=== PATIENT | female | born 1955 | race African-American/Black ===

== ENCOUNTER 2025-06-06 12:21 | Emergency (ER) | payer MEDICARE, MEDICAID, SELFPAY ==
--- OUTSIDE RECORDS SUMMARY | 2010-05-09 08:00 | XMS_ITS | Continuity of Care Document ---
Author Organization [facility] Address [address] [place] [address] [address] [place] [address] Phone Care Team Providers Care Nurse Midwife Name Role Phone Sayra Ramirez Unavailable Unavailable Procedures Procedure Date Visual Field Examination(s) Office/outpatient Visit, Est Visual Field Examination(s) Eye Exam, New Patient Advance Directives Directive Yes / No Effective Date File Name No Information Encounters Encounter Description Practice Location Reason(s) For Visit Diagnoses Date Provider Providers Copied on Encounter [facility], [address] [place] [address] [address], [place], [place], [address], [place] tel:[phone] SEC [facility] No Information 2-201 0 Ashley Colbert. [address] [facility] [place] , [address], [place], [place], [facility], [place]. tel:[phone] Referring Provider: Alex Nichols OD D, [address] [facility], [place], [address]. tel:[phone] Office/outpat ient Visit, Est [facility], [address] [place] [address] [address], [place], [place], [address], [place] tel:[phone] SEC [facility] [place] No Information 5-200 7 Ashley Juan [address] [facility] [place] , [address], [place], [address], [place]. tel:[phone] [facility], [address] [place] [address] [address], [place], [place], [address], [place] tel:[phone] SEC [facility] No Information 200 7 Ashley Colbert. [address] [facility] , [address], [place], [address], . tel:[phone] Referring Provider: Sukumar Harman [facility] [address], [place], [facility]. tel:[phone] [facility], [address] [place] [address], [place], [place], [address], tel:[phone] SEC [facility] [place] No Information 7 Ashley Colbert. [address] [facility] , [address], [place], [address], . tel:[phone] Family History Family Member Type Diagnosis Age At Onset No Information Payers Payer name Insurance type Covered republican ID Authoriza tion(s) Medicaid [facility] [id number] Social History Type Description Quantity Date Captured Comments Sex Female Smoking Status No Information Chief Complaint And Reason For Visit No Information Reason For Referral Reason For Referral No Information History Of Present Illness Encounter Date Complaint History Of Prese nt Illness No Information Functional Status Date Functional Assessmen t No Information Instructions Date Instruction Additional Infor mation No Information Assessments Type Assessment Date No Information Patient Care Teams Name Effective Dates (start - stop) Status Members No Information
--- OUTSIDE RECORDS SUMMARY | 2010-05-09 08:00 | XMS_ITS | Continuity of Care Document ---
Author Organization [facility] Address [address] [place] [address] [address] [place] [address] Phone Care Team Providers Care Irrigationist Name Role Phone Sayra Ramirez Unavailable Unavailable Procedures Procedure Date Visual Field Examination(s) Office/outpatient Visit, Est Visual Field Examination(s) Eye Exam, New Patient Advance Directives Directive Yes / No Effective Date File Name No Information Encounters Encounter Description Practice Location Reason(s) For Visit Diagnoses Date Provider Providers Copied on Encounter [facility], [address] [place] [address] [address], [place], [place], [address], [place] tel:[phone] SEC [facility] No Information 2-201 0 Ashley Colbert. [address] [facility] [place] , [address], [place], [place], [facility], [place]. tel:[phone] Referring Provider: Alex Nichols OD D, [address] [facility], [place], [address]. tel:[phone] Office/outpat ient Visit, Est [facility], [address] [place] [address] [address], [place], [place], [address], [place] tel:[phone] SEC [facility] [place] No Information 5-200 7 Ashley Juan [address] [facility] [place] , [address], [place], [address], [place]. tel:[phone] [facility], [address] [place] [address] [address], [place], [place], [address], [place] tel:[phone] SEC [facility] No Information 200 7 Ashley Colbert. [address] [facility] , [address], [place], [address], . tel:[phone] Referring Provider: Sukumar Harman [facility] [address], [place], [facility]. tel:[phone] [facility], [address] [place], [place], [place], [address], tel:[phone] SEC [facility] [place] No Information 7 Ashley Colbert. [address] [facility] , [address], [place], [address], . tel:[phone] Family History Family Member Type Diagnosis Age At Onset No Information Payers Payer name Insurance type Covered republican ID Authoriza tion(s) Medicaid [facility] [id number] Social History Type Description Quantity Date Captured [...]
--- OUTSIDE RECORDS SUMMARY | 2010-05-09 08:00 | XMS_ITS | Continuity of Care Document ---
Author Organization [facility] Address [address] [place] [address] [address] [place] [address] Phone Care Team Providers Care Galvanometer Assembler Name Role Phone Sayra Ramirez Unavailable Unavailable Procedures Procedure Date Visual Field Examination(s) Office/outpatient Visit, Est Visual Field Examination(s) Eye Exam, New Patient Advance Directives Directive Yes / No Effective Date File Name No Information Encounters Encounter Description Practice Location Reason(s) For Visit Diagnoses Date Provider Providers Copied on Encounter [facility], [address] [place] [address] [address], [place], [place], [address], [place] tel:[phone] SEC [facility] No Information 2-201 0 Ashley Colbert. [address] [facility] [place] , [address], [place], [place], [facility], [place]. tel:[phone] Referring Provider: Alex Nichols OD D, [address] [place] [facility] C, [place], [address]. tel:[phone] Office/outpat ient Visit, Est [facility], [address] [place] [address] [address], [place], [place], [address], [place] tel:[phone] SEC [facility] [place] No Information 5-200 7 Ashley Juan [address] [facility] [place] , [address], [place], [address], [place]. tel:[phone] [facility], [address] [place] [address] [address], [place], [place], [address], [place] tel:[phone] SEC [facility] No Information 200 7 Ashley Colbert. [address] [facility] , [address], [place], [address], . tel:[phone] Referring Provider: Sukumar Harman [facility] [address], [place], [facility]. tel:[phone] [facility], [address], [place], [place], [address], tel:[phone] SEC [facility] [place] No Information 7 Ashley Colbert. [address] [facility] , [address], [place], [address], . tel:[phone] Family History Family Member Type Diagnosis Age At Onset No Information Payers Payer name Insurance type Covered libertarian ID Authoriza tion(s) Medicaid [facility] [id number] Social History Type Description Quantity Date Captured [...]
--- OUTSIDE RECORDS SUMMARY | 2010-05-09 08:00 | XMS_ITS | Continuity of Care Document ---
Author Organization [facility] Address [address] [place] [address] [address] [place] [address] Phone Care Team Providers Care Manager Housekeeping Name Role Phone Sayra Ramirez Unavailable Unavailable Procedures Procedure Date Visual Field Examination(s) Office/outpatient Visit, Est Visual Field Examination(s) Eye Exam, New Patient Advance Directives Directive Yes / No Effective Date File Name No Information Encounters Encounter Description Practice Location Reason(s) For Visit Diagnoses Date Provider Providers Copied on Encounter [facility], [address] [place] [address] [address], [place], [place], [address], [place] tel:[phone] SEC [facility] No Information 2-201 0 Ashley Colbert. [address] [facility] [place] , [address], [place], [place], [facility], [place]. tel:[phone] Referring Provider: Alex Nichols OD D, [address] [facility] C, [place], [address]. tel:[phone] Office/outpat ient Visit, Est [facility], [address] [place] [address] [address], [place], [place], [address], [place] tel:[phone] SEC [facility] [place] No Information 5-200 7 Ashley Juan [address] [facility] [place] , [address], [place], [address], [place]. tel:[phone] [facility], [address] [place] [address] [address], [place], [place], [address], [place] tel:[phone] SEC [facility] No Information 200 7 Ashley Colbert. [address] [facility] , [address], [place], [address], . tel:[phone] Referring Provider: Sukumar Harman [facility] [address], [place], [place], [facility]. tel:[phone] [facility], [address], [place], [place], [address], tel:[phone] SEC [facility] [place] No Information 7 Ashley Colbert. [address] [facility] , [address], [place], [address], . tel:[phone] Family History Family Member Type Diagnosis Age At Onset No Information Payers Payer name Insurance type Covered republican ID Authoriza tion(s) Medicaid [facility] [id number] Social History Type Description Quantity Date Captured [...]
--- OUTSIDE RECORDS SUMMARY | 2010-05-09 08:00 | XMS_ITS | Continuity of Care Document ---
Author Organization [facility] Address [address] [place] [address] [address] [place] [address] Phone Care Team Providers Care Community Health Nurse Supervisor Name Role Phone Sayra Ramirez Unavailable Unavailable Procedures Procedure Date Visual Field Examination(s) Office/outpatient Visit, Est Visual Field Examination(s) Eye Exam, New Patient Advance Directives Directive Yes / No Effective Date File Name No Information Encounters Encounter Description Practice Location Reason(s) For Visit Diagnoses Date Provider Providers Copied on Encounter [facility], [address] [place] [address] [address], [place], [place], [address], [place] tel:[phone] SEC [facility] No Information 2-201 0 Ashley Colbert. [address] [facility] [place] , [address], [place], [place], [facility], [place]. tel:[phone] Referring Provider: Alex Nichols OD D, [address] [facility] C, [place], [address]. tel:[phone] Office/outpat ient Visit, Est [facility], [address] [place] [address] [address], [place], [place], [address], [place] tel:[phone] SEC [facility] [place] No Information 5-200 7 Ashley Juan [address] [facility] [place] , [address], [place], [address], [place]. tel:[phone] [facility], [address] [place] [address] [address], [place], [place], [address], [place] tel:[phone] SEC [facility] No Information 200 7 Ashley Colbert. [address] [facility] , [address], [place], [address], . tel:[phone] Referring Provider: Sukumar Harman [facility] [address], [place], [place], [facility] [place] [facility]. tel:[phone] [facility], [address], [place], [place], [address], tel:[phone] SEC [facility] [place] No Information 7 Ashley Colbert. [address] [facility] , [address], [place], [address], . tel:[phone] Family History Family Member Type Diagnosis Age At Onset No Information Payers Payer name Insurance type Covered libertarian ID Authoriza tion(s) Medicaid [facility] [id number] Social History Type Description Quantity Date Captured [...]
--- OUTSIDE RECORDS SUMMARY | 2010-05-09 08:00 | XMS_ITS | Continuity of Care Document ---
Author Organization [facility] Address [address] [place] [address] [address] [place] [address] Phone Care Team Providers Care Dye Tub Tender Name Role Phone Sayra Ramirez Unavailable Unavailable Procedures Procedure Date Visual Field Examination(s) Office/outpatient Visit, Est Visual Field Examination(s) Eye Exam, New Patient Advance Directives Directive Yes / No Effective Date File Name No Information Encounters Encounter Description Practice Location Reason(s) For Visit Diagnoses Date Provider Providers Copied on Encounter [facility], [address] [place] [address] [address], [place], [place], [address], [place] tel:[phone] SEC [facility] No Information 2-201 0 Ashley Colbert. [address] [facility] [place] , [address], [place], [place], [facility], [place]. tel:[phone] Referring Provider: Alex Nichols OD D, [address] [facility] C, [place], [address]. tel:[phone] Office/outpat ient Visit, Est [facility], [address] [place] [address] [address], [place], [place], [address], [place] tel:[phone] SEC [facility] [place] No Information 5-200 7 Ashley Juan [address] [facility] [place] , [address], [place], [address], [place]. tel:[phone] [facility], [address] [place] [address] [address], [place], [place], [address], [place] tel:[phone] SEC [facility] No Information 200 7 Ashley Colbert. [address] [facility] , [address], [place], [address], . tel:[phone] Referring Provider: Sukumar Harman [facility] [address], [place], [facility]. tel:[phone] [facility], [address] [place] [address], [place], [place], [address], tel:[phone] [facility] [place] No Information 7 Ashley Colbert. [address] [facility] , [address], [place], [address], . tel:[phone] Family History Family Member Type Diagnosis Age At Onset No Information Payers Payer name Insurance type Covered democrat ID Authoriza tion(s) Medicaid [facility] [id number] Social History Type Description Quantity Date Captured [...]
--- OUTSIDE RECORDS SUMMARY | 2010-05-09 08:00 | XMS_ITS | Continuity of Care Document ---
Author Organization [facility] Address [address] [place] [address] [address] [place] [address] Phone Care Team Providers Care Bonding Machine Tender Name Role Phone Sayra Ramirez Unavailable Unavailable Procedures Procedure Date Visual Field Examination(s) Office/outpatient Visit, Est Visual Field Examination(s) Eye Exam, New Patient Advance Directives Directive Yes / No Effective Date File Name No Information Encounters Encounter Description Practice Location Reason(s) For Visit Diagnoses Date Provider Providers Copied on Encounter [facility], [address] [place] [address] [address], [place], [place], [address], [place] tel:[phone] SEC [facility] No Information 2-201 0 Ashley Colbert. [address] [facility] [place] , [address], [place], [place], [facility], [place]. tel:[phone] Referring Provider: Alex Nichols OD D, [address] [facility], [place], [address]. tel:[phone] Office/outpat ient Visit, Est [facility], [address] [place] [address] [address], [place], [place], [address], [place] tel:[phone] SEC [facility] [place] No Information 5-200 7 Ashley Juan [address] [facility] [place] , [address], [place], [address], [place]. tel:[phone] [facility], [address] [place] [address] [address], [place], [place], [address], [place] tel:[phone] SEC [facility] No Information 200 7 Ashley Colbert. [address] [facility] , [address], [place], [address], . tel:[phone] Referring Provider: Sukumar Harman [facility] [address], [place], [facility]. tel:[phone] [facility], [address] [place] [address], [place], [place], [address], tel:[phone] SEC [facility] [place] No Information 7 Ashley Colbert. [address] [facility] , [address], [place], [address], . tel:[phone] Family History Family Member Type Diagnosis Age At Onset No Information Payers Payer name Insurance type Covered democrat ID Authoriza tion(s) Medicaid [facility] [id number] Social History Type Description Quantity Date Captured [...]
--- OUTSIDE RECORDS SUMMARY | 2010-05-09 08:00 | XMS_ITS | Continuity of Care Document ---
Author Organization [facility] Address [address] [place] [address] [address] [place] [address] Phone Care Team Providers Care Waste Hand Name Role Phone Sayra Ramirez Unavailable Unavailable Procedures Procedure Date Visual Field Examination(s) Office/outpatient Visit, Est Visual Field Examination(s) Eye Exam, New Patient Advance Directives Directive Yes / No Effective Date File Name No Information Encounters Encounter Description Practice Location Reason(s) For Visit Diagnoses Date Provider Providers Copied on Encounter [facility], [address] [place] [address] [address], [place], [place], [address], [place] tel:[phone] SEC [facility] No Information 2-201 0 Ashley Colbert. [address] [facility] [place] , [address], [place], [place], [facility], [place]. tel:[phone] Referring Provider: Alex Nichols OD D, [address] [facility], [place], [address]. tel:[phone] Office/outpat ient Visit, Est [facility], [address] [place] [address] [address], [place], [place], [address], [place] tel:[phone] SEC [facility] [place] No Information 5-200 7 Ashley Juan [address] [facility] [place] , [address], [place], [address], [place]. tel:[phone] [facility], [address] [place] [address] [address], [place], [place], [address], [place] tel:[phone] SEC [facility] No Information 200 7 Ashley Colbert. [address] [facility] , [address], [place], [address], . tel:[phone] Referring Provider: Sukumar Harman [facility] [address], [place], [facility]. tel:[phone] [facility], [address] [place] [address], [place], [place], [address], tel:[phone] SEC [facility] [place] No Information 7 Ashley Colbert. [address] [facility] , [address], [place], [address], . tel:[phone] Family History Family Member Type Diagnosis Age At Onset No Information Payers Payer name Insurance type Covered alliance party ID Authoriza tion(s) Medicaid [facility] [id number] Social History Type Description Quantity Date Captured [...]
--- OUTSIDE RECORDS SUMMARY | 2010-05-09 08:00 | XMS_ITS | Continuity of Care Document ---
Author Organization [facility] Address [address] [place] [address] [address] [place] [address] Phone Care Team Providers Care C Consultant Name Role Phone Sayra Ramirez Unavailable Unavailable Procedures Procedure Date Visual Field Examination(s) Office/outpatient Visit, Est Visual Field Examination(s) Eye Exam, New Patient Advance Directives Directive Yes / No Effective Date File Name No Information Encounters Encounter Description Practice Location Reason(s) For Visit Diagnoses Date Provider Providers Copied on Encounter [facility], [address] [place] [address] [address], [place], [place], [address], [place] tel:[phone] SEC [facility] No Information 2-201 0 Ashley Colbert. [address] [facility] [place] , [address], [place], [place], [facility], [place]. tel:[phone] Referring Provider: Alex Nichols OD D, 35[address] [facility] C, [place], [address]. tel:[phone] Office/outpat ient Visit, Est [facility], [address] [place] [address] [address], [place], [place], [address], [place] tel:[phone] SEC [facility] [place] No Information 5-200 7 Ashley Juan [address] [facility] [place] , [address], [place], [address], [place]. tel:[phone] [facility], [address] [place] [address] [address], [place], [place], [address], [place] tel:[phone] SEC [facility] No Information 200 7 Ashley Colbert. [address] [facility] , [address], [place], [address], . tel:[phone] Referring Provider: Sukumar Harman [facility] [address], [place], [place], [facility]. tel:[phone] [facility], [address] [place] [address], [place], [place], [address], tel:[phone] SEC [facility] [place] No Information 7 Ashley Colbert. [address] [facility] , [address], [place], [address], . tel:[phone] Family History Family Member Type Diagnosis Age At Onset No Information Payers Payer name Insurance type Covered green party ID Authoriza tion(s) Medicaid [facility] [id number] Social History Type Description Quantity Date Captured [...]
--- OUTSIDE RECORDS SUMMARY | 2010-05-09 08:00 | XMS_ITS | Continuity of Care Document ---
Author Organization [facility] Address [address] [place] [address] [address] [place] [address] Phone Care Team Providers Care Perfume Maker Name Role Phone Sayra Ramirez Unavailable Unavailable Procedures Procedure Date Visual Field Examination(s) Office/outpatient Visit, Est Visual Field Examination(s) Eye Exam, New Patient Advance Directives Directive Yes / No Effective Date File Name No Information Encounters Encounter Description Practice Location Reason(s) For Visit Diagnoses Date Provider Providers Copied on Encounter [facility], [address] [place] [address] [address], [place], [place], [address], [place] tel:[phone] SEC [facility] No Information 2-201 0 Ashley Colbert. [address] , [address], [place], [place], [facility], [place]. tel:[phone] Referring Provider: Alex Nichols OD D, [address] [facility] [address], [place], [address]. tel:[phone] Office/outpat ient Visit, Est [facility], [address] [place] [address] [address], [place], [place], [address], [place] tel:[phone] [facility] [place] No Information 5-200 7 Ashley Juan [address] , [address], [place], [address], [place]. tel:[phone] [facility], [address] [place] [address] [address], [place], [place], [address], [place] tel:[phone] SEC [facility] No Information 200 7 Ashley Colbert. [address] [facility] , [address], [place], [address], . tel:[phone] Referring Provider: Sukumar Harman [facility] [address], [place], [place], [facility]. tel:[phone] [facility], [address], [place], [place], [address], tel:[phone] [facility] [place] No Information 7 Ashley Colbert. [address] [facility] , [address], [place], [address], . tel:[phone] Family History Family Member Type Diagnosis Age At Onset No Information Payers Payer name Insurance type Covered libertarian ID Authoriza tion(s) Medicaid [facility] [id number] Social History Type Description Quantity Date Captured [...]
--- OUTSIDE RECORDS SUMMARY | 2010-05-09 08:00 | XMS_ITS | Continuity of Care Document ---
Author Organization [facility] Address [address] [place] [address] [address] [place] [address] Phone Care Team Providers Care Form Tamper Name Role Phone Sayra Ramirez Unavailable Unavailable Procedures Procedure Date Visual Field Examination(s) Office/outpatient Visit, Est Visual Field Examination(s) Eye Exam, New Patient Advance Directives Directive Yes / No Effective Date File Name No Information Encounters Encounter Description Practice Location Reason(s) For Visit Diagnoses Date Provider Providers Copied on Encounter [facility], [address] [place] [address] [address], [place], [place], [address], [place] tel:[phone] SEC [facility] No Information 2-201 0 Ashley Colbert. [address] , [address], [place], [place], [facility], [place]. tel:[phone] Referring Provider: Alex Nichols OD D, [address] [facility], [place], [address]. tel:[phone] Office/outpat ient Visit, Est [facility], [address] [place] [address] [address], [place], [place], [address], [place] tel:[phone] [facility] [place] No Information 5-200 7 Ashley Juan [address] , [address], [place], [address], [place]. tel:[phone] [facility], [address] [place] [address] [address], [place], [place], [address], [place] tel:[phone] SEC [facility] No Information 200 7 Ashley Colbert. [address] [facility] , [address], [place], [address], . tel:[phone] Referring Provider: Sukumar Harman [facility] [address], [place], [facility]. tel:[phone] [facility], [address], [place], [place], [address], tel:[phone] [facility] [place] No Information 7 Ashley Colbert. [address] [facility] , [address], [place], [address], . tel:[phone] Family History Family Member Type Diagnosis Age At Onset No Information Payers Payer name Insurance type Covered alliance party ID Authoriza tion(s) Medicaid [facility] [id number] Social History Type Description Quantity Date Captured [...]
--- OUTSIDE RECORDS SUMMARY | 2010-05-09 08:00 | XMS_ITS | Continuity of Care Document ---
Author Organization [facility] Address [address] [place] [address] [address] [place] [address] Phone Care Team Providers Care Customer Service Cashier Name Role Phone Sayra Ramirez Unavailable Unavailable Procedures Procedure Date Visual Field Examination(s) Office/outpatient Visit, Est Visual Field Examination(s) Eye Exam, New Patient Advance Directives Directive Yes / No Effective Date File Name No Information Encounters Encounter Description Practice Location Reason(s) For Visit Diagnoses Date Provider Providers Copied on Encounter [facility], [address] [place] [address] [address], [place], [place], [address], [place] tel:[phone] SEC [facility] No Information 2-201 0 Ashley Colbert. [address] [facility] [place] , [address], [place], [place], [facility], [place]. tel:[phone] Referring Provider: Alex Nichols OD D, [address] [facility] [address], [place], [address]. tel:[phone] Office/outpat ient Visit, Est [facility], [address] [place] [address] [address], [place], [place], [address], [place] tel:[phone] SEC [facility] [place] No Information 5-200 7 Ashley Juan [address] [facility] [place] , [address], [place], [address], [place]. tel:[phone] [facility], [address] [place] [address] [address], [place], [place], [address], [place] tel:[phone] SEC [facility] No Information 200 7 Ashley Colbert. [address] [facility] , [address], [place], [address], . tel:[phone] Referring Provider: Sukumar Harman [facility] [address], [place], [facility]. tel:[phone] [facility], [address], [place], [place], [address], tel:[phone] [facility] [place] No Information 7 Ashley Colbert. [address] [facility] , [address], [place], [address], . tel:[phone] Family History Family Member Type Diagnosis Age At Onset No Information Payers Payer name Insurance type Covered libertarian ID Authoriza tion(s) Medicaid [facility] [id number] Social History Type Description Quantity Date Captured [...]
--- OUTSIDE RECORDS SUMMARY | 2010-05-09 08:00 | XMS_ITS | Continuity of Care Document ---
Author Organization [facility] Address [address] [place] [address] [address] [place] [address] Phone Care Team Providers Care Engineer Second Assistant Name Role Phone Sayra Ramirez Unavailable Unavailable Procedures Procedure Date Visual Field Examination(s) Office/outpatient Visit, Est Visual Field Examination(s) Eye Exam, New Patient Advance Directives Directive Yes / No Effective Date File Name No Information Encounters Encounter Description Practice Location Reason(s) For Visit Diagnoses Date Provider Providers Copied on Encounter [facility], [address] [place] [address] [address], [place], [place], [address], [place] tel:[phone] SEC [facility] No Information 2-201 0 Ashley Colbert. [address] [facility] [place] , [address], [place], [place], [facility], [place]. tel:[phone] Referring Provider: Alex Nichols OD D, [address] [facility] [address], [place], [address]. tel:[phone] Office/outpat ient Visit, Est [facility], [address] [place] [address] [address], [place], [place], [address], [place] tel:[phone] [facility] [place] No Information 5-200 7 Ashley Juan [address] [facility] [place] , [address], [place], [address], [place]. tel:[phone] [facility], [address] [place] [address] [address], [place], [place], [address], [place] tel:[phone] SEC [facility] No Information 200 7 Ashley Colbert. [address] [facility] , [address], [place], [address], . tel:[phone] Referring Provider: Sukumar Harman [facility] [address], [place], [place], [facility]. tel:[phone] [facility], [address] [place] [address], [place], [place], [address], tel:[phone] [facility] [place] No Information 7 Ashley Colbert. [address] [facility] , [address], [place], [address], . tel:[phone] Family History Family Member Type Diagnosis Age At Onset No Information Payers Payer name Insurance type Covered constitution party ID Authoriza tion(s) Medicaid [facility] [id number] Social History Type Description Quantity Date Captured [...]
--- OUTSIDE RECORDS SUMMARY | 2024-10-13 08:00 | XMS_ITS ---
Author Organization [facility] Address [address] [place] [address] Care Team Providers Care Electrician Shop Name Role Phone Henri Neno Unavailable [phone] Problems Problem Type SNOMED Code ICD Code Onset Dates Problem Status W/U Status Risk Notes Problem Diabetic renal disease (846464699) Type 2 diabetes mellitus with diabetic chronic kidney disease (E11.22) Active confirmed Problem Essential hypertension (08632797) Essential hypertension (I10) Active confirmed Problem Tobacco use (659982123) Tobacco use (Z72.0) Active confirmed Problem Coronary artery disease (45065878) CAD (coronary artery disease) (I25.10) Active confirmed Problem Blindness, one eye, unspecified eye (H54.40) Active confirmed Problem Acute bronchitis (76248590) Acute bronchitis, unspecified (J20.9) Active confirmed Problem Heart failure (36008969) Heart failure, unspecified (I50.9) Active confirmed Problem Proteinuria (24623559) Proteinuria, unspecified (R80.9) Active confirmed Encounters Encounter Location Date Provider Diagnosis [place] [facility] [address] [facility] [address] [place] [address] 10/13/2024 Neno Álvarez Chronic kidney disease, stage [...] Notes * TYLER ECKERTB:1955 (69 yo F)Acc No.[id number]:10/13/2024 Progress Notes Patient: SALAS CH Provider: Ebony PULIDO MD, F.A.C.P, F.A.S.N. :1955 A ge:69 Y S ex:Female Date:10/13/2024 Address:[address] [place] [address] Subjective: * Chief Complaints: * * Medical [...] Treatment: * Billing Information: * Visit Code: 94002 Office Visit, New Pt., Level 5. * Procedure Codes: * Electronic signature of Kate Álvarez MD on 06/07/2025 at 12:36 AM INVENTORY CONTROL PLANNER Sign off status: Pending * Provider: Ebony PULIDO MD, F.A.C.P, F.A.S.N. Date: 0 10/13/2024 Generated for Printing/Faxing/eTransmitting on: 1 08/07/2024 12:36 AM INVENTORY CONTROL PLANNER
--- OUTSIDE RECORDS SUMMARY | 2024-11-03 07:30 | XMS_ITS ---
Author Organization [facility] Address [address] [place] [address] Care Team Providers Care End Lathe Operator Name Role Phone Henri Neno Unavailable [phone] Encounters Encounter Location Date Provider Diagnosis [place] [facility] [address] [facility] [address] [place] [address] 11/03/2024 Neno Álvarez Plan Of Treatment No Information Progress Notes * HANS ECKERTADOB:1955 (69 yo F)Acc No.[id number]:11/03/2024 Progress Notes Patient: SALAS CH Provider: Ebony PULIDO MD, Stephanie.Jhonatan.C.P, F.A.S.N. :1955 A ge:69 Y S ex:Female Date:11/03/2024 Address:[address] [place], [place] [phone] Subjective: * Chief Complaints: * * Medical History: Objective: * Vitals: Assessment: Plan: * Treatment: * Billing Information: * Visit Code: * Procedure Codes: * Electronic signature of Kate Álvarez MD on 06/07/2025 at 12:36 AM CABLE TECHNICIAN Sign off status: Pending * Provider: Ebony PULIDO MD, F.Jhonatan.C.P, F.A.S.N. Date: 0 11/03/2024 Generated for Printing/Faxing/eTransmitting on: 08/07/2024 12:36 AM CABLE TECHNICIAN
--- OUTSIDE RECORDS SUMMARY | 2024-11-24 07:00 | XMS_ITS ---
Author Organization [facility] Address [address] [address] Care Team Providers Care Blacktop Paver Operator Name Role Phone Felix Álvarezjit Unavailable [phone] Problems Problem Type SNOMED Code ICD Code Onset Dates Problem Status W/U Status Risk Notes Problem Chronic kidney disease stage 2 (013417953) Chronic kidney disease, stage 2 (mild) (N18.2) Active confirmed Encounters Encounter Location Date Provider Diagnosis [place] [facility] 2043 [facility] 15 [place] [address] 11/24/2024 Neno Álvarez Chronic kidney disease, stage [...] Notes * HANS ECKERTADOB:1955 (69 yo F)Acc No.[id number]:11/24/2024 Progress Notes Patient: SALAS CH Provider: Ebony PULIDO MD, Stephanie.Jhonatan.Madelin.P, F.A.S.N. :1955 A ge:69 Y S ex:Female Date:11/24/2024 Address:[address] [place], [place] [phone] Subjective: * Chief Complaints: * * Medical [...] Treatment: * Billing Information: * Visit Code: 59451 Office Visit, Est Pt., Level 4. * Procedure Codes: * Electronic signature of Kate Álvarez MD on 06/07/2025 at 12:34 AM LITHOGRAPHIC STRIPPER Sign off status: Pending * Provider: Ebony PULIDO MD, F.Jhonatan.C.P, F.A.S.N. Date: 0 11/24/2024 Generated for Printing/Faxing/eTransmitting on: 08/07/2024 12:34 AM LITHOGRAPHIC STRIPPER
--- OUTSIDE RECORDS SUMMARY | 2025-04-28 04:51 | XMS_ITS | Continuity of Care Document ---
Author Organization [facility] Address [address] [place] [phone] Phone Care Team Providers Care Stave Machine Tender Name Role Phone Donny AGUILAR, FACC, Gomez Unavailable Unavail able Allergies, Adverse Reactions, Alerts Substance Reaction Status Criticality PENICILLIN Active No Information Medications Medication Instructions Dosage Effective Dates (start - stop) Status Comments metoprolol succinate ER 200 mg tablet,extended release 24 hr Take 1 pill once daily - Active Entresto 97 mg-103 mg tablet take 1 tablet by mouth twice daily - Active atorvastatin 80 mg tablet Take one tablet once daily at night - Active ezetimibe 10 mg tablet TAKE 1 TABLET BY MOUTH EVERY DAY - Active isosorbide mononitrate ER 30 mg tablet,extended release 24 hr TAKE 1 TABLET BY MOUTH DAILY - Active amitriptyline 75 mg tablet TAKE 1 TABLET BY MOUTH EVERY DAY AT BEDTIME - Active amoxicillin 500 mg capsule TAKE 1 CAPSULE BY MOUTH FOUR TIMES DAILY UNTIL ALL TAKEN - Active clindamycin HCl 300 mg capsule - Active ciprofloxacin 500 mg tablet TAKE 1 TABLET BY MOUTH TWICE DAILY FOR 7 DAYS - Active methylprednisolone 4 mg tablets in a dose pack - Active zolpidem 5 mg tablet - Activ e duloxetine 30 mg capsule,delayed release - Active diclofenac 1 % topical gel - Active rizatriptan 10 mg disintegrating tablet DISSOLVE 1 TABLET ON THE TONGUE 1 TIME NEEDED FOR MIGRAINE HEADACHE - Active pregabalin 100 mg capsule - Active calcitriol 0.25 mcg capsule TAKE 1 CAPSULE BY MOUTH DAILY - Active amlodipine 10 mg tablet - Ac tive insulin glargine-yfgn (U-100) 100 unit/mL (3 mL) subcutaneous pen INJECT 40 UNITS UNDER THE SKIN AT BEDTIME - Active metoclopramide 10 mg tablet - Active furosemide 40 mg tablet - Ac tive Farxiga 10 mg tablet TAKE 1 TABLET BY MOUTH DAILY - Active benzonatate 100 mg capsule TAKE 1 CAPSULE BY MOUTH THREE TIMES DAILY NEEDED FOR COUGH - Active levofloxacin 750 mg tablet - Active furosemide 20 mg tablet TAKE 1 TABLET BY MOUTH EVERY DAY - Active spironolactone 25 mg tablet TAKE 1 TABLET BY MOUTH EVERY DAY - Active tramadol 50 mg tablet TAKE 1 TABLET BY MOUTH EVERY 6 HOURS NEEDED FOR PAIN - Active metoprolol succinate ER 200 mg tablet,extended release 24 hr Take 1 pill once daily - No Longer Active Procedures Procedure Date Complex e/m visit add on OFFICE/OUTPATIENT VISIT, NEW ELECTROCARDIOGRAM, COMPLETE CARDIOVASCULAR STRESS TEST CARDIOVASCULAR STRESS TEST [facility]SEQU[facility]PITAL CARE IN[facility]IAL HOSPITAL CARE Advance Directives Directive Yes / No Effective Date File Name No Information Encounters Encounter Description Practice Location Reason(s) For Visit Diagnoses Date Provider Providers Copied on Encounter [facility], [address] [place] [address], [id number] , tel: [phone] [facility] Yasmine No Information Donny Dyer. [address] [place] [address], [place], [place], [id number] , . tel: [phone] [facility], [address] [place] [address], [id number] , tel: [phone] [facility] No Information 5 Donny Dyer. [address] [place] [address], [id number] , . tel: [phone] OFFICE/OUTPA TIENT VISIT, [facility], [address] [place] [address], [id number] , tel: [phone] [facility] Follow Up of hospital visit (chief complaint) chest pain (pressure) (chief complaint) CAD of [place] coronary artery w/o angina pectorisType 2 diabetes mellitus without complicationsHyperlip idemiaHTNCHFSinusal tachycardiaCardiomyop athyTobacco use 5 Donny Dyer. [address] [place] [address], [id number] , . tel: [phone] Referring Provider: Gomez Hines, [address] [place] [address], [place], [address] . tel:[phone] [facility], [address] [place] [address], [id number] , tel: [phone] [facility] No Information 5 Maria T Patiño. [address] [place] [address], [id number] , . tel: [phone] Referring Provider: Haroon Live, [address] [place] [address], [id number] . tel:[phone] [facility], [address] [place] [address], [id number] , tel: [phone] [facility] Inpt Chest pain, unspecifiedAthscl heart disease of [place] cor art w oth ang pctrsEssential (primary) hypertension 5 Maria T Patiño. [address] [place] [address], [id number] , . tel: [phone] Referring Provider: Jerry Crespo, [address] [place], [address] . tel:[phone] [facility], [address] [facility], [place], [place], [id number] , tel: [phone] [facility] Inpt Chest pain, unspecifiedAthscl heart disease of [place] cor art w oth ang pctrsEssential (primary) hypertension Ramadan Jose Angel. [address] [place] [address], [place], [place], [id number] , [place]. tel: [phone] Family History Family Member Type Diagnosis Age At Onset Mother Problem (finding) Heart disease Payers Payer name Insurance type Covered constitution party ID Authoralyxa miguel ángel(s) [facility] COMPLETE CARE 001A O C [id number] Social History Type Description Quantity Date Captured Comments Sex Female Smoking Status No Information Chief Complaint And Reason For Visit No Information Reason For Referral Reason For Referral No Information Plan Of Treatment Date Type Action Status Appointment Mirela Leon BOOKED History Of Present Illness Encounter Date Complaint History Of Prese nt Illness Follow Up of hospital visit chest pain (pressure) Functional Status Date Functional Assessmen t No Information Instructions Date Instruction Additional Infor mation No Information Assessments Type Assessment Date No Information Patient Care Teams Name Effective Dates (start - stop) Status Members No Information
--- OUTSIDE RECORDS SUMMARY | 2025-04-28 04:51 | XMS_ITS | Continuity of Care Document ---
Author Organization [facility] Address [address] [place] [phone] Phone Care Team Providers Care Skip Hoist Operator Name Role Phone Donny AGUILAR, FACC, Gomez [...] Diagnoses Date Provider Providers Copied on Encounter [facility], [address] [place] [address], [id number] , tel: [phone] [facility] Yasmine No Information Donny Dyer. [address] [place] [address], [place], [place], [id number] , . tel: [phone] [facility], [address] [place] [address], [id number] , tel: [phone] [facility] No Information 5 Donny Dyer. [address] [place] [address], [id number] , . tel: [phone] OFFICE/OUTPA TIENT VISIT, [facility], [address] [place] [address], [id number] , tel: [phone] [facility] Follow Up of hospital visit (chief complaint) chest pain (pressure) (chief complaint) CAD of [place] coronary artery w/o angina pectorisType 2 diabetes mellitus without complicationsHyperlip idemiaHTNCHFSinusal tachycardiaCardiomyop athyTobacco use 5 Donny Dyer. [address] [place] [address], [id number] , . tel: [phone] Referring Provider: Gomez Hines, [address] [place] [address], [place], [address] . tel:[phone] [facility], [address] [place] [address], [id number] , tel: [phone] [facility] No Information 5 Maria T Patiño. [address] [place] [address], [id number] , . tel: [phone] Referring Provider: Haroon Live, [address] [place] [address], [address] . tel:[phone] [facility], [address] [place] [address], [id number] , tel: [phone] [facility] Inpt Chest pain, unspecifiedAthscl heart disease of [place] cor art w oth ang pctrsEssential (primary) hypertension 5 Maria T Patiño. [address] [place] [address], [id number] , . tel: [phone] Referring Provider: Jerry Crespo, [address] [place], [address] . tel:[phone] [facility], [address] [facility], [place], [place], [id number] , tel: [phone] [facility] Inpt Chest pain, unspecifiedAthscl heart disease of [place] cor art w oth ang pctrsEssential (primary) hypertension Ramadan Jose Angel. [address] [place] [address], [place], [place], [id number] , [place]. tel: [phone] Family History Family Member Type Diagnosis Age At Onset Mother Problem (finding) Heart disease Payers Payer name Insurance type Covered constitution party ID Authoralyxa miguel ángel(s) [facility] COMPLETE CARE 001A O C [id number] Social History Type Description Quantity Date Captured [...]
--- OUTSIDE RECORDS SUMMARY | 2025-04-28 04:51 | XMS_ITS | Continuity of Care Document ---
Author Organization [facility] Address [address] [place] [phone] Phone Care Team Providers Care Senior Abap Developer Name Role Phone Donny AGUILAR, FACC, Gomez [...] Diagnoses Date Provider Providers Copied on Encounter [facility], [address] [place] [address], [id number] , tel: [phone] [facility] Yasmine No Information Donny Dyer. [address] [place] [address], [place], [place], [id number] , . tel: [phone] [facility], [address] [place] [address], [id number] , tel: [phone] [facility] No Information 5 Donny Dyer. [address] [place] [address], [id number] , . tel: [phone] OFFICE/OUTPA TIENT VISIT, [facility], [address] [place] [address], [id number] , tel: [phone] [facility] Follow Up of hospital visit (chief complaint) chest pain (pressure) (chief complaint) CAD of [place] coronary artery w/o angina pectorisType 2 diabetes mellitus without complicationsHyperlip idemiaHTNCHFSinusal tachycardiaCardiomyop athyTobacco use 5 Donny Dyer. [address] [place] [address], [id number] , . tel: [phone] Referring Provider: Gomez Hines, [address] [place] [address], [place], [address] . tel:[phone] [facility], [address] [place] [address], [id number] , tel: [phone] [facility] No Information 5 Maria T Patiño. [address] [place] [address], [id number] , . tel: [phone] Referring Provider: Haroon Live, [address] [place] [address], [address] . tel:[phone] [facility], [address] [place] [address], [id number] , tel: [phone] [facility] Inpt Chest pain, unspecifiedAthscl heart disease of [place] cor art w oth ang pctrsEssential (primary) hypertension 5 Maria T Patiño. [address] [place] [address], [id number] , . tel: [phone] Referring Provider: Jerry Crespo, [address] [place], [address] . tel:[phone] [facility], [address] [facility], [place], [place], [id number] , tel: [phone] [facility] Inpt Chest pain, unspecifiedAthscl heart disease of [place] cor art w oth ang pctrsEssential (primary) hypertension Ramadan Jose Angel. [address] [place] [address], [place], [place], [id number] , [place]. tel: [phone] Family History Family Member Type Diagnosis Age At Onset Mother Problem (finding) Heart disease Payers Payer name Insurance type Covered alliance party ID Authoralyxa miguel ángel(s) [facility] COMPLETE CARE 001A O C [id number] Social History Type Description Quantity Date Captured [...]
--- OUTSIDE RECORDS SUMMARY | 2025-04-28 04:51 | XMS_ITS | Continuity of Care Document ---
Author Organization [facility] Address [address] [place] [phone] Phone Care Team Providers Care Gunite Mixer Name Role Phone Donny AGUILAR, FACC, Gomez [...] Diagnoses Date Provider Providers Copied on Encounter [facility], [address] [place] [address], [id number] , tel: [phone] [facility] Yasmine No Information Donny Dyer. [address] [place] [address], [place], [place], [id number] , . tel: [phone] [facility], [address] [place] [address], [id number] , tel: [phone] [facility] No Information 5 Donny Dyer. [address] [place] [address], [id number] , . tel: [phone] OFFICE/OUTPA TIENT VISIT, [facility], [address] [place] [address], [id number] , tel: [phone] [facility] Follow Up of hospital visit (chief complaint) chest pain (pressure) (chief complaint) CAD of [place] coronary artery w/o angina pectorisType 2 diabetes mellitus without complicationsHyperlip idemiaHTNCHFSinusal tachycardiaCardiomyop athyTobacco use 5 Donny Dyer. [address] [place] [address], [id number] , . tel: [phone] Referring Provider: Gomez Hines, [address] [place] [address], [place], [address] . tel:[phone] [facility], [address] [place] [address], [id number] , tel: [phone] [facility] No Information 5 Maria T Patiño. [address] [place] [address], [id number] , . tel: [phone] Referring Provider: Haroon Live, [address] [place] [address], [address] . tel:[phone] [facility], [address] [place] [address], [id number] , tel: [phone] [facility] Inpt Chest pain, unspecifiedAthscl heart disease of [place] cor art w oth ang pctrsEssential (primary) hypertension 5 Maria T Patiño. [address] [place] [address], [id number] , . tel: [phone] Referring Provider: Jerry Crespo, [address] [place], [address] . tel:[phone] [facility], [address] [facility], [place], [place], [id number] , tel: [phone] [facility] Inpt Chest pain, unspecifiedAthscl heart disease of [place] cor art w oth ang pctrsEssential (primary) hypertension Ramadan Jose Angel. [address] [place] [address], [place], [place], [id number] , [place]. tel: [phone] Family History Family Member Type Diagnosis Age At Onset Mother Problem (finding) Heart disease Payers Payer name Insurance type Covered democrat ID Authoralyxa miguel ángel(s) [facility] COMPLETE CARE 001A O C [id number] Social History Type Description Quantity Date Captured [...]
--- OUTSIDE RECORDS SUMMARY | 2025-04-28 04:51 | XMS_ITS | Continuity of Care Document ---
Author Organization [facility] Address [address] [place] [phone] Phone Care Team Providers Care Padding Machine Operator Name Role Phone Donny AGUILAR, FACC, [...] Diagnoses Date Provider Providers Copied on Encounter [facility], [address] [place] [address], [id number] , tel: [phone] [facility] Yasmine No Information Donny Dyer. [address] [place] [address], [place], [place], [id number] , . tel: [phone] [facility], [address] [place] [address], [id number] , tel: [phone] [facility] No Information 5 Donny Dyer. [address] [place] [address], [id number] , . tel: [phone] OFFICE/OUTPA TIENT VISIT, [facility], [address] [place] [address], [id number] , tel: [phone] [facility] Follow Up of hospital visit (chief complaint) chest pain (pressure) (chief complaint) CAD of [place] coronary artery w/o angina pectorisType 2 diabetes mellitus without complicationsHyperlip idemiaHTNCHFSinusal tachycardiaCardiomyop athyTobacco use 5 Donny Dyer. [address] [place] [address], [id number] , . tel: [phone] Referring Provider: Gomez Hines, [address] [place] [address], [place], [address] . tel:[phone] [facility], [address] [place] [address], [id number] , tel: [phone] [facility] No Information 5 Maria T Patiño. [address] [place] [address], [id number] , . tel: [phone] Referring Provider: Haroon Live, [address] [place] [address], [address] . tel:[phone] [facility], [address] [place] [address], [id number] , tel: [phone] [facility] Inpt Chest pain, unspecifiedAthscl heart disease of [place] cor art w oth ang pctrsEssential (primary) hypertension 5 Maria T Patiño. [address] [place] [address], [id number] , . tel: [phone] Referring Provider: Jerry Crespo, [address] [place], [address] . tel:[phone] [facility], [address] [facility], [place], [place], [id number] , tel: [phone] [facility] Inpt Chest pain, unspecifiedAthscl heart disease of [place] cor art w oth ang pctrsEssential (primary) hypertension Ramadan Jose Angel. [address] [place] [address], [place], [place], [id number] , [place]. tel: [phone] Family History Family Member Type Diagnosis Age At Onset Mother Problem (finding) Heart disease Payers Payer name Insurance type Covered democrat ID Authoralyxa miguel ángel(s) [facility] COMPLETE CARE 001A O C [id number] Social History Type Description Quantity Date Captured [...]
--- OUTSIDE RECORDS SUMMARY | 2025-04-28 04:51 | XMS_ITS | Continuity of Care Document ---
Author Organization [facility] Address [address] [place] [phone] Phone Care Team Providers Care Occupational Health Physiotherapist Name Role Phone Donny AGUILAR, FACC, Gomez [...] Diagnoses Date Provider Providers Copied on Encounter [facility], [address] [place] [address], [id number] , tel: [phone] [facility] Yasmine No Information Donny Dyer. [address] [place] [address], [place], [place], [id number] , . tel: [phone] [facility], [address] [place] [address], [id number] , tel: [phone] [facility] No Information 5 Donny Dyer. [address] [place] [address], [id number] , . tel: [phone] OFFICE/OUTPA TIENT VISIT, [facility], [address] [place] [address], [id number] , tel: [phone] [facility] Follow Up of hospital visit (chief complaint) chest pain (pressure) (chief complaint) CAD of [place] coronary artery w/o angina pectorisType 2 diabetes mellitus without complicationsHyperlip idemiaHTNCHFSinusal tachycardiaCardiomyop athyTobacco use 5 Donny Dyer. [address] [place] [address], [id number] , . tel: [phone] Referring Provider: Gomez Hines, [address] [place] [address], [place], [address] . tel:[phone] [facility], [address] [place] [address], [id number] , tel: [phone] [facility] No Information 5 Maria T Patiño. [address] [place] [address], [id number] , . tel: [phone] Referring Provider: Haroon Live, [address] [place] [address], [address] . tel:[phone] [facility], [address] [place] [address], [id number] , tel: [phone] [facility] Inpt Chest pain, unspecifiedAthscl heart disease of [place] cor art w oth ang pctrsEssential (primary) hypertension 5 Maria T Patiño. [address] [place] [address], [id number] , . tel: [phone] Referring Provider: Jerry Crespo, [address] [place], [address] . tel:[phone] [facility], [address] [facility], [place], [place], [id number] , tel: [phone] [facility] Inpt Chest pain, unspecifiedAthscl heart disease of [place] cor art w oth ang pctrsEssential (primary) hypertension Ramadan Jose Angel. [address] [place] [address], [place], [place], [id number] , [place]. tel: [phone] Family History Family Member Type Diagnosis Age At Onset Mother Problem (finding) Heart disease Payers Payer name Insurance type Covered republican ID Authoralyxa miguel ángel(s) [facility] COMPLETE CARE 001A O C [id number] Social History Type Description Quantity Date Captured [...]
--- OUTSIDE RECORDS SUMMARY | 2025-04-28 04:51 | XMS_ITS | Continuity of Care Document ---
Author Organization [facility] Address [address] [place] [phone] Phone Care Team Providers Care Field Staff Manager Name Role Phone Donny AGUILAR, FACC, Gomez [...] Diagnoses Date Provider Providers Copied on Encounter [facility], [address] [place] [address], [id number] , tel: [phone] [facility] Yasmine No Information Donny Dyer. [address] [place] [address], [place], [place], [id number] , . tel: [phone] [facility], [address] [place] [address], [id number] , tel: [phone] [facility] No Information 5 Donny Dyer. [address] [place] [address], [id number] , . tel: [phone] OFFICE/OUTPA TIENT VISIT, [facility], [address] [place] [address], [id number] , tel: [phone] [facility] Follow Up of hospital visit (chief complaint) chest pain (pressure) (chief complaint) CAD of [place] coronary artery w/o angina pectorisType 2 diabetes mellitus without complicationsHyperlip idemiaHTNCHFSinusal tachycardiaCardiomyop athyTobacco use 5 Donny Dyer. [address] [place] [address], [id number] , . tel: [phone] Referring Provider: Gomez Hines, [address] [place] [address], [place], [address] . tel:[phone] [facility], [address] [place] [address], [id number] , tel: [phone] [facility] No Information 5 Maria T Patiño. [address] [place] [address], [id number] , . tel: [phone] Referring Provider: Haroon Live, [address] [place] [address], [address] . tel:[phone] [facility], [address] [place] [address], [id number] , tel: [phone] [facility] Inpt Chest pain, unspecifiedAthscl heart disease of [place] cor art w oth ang pctrsEssential (primary) hypertension 5 Maria T Patiño. [address] [place] [address], [id number] , . tel: [phone] Referring Provider: Jerry Crespo, [address] [place], [address] . tel:[phone] [facility], [address] [facility], [place], [place], [id number] , tel: [phone] [facility] Inpt Chest pain, unspecifiedAthscl heart disease of [place] cor art w oth ang pctrsEssential (primary) hypertension Ramadan Jose Angel. [address] [place] [address], [place], [place], [id number] , [place]. tel: [phone] Family History Family Member Type Diagnosis Age At Onset Mother Problem (finding) Heart disease Payers Payer name Insurance type Covered constitution party ID Authoralyxa miguel ángel(s) [facility] COMPLETE CARE 001A O C [id number] Social History Type Description Quantity Date Captured [...]
--- OUTSIDE RECORDS SUMMARY | 2025-04-28 04:51 | XMS_ITS | Continuity of Care Document ---
Author Organization [facility] Address [address] [place] [address] Phone Care Team Providers Care Tower Cleaner Name Role Phone Donny AGUILAR, FACC, Gomez [...] Diagnoses Date Provider Providers Copied on Encounter [facility], [address] [place] [address], [id number] , tel: [phone] [facility] Yasmine No Information Donny Dyer. [address] [place] [address], [place], [place], [id number] , . tel: [phone] [facility], [address] [place] [address], [id number] , tel: [phone] [facility] No Information 5 Donny Dyer. [address] [place] [address], [id number] , . tel: [phone] OFFICE/OUTPA TIENT VISIT, [facility], [address] [place] [address], [id number] , tel: [phone] [facility] Follow Up of hospital visit (chief complaint) chest pain (pressure) (chief complaint) CAD of [place] coronary artery w/o angina pectorisType 2 diabetes mellitus without complicationsHyperlip idemiaHTNCHFSinusal tachycardiaCardiomyop athyTobacco use 5 Donny Dyer. [address] [place] [address], [id number] , . tel: [phone] Referring Provider: Gomez Hines, [address] [place] [address], [place], [address] . tel:[phone] [facility], [address] [place] [address], [id number] , tel: [phone] [facility] No Information 5 Maria T Patiño. [address] [place] [address], [id number] , . tel: [phone] Referring Provider: Haroon Live, [address] [place] [address], [id number] . tel:[phone] [facility], [address] [place] [address], [id number] , tel: [phone] [facility] Inpt Chest pain, unspecifiedAthscl heart disease of [place] cor art w oth ang pctrsEssential (primary) hypertension 5 Maria T Patiño. [address] [place] [address], [id number] , . tel: [phone] Referring Provider: Jerry Crespo, [address] [place], [address] . tel:[phone] [facility], [address] [facility], [place], [place], [id number] , tel: [phone] [facility] Inpt Chest pain, unspecifiedAthscl heart disease of [place] cor art w oth ang pctrsEssential (primary) hypertension Ramadan Jose Angel. [address] [place] [address], [place], [place], [id number] , [place]. tel: [phone] Family History Family Member Type Diagnosis Age At Onset Mother Problem (finding) Heart disease Payers Payer name Insurance type Covered republican ID Authoralyxa miguel ángel(s) [facility] COMPLETE CARE 001A O C [id number] Social History Type Description Quantity Date Captured [...]
--- OUTSIDE RECORDS SUMMARY | 2025-04-28 04:51 | XMS_ITS | Continuity of Care Document ---
Author Organization [facility] Address [address] [place] [address] Phone Care Team Providers Care Stuffed Casing Tier Name Role Phone Donny AGUILAR, FACC, Gomez [...] Diagnoses Date Provider Providers Copied on Encounter [facility], [address] [place] [address], [id number] , tel: [phone] [facility] Yasmine No Information Donny Dyer. [address] [place] [address], [place], [place], [id number] , . tel: [phone] [facility], [address] [place] [address], [id number] , tel: [phone] [facility] No Information 5 Donny Dyer. [address] [place] [address], [id number] , . tel: [phone] OFFICE/OUTPA TIENT VISIT, [facility], [address] [place] [address], [id number] , tel: [phone] [facility] Follow Up of hospital visit (chief complaint) chest pain (pressure) (chief complaint) CAD of [place] coronary artery w/o angina pectorisType 2 diabetes mellitus without complicationsHyperlip idemiaHTNCHFSinusal tachycardiaCardiomyop athyTobacco use 5 Donny Dyer. [address] [place] [address], [id number] , . tel: [phone] Referring Provider: Gomez Hines, [address] [place] [address], [place], [address] . tel:[phone] [facility], [address] [place] [address], [id number] , tel: [phone] [facility] No Information 5 Maria T Patiño. [address] [place] [address], [id number] , . tel: [phone] Referring Provider: Haroon Live, [address] [place] [address], [address] . tel:[phone] [facility], [address] [place] [address], [id number] , tel: [phone] [facility] Inpt Chest pain, unspecifiedAthscl heart disease of [place] cor art w oth ang pctrsEssential (primary) hypertension 5 Maria T Patiño. [address] [place] [address], [id number] , . tel: [phone] Referring Provider: Jerry Crespo, [address] [place], [address] . tel:[phone] [facility], [address] [facility], [place], [place], [id number] , tel: [phone] [facility] Inpt Chest pain, unspecifiedAthscl heart disease of [place] cor art w oth ang pctrsEssential (primary) hypertension Ramadan Jose Angel. [address] [place] [address], [place], [place], [id number] , [place]. tel: [phone] Family History Family Member Type Diagnosis Age At Onset Mother Problem (finding) Heart disease Payers Payer name Insurance type Covered libertarian ID Authoralyxa miguel ángel(s) [facility] COMPLETE CARE 001A O C [id number] Social History Type Description Quantity Date Captured [...]
--- OUTSIDE RECORDS SUMMARY | 2025-04-28 04:51 | XMS_ITS | Continuity of Care Document ---
Author Organization [facility] Address [address] [place] [phone] Phone Care Team Providers Care Quality Nurse Name Role Phone Donny AGUILAR, FACC, Gomez [...] Diagnoses Date Provider Providers Copied on Encounter [facility], [address] [place] [address], [id number] , tel: [phone] [facility] Yasmine No Information Donny Dyer. [address] [place] [address], [place], [place], [id number] , . tel: [phone] [facility], [address] [place] [address], [id number] , tel: [phone] [facility] No Information 5 Donny Dyer. [address] [place] [address], [id number] , . tel: [phone] OFFICE/OUTPA TIENT VISIT, [facility], [address] [place] [address], [id number] , tel: [phone] [facility] Follow Up of hospital visit (chief complaint) chest pain (pressure) (chief complaint) CAD of [place] coronary artery w/o angina pectorisType 2 diabetes mellitus without complicationsHyperlip idemiaHTNCHFSinusal tachycardiaCardiomyop athyTobacco use 5 Donny Dyer. [address] [place] [address], [id number] , . tel: [phone] Referring Provider: Gomez Hines, [address] [place] [address], [place], [address] . tel:[phone] [facility], [address] [place] [address], [id number] , tel: [phone] [facility] No Information 5 Maria T Patiño. [address] [place] [address], [id number] , . tel: [phone] Referring Provider: Haroon Live, [address] [place] [address], [address] . tel:[phone] [facility], [address] [place] [address], [id number] , tel: [phone] [facility] Inpt Chest pain, unspecifiedAthscl heart disease of [place] cor art w oth ang pctrsEssential (primary) hypertension 5 Maria T Patiño. [address] [place] [address], [id number] , . tel: [phone] Referring Provider: Jerry Crespo, [address] [place], [address] . tel:[phone] [facility], [address] [facility], [place], [place], [id number] , tel: [phone] [facility] Inpt Chest pain, unspecifiedAthscl heart disease of [place] cor art w oth ang pctrsEssential (primary) hypertension Ramadan Jose Angel. [address] [place] [address], [place], [place], [id number] , [place]. tel: [phone] Family History Family Member Type Diagnosis Age At Onset Mother Problem (finding) Heart disease Payers Payer name Insurance type Covered libertarian ID Authoralyxa miguel ángel(s) [facility] COMPLETE CARE 001A O C [id number] Social History Type Description Quantity Date Captured [...]
--- OUTSIDE RECORDS SUMMARY | 2025-04-28 04:51 | XMS_ITS | Continuity of Care Document ---
Author Organization [facility] Address [address] [place] [phone] Phone Care Team Providers Care Pond Tender Name Role Phone Donny AGUILAR, FACC, [...] Date Provider Providers Copied on Encounter [facility], [address] [place] [address], [id number] , tel: [phone] [facility] Yasmine No Information Donny Dyer. [address] [place] [address], [place], [place], [id number] , . tel: [phone] [facility], [address] [place] [address], [id number] , tel: [phone] [facility] No Information 5 Donny Dyer. [address] [place] [address], [id number] , . tel: [phone] OFFICE/OUTPA TIENT VISIT, [facility], [address] [place] [address], [id number] , tel: [phone] [facility] Follow Up of hospital visit (chief complaint) chest pain (pressure) (chief complaint) CAD of [place] coronary artery w/o angina pectorisType 2 diabetes mellitus without complicationsHyperlip idemiaHTNCHFSinusal tachycardiaCardiomyop athyTobacco use 5 Donny Dyer. [address] [place] [address], [id number] , . tel: [phone] Referring Provider: Gomez Hines, [address] [place] [address], [place], [address] . tel:[phone] [facility], [address] [place] [address], [id number] , tel: [phone] [facility] No Information 5 Maria T Patiño. [address] [place] [address], [id number] , . tel: [phone] Referring Provider: Haroon Live, [address] [place] [address], [id number] . tel:[phone] [facility], [address] [place] [address], [id number] , tel: [phone] [facility] Inpt Chest pain, unspecifiedAthscl heart disease of [place] cor art w oth ang pctrsEssential (primary) hypertension 5 Maria T Patiño. [address] [place] [address], [id number] , . tel: [phone] Referring Provider: Jerry Crespo, [address] [place], [address] . tel:[phone] [facility], [address] [facility], [place], [place], [id number] , tel: [phone] [facility] Inpt Chest pain, unspecifiedAthscl heart disease of [place] cor art w oth ang pctrsEssential (primary) hypertension Ramadan Jose Angel. [address] [place] [address], [place], [place], [id number] , [place]. tel: [phone] Family History Family Member Type Diagnosis Age At Onset Mother Problem (finding) Heart disease Payers Payer name Insurance type Covered constitution party ID Authoralyxa miguel ángel(s) [facility] COMPLETE CARE 001A O C [id number] Social History Type Description Quantity Date Captured [...]
--- OUTSIDE RECORDS SUMMARY | 2025-04-28 04:51 | XMS_ITS | Continuity of Care Document ---
Author Organization [facility] Address [address] [place] [phone] Phone Care Team Providers Care Trial Justice Name Role Phone Donny AGUILAR, FACC, Gomez [...] Diagnoses Date Provider Providers Copied on Encounter [facility], [address] [place] [address], [id number] , tel: [phone] [facility] Yasmine No Information Donny Dyer. [address] [place] [address], [place], [place], [id number] , . tel: [phone] [facility], [address] [place] [address], [id number] , tel: [phone] [facility] No Information 5 Donny Dyer. [address] [place] [address], [id number] , . tel: [phone] OFFICE/OUTPA TIENT VISIT, [facility], [address] [place] [address], [id number] , tel: [phone] [facility] Follow Up of hospital visit (chief complaint) chest pain (pressure) (chief complaint) CAD of [place] coronary artery w/o angina pectorisType 2 diabetes mellitus without complicationsHyperlip idemiaHTNCHFSinusal tachycardiaCardiomyop athyTobacco use 5 Donny Dyer. [address] [place] [address], [id number] , . tel: [phone] Referring Provider: Gomez Hines, [address] [place] [address], [place], [address] . tel:[phone] [facility], [address] [place] [address], [id number] , tel: [phone] [facility] No Information 5 Maria T Patiño. [address] [place] [address], [id number] , . tel: [phone] Referring Provider: Haroon Live, [address] [place] [address], [address] . tel:[phone] [facility], [address] [place] [address], [id number] , tel: [phone] [facility] Inpt Chest pain, unspecifiedAthscl heart disease of [place] cor art w oth ang pctrsEssential (primary) hypertension 5 Maria T Patiño. [address] [place] [address], [id number] , . tel: [phone] Referring Provider: Jerry Crespo, [address] [place], [address] . tel:[phone] [facility], [address] [facility], [place], [place], [id number] , tel: [phone] [facility] Inpt Chest pain, unspecifiedAthscl heart disease of [place] cor art w oth ang pctrsEssential (primary) hypertension Ramadan Jose Angel. [address] [place] [address], [place], [place], [id number] , [place]. tel: [phone] Family History Family Member Type Diagnosis Age At Onset Mother Problem (finding) Heart disease Payers Payer name Insurance type Covered constitution party ID Authoralyxa miguel ángel(s) [facility] COMPLETE [facility]ARE 001A O C [id number] Social History Type Description Quantity Date Captured [...]
--- OUTSIDE RECORDS SUMMARY | 2025-04-28 04:51 | XMS_ITS | Continuity of Care Document ---
Author Organization [facility] Address [address] [place] [address] Phone Care Team Providers Care Body Wirer Name Role Phone Donny AGUILAR, FACC, Gomez [...] Diagnoses Date Provider Providers Copied on Encounter [facility], [address] [place] [address], [id number] , tel: [phone] [facility] Yasmine No Information Donny Dyer. [address] [place] [address], [place], [place], [id number] , . tel: [phone] [facility], [address] [place] [address], [id number] , tel: [phone] [facility] No Information 5 Donny Dyer. [address] [place] [address], [id number] , . tel: [phone] OFFICE/OUTPA TIENT VISIT, [facility], [address] [place] [address], [id number] , tel: [phone] [facility] Follow Up of hospital visit (chief complaint) chest pain (pressure) (chief complaint) CAD of [place] coronary artery w/o angina pectorisType 2 diabetes mellitus without complicationsHyperlip idemiaHTNCHFSinusal tachycardiaCardiomyop athyTobacco use 5 Donny Dyer. [address] [place] [address], [id number] , . tel: [phone] Referring Provider: Gomez Hines, [address] [place] [address], [place], [address] . tel:[phone] [facility], [address] [place] [address], [id number] , tel: [phone] [facility] No Information 5 Maria T Patiño. [address] [place] [address], [id number] , . tel: [phone] Referring Provider: Haroon Live, [address] [place] [address], [address] . tel:[phone] [facility], [address] [place] [address], [id number] , tel: [phone] [facility] Inpt Chest pain, unspecifiedAthscl heart disease of [place] cor art w oth ang pctrsEssential (primary) hypertension 5 Maria T Patiño. [address] [place] [address], [id number] , . tel: [phone] Referring Provider: Jerry Crespo, [address] [place], [address] . tel:[phone] [facility], [address] [facility], [place], [place], [id number] , tel: [phone] [facility] Inpt Chest pain, unspecifiedAthscl heart disease of [place] cor art w oth ang pctrsEssential (primary) hypertension Ramadan Jose Angel. [address] [place] [address], [place], [place], [id number] , [place]. tel: [phone] Family History Family Member Type Diagnosis Age At Onset Mother Problem (finding) Heart disease Payers Payer name Insurance type Covered green party ID Authoralyxa miguel ángel(s) [facility] COMPLETE CARE 001A O C [id number] Social History Type Description Quantity Date Captured [...]
--- NOTE | ~2025-06-06 | CT_ITS ---
EXAMINATION: CT angiogram chest, abdomen and pelvis. DATE: 06/06/2025. INDICATION: Chest pain. TECHNIQUE: CT angiogram was performed with 100 cc of IV contrast. Multiplanar and 3-D reconstruction images obtained. Radiation dose 517 and MGy C.M. COMPARISON: Chest x-ray dated 06/06/2025. FINDINGS: 1.2 cm size nodule in the left thyroid noted. No focal pulmonary lesions are acute nature. No evidence of pulmonary emboli are noted. Thoracic aorta shows significant atherosclerotic changes. Atherosclerotic changes of coronary arteries are noted with stents in place in the left main, anterior descending and diagonal coronary arteries. There is no evidence of thoracic aortic dissection. Below the diaphragm, no focal lesions of the liver and spleen. Gallbladder and pancreas do not show acute findings. No evidence of abdominal aortic dissection. Moderate calcific changes of proximal celiac axis, superior mesenteric artery and right renal artery. Moderate calcific changes of iliac arteries. No evidence of small bowel obstruction. No inflammatory changes in the pelvis. IMPRESSION: 1. 1. No CT angiographic evidence of pulmonary embolus. 2. Multivessel coronary artery calcifications as described above with coronary artery stents in place. 3. No evidence acute findings thoracic aorta and abdominal aorta. Atherosclerotic changes at multiple levels as described above in detail. Reviewed, dictated and finalized at location T. AL ASSOCIATE IMPRESSION: 1. 1. No CT angiographic evidence of pulmonary embolus. 2. Multivessel coronary artery calcifications as described above with coronary artery stents in place. 3. No evidence acute findings thoracic aorta and abdominal aorta. Atherosclerot ic changes at multiple levels as described above in detail.
--- NOTE | ~2025-06-06 | XR_ITS ---
Examination: XR chest 2V Clinical History: cp Comparison: None Technique: PA and Lateral Findings: Cardiomediastinal silhouette normal size and configuration. Lungs clear. No acute bony abnormality. IMPRESSION: 1. No acute cardiopulmonary findings. Reviewed, dictated and finalized at location R. TRICAL MANUFACTURING ENGINEER
--- NOTE | 2025-06-06 12:30 | ECG_ITS ---
Test Date: 2025-06-06 12:32:44 Measurements Intervals Buckley Rate: 63 P: 60 CO: 148 QRS: -25 QRSD: 94 T: 0 QT: 419 QTc: 431 Interpretive Statements SINUS RHYTHM BORDERLINE LEFT AXIS DEVIATION [QRS AXIS < -20] MODERATE VOLTAGE CRITERIA FOR LVH, CONSIDER NORMAL VARIANT [MEETS CRITERIA IN ONE OF: R(aVL), S(V1), R(V5), R(V5/V6)+S(V1)] ABNORMAL ECG No previous ECG available for comparison Electronically Signed On 06-06-2025 17:16:01 HANDLE FINISHER by Jc Carroll M.D.
[2025-06-06 12:36] VITALS: BP 120/82; PULSE 60; RESP 17; TEMP 36.8; O2SAT 99
[2025-06-06 12:53] LABS: Hematocrit 40.7 % (37.0-47.0); Hemoglobin 13.4 g/dL (12.0-15.0); Immature Granulocyte Percent A 0.2 % (0-0.5); Lymphocytes Absolute Auto 2.82 K/mm3 (0.9-3.2); Mean Corpuscular HGB Conc 32.9 g/dl (32-36); Mean Corpuscular Hemoglobin 32.4 pg (26-34); Mean Corpuscular Volume 98.5 fl (80-100); Nucleated Red Blood Cells Absolute Auto 0.000 K/mm3 (0.0-0.012); Nucleated Red Blood Cells Perc 0.0 % (0.0-0.2); Platelet Count Result 259 k/mm3 (150-375); Red Blood Count 4.13 M/mm3 (4.2-5.4); White Blood Count 4.8 K/mm3 (4.5-10.0)
[2025-06-06 13:11] LABS: INR 1.0; Prothrombin Time 12.9 Seconds (11.1-14.7)
[2025-06-06 13:12] LABS: Partial Thromboplastin Time 24.5 Seconds (22.3-36.8)
[2025-06-06 13:21] LABS: Alanine Aminotransferase 26 U/L (6-35); Albumin Level 4.1 g/dL (3.5-5.1); Alkaline Phosphatase 106 U/L (38-126); Anion Gap 7 mmol/L (4-12); Aspartate Amino Transferase 28 U/L (14-36); Bilirubin,Total 0.6 mg/dL (0.2-1.3); Blood Urea Nitrogen 10 mg/dL (7-17); Calcium 9.1 mg/dL (8.4-10.2); Carbon Dioxide 24 mmol/L (22-30); Chloride 105 mmol/L (98-107); Estimated Glomerular Filt Rate > 60; Glucose 274 mg/dL (65-110); Lipase 32 U/L (23-300); Potassium 4.3 mmol/L (3.4-5.0); Sodium 136 mmol/L (137-145); Total Protein 7.2 g/dL (6.3-8.2)
[2025-06-06 13:33] LABS: Troponin I < 0.012 ng/mL (0.000-0.034)
--- NOTE | 2025-06-06 14:28 | ED.GENADULT ---
HPI - General Adult General Chief complaint: Chest Pain <DANNY Lewis - Last Filed: 06/06/25 14:41> Stated complaint: CP <DANNY Lewis - Last Filed: 06/06/25 14:41> Time Seen by Provider: 06/06/25 16:30 <DANNY Lewis - Last Filed: 06/06/25 14:41> Focused HPI: 69 year old female presenting with left sided chest pain that radiates to her back and down the left arm beginning early this morning. Reports numbness and tingling to left hand as well. Denies nausea/vomiting, shortness of breath, abdominal pain, dizziness. Hx [place] with 5 stents in 2022 and uncontrolled type 2 diabetes with last A1c around 12. No relief with prescription Nitroglycerin and aspirin. GENERAL: No acute distress. HEAD: Normocephalic, atraumatic. CHEST: Clear to auscultation. ?No respiratory distress. HEART: Regular rate and rhythm.? NEURO: ?Alert and oriented x3. Patient screened in triage and initial orders placed.? ?Additional care and disposition to be based upon?diagnostic testing and treatment. <DANNY Lewis - Last Filed: 06/06/25 14:41> Related Data Home medications: Home Medications ?Medication ?Instructions ?Recorded ?Confirmed ?Last Taken ?Type calcitriol 0.25 mcg capsule 0.25 mcg PO DAILY 12/06/24 05/31/25 Unknown History divalproex 125 mg tablet,delayed 125 mg PO Q8H 12/06/24 05/31/25 Unknown History release furosemide 40 mg tablet 40 mg PO DAILY 12/06/24 05/31/25 Unknown History insulin glargine-yfgn 100 unit/mL 1 unit subcut QPM 12/06/24 05/31/25 Unknown History (3 mL) subcutaneous pen insulin lispro 100 unit/mL 1 sliding scale dose subcut DAILY 12/06/24 05/31/25 Unknown History subcutaneous solution (Humalog U-100 Insulin) spironolactone 25 mg tablet 25 mg PO DAILY 12/06/24 05/31/25 Unknown History ezetimibe 10 mg tablet 10 mg PO DAILY 01/23/25 05/31/25 Unknown History isosorbide mononitrate 30 mg 30 mg PO DAILY 01/30/25 05/31/25 Unknown History tablet,extended release 24 hr lidocaine 5 % topical patch 1 patch topical DAILY 01/30/25 05/31/25 Unknown History <DANNY Lewis - Last Filed: 06/06/25 14:41> Allergies/adverse reactions: Allergies Allergy/AdvReac Type Severity Reaction Status Date / Time Penicillins Allergy Intermediate unknown Verified 06/06/25 12:52 naproxen AdvReac Mild GI upset Verified 06/06/25 12:52 <DANNY Lewis - Last Filed: 06/06/25 14:41> Review of Systems Review of Systems: All systems reviewed & are unremarkable except as noted in HPI and below <Jerome Nazario MD - Last Filed: 06/06/25 21:42> PMFSH Past Medical History Medical History: Medical History Hypertension Heart disease Heart attack Headache GERD (gastroesophageal reflux disease) Diabetes Coronary artery disease CHF (congestive heart failure) Cancer of internal nose Arthritis <DANNY Lewis - Last Filed: 06/06/25 14:41> Surgical History Surgical History: Surgical History H/O knee surgery H/O: hysterectomy History of delivery Stented coronary artery History of eye surgery <DANNY Lewis - Last Filed: 06/06/25 14:41> Family History Family History: Family History Mother Heart disease Cerebrovascular accident Grandparent Diabetes mellitus <DANNY Lewis - Last Filed: 06/06/25 14:41> Social History Social History: Social History Smoking packs per day: 0.2 Smoking cigarettes per day: 4.0 Years smoked: 50 Smoking pack-years: 10.00 Smoking status: Current every day smoker Tobacco type: cigarettes Second hand tobacco smoke exposure: Yes Alcohol intake: never Substance use: never Substance use type: does not use Do You Feel Safe in your Home?: Yes Lack of Transportation: YES Lack of Food: Never True Current Housing: I Have Housing Concerned About Future Housing: No Difficulty Paying Gas/Electric Bills: No Difficulty Paying for Meds: No Currently Unemployed: No Education: High School Diploma/GED Difficulty w/ Childcare or Family Care: No Living arrangements: with family Occupation/Education: unemployed Gender identity (if verbalized by the patient): Female Sexual Orientation (if Verbalized by the Patient): Straight or Heterosexual Spiritual care concerns: No Agree to blood products: Yes <DANNY Lewis - Last Filed: 06/06/25 14:41> Exam Narrative: APPEARANCE: Well appearing, no pain, no distress, well-nourished. HEAD: normocephalic, atraumatic. EYES: Patient is blind NOSE: Normal no drainage EARS:TMS clear with good light reflex. THROAT: Pharynx clear, no exudate. NECK: Supple. No adenopathy, no masses. RESPIRATORY: Airway patent, respirations nonlabored. Clear to auscultation bilaterally, no rales, rhonchi, wheezing. CARDIOVASCULAR: Regular rate and rhythm without murmurs rubs or gallops. ABDOMINAL: Soft, nontender, nondistended, normal bowel sounds MUSCULOSKELETAL: Moves all extremities. Strength/ROM intact, No edema, No calf tenderness. NEURO: Alert. Cranial nerves II through XII intact. Good gait. Good coordination SKIN: Warm, dry. Normal Color <Jerome Nazario MD - Last Filed: 06/06/25 21:42> Course Vital Signs Vital signs: Vital Signs Temperature 98.2 F 06/06/25 12:36 Pulse Rate 60 06/06/25 12:36 Respiratory Rate 17 06/06/25 12:36 Blood Pressure 120/82 06/06/25 12:36 Pulse Oximetry 99 06/06/25 12:36 Temperature 98.2 F 06/06/25 12:36 Pulse Rate 61 06/06/25 18:31 Respiratory Rate 20 06/06/25 18:31 Blood Pressure 123/66 06/06/25 18:31 Pulse Oximetry 99 06/06/25 18:31 Oxygen Delivery Room Air 06/06/25 15:59 <DANNY Lewis - Last Filed: 06/06/25 14:41> Vital Signs Temperature 98.2 F 06/06/25 12:36 Pulse Rate 60 06/06/25 12:36 Respiratory Rate 17 06/06/25 12:36 Blood Pressure 120/82 06/06/25 12:36 Pulse Oximetry 99 06/06/25 12:36 Temperature 98.2 F 06/06/25 12:36 Pulse Rate 61 06/06/25 18:31 Respiratory Rate 20 06/06/25 18:31 Blood Pressure 123/66 06/06/25 18:31 Pulse Oximetry 99 06/06/25 18:31 Oxygen Delivery Room Air 06/06/25 15:59 <Jerome Nazario MD - Last Filed: 06/06/25 21:42> Medical Decision Making MDM Narrative Medical decision making narrative: 69-year-old female present to the emergency department for evaluation for epigastric pain that radiated to her back and into her left arm. Patient is currently afebrile with no leukocytosis hemoglobin 13.4. Patient has INR 1.0. Lipase is not elevated patient had negative serial troponins. On re-evaluation patient states that she feels her symptoms are resolved. Patient states symptoms were similar to previous episodes of heartburn/gastritis. Patient does continue have close follow-up with Cardiology. Chest x-ray showed no acute cardiopulmonary abnormality and CTA was negative for pulmonary embolism. Patient was updated the results of her workup. Low concern for ACS or PE. Patient does describe symptoms of gastritis. All questions concerns were addressed patient was comfortable the plan for discharge and close follow-up. Patient was also educated on reasons to return to the emergency department. <Jerome Nazario MD - Last Filed: 06/06/25 21:42> Differential Diagnosis Differential Diagnosis: ACS, gastritis, esophagitis, pulmonary embolism, pneumonia <Jerome Nazario MD - Last Filed: 06/06/25 21:42> Vital Signs Vital Signs: Vital Signs Temperature 98.2 F 06/06/25 12:36 Pulse Rate 60 06/06/25 12:36 Respiratory Rate 17 06/06/25 12:36 Blood Pressure 120/82 06/06/25 12:36 Pulse Oximetry 99 06/06/25 12:36 Temperature 98.2 F 06/06/25 12:36 Pulse Rate 61 06/06/25 18:31 Respiratory Rate 20 06/06/25 18:31 Blood Pressure 123/66 06/06/25 18:31 Pulse Oximetry 99 06/06/25 18:31 Oxygen Delivery Room Air 06/06/25 15:59 <DANNY Lewis - Last Filed: 06/06/25 14:41> Vital Signs Temperature 98.2 F 06/06/25 12:36 Pulse Rate 60 06/06/25 12:36 Respiratory Rate 17 06/06/25 12:36 Blood Pressure 120/82 06/06/25 12:36 Pulse Oximetry 99 06/06/25 12:36 Temperature 98.2 F 06/06/25 12:36 Pulse Rate 61 06/06/25 18:31 Respiratory Rate 20 06/06/25 18:31 Blood Pressure 123/66 06/06/25 18:31 Pulse Oximetry 99 06/06/25 18:31 Oxygen Delivery Room Air 06/06/25 15:59 <Jerome Nazario MD - Last Filed: 06/06/25 21:42> Lab Data Lab results reviewed: Yes I reviewed the patient's lab results. <Jerome Nazario MD - Last Filed: 06/06/25 21:42> Result diagrams: 06/06/25 12:45 06/06/25 12:45 <DANNY Lewis - Last Filed: 06/06/25 14:41> Labs: Lab Results 06/06/25 06/06/25 06/06/25 Range/Units 12:28 12:45 12:46 WBC 4.8 (4.5-10.0) K/mm3 RBC 4.13 L (4.2-5.4) M/mm3 Hgb 13.4 (12.0-15.0) g/dL Hct 40.7 (37.0-47.0) % MCV 98.5 (80-100) fl MCH 32.4 (26-34) pg MCHC 32.9 (32-36) g/dl RDW 12.0 (11.5-14.5) % Plt Count 259 (150-375) k/mm3 MPV 10.9 H (7.4-10.4) fl Immature Gran % (Auto) 0.2 (0-0.5) % Neut % (Auto) 32.1 L (45.5-73.1) % Lymph % (Auto) 59.1 H (18.3-44.2) % [place] % (Auto) 6.7 (2.6-8.5) % Eos % (Auto) 1.5 (0-4.4) % Baso % (Auto) 0.4 (0.2-1.2) % Lymph # (Auto) 2.82 (0.9-3.2) K/mm3 [place] # (Auto) 0.3 (0.1-0.6) K/mm3 Eos # (Auto) 0.1 (0-0.3) K/mm3 Baso # (Auto) 0.0 (0.0-0.1) K/mm3 Abs Immat Gran (auto) 0.01 (0.00-0.031) K/mm3 Absolute Neuts (auto) 1.5 (1.3-6.7) K/mm3 Absolute Nucleated RBC 0.000 (0.0-0.012) K/mm3 Nucleated RBC % 0.0 (0.0-0.2) % PT 12.9 (11.1-14.7) Seconds INR 1.0 APTT 24.5 (22.3-36.8) Seconds Sodium 136 L (137-145) mmol/L Potassium 4.3 (3.4-5.0) mmol/L Chloride 105 (98-107) mmol/L Carbon Dioxide 24 (22-30) mmol/L Anion Gap 7 (4-12) mmol/L BUN 10 (7-17) mg/dL Creatinine 0.80 (0.7-1.0) mg/dL Estim Creat Clear Calc Not Reportable Estimated GFR > 60 (59 - ) Glucose 274 H (65-110) mg/dL POC Capillary Glucose 266 H (65-105) mg/dl Calcium 9.1 (8.4-10.2) mg/dL Total Bilirubin 0.6 (0.2-1.3) mg/dL AST 28 (14-36) U/L ALT 26 (6-35) U/L Alkaline Phosphatase 106 (38-126) U/L Troponin I < 0.012 (0.000-0.034) ng/mL Total Protein 7.2 (6.3-8.2) g/dL Albumin 4.1 (3.5-5.1) g/dL Lipase 32 (23-300) U/L 06/06/25 Range/Units 15:56 WBC (4.5-10.0) K/mm3 RBC (4.2-5.4) M/mm3 Hgb (12.0-15.0) g/dL Hct (37.0-47.0) % MCV (80-100) fl MCH (26-34) pg MCHC (32-36) g/dl RDW (11.5-14.5) % Plt Count (150-375) k/mm3 MPV (7.4-10.4) fl Immature Gran % (Auto) (0-0.5) % Neut % (Auto) (45.5-73.1) % Lymph % (Auto) (18.3-44.2) % [place] % (Auto) (2.6-8.5) % Eos % (Auto) (0-4.4) % Baso % (Auto) (0.2-1.2) % Lymph # (Auto) (0.9-3.2) K/mm3 [place] # (Auto) (0.1-0.6) K/mm3 Eos # (Auto) (0-0.3) K/mm3 Baso # (Auto) (0.0-0.1) K/mm3 Abs Immat Gran (auto) (0.00-0.031) K/mm3 Absolute Neuts (auto) (1.3-6.7) K/mm3 Absolute Nucleated RBC (0.0-0.012) K/mm3 Nucleated RBC % (0.0-0.2) % PT (11.1-14.7) Seconds INR APTT (22.3-36.8) Seconds Sodium (137-145) mmol/L Potassium (3.4-5.0) mmol/L Chloride (98-107) mmol/L Carbon Dioxide (22-30) mmol/L Anion Gap (4-12) mmol/L BUN (7-17) mg/dL Creatinine (0.7-1.0) mg/dL Estim Creat Clear Calc Estimated GFR (59 - ) Glucose (65-110) mg/dL POC Capillary Glucose (65-105) mg/dl Calcium (8.4-10.2) mg/dL Total Bilirubin (0.2-1.3) mg/dL AST (14-36) U/L ALT (6-35) U/L Alkaline Phosphatase (38-126) U/L Troponin I < 0.012 (0.000-0.034) ng/mL Total Protein (6.3-8.2) g/dL Albumin (3.5-5.1) g/dL Lipase (23-300) U/L <DANNY Lewis - Last Filed: 06/06/25 14:41> Lab Results 06/06/25 06/06/25 06/06/25 Range/Units 12:28 12:45 12:46 WBC 4.8 (4.5-10.0) K/mm3 RBC 4.13 L (4.2-5.4) M/mm3 Hgb 13.4 (12.0-15.0) g/dL Hct 40.7 (37.0-47.0) % MCV 98.5 (80-100) fl MCH 32.4 (26-34) pg MCHC 32.9 (32-36) g/dl RDW 12.0 (11.5-14.5) % Plt Count 259 (150-375) k/mm3 MPV 10.9 H (7.4-10.4) fl Immature Gran % (Auto) 0.2 (0-0.5) % Neut % (Auto) 32.1 L (45.5-73.1) % Lymph % (Auto) 59.1 H (18.3-44.2) % [place] % (Auto) 6.7 (2.6-8.5) % Eos % (Auto) 1.5 (0-4.4) % Baso % (Auto) 0.4 (0.2-1.2) % Lymph # (Auto) 2.82 (0.9-3.2) K/mm3 [place] # (Auto) 0.3 (0.1-0.6) K/mm3 Eos # (Auto) 0.1 (0-0.3) K/mm3 Baso # (Auto) 0.0 (0.0-0.1) K/mm3 Abs Immat Gran (auto) 0.01 (0.00-0.031) K/mm3 Absolute Neuts (auto) 1.5 (1.3-6.7) K/mm3 Absolute Nucleated RBC 0.000 (0.0-0.012) K/mm3 Nucleated RBC % 0.0 (0.0-0.2) % PT 12.9 (11.1-14.7) Seconds INR 1.0 APTT 24.5 (22.3-36.8) Seconds Sodium 136 L (137-145) mmol/L Potassium 4.3 (3.4-5.0) mmol/L Chloride 105 (98-107) mmol/L Carbon Dioxide 24 (22-30) mmol/L Anion Gap 7 (4-12) mmol/L BUN 10 (7-17) mg/dL Creatinine 0.80 (0.7-1.0) mg/dL Estim Creat Clear Calc Not Reportable Estimated GFR > 60 (59 - ) Glucose 274 H (65-110) mg/dL POC Capillary Glucose 266 H (65-105) mg/dl Calcium 9.1 (8.4-10.2) mg/dL Total Bilirubin 0.6 (0.2-1.3) mg/dL AST 28 (14-36) U/L ALT 26 (6-35) U/L Alkaline Phosphatase 106 (38-126) U/L Troponin I < 0.012 (0.000-0.034) ng/mL Total Protein 7.2 (6.3-8.2) g/dL Albumin 4.1 (3.5-5.1) g/dL Lipase 32 (23-300) U/L //25 Range/Units 15:56 WBC (4.5-10.0) K/mm3 RBC (4.2-5.4) M/mm3 Hgb (12.0-15.0) g/dL Hct (37.0-47.0) % MCV (80-100) fl MCH (26-34) pg MCHC (32-36) g/dl RDW (11.5-14.5) % Plt Count (150-375) k/mm3 MPV (7.4-10.4) fl Immature Gran % (Auto) (0-0.5) % Neut % (Auto) (45.5-73.1) % Lymph % (Auto) (18.3-44.2) % [place] % (Auto) (2.6-8.5) % Eos % (Auto) (0-4.4) % Baso % (Auto) (0.2-1.2) % Lymph # (Auto) (0.9-3.2) K/mm3 [place] # (Auto) (0.1-0.6) K/mm3 Eos # (Auto) (0-0.3) K/mm3 Baso # (Auto) (0.0-0.1) K/mm3 Abs Immat Gran (auto) (0.00-0.031) K/mm3 Absolute Neuts (auto) (1.3-6.7) K/mm3 Absolute Nucleated RBC (0.0-0.012) K/mm3 Nucleated RBC % (0.0-0.2) % PT (11.1-14.7) Seconds INR APTT (22.3-36.8) Seconds Sodium (137-145) mmol/L Potassium (3.4-5.0) mmol/L Chloride (98-107) mmol/L Carbon Dioxide (22-30) mmol/L Anion Gap (4-12) mmol/L BUN (7-17) mg/dL Creatinine (0.7-1.0) mg/dL Estim Creat Clear Calc Estimated GFR (59 - ) Glucose (65-110) mg/dL POC Capillary Glucose (65-105) mg/dl Calcium (8.4-10.2) mg/dL Total Bilirubin (0.2-1.3) mg/dL AST (14-36) U/L ALT (6-35) U/L Alkaline Phosphatase (38-126) U/L Troponin I < 0.012 (0.000-0.034) ng/mL Total Protein (6.3-8.2) g/dL Albumin (3.5-5.1) g/dL Lipase (23-300) U/L <Jerome Nazario MD - Last Filed: 06/06/25 21:42> Imaging Data Attestation: I personally reviewed and interpreted this imaging study as follows: <Jerome Nazario MD - Last Filed: 06/06/25 21:42> My impression: Chest x-ray: No acute cardiopulmonary abnormality <Jerome Nazario MD - Last Filed: 06/06/25 21:42> Radiologist's impression: Impressions Chest X-Ray 06/06/25 13:27 IMPRESSION: 1. No acute cardiopulmonary findings. Chest/Abdomen/Pelvis CTA 06/06/25 16:25 IMPRESSION: 1. 1. No CT angiographic evidence of pulmonary embolus. 2. Multivessel coronary artery calcifications as described above with coronary artery stents in place. 3. No evidence acute findings thoracic aorta and abdominal aorta. Atherosclerotic changes at multiple levels as described above in detail. <Jerome Nazario MD - Last Filed: 06/06/25 21:42> Discharge Plan Discharge Clinical Impression: Abdominal pain, epigastric <DANNY Lewis - Last Filed: 06/06/25 14:41> Patient Disposition: Home <DANNY Lewis - Last Filed: 06/06/25 14:41> Condition: Stable <DANNY Lewis - Last Filed: 06/06/25 14:41> Instructions: Antibiotic Form, Chest Pain (ED), Diet for Stomach Ulcers and Gastritis (ED) <DANNY Lewis - Last Filed: 06/06/25 14:41> Additional Instructions: Daily omeprazole for the next 14 days. Maalox as needed for intermittent epigastric pain. Continue to have close follow-up with Cardiology. I do recommend close follow-up with GI. If you have any worsening symptoms then please call or return to emergency department. <DANNY Lewis - Last Filed: 06/06/25 14:41> Patient Language: Tajik <DANNY Lewis - Last Filed: 06/06/25 14:41> Prescriptions: No Action ezetimibe 10 mg tablet 10 mg PO DAILY lidocaine 5 % adhesive patch,medicated 1 patch topical DAILY isosorbide mononitrate 30 mg tablet extended release 24 hr 30 mg PO DAILY mupirocin [Centany] 2 % ointment 1 applic topical BID Qty: 15 0RF cyclobenzaprine 10 mg tablet 10 mg PO TID PRN (Reason: muscle spasm) Qty: 30 0RF hydrocodone-acetaminophen 5-325 mg tablet 1 tablet PO Q8H PRN (Reason: pain) Qty: 30 0RF calcitriol 0.25 mcg capsule 0.25 mcg PO DAILY divalproex 125 mg tablet,delayed release (DR/EC) 125 mg PO Q8H insulin glargine-yfgn 100 unit/mL (3 mL) insulin pen 1 unit subcut QPM insulin lispro [Humalog U-100 Insulin] 100 unit/mL solution 1 sliding scale dose subcut DAILY atorvastatin 80 mg tablet 80 mg PO DAILY Qty: 90 0RF amitriptyline 75 mg tablet See Rx Instructions .ROUTE .COMPLEX Qty: 90 3RF Dose Instruction: TAKE 1 TABLET BY MOUTH EVERY DAY AT BEDTIME Rx Instructions: TAKE 1 TABLET BY MOUTH EVERY DAY AT BEDTIME duloxetine 30 mg capsule,delayed release(DR/EC) 30 mg PO ONCE Qty: 90 0RF metoprolol succinate 200 mg tablet extended release 24 hr 200 mg PO ONCE Qty: 90 0RF rizatriptan 10 mg tablet,disintegrating 10 mg PO ONCE PRN (Reason: migraine headache) Qty: 10 2RF diclofenac sodium 1 % gel 2 g topical QID Qty: 100 0RF Rx Instructions: apply to single elbow, wrist or hand; for hand includes palm/fingers/back of hand furosemide 40 mg tablet 40 mg PO DAILY spironolactone 25 mg tablet 25 mg PO DAILY pregabalin 100 mg capsule 100 mg PO TID Qty: 270 0RF Entresto 97-103 mg tablet 1 tablet PO ONCE Qty: 90 0RF zolpidem 5 mg tablet 5 mg PO ONCE PRN (Reason: insomnia) Qty: 30 0RF <DANNY Lewis - Last Filed: 06/06/25 14:41> Follow-up/Referrals: Vinnie Miner MD [Primary Care Provider, Family Practice] Adriano Calix MD [Physician, Gastroenterology] <DANNY Lewis - Last Filed: 06/06/25 14:41> Quality HEART score for chest pain patients History: slightly suspicious <Jerome Nazario MD - Last Filed: 06/06/25 21:42> ECG: normal <Jerome Nazario MD - Last Filed: 06/06/25 21:42> Age: > or = to 65 years <Jerome Nazario MD - Last Filed: 06/06/25 21:42> Risk factors: 1 or 2 risk factors <Jerome Nazario MD - Last Filed: 06/06/25 21:42> Troponin: < or = to 1x normal limit <Jerome Nazario MD - Last Filed: 06/06/25 21:42> Heart score: 3 <Jerome Nazario MD - Last Filed: 06/06/25 21:42>
--- NOTE | 2025-06-06 15:24 | ECG_ITS ---
Test Date: 2025-06-06 15:43:15 Measurements Intervals [place] Rate: 67 P: 56 NC: 167 QRS: -19 QRSD: 98 T: 10 QT: 415 QTc: 441 Interpretive Statements SINUS RHYTHM MODERATE VOLTAGE CRITERIA FOR LVH, CONSIDER NORMAL VARIANT [MEETS CRITERIA IN ONE OF: R(aVL), S(V1), R(V5), R(V5/V6)+S(V1)] ABNORMAL ECG Compared to ECG 06/06/2025 12:32:44 No significant changes Electronically Signed On 06-06-2025 17:20:41 [employer] by Jc Carroll M.D.
[2025-06-06 15:58] VITALS: PULSE 71
[2025-06-06 15:59] VITALS: O2SAT 98
[2025-06-06 16:00] VITALS: BP 121/73; PULSE 72; RESP 14; O2SAT 96; O2SAT 98
[2025-06-06 16:24] LABS: Troponin I < 0.012 ng/mL (0.000-0.034)
[2025-06-06 16:40] VITALS: BP 124/68; PULSE 72; RESP 14; O2SAT 97
--- OUTSIDE RECORDS SUMMARY | 2025-06-06 17:46 | XMS_ITS | Clinical Summary ---
Author Organization [facility] Address [address] [place] [id number] Care Team Providers Care Optical Glass Sawyer Name Role Phone Unavailable Primary Care Provider Unavailabl e Social History Tobacco Use Types Packs/Day Years Used Date Smoking Tobacco: Never Assessed Comments Unknown Sex and Gender Information Value Date Recorded Sex Assigned at Not on file Legal Sex Female 6:48 PM CDT Gender Identity Not on file Sexual Orientation Not on file Plan of Treatment Health Maintenance Due Date Last Done Comments Colorectal Cancer Screening Colonoscopy (10 Years) 1955 Hepatitis C 10/11/1973 DTaP, Tdap and Td Vaccines ( 1 - Tdap) 10/11/1974 Mammogram Screening 1995 Pneumococcal Vaccine: 50+ Ye ars (1 of 1 - PCV) 10/11/2005 Zoster Vaccines (1 of 2) 10/11/2005 Dexa Scan (General) 10/11/2020 COVID-19 Vaccine ( - 2024-2 6 season) 2025 Influenza Adult (#1) 2025 RSV Immunization or 60+ Years (1 - 1-dose 75+ series) 10/11/2030 Hepatitis A Vaccines Aged Out No long er eligible based on patient's age to complete this topic Meningococcal B Vaccine Aged Out No l onger eligible based on patient's age to complete this topic Meningococcal Vaccine Aged Out No olvin katelyn eligible based on patient's age to complete this topic RSV Immunizations Under 20 Months Aged Out No longer eligible based on patient's age to complete this topic
[2025-06-06 18:31] VITALS: BP 123/66; PULSE 61; RESP 20; O2SAT 99
--- OUTSIDE RECORDS SUMMARY | 2025-06-07 00:34 | XMS_ITS | Encounter Summary ---
Author Organization [facility] Address [address] [place] [address] Care Team Providers Care Herb Digger Name Role Phone Arelis Garcia DO Primary Care Provider [phone] Arelis Garcia DO Unavailable [phone] Reason for Visit * Reason Onset Date Comments MEDICATION REFILL 11/23/2022 Encounter Details Date Type Department Care Team (Late st Contact Info) Description 11/23/2022 Refill [facility] [place] [address] Arelis Garcia DO [address] [place] [address] OF [facility] [place] [address] MEDICATION REFILL Social History Tobacco Use Types Packs/Day Years Used Date Smoking Tobacco: Every Day Cigarettes 0.3 50.1 Started: 1970; Last attempted to quit: 08/19/2020 Smokeless Tobacco: Never Quit: 08/19/2020 Alcohol Use Standard Drinks/Week Comments No 0 (1 standard drink = 0.6 oz pur e alcohol) AUDIT-C Answer Date Recorded Q1: How often do you have a drink containing alcohol? Never 11/04/2022 Q2: How many drinks containi ng alcohol do you have on a typical day when you are drinking? Patient does not drink Q3: How often do you have si x or more drinks on one occasion? Never 11/04/2022 PHQ-2 Answer Date Recorded PHQ2 TOTAL SCORE 0 08/27/2021 Hunger Vital Sign Answer Date Recorded Within the past 12 months, y ou worried that your food would run out before you got the money to buy more. Never true 12/30/19 22 Within the past 12 months, t he food you bought just didn't last and you didn't have money to get more. Never true 12/29/2021 Education Answer Date Recorded What is the highest level of school you have completed or the highest degree you have received? 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 Answer Date of Assessment Author No 11/16/2021 10:08 AM Isabela Gutierrez RN * Is person blind or have serious difficulty seeing? Answer Date of Assessment Author Yes 11/16/2021 10:08 AM Isabela Gutierrez RN * Does person have serious difficulty walking/climbing stairs? Answer Date of Assessment Author No 11/16/2021 10:08 AM Isabela Gutierrez RN * Does person have difficulty dressing/bathing? Answer Date of Assessment Author No 11/16/2021 10:08 AM Isabela Gutierrez RN * Does person have difficulty doing errands alone? Answer Date of Assessment Author No 11/16/2021 10:08 AM Isabela Gutierrez RN documented as of this encounter Mental Status * Does person have difficulty concentrating/remembering/making decisions? Answer Entry Date Author No 11/16/2021 10:08 AM Isabela Gutierrez RN documented in this encounter Miscellaneous Notes * Telephone Encounter - Sri Alfaro RN - 11/23/2022 1:40 PM CDT Patient comment: Dr [place] can you send a prescription for ??60 r 90 day supply so I don't have to go to the pharmacy as much transportation is hard for me ? Mirela Edward Refill Request Mirela Leon ABBY: 07/16/22 NOV scheduled: 12/02/2022 LRF: 10/12/22 Qty Disp: 30 # of refills: 0 Allergies: Allergies Allergen Reactions ??? Penicillins Other Swelling Pended Medication Order: Requested Prescriptions Pending Prescriptions Disp Refills ??? zolpidem (Ambien) 5 MG tablet 30 tablet 0 Sig: Take 1 (one) tablet by mouth nightly as needed FOR INSOMNIA documented in this encounter Plan of Treatment Upcoming Encounters Date Type Department Care Team (Late st Contact Info) Description 08/15/2025 10:30 AM LEARNING AND DEVELOPMENT ADMINISTRATOR Office Visit [facility] - ENT [address] [place] [address] Taco Mayer MD [address] [place] [address] DO[address] [place] [address] documented as of this encounter Goals Goal Patient Goal Type Associated Problems Recent Progress Patient-Stated? Author Safety General On track( 11:49 AM CDT) No Marsha Franklin RN Note: Expected end date: Ongoing Interventions: Your nurse will assess your risk for falls/injury each visit Use appropriate and safe transfer methods Medication Management General On track( 11:49 AM CDT) No Marsha Franklin RN Note: Expected end date: Ongoing Interventions: Take all medications as prescribed Let your doctor know right away about any changes in your medications documented as of this encounter Visit Diagnoses Diagnosis Insomnia, unspecified type documented in this encounter Care Teams Herb Digger Relationship Specialty Start Date End Date Arelis Garcia DO [address] [place] [address] PCP - General 8/23/16 Arelis Garcia DO [address] [place] [phone] PCP - Attributed-[facility] ISRAEL CHANDRA P4P 12/18/23 documented as of this encounter
--- OUTSIDE RECORDS SUMMARY | 2025-06-07 00:34 | XMS_ITS | Encounter Summary ---
Author Organization [facility] Address [address] [facility] [place] [address] Care Team Providers Care Mushroom Cutter Name Role Phone Arelis Garcia DO Primary Care Provider [phone] Arelis Garcia DO Unavailable [phone] Reason for Visit * Reason Comments Refill Request Encounter Details Date Type Department Care Team (Late st Contact Info) Description 09/19/2022 Refill [facility] Cardiology [address] [place] [address] Canelo Snow MD [address] [facility] [address] [place] [address] Refill Request Social History Tobacco Use Types Packs/Day Years Used Date Smoking Tobacco: Former Cigarettes 0.5 50.1 1 971 - 08/19/2020 Smokeless Tobacco: Never Quit: 08/19/2020 Alcohol Use Standard Drinks/Week Comments No 0 (1 standard drink = 0.6 oz pur e alcohol) AUDIT-C Answer Date Recorded Q1: How often do you have a drink containing alcohol? Never 04/12/2022 Q2: How many drinks containi ng alcohol do you have on a typical day when you are drinking? Patient does not drink Q3: How often do you have si x or more drinks on one occasion? 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 Author Safety General On track( 11:49 AM CDT) Marsha Peterson, RN Note: Expected end date: Ongoing Interventions: Your nurse will assess your risk for falls/injury each visit Use appropriate and safe transfer methods Medication Management General On track( 11:49 AM CDT) No Marsha Franklin, RN Note: Expected end date: Ongoing Interventions: Take all medications as prescribed Let your doctor know right away about any changes in your medications documented as of this encounter Visit Diagnoses Not on filedocumented in this encounter Care Teams Mushroom Cutter Relationship Specialty Start Date End Date Arelis Garcia DO [address] [place] [address] PCP - General 03/10/16 Arelis Garcia DO [address] DIV OF [facility] [place] [phone] PCP - Attributed-[facility] [place]EL CHANDRA P4Hilda 12/18/23 documented as of this encounter
--- OUTSIDE RECORDS SUMMARY | 2025-06-07 00:34 | XMS_ITS | Encounter Summary ---
Author Organization [facility] Address [address] [facility] [place] [address] Care Team Providers Care Clinical Laboratory Medical Director Name Role Phone Arelis Garcia DO Primary Care Provider [phone] Arelis Garcia DO Unavailable [phone] Reason for Visit * Reason Onset Date Comments MEDICATION REFILL 04/10/2024 Encounter Details Date Type Department Care Team (Late st Contact Info) Description 04/10/2024 Refill [facility] Med [facility]5 [facility], [place] [address] Arelis Garcia DO [address] [place] [address] OF [facility] INTER[place] [address] MEDICATION REFILL Social History Tobacco [...] occasion? 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 Answer Date of Assessment Author No 08/06/2023 9:12 AM Idalia Marino RN * Is person blind or have serious difficulty seeing? Answer Date of Assessment Author Yes 08/06/2023 9:12 AM Idalia Marino RN * Does person have serious difficulty walking/climbing stairs? Answer Date of Assessment Author No 08/06/2023 9:12 AM Idalia Marino RN * Does person have difficulty dressing/bathing? Answer Date of Assessment Author No 08/06/2023 9:12 AM Idalia Marino RN * Does person have difficulty doing errands alone? Answer Date of Assessment Author No 08/06/2023 9:12 AM Idalia Marino RN * Over the past 2 weeks, how often have you been bothered by any of the following problems? Question Answer Date of Assessment Author Little interest or pleasure in doing things Not at all 04/13/2024 10:06 AM Maureen Teague Feeling down, depressed, or hopeless Not at all 04/13/2024 10:06 AM Maureen Teague Patient Health Questionnaire -2 Score 0 04/13/2024 10:06 AM Maureen Teague documented as of this encounter Mental Status * Does person have difficulty concentrating/remembering/making decisions? Answer Entry Date Author No 08/06/2023 9:12 AM ALTERNATIVE EDUCATION TEACHER Idalia Herrera RN documented in this encounter Plan of Treatment Upcoming Encounters Date Type Department Care Team (Late st Contact Info) Description 08/15/2025 10:30 AM ALTERNATIVE EDUCATION TEACHER Office Visit [facility] - ENT [address] [facility], [place] [address] Taco Mayer MD [address] [facility] DOOR 3 DEPT [place] [address] documented as of this encounter Goals Goal Patient Goal Type Associated Problems Recent Progress Patient-Stated? Author Safety General On track( 11:49 AM CDT) No Marsha Franklin, BRIDGETTE Note: Expected end date: Ongoing Interventions: Your nurse will assess your risk for falls/injury each visit Use appropriate and safe transfer methods Medication Management General On track( 11:49 AM CDT) No Marsha Franklin, BRIDGETTE Note: Expected end date: Ongoing Interventions: Take all medications as prescribed Let your doctor know right away about any changes in your medications documented as of this encounter Visit Diagnoses Not on filedocumented in this encounter Care Teams Clinical Laboratory Medical Director Relationship Specialty Start Date End Date Arelis Garcia DO [address] [place] [address] PCP - General 03/10/16 Arelis Garcia DO [address] [facility] 2L DIV OF [facility] INTER[place] [phone] PCP - Attributed-[facility] ISRAEL CHANDRA P4P 12/18/23 documented as of this encounter
--- OUTSIDE RECORDS SUMMARY | 2025-06-07 00:34 | XMS_ITS | Encounter Summary ---
Author Organization [facility] Address [address] [place] [address] Care Team Providers Care Transcription Manager Name Role Phone Arelis Garcia DO Primary Care Provider [phone] Arelis Garcia DO Unavailable [phone] Encounter Details Date Type Department Care Team (Late st Contact Info) Description 12/06/2023 Telephone [facility] End[facility]inology [address] [facility], [place] [address] Yue Gomez, BRENDA-[address] [place] [phone] Social History Tobacco Use Types Packs/Day Years [...] Date Recorded Patient Health Questionnaire-2 Score 0 09/23/2023 Hunger Vital Sign Answer Date Recorded Within [...] on file Legal Sex Female 5:14 PM WALLBOARD WORKER Gender Identity Not on file Sexual Orientation Not on file 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 Answer Entry Date Author No 08/06/2023 9:12 AM Idalia Marino RN documented in this encounter Miscellaneous Notes * Telephone Encounter - Radha Denis - 12/06/2023 2:15 PM CDT Current Provider: Maria L Gomez Reason for Call: Ms. Dietz is returning a call from the office from Maria L or Ekta. Please give her a return call. Her phone is at the ready. Thanks. Patient Call Back Number: [phone] documented in this encounter Plan of Treatment Upcoming Encounters Date Type Department Care Team (Late st Contact Info) Description 08/15/2025 10:30 AM WALLBOARD WORKER Office Visit [facility] - ENT [address] [place] [address] Taco Mayer MD [address] [facility] DOOR 3 [place] [address] documented as of this encounter Goals Goal [...] on filedocumented in this encounter Care Teams Transcription Manager Relationship Specialty Start Date End Date Arelis Garcia DO [address] [place] [address] PCP - General 03/10/16 Arelis Garcia DO [address] [facility] [place] 2L DIV OF [facility] [place] [address] PCP - Attributed-[facility] [place]EL CHANDRA P4P 12/18/23 documented as of this encounter
--- OUTSIDE RECORDS SUMMARY | 2025-06-07 00:34 | XMS_ITS | Encounter Summary ---
Author Organization [facility] Address [address] [facility] [place] [address] Care Team Providers Care Music Worker Name Role Phone Arelis Garcia DO Primary Care Provider [phone] Arelis Garcia DO Unavailable [phone] Reason for Visit * Reason Onset Date Comments MEDICATION REFILL 02/16/2018 Refill Request 02/17/2018 refill request Encounter Details Date Type Department Care Team (Late st Contact Info) Description 02/16/2018 Refill [facility] Medicine [address] [address] Arelis Garcia DO [address] [facility] [address] 2[address] [facility] OF [facility] [place] [phone] MEDICATION REFILL; Refill Request (refill request ) Social History Tobacco Use Types Packs/Day Years Used Date Smoking Tobacco: Former Cigarettes 0.5 40 0 01/20/1974 - 01/20/2014 Smokeless Tobacco: Never Alcohol Use Standard Drinks/Week Comments No 0 (1 standard drink = 0.6 oz pur e alcohol) Comments No Sex and Gender Information Value Date Recorded Sex Assigned at Not on file Legal Sex Female 5:14 PM BOMB SQUAD OFFICER Gender Identity Not on file Sexual Orientation Not on file documented as of this encounter Miscellaneous Notes * Telephone Encounter - Josey Chandra - 02/17/2018 10:06 AM CDT Patient requesting refills for the following medications. ABBY:02-15-18 NOV:08-18-18 @ 8:50am Problem List Identified: office visit on 04-22-17 Medication attached per refill protocol/guidlines for further review by provider yes PCP / Resident PCP verified yes Allergies Reviewed yes Pharmacy Reviewed yes Medication details entered yes-please review prior to approval transcribed from previous script. Office visit within the last six months yes if not within last 6 months route to [facility]IM-scheduling as well. Office visit greater than 12 months no routed to GIM scheduling ONLY no. * Telephone Encounter - Lavonne Reardon - 02/16/2018 9:15 AM CDT Pt Mirela Leon Pt is requesting medication refill of the following medications pregabalin (LYRICA) 50 MG capsule calcium carbonate-vitamin D 600-400 MG-UNIT tablet dilTIAZem coated beads 24hr (CARDIZEM CD) 120 MG capsule rosuvastatin (CRESTOR) 40 MG tablet losartan (COZAAR) 50 MG tablet Pharmacy [facility] Located on [address] [facility] Thank you very much Lavonne MORA 02/15/18 NOV 08/18/18 documented in this encounter Plan of Treatment Upcoming Encounters Date Type Department Care Team (Late st Contact Info) Description 08/15/2025 10:30 AM BOMB SQUAD OFFICER Office Visit [facility] - ENT [address] [place] [phone] Taco Mayer MD [address] [place] [address] DO[address] DEPT [place] [address] documented as of this encounter Visit Diagnoses Not on filedocumented in this encounter Additional Health Concerns Infection Onset Date Last Indicated Resolved Time COVID-19 Under Investigation 10/21/2020 10/21/2020 10/21/2020 7:51 AM CDT COVID-19 Under Investigation 02/01/2021 02/01/2021 02/01/2021 10:32 PM CDT COVID-19 Under Investigation 03/07/2021 03/07/2021 03/07/2021 8:03 PM CDT documented as of this encounter Care Teams Music Worker Relationship Specialty Start Date End Date Arelis Garcia DO [address] [place] [address] PCP - General 03/10/16 Arelis Garcia DO [address] OF [facility] [place] [phone] PCP - Attributed-[facility] [place] CHANDRA P4Hilda 12/18/23 documented as of this encounter
--- OUTSIDE RECORDS SUMMARY | 2025-06-07 00:34 | XMS_ITS | Encounter Summary ---
Author Organization [facility] Address [address] [facility] [place] [address] Care Team Providers Care Repairer Kiln Car Name Role Phone Arelis Garcia DO Primary Care Provider [phone] Arelis Garcia DO Unavailable [phone] Reason for Visit * Reason Onset Date Comments MEDICATION REFILL 09/10/2024 Encounter Details Date Type Department Care Team (Late st Contact Info) Description 09/10/2024 Refill [facility] Endocrinology [address] [place] [address] Yue Gomez APRN-GAS PUMPING STATION HELPER [address] [place] [address] MEDICATION REFILL Social History Tobacco Use Types [...] on file Legal Sex Female 5:14 PM WORM GROWER Gender Identity Not on file Sexual Orientation Not on file 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 Not on file [...] Idalia Marino RN documented in this encounter Plan of Treatment Upcoming Encounters Date Type Department Care Team (Late st Contact Info) Description 08/15/2025 10:30 AM WORM GROWER Office Visit [facility] - ENT [facility] [place] [phone] Taco Mayer MD [address] [facility] LEVEL DOOR 3 [place] [address] documented as of this encounter Goals Goal [...] as of this encounter Visit Diagnoses Diagnosis Uncontrolled type 2 diabetes mellitus with hyperglycemia (HCC) documented in this encounter Care Teams Repairer Kiln Car Relationship Specialty Start Date End Date Arelis Garcia DO [address] [place] [address] PCP - General 03/10/16 Arelis Garcia DO [address] [facility] 2L DIV OF [facility] [place] [place] [address] PCP - Attributed-[facility] [place] CHANDRA P4Hilda 12/18/23 documented as of this encounter
--- OUTSIDE RECORDS SUMMARY | 2025-06-07 00:35 | XMS_ITS | Encounter Summary ---
Author Organization [facility] Address [address] [place] [address] Care Team Providers Care Support Specialist Name Role Phone Arelis Garcia DO Primary Care Provider [phone] Arelis Garcia DO Unavailable [phone] Reason for Visit * Reason Onset Date Comments MEDICATION REFILL 09/06/2023 Encounter Details Date Type Department Care Team (Late st Contact Info) Description 09/06/2023 Refill [facility] - Internal Med [facility]5 [facility], [place] [address] Arelis Garcai DO [address] [place] [address] OF [facility] [place] [address] MEDICATION REFILL Social History Tobacco [...] on file Legal Sex Female 5:14 PM STACKER OPERATOR Gender Identity Not on file Sexual Orientation Not on file 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 Not on file [...] st Contact Info) Description 08/15/2025 10:30 AM STACKER OPERATOR Office Visit [facility] - ENT [address] [place] [phone] Taco Mayer MD [address] [facility] LEVEL DOOR 3 DE[place] [address] documented as of this encounter Goals Goal [...] type documented in this encounter Care Teams Support Specialist Relationship Specialty Start Date End Date Arelis Garcia DO [address] [place] [address] PCP - General 03/10/16 Arelis Garcia DO [address] DIV OF [facility] [place] [address] PCP - Attributed-[facility] [place] CHANDRA P4Hilda 12/18/23 documented as of this encounter
--- OUTSIDE RECORDS SUMMARY | 2025-06-07 00:35 | XMS_ITS | Encounter Summary ---
Author Organization [facility] Address [address] [facility] [place] [address] Care Team Providers Care Plate Worker Helper Name Role Phone Arelis Garcia DO Primary Care Provider [phone] Arelis Garcia DO Unavailable [phone] Encounter Details Date Type Department Care Team (Late st Contact Info) Description 09/29/2023 Telephone [facility] Internal Med [address] 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 documented in this encounter Plan of Treatment Upcoming Encounters Date Type Department Care Team (Late st Contact Info) Description 08/15/2025 10:30 AM CASINO FLOOR SUPERVISOR Office Visit [facility] [address] [facility], [place] [phone] Taco Mayer MD [address] [facility] DOOR 3 [place] [address] documented as of this encounter Goals Goal [...] on filedocumented in this encounter Care Teams Plate Worker Helper Relationship Specialty Start Date End Date Arelis Garcia DO [address] [place] [address] PCP - General 03/10/16 Arelis Garcia DO [address] [facility] 2L DIV OF [facility] [place] [address] PCP - Attributed-[facility] ISRAEL CHANDRA P4P 12/18/23 documented as of this encounter
--- OUTSIDE RECORDS SUMMARY | 2025-06-07 00:35 | XMS_ITS ---
Author Organization [facility] Address [address] 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 During the diagnostic portion, patient slept for 118 minutes and had decreased sleep efficiency of 65%. The patient's initial sleep latency was prolonged at 42 minutes. The initial REM latency was reduced at 20 minutes. The sleep architecture was as follows: stage N1: 16.5%; stage N2: 35.6%; stage N3: 8.5%; stage REM: 39.4%. Respiratory Analysis: The patient's overall apnea-hypopnea index (AHI) was increased at 21.4 per hour while the respiratory effort-related arousal index was increased at 14.2 per hour. The overall respiratory disturbance index (RDI) was 35.7 per hour. The patient slept entirely in the lateral position during the diagnostic study. The REM AHI was 40 per hour while the REM RERA index was 9 per hour. There were 16 obstructive apneas, 0 central apneas, 1 mixed apneas, 25 hypopneas, and 28 respiratory effort-related arousals (RERA). There was no evidence of periodic breathing. Oximetry Data: The minimum oxygen saturation was decreased at 83% during REM sleep and decreased at 86% during non-REM sleep. The time spent with oxygen saturation less than 90% was 28 minutes of the total diagnostic sleep time. Snoring Profile: Nann-yx-[id number] snoring was detected during this study. Periodic Limb Movements: The patient's periodic limb movement index was within normal limits at 0 per hour. EEG Profile: The patient's total arousal index was elevated at 36.1 per hour. Virtually all of the arousals were due to respiratory events. There was no epileptiform activity during sleep. Cardiac Profile: EKG showed normal sinus rhythm. No clinically significant arrhythmia was noted. Parasomnias: No parasomnia was noted during this diagnostic study. IMPRESSION: 1. Severe obstructive sleep apnea based on the respiratory disturbance index 2. Sleep-related hypoxemia disorder Adrenal adenoma, left 08/20/2021 Pulmonary air trapping 03/08/2021 Legally blind 02/15/2020 Vitamin D deficiency 08/15/2019 Overview (08/15/2019): 14.0 in 08/07. Cardiomyopathy, unspecified 09/28/2018 Overview (05/21/2021): EF 30% in September 2018 (see Media tab). Assessment & Plan (02/11/2021 11:39 AM CDT): ICM with recovered EF in October 2020 53%. With ongoing chest pain since PCI in [facility]. Seen recently in ED and found to be hyperkalemic with JACK. Her medcications were adjusted, she had repeat LHC in August at the time that showed patent PCI to LAD. NTG PRN. Consider CCB for microvascular disease or increased Imdur. Ischemic Eval per Dr. Forrest in follow up. Resume Isosorbide 60mg daily. Continue Metoprolol 200mg XL, Entresto 49/51mg BID, ASA, statin and Plavix, check BMP and if WNL resume aldactone. Resume Jardiance 10mg daily. Euvolemic on Exam, Lasix PRN. Assessment & Plan (08/29/2020 2:58 PM CERTIFIED FINANCIAL PLANNER): HFrEF has lifevest will advance BB. HR today 105 bpm. she is to monitor bp/hr at home and report to me for upward titration of beta doim NPDR (nonproliferative diabetic retinopathy) 06/2018 Gastroesophageal reflux disease without esophagi tis 03/30/2017 Coronary arteriosclerosis in lummi artery 09/22 Overview (03/03/2022): Follows with outside cardiology, Carolina Hines at [place] ([facility]). H/o mild OH in 2000 per patient, angioplasty at time (done in [place], [place]). No stents. Assessment & Plan (06/22/2023 5:01 PM CERTIFIED FINANCIAL PLANNER): Stable SP STEMI 08/2020 with PCI to LAD with NGA x 2 and POBA of Diag, PCI with NGA x 2 to LAD in June 2021. ICM with recovered EF. Asytmptomatic with recovered EF. No further work up at this time. Will review with team hold of her DAPT for ocular surgery in October. Continue Metoprolol 200mg Xl and Entresto 49/51mg BID, Aldactone 25mg daily, along with Imdur 60mg daily, high dose statin. Taken off DAPT prior to surgery earlier this year and appropriate at this point to coninute monotherapy Assessment & Plan (10/03/2021 11:25 AM CDT): Stable SP STEMI 08/2020 with PCI to LAD with NGA x 2 and POBA of Diag, PCI with NGA x 2 to LAD in June 2021. ICM with recovered EF. Feeling well in clinic. Asytmptomatic with recovered EF. No further work up at this time. Will review with team hold of her DAPT for ocular surgery in October. Continue Metoprolol 200mg Xl and Entresto 49/51mg BID, Aldactone 25mg daily, along with Imdur 60mg daily, high dose statin. Will review timing of surgery and holding DAPT with team, from a cardiovascular standpoint all of her chronic cardiac conditions are stable and require no further work up at this time. Assessment & Plan (08/29/2020 2:55 PM CERTIFIED FINANCIAL PLANNER): S/P Recent STEMI with PCI continue DAPT GDMT Glaucoma 04/25/2016 Overview (10/18/2017): Legally blind left eye. Glaucoma. Follows with outside ophtho. Low serum C-peptide 03/10/2016 Osteopenia 01/21/2016 Hyperlipidemia 07/04/2015 Overview (10/18/2017): HDL 62 Assessment & Plan (06/22/2023 9:53 AM CERTIFIED FINANCIAL PLANNER): on 80 atorva recently LDL was 72 Recommend begin zetia. Check lipo (a) if not done previously along with apo B with lipid panel in one month Assessment & Plan (08/29/2020 2:56 PM CERTIFIED FINANCIAL PLANNER): On high intensity statin therapy. At goal LDL. Tolerating without side effects Essential hypertension 07/04/2015 Obesity 07/04/2015 Diabetic neuropathy 07/04/2015 Overview (02/15/2018): Overview: Emg/ncv - reportedly due to diabetes Dyspnea 11/23/2013 Current Treatment and Therapy Plans No current plan information found. Past Treatment and Therapy Plans No past plan information found. Lifetime Dose Tracking * Chemical Lifetime Dose Automatic Entry Manual Entr y Fluoro Time 4 minutes 0 minutes 4 minutes Air Kerma 123 mGy 0 mGy 123 mGy Dose Area Product 12.6 Gy-cm2 0 Gy-cm2 12.6 Gy-cm 2 Dose Length Product 9,652.21 mGy-cm 9,652.21 mGy-cm 0 mGy-cm Resolved Problems Problem Noted Date Diagnosed Date Resolved Date Skin lesions 11/04/2022 03/10/2023 Abdominal pain, left lower quadrant 04/12/2022 03/10/2023 Hyperglycemia 04/12/2022 03/10/2023 Numbness and tingling of left arm and leg 03/07/2021 03/10/2023 Precordial pain 02/01/2021 01/31/2025 Assessment & Plan (06/22/2023 5:00 PM CERTIFIED FINANCIAL PLANNER): With recent visit to OSH in April. None since then. 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
--- OUTSIDE RECORDS SUMMARY | 2025-06-07 00:35 | XMS_ITS | Clinical Summary ---
Author Organization [facility] Address [address] [place] [address] Care Team Providers Care Church Musician Name Role Phone Arelis Garcia DO Primary Care Provider [phone] Arelis Garcia DO Unavailable [phone] Source Comments [facility],non-owned Affiliates and Associated Physician Practices is amultiple site organization consisting of ambulatory clinics and hospital sitesin [place], [place], [place] and [place]. This disclosure is being madepursuant to the Care Everywhere program and may not contain all information available regarding this patient. Last updated 18.[facility] Allergies Active Allergy Reactions Criticality Noted Date Comments Penicillins Other Low 10/08/2015 Swelling Medications * Be aware that medications may not be up to date on this document. Alwaysverify current medications with the patient. travoprost, CYRIL free, (TRAVATAN Z) 0.004 % ophthalmic solution 1 (one) drop by Ophthalmic route at bedtime Active dorzolamide (TRUSOPT) 2 % ophthalmic solution Instill 1 (one) drop into left eye 3 times daily Active polyethylene glycol 3350 (MIRALAX) 17 g packetIndication s:Constipation, unspecified constipation type Take 17 g by mouth once daily as needed for Constipation Mix with 4-8 ounces of water. 90 packet 1 020 Active difluprednate (DUREZOL) 0.05 % ophthalmic suspension Instill 1 (one) drop into both eyes 4 times daily TWICE DAILY Active aspirin EC (ECOTRIN) 81 MG tablet Take 1 (one) tablet by mouth once daily 90 tablet 3 021 Active nitroGLYCERIN (Nitrolingual) 0.4 MG/SPRAY spray Dissolve 1 (one) spray under the tongue every 5 minutes as needed for Angina 12 g 023 Active pantoprazole EC (Protonix) 40 MG tabletIndication s:Gastroesophage al reflux disease, unspecified whether esophagitis present TAKE 1 TABLET BY MOUTH EVERY DAY 90 tablet 1 023 Active spironolactone (Aldactone) 25 MG tablet Take 1 (one) tablet by mouth once daily 90 tablet 3 023 Active albuterol HFA (Ventolin HFA) 108 (90 Base) MCG/ACT inhalerIndicatio ns:Pulmonary emphysema, unspecified emphysema type (HCC) Inhale 2 (two) puffs by mouth every 6 hours as needed 18 g 3 023 Active atropine 1 % ophthalmic solution INSTILL 1 DROP IN LEFT EYE TWICE DAILY 023 Active furosemide (Lasix) 20 MG tablet Take 1 (one) tablet by mouth once daily 90 tablet 4 024 Active isosorbide mononitrate CR 24hr (Imdur) 30 MG tablet Take 1 (one) tablet by mouth once daily 30 tablet 4 024 Active atorvastatin (Lipitor) 80 MG tablet Take 1 (one) tablet by mouth at bedtime 90 tablet 3 024 Active metoprolol succinate XL 24hr (Toprol XL) 200 MG tablet TAKE 1 TABLET BY MOUTH ONCE DAILY 100 tablet 2 024 Active sacubitril-valsa rtan (Entresto) 97-103 MG tablet Take 1 (one) tablet by mouth 2 times daily 120 tablet 025 Active pregabalin (Lyrica) 100 MG capsule Take 1 (one) capsule by mouth 3 times daily 90 capsule 3 025 Active Farxiga 10 MG tablet Take 1 (one) tablet by mouth once daily 025 Active DULoxetine (Cymbalta) 30 MG capsule Take 1 (one) capsule by mouth at bedtime for 90 days 30 capsule 2 025 Active zolpidem (Ambien) 5 MG tabletIndication s:Insomnia, unspecified type Take 1 (one) tablet by mouth nightly as needed FOR INSOMNIA 30 tablet 025 Active insulin glargine (Lantus SoloStar) penIndications:U ncontrolled type 2 diabetes mellitus with hyperglycemia (HCC) Inject 40 (forty) Units subcutaneously at bedtime 15 mL 5 025 Active B-D UF III MINI PEN NEEDLES 31G X 5 MM needleIndication s:Type 2 diabetes mellitus with other specified complication, with long-term current use of insulin (HCC) 4 times daily 120 Each 3 025 Active amitriptyline (Elavil) 75 MG tablet Take 1 (one) tablet by mouth at bedtime 025 Active amLODIPine (Norvasc) 10 MG tablet Take 1 (one) tablet by mouth once daily 025 Active cyclobenzaprine (Flexeril) 10 MG tablet Take 1 (one) tablet by mouth 3 times daily as needed 025 Active ezetimibe (Zetia) 10 MG tablet Take 1 (one) tablet by mouth once daily 025 Active HumaLOG 100 UNIT/ML vialIndications: Type 2 diabetes mellitus without complication, with long-term current use of insulin ([facility]) INJECT SUBCUTANEOUSLY 85 UNITS DAILY DIRECTED 90 mL 2 025 Active HumaLOG KwikPen 100 UNIT/ML penIndications:T ype 2 diabetes mellitus with other specified complication, with long-term current use of insulin ([facility]) INJECT 20 UNITS UNDER THE SKIN THREE TIMES DAILY BEFORE MEALS, USE IN CASE OF PUMP MALFUNCTION 18 mL 025 Active HumaLOG KwikPen 100 UNIT/ML penIndications:T ype 2 diabetes mellitus with other specified complication, with long-term current use of insulin ([facility]) INJECT 20 UNITS UNDER THE SKIN THREE TIMES DAILY BEFORE MEALS, USE IN CASE OF PUMP MALFUNCTION 18 mL 025 2024 Discontinued Active Problems Problem Noted Date Diagnosed Date Heart failure 02/02/2025 Type 2 diabetes mellitus with chronic kidney dis ease 02/02/2025 Presence of insulin pump 10/13/2023 Mixed hyperlipidemia 08/06/2023 Uncontrolled type 2 diabetes mellitus with hyper glycemia 08/06/2023 Elevated serum creatinine 08/05/2023 Macrocytosis without anemia 08/05/2023 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 Snoring Profile: [id number] snoring was detected during this study. Periodic [...] With ongoing chest pain since PCI in [facility]. Seen recently in ED and [...] PRN. Assessment & Plan (08/29/2020 2:58 PM LAUNDRY MANAGER): HFrEF has lifevest will advance BB. HR today 105 bpm. she is to monitor bp/hr at home and report to me for upward titration of beta domi NPDR (nonproliferative diabetic retinopathy) 06/2018 Gastroesophageal reflux disease without esophagi tis 03/30/2017 Coronary arteriosclerosis in hoh artery 09/22 Overview (03/03/2022): Follows with outside cardiology, Carolina Hines at [place] ([facility]). H/o mild NH in 2000 per patient, angioplasty at time (done in [place], [place]). No stents. Assessment & Plan (06/22/2023 5:01 PM LAUNDRY MANAGER): Stable SP STEMI 08/2020 with PCI to [...] time. Assessment & Plan (08/29/2020 2:55 PM LAUNDRY MANAGER): S/P Recent STEMI with PCI continue DAPT GDMT Glaucoma 04/25/2016 Overview (10/18/2017): Legally blind left eye. Glaucoma. Follows with outside ophtho. Low serum C-peptide 03/10/2016 Osteopenia 01/21/2016 Hyperlipidemia 07/04/2015 Overview (10/18/2017): HDL 62 Assessment & Plan (06/22/2023 9:53 AM LAUNDRY MANAGER): on 80 atorva recently LDL was 72 Recommend begin zetia. Check lipo (a) if not done previously along with apo B with lipid panel in one month Assessment & Plan (08/29/2020 2:56 PM LAUNDRY MANAGER): On high intensity statin therapy. At goal LDL. Tolerating without side effects Essential hypertension 07/04/2015 Obesity 07/04/2015 Diabetic neuropathy 07/04/2015 Overview (02/15/2018): Overview: Emg/ncv - reportedly due to diabetes Dyspnea 11/23/2013 Resolved Problems Problem Noted Date Diagnosed Date Resolved Date Skin lesions 11/04/2022 03/10/2023 Abdominal pain, left lower quadrant 04/12/2022 03/10/2023 Hyperglycemia 04/12/2022 03/10/2023 Numbness and tingling of left arm and leg 03/07/2021 03/10/2023 Precordial pain 02/01/2021 01/31/2025 Assessment & Plan (06/22/2023 5:00 PM LAUNDRY MANAGER): With recent visit to OSH in April. None since then. 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/2017 05/05/2023 Paresthesia of left upper limb 01/28/2017 03/10/2023 terminal supervisor current use of insulin 03/10/2016 01/31/2025 Palpitations 07/19/1959 03/10/2023 Encounters Date Type Department Care Team Description 06/06/2025 Telephone [facility] - Endocrinology [address] [address] Yue Gomez APRN-CNP Care Management 06/03/2025 Refill [facility] - Endocrin[place] [address] Yue Gomez APRN-CNP Refill Request 05/09/2025 Refill [facility] - Endocrinology [address] [place] [phone] Yue Gomez APRN-FAMILY SERVICE COUNSELOR Refill Request 04/19/2025 Refill [facility] - Endocrinology [facility] [place] [place] [address] [phone] Angela Juarez, DO Refill Request 04/06/2025 Refill [facility] - Endocrinology [facility] [place] [place] [address] [phone] Yue Gomez APRN-FAMILY SERVICE COUNSELOR Refill Request 03/13/2025 Refill [facility] - Endocrinology [facility] [place] [place] [address] Yue Gomez APRN-FAMILY SERVICE COUNSELOR Refill Request 03/12/2025 Refill [facility] - Endocrinology [facility] [place] [address] [phone] Yue Gomez APRN-FAMILY SERVICE COUNSELOR MEDICATION REFILL from Last 3 Months Immunizations Immunization Administration Dates Next Due USEUM primary monoval ent 12+ yr 0.3mL Purple cap 10/05/2024,07/11/2021,12/30/2020,2020 FLU VACCINE QUAD IIV4 SPLIT 0.25 ML IM 04/09/2015 INFLUENZA VACCINE 04/22/2017,04/02/2016 INFLUENZA VACCINE, HIGH-DOSE , QUADR. (FLUZONE HIGH-DOSE QUADRIVALENT; 65Y+), 0.7 ML (HD-IIV4) 05/26/2021 INFLUENZA VACCINE, QUADR. (F LUZONE; FLULAVAL; FLUARIX; AFLURIA QUADRIVALENT; 6MO+), 0.5 ML (IIV4) 05/09/2019,10/20/2018 Influenza Intradermal 08/01/2012 PNEUMOCOCCAL PPSV23 10/05/2024,07/01/2021,2011 Pneumococcal Pcv13 Conj 04/15/2015 TDAP (7yrs+) 10/05/2024,04/02/2016,04/05/2009 ZOSTER VACCINE, LIVE 09/15/2013,07/19/2012 Zoster Hzv Vacc Recombinant Inj Im 10/05/2024,,10/20/2018 iNFLUENZA VACCINE, RECOM-REGALADO, QUADR. (FLUBLOCK QUADRIVALENT; 18Y+) (RIV4) 05/07/2022 Family History Medical History Relation Name Comments Diabetes Father Heart Disease Father d CO poisoning Hypertension Father CAD (Coronary Artery Disease) Mother Cardiomyopathy Mother Diabetes Mother Heart Disease Mother CABG - 70 Hypertension Mother Cancer - Breast Paternal Grandmother Cancer - Colon Paternal Grandmother Cancer - Colon Paternal Uncle age unknown Relation Name Status Comments Father Mother Paternal Grandmother Paternal Uncle Social History Tobacco Use Types Packs/Day Years Used Date Smoking Tobacco: Every Day Cigarettes 0.1 50.1 Started: 1970; Last attempted to quit: 08/19/2020 Smokeless Tobacco: Never Quit: 08/19/2020 Tobacco Cessation:Ready to Q uit: Not Asked; Counseling Given: Not Answered Alcohol Use Standard Drinks/Week Comments No 0 [...] on file Legal Sex Female 5:14 PM LAUNDRY MANAGER Gender Identity Not on file Sexual Orientation Not on file 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 Not on file Not on file Not o n file Last Filed Vital Signs Vital Sign Reading Time Taken Comments Blood Pressure 137/84 01/31/2025 2:48 PM CDT Pulse 111 01/31/2025 2:48 PM CDT Temperature 36.7 C (98 F) 2024 3:08 PM CDT Respiratory Rate 18 05/25/2024 10:28 AM LAUNDRY MANAGER Oxygen Saturation 93% 2024 3:08 PM CDT Inhaled Oxygen Concentration 21% 11/04/2022 3 :20 AM CDT Weight 81.2 kg (179 lb) 01/31/2025 2:48 PM CDT Height 165.1 cm (5' 5) 01/31/2025 2:48 PM CDT Body Mass Index 29.79 01/31/2025 2:48 PM CDT Plan of Treatment Upcoming Encounters Date Type Department Care Team (Late st Contact Info) Description 08/15/2025 10:30 AM LAUNDRY MANAGER Office Visit [facility] - ENT [address] [place] [phone] Taco Mayer MD [address] [place] [address] [address] [place] [address] Health Maintenance Due Date Last Done Comments COLOGUARD (AGES 45-75) - COLON CA SCREENING 1955 CT COLONOGRAPHY - COLON CA SCREENING 1955 FIT - COLON CA SCREENING 1955 FLEX SIG - COLON CA SCREENING 1955 Respiratory Syncytial Virus (RSV) Vaccine Pt: or over 60 yrs (1 - Risk 50-74 years 1-dose series) 10/11/2005 COLON MONITORING 07/20/2020 07/20/2018, 08/2018, 05/22/2016 (Done Outside Per Report) Colorectal Cancer Screening 07/20/2020 MAMMOGRAM 08/13/2023 08/13/2022, 02/16, 06/02/2019 DIABETES-HGB A1C 01/07/2024 10/07/2023, , 04/06/2023, Additional history exists DIABETES RETINOPATHY SCREENING 02/24/2024 02/23/2023, 02/23/2023, 11/16/2021, Additional history exists DEPRESSION SCREENING 07/19/2024 09/23/2023, 08/27/2021, 07/01/2021 DIABETES - URINE PROTEIN SCREENING 07/19/2024 05/05/2023, 11/09/2018, 09/23/2017, Additional history exists MEDICARE AWV CALENDAR YEAR 2024 07/01/2021, 02/15/2020, 10/20/2018 DIABETES-SERUM CREATININE 10/09/20242023, 08/06/2023, 08/03/2023, Additional history exists DIABETES-FOOT EXAM WITH MONOFILAMENT 01/27/2025 01/28/2024 (Done Outside Per Report), 08/27/2021, 09/24/2020, Additional history exists COVID-19 VACCINE ( season) 2025 10/05/2024, 11/12/2022, 07/11/2021, Additional history exists INFLUENZA VACCINE (#1) 2025 , 05/26/2021, 05/09/2019, Additional history exists BONE DENSITY TESTING 03/04/2026 03/04/2021, 07/09/20 15 COLONOSCOPY - COLON CA SCREENING 07/20/2028 07/20/2018, 07/20/2018 DTAP/TDAP/TD VACCINES (4 - Td or Tdap) 10/05/2034 10/05/2024, 04/02/2016, 04/05/2009 HEPATITIS C SCREENING Completed 02/15/2018, 018 PNEUMOCOCCAL VACCINE 50+ Completed 025, 07/01/2021, 04/15/2015, Additional history exists ZOSTER VACCINE Completed 10/05/2024, 03/2019, 10/20/2018, Additional history exists HEPATITIS B VACCINE Aged Out No longe r eligible based on patient's age to complete this topic HIB VACCINE Aged Out No longer eligi ble based on patient's age to complete this topic HPV VACCINE Aged Out No longer eligi ble based on patient's age to complete this topic MENINGOCOCCAL (Group B) VACCINE SHARED DECISION-MAKING Aged Out No longer eligible based on patient's age to complete this topic MENINGOCOCCAL GROUPS A/C/Y/W VACCINE Aged Out No longer eligible based on patient's age to complete this topic Goals Goal Patient Goal Type Associated Problems Recent Progress Patient-Stated? Author Safety General On track( 018 11:49 AM CDT) Marsha Peterson, RN Note: Expected end date: Ongoing Interventions: Your nurse will assess your risk for falls/injury each visit Use appropriate and safe transfer methods Medication Management General On track( 018 11:49 AM CDT) No Marsha Franklin, RN Note: Expected end date: Ongoing Interventions: Take all medications as prescribed Let your doctor know right away about any changes in your medications Medical Devices Implanted Type Area Bacon Stringer Device Identifier Shelf Expiration Date Model / Serial / Lot Sys Cor Stent Xience Srr 4mm 18mm Rap Ex Implanted:Qty: 1 on 08/19/2020 by Aron Brody MD at [facility] Stent Left: Coronary [employer] 11/25/2021 [id number] Description:pLAD Sys Cor Stent Xience Srr 2.25mm 12mm Rap Implanted:Qty: 1 on 08/19/2020 by Aron Brody MD at [facility] Stent Left: Coronary [employer] 12/02/2021 [id number] Description:1st Diag Sys Cor Stent Xience Srr 3.5mm 15mm Rap Implanted:Qty: 1 on 08/19/2020 by Aron Brody MD at [facility] Stent Left: Coronary [employer] 10/28/2021 [id number] Description:mLAD Sys Cor Stent Xienceskpt 3.50mm 08mm Rap Implanted:Qty: 1 on 06/24/2021 by Aron Brody MD at [facility] Stent Left: Heart [employer] 09/30/2022 [id number] Sys Cor Stent Xienceskpt 3.0mm 15mm Rap Implanted:Qty: 1 on 06/24/2021 by Aron Brody MD at [facility] Stent Left: Heart [employer] 10/22/2022 [id number] Procedures Procedure Name Priority Date/Time Associated Diagnosis Comments COMPREHENSIVE METABOLIC PANEL STAT 10/10/2023 6:56 PM CDT Chest wall pain HEMOGLOBIN A1C - POINT OF CARE (AMB) [facility] Routine 10/07/2023 9:03 AM CDT Type 2 diabetes mellitus with other specified complication, with long-term current use of insulin MICROALB/CREAT RATIO URINE RANDOM PANEL Routine 05/05/2023 11:41 AM CDT Type 2 diabetes mellitus without complication, with long-term current use of insulin MAMMO BILAT DIAGNOSTIC [facility] Routine 08/13/2022 9:51 AM LAUNDRY MANAGER Breast pain, right DEXA BONE DENSITY AXIAL SKELETON Routine 03/04/2021 1:41 PM CDT Osteoporosis screening Postmenopause ENDOSCOPY, COLON, SCREENING Routine 07/20/2018 10:51 AM LAUNDRY MANAGER HEPATITIS C AB SCREEN RFLX NAAT QUANT Routine 02/15/2018 10:43 AM CDT Need for hepatitis C screening test from Last 3 Months or Most Recently Relevant to Health Maintenance Results * (ABNORMAL) COMPREHENSIVE METABOLIC PANEL (10/10/2023 6:56 PM CDT) BUN 15 7 - 26 mg/dL 10/10/2023 7:57 PM CDT [facility] Creatinine 0.89 0.56 - 0.96 mg/dL 10/10/2023 7:57 PM CDT [facility] Sodium 140 136 - 145 mmol/L 10/10/2023 7:57 PM CDT [facility] Potassium 3.7 3.5 - 4.5 mmol/L 10/10/2023 7:57 PM [facility] Chloride 105 98 - 107 mmol/L 10/10/2023 7:57 PM [facility] CO2 22 22 - 29 mmol/L 10/10/2023 7:57 PM [facility] Glucose 322(H) 70 - 115 mg/dL 10/10/2023 7:57 PM [facility] Calcium 10.0 8.4 - 10.2 mg/dL 10/10/2023 7:57 PM [facility] Protein Total 7.2 6.0 - 8.3 g/dL 10/10/2023 7:57 PM [facility] Albumin 3.8 3.4 - 5.0 g/dL 10/10/2023 7:57 PM [facility] Bilirubin Total 0.6 0.2 - 1.2 mg/dL 10/10/2023 7:57 PM [facility] Alkaline Phosphatase 132 40 - 150 U/L 10/10/2023 7:57 PM [facility] ALT 13 5 - 55 U/L 10/10/2023 7:57 PM [facility] AST 11 5 - 34 U/L 10/10/2023 7:57 PM [facility] Anion Gap 13 6 - 16 10/10/2023 7:57 PM [facility] BUN/Creatinine Ratio 17 7 - 23 10/10/2023 7:57 PM [facility] Osmolality Calculated 303(H) 275 - 295 mOsm/kg 10/10/2023 7:57 PM [facility] Albumin/Globulin Ratio 1.1 1.1 - 2.3 10/10/2023 7:57 PM [facility] eGFR by CKD-EPI 71(L) >=90 mL/min/1.7 3 m2 10/10/2023 7:57 PM [facility] Blood BLOOD SPECIMEN / Unknown Venipuncture / Unknown 10/10/2023 6:56 PM CDT 10/10/2023 7:27 PM T us Isaias Conroy PA-C LAB - CHEMISTRY ORDERABLES Final Result [facility] [address] [place] [address], [place] [phone] * HEMOGLOBIN A1C - POINT OF CARE (AMB) [facility] (10/07/2023 9:03 AM CDT) Hemoglobin A1c POCT 8.8 % ARNAUDRE [address] BLOOD SPECIMEN / Unknown 10/07/2023 9:03 AM CDT us Yue Gomez AUTOMATION AND CONTROL ENGINEER-FAMILY SERVICE COUNSELOR LAB - POINT OF CARE OR DERABLES Final Result [facility] [address], [facility] [address] [place] [address], [place] [phone] * MICROALB/CREAT RATIO URINE RANDOM PANEL (05/05/2023 11:41 AM CDT) Pathologist [facility] Albumin Random Urine 31.2 Not Established ug/mL 05/05/2023 12:35 PM CDT [facility] Creatinine Urine 111.00 Not Established mg/dL 05/05/2023 12:35 PM CDT [facility] Urine Albumin/Creati nine Ratio 28 <30 mg/g 05/05/2023 12:35 PM CDT [facility] Urine URINE SPECIMEN OBTAINED BY CLEAN CATCH PROCEDURE / Unknown Collection / Unknown 05/05/2023 11:41 AM CDT 05/05/2023 12:03 PM CDT us Angela Juarez DO LAB - URINE CHEMISTRY ORDERABLES Final Result [facility] [address] [place] [address], [place] [phone] * (ABNORMAL) MAMMO BILAT DIAGNOSTIC [facility] (08/13/2022 9:51 AM LAUNDRY MANAGER) Anatomical Region Laterality Modality Breast Bilateral Mammography 08/13/2022 11:3 2 AM LAUNDRY MANAGER Addenda Addendum by Carrie Palacio MD on 09/24/2022 4:52 PM LAUNDRY MANAGER Addendum by Carrie Palacio M.D. The addendum is to clarify the placement of the triangular marker. A triangular marker was placed by the technologist over the area of palpable concern. I visualized to the triangular marker on the mammogram. > Interpreting Provider: Carrie Palacio MD on 09/24/2022 4:50 PM Impressions 08/13/2022 11:41 AM LAUNDRY MANAGER : 1. Right breast mass at the 3:00 position 4 cm from the nipple that is indeterminate. Differential includes fat necrosis however the patient denies any history of trauma. Tissue sampling is recommended with ultrasound guided biopsy. 2. Negative left mammogram. Clinical follow-up is recommended for the patients generalized left breast pain RECOMMENDATION: Ultrasound core biopsy of the right breast is recommended. Clinical follow-up is recommended for the patient's left breast pain Dr. Palacio discussed the examination findings and recommendations with the patient the time of the examination. Patient also met with our nurse navigator who will contact the referring physician and schedule the patient to return for the procedure. OVERALL ASSESSMENT: BI-RADS CATEGORY 4: SUSPICIOUS. (SUBSET CATEGORY 4B: MODERATE SUSPICION FOR MALIGNANCY). > Interpreting Provider: Carrie Palacio MD on 08/13/2022 11:41 AM Narrative 08/13/2022 11:41 AM LAUNDRY MANAGER EXAMINATIONS: 1. DIGITAL MAMMO BILAT DIAGNOSTIC [facility] [place], US BREAST RIGHT LTD WITH CAD AND 2. LIMITED RIGHT BREAST ULTRASOUND (COMBINED REPORT) DATE OF EXAM: 08/13/2022 9:53 AM HISTORY: Palpable lump in the right breast. 66-year-old woman who presented with a palpable right breast lump for about a month. The patient also reports generalized pain on the left breast. The pain is not focal RISK ASSESSMENT CALCULATION: Patient completed a breast cancer risk assessment during her appointment. Based upon the information she provided and her mammographic breast density, her lifetime risk of developing breast cancer is 5.9 % (Average Risk <15%; Intermediate / Moderate Risk 15-19%; High Risk > 20%). COMPARISON: Prior breast imaging studies from [facility], dated 03/04/2021 06/02/2019, and an prior outside studies dated 09/03/2015 from [facility] and 06/08/2011 05/01/2010 MAMMOGRAM: TECHNIQUE: Diagnostic bilateral mammography was performed. Tomosynthesis (3-D) and reconstructed synthetic 2-D images acquired. Images acquired in the craniocaudal and mediolateral oblique projections. A tangent spot view in the right craniocaudal view was performed. A total of 6 images were obtained. Computer-aided detection (CAD) was utilized. BREAST COMPOSITION: Category B: There are scattered areas of fibroglandular density. FINDINGS: A triangular marker was placed in the area of palpable concern in the lower inner right breast. Subadjacent to this marker there is no suspicious mass or architectural distortion. Lateral and inferior to the marker there is a 1.4 cm mass. Ultrasound be performed for further evaluation. There is no suspicious finding in the left breast. LIMITED RIGHT BREAST ULTRASOUND: Ultrasound of the lower inner quadrant of the breast was performed. Scanning performed from the 3 to the [address] Palacio also scanned the patient FINDINGS: In the right breast at the 3 o'clock position 4 cm from the nipple there is a heterogeneous mass with a hypoechoic central area and hyperechoic rim measuring 1.6 x 1.1 x 0.8 cm. This corresponds to the mass identified on mammography. The patient pointed to the area of palpable concern in both the 5:00 and 6:00 position approximately 3 cm from the nipple. No suspicious mass or architectural distortion is identified. No suspicious axillary lymph nodes are noted.. Procedure Note Carrie Palacio MD - 08/17/2022 EXAMINATIONS: 1. DIGITAL MAMMO BILAT DIAGNOSTIC [place], US BREAST RIGHT LTD WITH CADAND 2. LIMITED RIGHT BREAST ULTRASOUND (COMBINED REPORT) DATE OF EXAM: 08/13/2022 9:53 AM HISTORY: Palpable lump in the right breast. 66-year-old woman whopresented with a palpable right breast lump for about a month. The patient also reports generalized pain on the left breast. The pain is not focal RISK ASSESSMENT CALCULATION: Patient completed a breast cancer risk assessment during her appointment. Based upon the information sheprovided and her mammographic breast density, her lifetime risk of developingbreast cancer is 5.9 % (Average Risk <15%; Intermediate / Moderate Risk 15-19%; High Risk > 20%). COMPARISON: Prior breast imaging studies from [facility],dated 03/04/2021 06/02/2019, and an prior outside studies dated 09/03/2015 from [facility] and 06/08/2011 05/01/2010 MAMMOGRAM: TECHNIQUE: Diagnostic bilateral mammography was performed. Tomosynthesis (3-D) and reconstructed synthetic 2-D images acquired. Images acquired in the craniocaudal and mediolateral obliqueprojections. A tangent spot view in the right craniocaudal view was performed. Atotal of 6 images were obtained. Computer-aided detection (CAD) was utilized. BREAST COMPOSITION: Category B: There are scattered areas offibroglandular density. FINDINGS: A triangular marker was placed in the area of palpableconcern in the lower inner right breast. Subadjacent to this marker there is no suspicious mass or architectural distortion. Lateral and inferior to the marker there is a 1.4 cm mass. Ultrasound be performed for further evaluation. There is no suspicious finding in the left breast. LIMITED RIGHT BREAST ULTRASOUND: Ultrasound of the lower inner quadrant of the breast was performed. Scanning performed from the 3 to the [address] Meng scanned the patient FINDINGS: In the right breast at the 3 o'clock position 4 cm from the nipple there is a heterogeneous mass with a hypoechoic central area and hyperechoic rim measuring 1.6 x 1.1 x 0.8 cm. This corresponds to themass identified on mammography. The patient pointed to the area of palpable concern in both the 5:00 and 6:00 position approximately 3 cm from the nipple. No suspicious mass or architectural distortion is identified. No suspicious axillary lymph nodes are noted.. IMPRESSION: 1. Right breast mass at the 3:00 position 4 cm from the nipple that is indeterminate. Differential includes fat necrosis however the patient denies any history of trauma. Tissue sampling is recommended with ultrasound guided biopsy. 2. Negative left mammogram. Clinical follow-up is recommended for the patients generalized left breast pain RECOMMENDATION: Ultrasound core biopsy of the right breast isrecommended. Clinical follow-up is recommended for the patient's left breast pain Dr. Palacio discussed the examination findings and recommendationswith the patient the time of the examination. Patient also met with our nurse navigator who will contact the referring physician and schedule thepatient to return for the procedure. OVERALL ASSESSMENT: BI-RADS CATEGORY 4: SUSPICIOUS. (SUBSET [id number]: MODERATE SUSPICION FOR MALIGNANCY). > Interpreting Provider: Carrie Palacio MD on 08/13/2022 11:41 AM us Arelis Garcia DO MAMMO ORDERABLES Edited Resul t - Final * BONE DENSITY AXIAL SKELETON(1OR MORE SITES)[id number] (03/04/2021 1:41 PM CDT) Anatomical Region Laterality Modality Other 03/04/2021 3:46 PM CDT Narrative 03/07/2021 5:34 PM CDT EXAMINATION: Dual energy x-ray absorptiometry of the lumbar spine and hip. CLINICAL INDICATION: Z13.820: Osteoporosis screening Z78.0: Postmenopause. Patient's height 65 in; weight 182 lb. FINDINGS: Detailed data from the exam is sent separately to the ordering physician and is also available on Reds[employer], the Radiology Department's computerized picture archive system. COMPARISON: Comparison is made to a prior similar study from 07/09/2015. SUMMARY: BONE MINERAL DENSITY (BMD) lumbar spine (L1-4): Osteopenic; T-score -1.9, previously -1.8. BONE MINERAL DENSITY (BMD) left femoral neck: Osteopenic; T-score -1.9, unchanged compared to the prior study. FRAX 10-year fracture risk Major osteoporotic fracture: 3.9%. Hip fracture: 0.4%. DEFINITIONS: T-score = Standard Deviation Normal: A value for bone mineral density(BMD) within 1 standard deviation of the young adult reference mean. (T-score above -1) Low bone mass(osteopenia): A value for bone mineral density(BMD) more than 1 standard deviation below the young adult mean, but less than 2.5 standard deviations below the young adult mean. ( T-score between -1 and -2.5) Osteoporosis: A value for bone mineral density 2.5 standard deviations or more below the young adult mean. ( T-score at or below -2.5) Severe osteoporosis: Osteoporosis + the presence of one or more fragility fractures. Please note that T-score values are important in determining increased risk for fractures. The T-score represents the standard deviation above or below the mean bone mineral density for young adults. With each -1 standard deviation decrease in bone mineral density, the risk for fracture doubles exponentially. A T-score of -1 will double the risk , and -2 will be 4 times the risk. As a rule of thumb, a T-score of -1 to -2.5 indicates increasing degrees of osteopenia. Dictated by Rhett Zhao MD (Nuclear Medicine resident). This report was approved by Rhett Zhao on 03/04/2021 3:47 PM . I, Dr. GREG SONG M.D. have personally reviewed and interpreted this examination/study. This report was electronically signed by GREG SONG M.D. on 03/07/2021 5:34 PM . Procedure Note Greg Song MD - 03/07/2021 EXAMINATION: Dual energy x-ray absorptiometry of the lumbar spine andhip. CLINICAL INDICATION: Z13.820: Osteoporosis screening Z78.0: Postmenopause. Patient's height 65 in; weight 182 lb. FINDINGS: Detailed data from the exam is sent separately to the ordering physician and is also available on [employer], the Radiology Department's computerized picture archive system. COMPARISON: Comparison is made to a prior similar study from 07/09/2015. SUMMARY: BONE MINERAL DENSITY (BMD) lumbar spine (L1-4): Osteopenic; T-score -1.9, previously -1.8. BONE MINERAL DENSITY (BMD) left femoral neck: Osteopenic; T-score -1.9, unchanged compared to the prior study. FRAX 10-year fracture risk Major osteoporotic fracture: 3.9%. Hip fracture: 0.4%. DEFINITIONS: T-score = Standard Deviation Normal: A value for bone mineral density(BMD) within 1 standarddeviation of the young adult reference mean. (T-score above -1) Low bone mass(osteopenia): A value for bone mineral density(BMD) morethan 1 standard deviation below the young adult mean, but less than 2.5 standard deviations below the young adult mean. ( T-score between -1 and -2.5) Osteoporosis: A value for bone mineral density 2.5 standard deviationsor more below the young adult mean. ( T-score at or below -2.5) Severe osteoporosis: Osteoporosis + the presence of one or morefragility fractures. Please note that T-score values are important in determining increased risk for fractures. The T-score represents the standard deviation aboveor below the mean bone mineral density for young adults. With each -1 standard deviation decrease in bone mineral density, the risk forfracture doubles exponentially. A T-score of -1 will double the risk , and -2will be 4 times the risk. As a rule of thumb, a T-score of -1 to -2.5indicates increasing degrees of osteopenia. Dictated by Rhett Zhao MD (Nuclear Medicine resident). This report was approved by Rhett Zhao on 03/04/2021 3:47 PM . I, Dr. GREG SONG M.D. have personally reviewed and interpreted this examination/study. This report was electronically signed by GREG SONG M.D. on03/07/2021 5:34 PM . us Arelis Garcia DO DEXA ORDERABLES Final Result * ENDOSCOPY, COLON, SCREENING (07/20/2018 10:51 AM LAUNDRY MANAGER) Report Endoscopy POC Endoscopy Department Report _ Patient Name: Mirela Eckert Procedure Date: 07/20/2018 10:51 AM Date of : 1955 Classification: Outpatient Gender: Female _ Providers: Jas Mejia MD Referring MD: Barb Corrigan MD (Referring MD) Procedure: Colonoscopy Indications: Screening for colon cancer: Family history of colorectal cancer in distant relative(s) before age 60 Medications: Monitored Anesthesia Care Comorbidities family history of CRC, DM (on insulin pump), CAD, and GERD Description of Procedure: Pre-Anesthesia Assessment: - Prior to the procedure, a History and Physical was performed, and patient medications and allergies were reviewed. The patient's tolerance of previous anesthesia was also reviewed. The risks and benefits of the procedure and the sedation options and risks were discussed with the patient. All questions were answered, and informed consent was obtained. Prior Anticoagulants: The patient has taken no previous anticoagulant or antiplatelet agents. ASA Grade Assessment: II - A patient with mild systemic disease. After reviewing the risks and benefits, the patient was deemed in satisfactory condition to undergo the procedure. After I obtained informed consent, the scope was passed under direct vision. Throughout the procedure, the patient's blood pressure, pulse, and oxygen saturations were monitored continuously. The PCF-[id number] was introduced through the anus and advanced to the cecum, identified by the ileocecal valve. The colonoscopy was performed without difficulty. The patient tolerated the procedure well. The quality of the bowel preparation was evaluated using the BBPS (Norlina Bowel Preparation Scale) with scores of: Right Colon = 2 (minor amount of residual staining, small fragments of stool and/or opaque liquid, but mucosa seen well), Transverse Colon = 3 (entire mucosa seen well with no residual staining, small fragments of stool or opaque liquid) and Left Colon = 2 (minor amount of residual staining, small fragments of stool and/or opaque liquid, but mucosa seen well). The total BBPS score equals 7. The quality of the bowel preparation was good. Findings: Skin tags were found on perianal exam. Internal hemorrhoids were found during retroflexion. two tattoos were seen at the hepatic flexure c/w previous large polypectomy site from 2016. No residual or recurrent polyp seen. Multiple polyps were found in the rectum, sigmoid colon, descending colon and hepatic flexure. The polyps were less than 5 mm in size. These polyps were removed with a jumbo cold forceps. Resection and retrieval were complete. Estimated Blood Loss: Estimated blood loss was minimal. Complications: No immediate complications. Impression: - Perianal skin tags found on perianal exam. - Internal hemorrhoids. - Two tattoos were seen at the hepatic flexure. No residual or recurrent polyp seen at the site - Multiple less than 5 mm polyps in the rectum, in the sigmoid colon and in the descending colon, removed with a jumbo cold forceps. Resected and retrieved. Recommendation: - Patient has a contact number available for emergencies. The signs and symptoms of potential delayed complications were discussed with the patient. Return to normal activities tomorrow. Written discharge instructions were provided to the patient. - Resume previous diet. - Continue present medications. - Await pathology results. - Repeat colonoscopy in 2-3 years for surveillance. Attending Participation: I was present and participated during the entire procedure, including non-berger portions. Procedure Code(s): --- Professional --- 24304, Colonoscopy, flexible; with biopsy, single or multiple Diagnosis Code(s): --- Professional --- Z12.11, Encounter for screening for malignant neoplasm of colon Z80.0, Family history of malignant neoplasm of digestive organs K64.8, Other hemorrhoids K62.1, Rectal polyp D12.5, Benign neoplasm of sigmoid colon D12.4, Benign neoplasm of descending colon K64.4, Residual hemorrhoidal skin tags CPT copyright 2016 [employer]. All rights reserved. The codes documented in this report are preliminary and upon director search review may be revised to meet current compliance requirements. __ Jas Mejia MD 07/20/2018 1:00:45 PM Note Initiated On: 07/20/2018 10:51 AM Number of Addenda: 0 [facility] [address] [place] [address] [facility] 07/20/2018 10:5 1 AM LAUNDRY MANAGER us Roma Burden MD GI PROCEDURE ORDERABLES Edited Result - Final [facility] * HEPATITIS C AB SCREEN RFLX PCR QUANT (02/15/2018 10:43 AM CDT) Hepatitis C Antibody Non-react stan Non-reac tive 02/15/2018 12:06 PM CDT [facility] Comment: Hepatitis C Antibody screen indicates no serologic evidence of past or current infection with Hepatitis C Virus. Patients with unexplained liver disease who are immunocompromised or suspected of having acute Hepatitis C infection may benefit from Nucleic Acid Test (HUY) for Hepatitis C Viral RNA to confirm Hepatitis C status. Blood BLOOD SPECIMEN / Unknown Lab Venipuncture / Unknown 02/15/2018 10:43 AM CDT 02/15/2018 11:17 AM CDT us Arelis Garcia DO LAB - CHEMISTRY ORDERABLES nal Result [address] [phone] from Last 3 Months or Most Recently Relevant to Health Maintenance Insurance [facility] MANAGED MEDICARE [facility] MEDICAID - OUT OF STATE [facility] MANAGED MEDICARE ADV Advance Directives * Full Code (Latest Code Status on File) Date Activated Date Inactivated Comments 08/06/2023 8:51 AM 08/06/2023 1:09 PM * Full Code Date Activated Date Inactivated Comments 11/04/2022 2:30 AM 11/04/2022 7:13 PM * Full Code Date Activated Date Inactivated Comments 12/29/2021 10:27 AM 12/30/2021 11:42 AM * Full Code Date Activated Date Inactivated Comments 11/13/2021 8:12 AM 11/17/2021 2:31 PM * Full Code Date Activated Date Inactivated Comments 06/22/2021 4:00 PM 06/26/2021 12:33 PM Care Teams Church Musician Relationship Specialty Start Date End Date Arelis Garcia DO [address] [place] [address] PCP - General 03/10/16 Arelis Garcia DO [address] OF [facility] [place] [phone] PCP - Attributed-[facility] ISRAEL CHANDRA P4P 12/18/23
--- OUTSIDE RECORDS SUMMARY | 2025-06-07 00:35 | XMS_ITS | Encounter Summary ---
Author Organization [facility] Address [address] [facility] [place] [address] Care Team Providers Care Emergency Management Coordinator Name Role Phone Arelis Garcia DO Primary Care Provider [phone] Arelis Garcia DO Unavailable [phone] Reason for Visit * Reason Onset Date Comments MEDICATION REFILL 10/23/2023 Encounter Details Date Type Department Care Team (Late st Contact Info) Description 10/23/2023 Refill [facility] - Endocrinology [address] [facility], [place] [address] Angela Juarez DO [address] [place] [phone] MEDICATION REFILL Social History Tobacco Use [...] on file Legal Sex 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 Gender Identity Not on file Sexual Orientation Not on file 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 Job 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 Date 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 Not on file Not on file Not [...] st Contact Info) Description 08/15/2025 10:30 AM CRABBING MACHINE OPERATOR Office Visit [facility] - ENT [address] [place] [address] Taco Mayer MD [address] [facility] LEVEL DOOR [address] [place] [address] documented as of this encounter Goals Goal [...] on filedocumented in this encounter Care Teams Emergency Management Coordinator Relationship Specialty Start Date End Date Arelis Garcia DO [address] [place] [address] PCP - General 03/10/16 Arelis Garcia DO [address] DIV OF [employer] [place] [address] PCP - Attributed-[facility] ISRAEL CHANDRA P4Hilda 12/18/23 documented as of this encounter
--- OUTSIDE RECORDS SUMMARY | 2025-06-07 00:35 | XMS_ITS | Encounter Summary ---
Author Organization [facility] Address [address] [facility] [place] [address] Care Team Providers Care Sales Project Administrator Name Role Phone Arelis Garcia DO Primary Care Provider [phone] Arelis Garcia DO Unavailable [phone] Reason for Visit * Reason Onset Date Comments MEDICATION REFILL 10/18/2023 Encounter Details Date Type Department Care Team (Late st Contact Info) Description 10/18/2023 Refill [facility] - Endocrinology [address] [facility], [place] [address] Angela Juarez DO [address] [place] [phone] MEDICATION REFILL Social History Tobacco Use [...] on file Legal Sex Female 5:14 PM PRESS 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 Gender Identity Not on file Sexual Orientation Not on file 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 on file Not on file [...] st Contact Info) Description 08/15/2025 10:30 AM PRESS FEEDER Office Visit [facility] - ENT [address] [place] [address] Taco Mayer MD [address] [facility] LEVEL DOOR [address] [place] [address] documented as of this encounter Goals Goal [...] on filedocumented in this encounter Care Teams Sales Project Administrator Relationship Specialty Start Date End Date Arelis Garcia DO [address] [place] [address] PCP - General 03/10/16 Arelis Garcia DO [address] DIV OF [facility] [place] [address] PCP - Attributed-[facility] [place] CHANDRA P4Hilda 12/18/23 documented as of this encounter
--- OUTSIDE RECORDS SUMMARY | 2025-06-07 00:35 | XMS_ITS | Encounter Summary ---
Author Organization [facility] Address [address] [facility] [place] [address] Care Team Providers Care Spa Consultant Name Role Phone Arelis Garcia DO Primary Care Provider Arelis Garcia DO Unavailable [phone] Reason for Visit * Reason Onset Date Comments MEDICATION REFILL 11/03/2023 Encounter Details Date Type Department Care Team (Late st Contact Info) Description 11/03/2023 Refill [facility] - Internal Med [facility] [facility], [place] [address] Arelis Garcia DO [address] [place] [address] OF [facility] [place] [address] MEDICATION REFILL Social History Tobacco [...] on file Legal Sex Female 5:14 PM ACID CORRECTION HAND Gender Identity Not on file Sexual Orientation Not on file 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 Not on file Not on file [...] Entry Date Author No 08/06/2023 9:12 AM Shilpa Marino RN documented in this encounter Plan of Treatment Upcoming Encounters Date Type Department Care Team (Late st Contact Info) Description 08/15/2025 10:30 AM ACID CORRECTION HAND Office Visit [facility] - ENT [facility] [place] [phone] Taco Mayer MD [address] [facility] LEVEL DOOR [address] [place] [address] documented as of this encounter Goals Goal [...] on filedocumented in this encounter Care Teams Spa Consultant Relationship Specialty Start Date End Date Arelis Garcia DO [address] [place] [address] PCP - General 03/10/16 Arelis Garcia DO [address] DIV OF [facility] [place] [address] PCP - Attributed-[facility] IS[place]EL CHANDRA P4Hilda 12/18/23 documented as of this encounter
--- OUTSIDE RECORDS SUMMARY | 2025-06-07 00:35 | XMS_ITS | Clinical Summary ---
Author Organization [facility] Address [address] [place] [address] Care Team Providers Care Wireless Network Engineer Name Role Phone Unavailable Primary Care Provider Unavailabl e Social History Tobacco Use Types Packs/Day Years Used Date Smoking Tobacco: Never Assessed Comments Unknown Sex and Gender Information Value Date Recorded Sex Assigned at Not on file Legal Sex Female 9:50 PM CDT Gender Identity Not on file Sexual Orientation Not on file Plan of Treatment Health Maintenance Due Date Last Done Comments Hepatitis C Virus (HCV) Screening 1955 Cologuard 10/11/2000 Colonoscopy 10/11/2000 Colorectal Cancer Screening 10/11/2000 Immunochemical Fecal Occult Blood 10/11/2000 Pneumococcal Immunization (50+ years) (3 of 3 - PCV20 or PCV21) 04/15/2020 04/15/2015, 11/27/2011 Influenza Immunization (#1) 2025 04/09/2015 SARS-COV-2 Immunization (4 - season) 2025 07/11/2021, 12/30/2020, 12/09/2020 Respiratory Syncytial Virus (RSV) Immunization (Adult) (1 - 1-dose 75+ series) 10/11/2030 DTaP/Tdap/Td Immunization Discontinued 04/05/2009 TdaP Immunization Completed 04/05/2009 Pneumococcal Immunization Combined Discontinued 04/15/2015, 11/27/2011 Zoster Immunization Completed 01/24/2019, 10/20/2018, 09/15/2013, Additional history exists Hepatitis B Immunization Aged Out No longer eligible based on patient's age to complete this topic Human Papillomavirus (HPV) Immunization Aged Out No longer eligible based on patient's age to complete this topic Meningococcal Immunization (ACWY) Aged Out No longer eligible based on patient's age to complete this topic Rotavirus Immunization Aged Out No lo nger eligible based on patient's age to complete this topic
--- OUTSIDE RECORDS SUMMARY | 2025-06-07 00:36 | XMS_ITS | Encounter Summary ---
Author Organization [facility] Address [address] [facility] [place] [address] Care Team Providers Care Commissions Analyst Name Role Phone Arelis Garcia DO Primary Care Provider [phone] Arelis Garcia DO Unavailable [phone] Reason for Visit * Reason Comments Refill Request Encounter Details Date Type Department Care Team (Late st Contact Info) Description 06/03/2025 Refill [facility] - Endocrinology [address] [place] [address] Yue Gomez APRN-RAILROAD DETECTIVE [address] [place] [address] Refill Request Social History Tobacco Use Types [...] on file Legal Sex Female 5:14 PM 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 CAR MAKE READY MECHANIC * Telephone Encounter - Saida Fisher - 06/04/2025 3:42 PM CST DOES NOT MEET PROTOCOL SENT TO PROVIDER FOR REVIEW Last Office Visit: 2024 Last Video Visit: Visit date not found Next Appointment: Visit date not found Follow-up: pump training Remember to verify preferred pharmacy Please sign order and advise on follow up and quantity. CAR MAKE READY MECHANIC documented in this encounter Plan of Treatment Upcoming Encounters Date Type Department Care Team (Late st Contact Info) Description 08/15/2025 10:30 AM USED CAR MAKE READY MECHANIC Office Visit [facility] - ENT [address] [place] [address] Taco Mayer MD [address] [place] [address] [address] [place] [address] documented as of this encounter Goals Goal Patient Goal Type Associated Problems Recent Progress Patient-Stated? Author Safety General On track( 11:49 AM CDT) Marsha Peterson, BRIDGETTE Note: Expected end date: Ongoing Interventions: Your nurse will assess your risk for falls/injury each visit Use appropriate and safe transfer methods Medication Management General On track( 11:49 AM CDT) Marsha Peterson, BRIDGETTE Note: Expected end date: Ongoing Interventions: Take all medications as prescribed Let your doctor know right away about any changes in your medications documented as of this encounter Visit Diagnoses Diagnosis Type 2 diabetes mellitus with other specified complication, with long-term current use of insulin (HCC) documented in this encounter Care Teams Commissions Analyst Relationship Specialty Start Date End Date Arelis Garcia DO [address] [place] [address] PCP - General 03/10/16 Arelis Garcia DO [address] [place] [address] PCP - Attributed-[facility] ISRAEL CHANDRA P4P 12/18/23 documented as of this encounter
--- OUTSIDE RECORDS SUMMARY | 2025-06-07 00:36 | XMS_ITS | Data Portability ---
Author Organization [place] SUÁREZ Address [address] [facility] [place] [address] Assessment No assessment recorded. Plan of Treatment Reminders Order Date Submit Date Provider Last Modified By Organization Details Last Modified Time Details Appointments None recorded. Lab BMP, serum or plasma 2015 016 [facility] [facility], [address] [place] [address], [address], [place], [address], 6 12:53:07 lipid panel, serum 2015 016 [employer] [facility], [address] [place] [address], [address], [place], [address], 6 12:54:18 HbA1c (hemoglob in A1c), blood 2015 016 [employer] [facility], [address] [place] [address], [address], [place], [address], 6 12:54:18 ALT (alanine aminotran sferase), serum or plasma 2015 016 [facility], [address] [place] [address], [address], [place], [address], 6 12:54:18 AST/SGOT (aspartat e aminotran sferase), serum or plasma 2015 016 [facility], [address] [place] [address], [address], [place], [address], 6 12:54:18 unlisted lab - complianc e drug analysis, ur 2015 016 [facility], [address], [address], [place], [address], 6 17:15:51 urinalysi s, dipstick 2015 016 marcos In-Office Order, Internal Use Only DO Not Attach Compendium DO Not Attach Compendium, Do Not Delete/merge, [id number] 15:30:16 HbA1c (hemoglob in A1c), blood 2014 016 [facility], [address], [address], [place], [address], 6 08:34:45 urinalysi s, complete 2014 016 [facility], [address], [address], [place], [address], 6 08:34:44 ALT (alanine aminotran sferase), serum or plasma 2014 016 [facility], [address], [address], [place], [address], 6 08:34:47 AST/SGOT (aspartat e aminotran sferase), serum or plasma 2014 016 [facility], [address], [address], [place], [address], 6 08:34:47 albumin, urine 2014 016 [facility], [address], [address], [place], [address], 6 15:00:12 BMP, serum or plasma 2014 016 [facility], [address] [facility], [address], [place], [address], 6 08:34:45 lipid panel, serum 2014 016 [facility], [address] [facility], [address], [place], [address], 6 08:34:43 drug screen, 5 drugs, urine 2014 015 [facility], [address] [facility], [address], [place], [address], 5 15:15:45 glucose, fingersti ck, blood 2014 015 oajao In-Office Order, Internal Use Only DO Not Attach Compendium DO Not Attach Compendium, Do Not Delete/merge, [id number] 5 17:06:22 Referral None recorded. Procedures None recorded. Surgeries None recorded. Imaging mammogram , screening 2014 015 oajao Not available 6 13:50:16 mammogram , screening 2014 015 asavala Not available 6 09:25:40 Medication Orders Humalog KwikPen (U-100) Insulin 100 unit/mL subcutane ous 2015 016 oajao Not available 6 12:49:04 Lantus Solostar U-100 Insulin 100 unit/mL (3 mL) subcutane ous pen 2015 016 oajao Not available 6 12:49:04 Crestor 40 mg tablet 2015 016 oajao Not available 6 12:49:04 Lyrica 50 mg capsule 2015 016 oajao Not available 6 12:49:04 Estrace 0.01% (0.1 mg/gram) vaginal cream 2015 016 oajao Not available 6 11:56:17 K-Y Lubricati ng topical jelly 2015 016 [email or web address] Not available 6 15:30:16 calcium 500 mg (as carbonate )-vitamin D3 5 mcg (200 unit) tablet 2014 015 oajao Not available 5 12:56:31 Lyrica 50 mg capsule 2014 015 oajao Not available 5 12:56:32 Humalog KwikPen (U-100) Insulin 100 unit/mL subcutane ous 2014 015 oajao Not available 5 11:44:26 Lantus Solostar U-100 Insulin 100 unit/mL (3 mL) subcutane ous pen 2014 015 oajao Not available 5 17:06:22 Humalog KwikPen (U-100) Insulin 100 unit/mL subcutane ous 2014 015 oajao Not available 5 16:42:20 Lantus Solostar U-100 Insulin 100 unit/mL (3 mL) subcutane ous pen 2014 015 oajao Not available 5 16:42:41 Cardizem CD 120 mg capsule,e xtended release 2014 015 oajao Not available 5 09:27:41 Crestor 40 mg tablet 2014 015 oajao Not available 5 09:27:41 Zetia 10 mg tablet 2014 015 oajao Not available 5 09:27:41 Lyrica 50 mg capsule 2014 015 oajao Not available 5 09:27:41 Patient TargetsNo targets recorded. Patient Instructions Encounter Date Encounter Id Patient Instructions Last Modified By Organization Details Last Modified Time 08/19/2015 [id number] atrophic vaginitis: care instructions yifan Not available 08/19/2015 16:34:30 Reason for Referral None Reported. Results Created Date Observation Date Name Description Value Unit Range Abnormal Flag Note LastModifiedBy Organization Detail LastModifiedTime 08/19/19 16 08/19/2015 urina lysis , dipst ick Leukocytes Negati ve Not Available In-Office Order Internal Use Only DO Not Attach Compendium DO Not Attach Compendium, Do Not Delete/merge, 08/19/2015 14:52:50 08/19/19 16 08/19/2015 urina lysis , dipst ick Nitrite negati ve Not Available In-Office Order Internal Use Only DO Not Attach Compendium DO Not Attach Compendium, Do Not Delete/merge, 08/19/2015 14:52:50 08/19/19 16 08/19/2015 urina lysis , dipst ick Urobilinogen .2 Not Available In-Of fice Order Internal Use Only DO Not Attach Compendium DO Not Attach Compendium, Do Not Delete/merge, 08/19/2015 14:52:50 08/19/19 16 08/19/2015 urina lysis , dipst ick Protein Negati ve Not Available In-Office Order Internal Use Only DO Not Attach Compendium DO Not Attach Compendium, Do Not Delete/merge, 08/19/2015 14:52:50 08/19/1908/19/2015 urina lysis , dipst ick pH 5.5 Not Available In-Office Order Internal Use Only DO Not Attach Compendium DO Not Attach Compendium, Do Not Delete/merge, 08/19/2015 14:52:50 08/19/19 16 08/19/2015 urina lysis , dipst ick Blood Hemoly zed: Trace Not Available In-Office Order Internal Use Only DO Not Attach Compendium DO Not Attach Compendium, Do Not Delete/merge, 08/19/2015 14:52:50 08/19/192016 urina lysis , dipst ick Specific [place] 1.010 Not Available In-Off ice Order Internal Use Only DO Not Attach Compendium DO Not Attach Compendium, Do Not Delete/merge, [id number] 08/19/2015 14:52:50 08/19/19 16 08/19/2015 urina lysis , dipst ick Ketone Negati ve Not Available In-Office Order Internal Use Only DO Not Attach Compendium DO Not Attach Compendium, Do Not Delete/merge, 08/19/2015 14:52:50 08/19/19 16 08/19/2015 urina lysis , dipst ick Bilirubin Small Not Available In-Offic e Order Internal Use Only DO Not Attach Compendium DO Not Attach Compendium, Do Not Delete/merge, 08/19/2015 14:52:50 08/19/19 16 08/19/2015 urina lysis , dipst ick Glucose 500 Not Available In-Office Order Internal Use Only DO Not Attach Compendium DO Not Attach Compendium, Do Not Delete/merge, 08/19/2015 14:52:50 08/19/19 16 08/19/2015 urina lysis , dipst ick Appearance Clear Not Available In-Offi ce Order Internal Use Only DO Not Attach Compendium DO Not Attach Compendium, Do Not Delete/merge, 08/19/2015 14:52:50 08/19/19 16 08/19/2015 urina lysis , dipst ick Color Yellow Not Available In-Office Order Internal Use Only DO Not Attach Compendium DO Not Attach Compendium, Do Not Delete/merge, 08/19/2015 14:52:50 04/09/20 15 04/09/2015 gluco se, finge rstic k, blood Blood Glucose: mg/dl 148 Not Available In-Off ice Order Internal Use Only DO Not Attach Compendium DO Not Attach Compendium, Do Not Delete/merge, [id number] 04/09/2015 16:30:04 02/14/20 15 02/14/2015 lipid panel , serum cholesterol, total 196 mg/dL 100-19 9 Not Available [facility] ([facility]) [address], [place], [address], 02/14/2015 06:20:29 02/14/20 15 02/14/2015 lipid panel , serum triglyceride s 65 mg/dL 0-149 Not Available [facility]) [address] [facility], [place], [address], 02/14/2015 06:20:29 02/14/20 15 02/14/2015 lipid panel , serum HDL cholesterol 51 mg/dL >39 ACCOR DING TO ATP-I II GUIDE LINES , HDL-C >59 MG/DL IS CONSI DERED A NEGAT MILVIA RISK FACTO R FOR CHD. Not Available [facility] ([facility]) [address] [facility], [place], [address], 02/14/2015 06:20:29 02/14/20 15 02/14/2015 lipid panel , serum VLDL cholesterol brielle 13 mg/dL 5-40 Not Available [facility] ([facility]) [address] [facility], [place], [address], 02/14/2015 06:20:29 02/14/20 15 02/14/2015 lipid panel , serum LDL cholesterol calc 132 mg/dL 0-99 above high normal Not Available [facility] ([facility]) [address] [place], [address], 02/14/2015 06:20:29 02/14/20 15 02/14/2015 lipid panel , serum comment: RECORDER OF DEEDS Not Available [facility] ([facility]) [address] [place], [address], 02/14/2015 06:20:29 02/14/20 15 02/14/2015 lipid panel , serum LDL/HDL ratio 2.6 ratio _unit s 0.0-3. 2 LDL/H DL RATIO MEN WOMEN 1/2 AVG.R ISK 1.0 1.5 AVG.R ISK 3.6 3.2 2X AVG.R ISK 6.2 5.0 3X AVG.R ISK 8.0 6.1 Not Available [facility] ([facility]) [address] [place], [address], 02/14/2015 06:20:29 02/14/20 15 02/14/2015 BMP, serum or plasm a glucose, serum 305 mg/dL 65-99 above high normal Not Available [facility] ([facility]) [address] [place], [address], 02/14/2015 06:20:29 02/14/20 15 02/14/2015 BMP, serum or plasm a BUN 8 mg/dL 6-24 Not Available [facility] ([facility]) [address] [place], [address], 02/14/2015 06:20:29 02/14/20 15 02/14/2015 BMP, serum or plasm a creatinine, serum 0.88 mg/dL 0.57-1 .00 Not Available [facility] ([facility]) [address] [facility], [place], [address], 02/14/2015 06:20:29 02/14/20 15 02/14/2015 BMP, serum or plasm a eGFR if nonafricn AM 72 mL/mi n/1.7 3 >59 Not Available [facility] ([facility]) [address] [facility], [place], [address], 02/14/2015 06:20:29 02/14/20 15 02/14/2015 BMP, serum or plasm a eGFR if africn AM 83 mL/mi n/1.7 3 >59 Not Available [facility] ([facility]) [address] [facility] [place], [address], 02/14/2015 06:20:29 02/14/20 15 02/14/2015 BMP, serum or plasm a BUN/creatini ne ratio 9 9-23 Not Available [facility] ([facility]) [address] [facility] [place], [address], 02/14/2015 06:20:29 02/14/20 15 02/14/2015 BMP, serum or plasm a sodium, serum 134 mmol/ L 134-14 4 Not Available [facility] ([facility]) [address] [place], [address], 02/14/2015 06:20:29 02/14/20 15 02/14/2015 BMP, serum or plasm a potassium, serum 4.7 mmol/ L 3.5-5. 2 Not Available [facility] ([facility]) [address] [place], [address], 02/14/2015 06:20:29 02/14/20 15 02/14/2015 BMP, serum or plasm a chloride, serum 94 mmol/ L 97-108 below low normal Not Available [facility] ([facility]) [address] [place], [address], 02/14/2015 06:20:29 02/14/20 15 02/14/2015 BMP, serum or plasm a carbon dioxide, total 22 mmol/ L 18-29 Not Available [facility] ([facility]) [address] [place], [address], 02/14/2015 06:20:29 02/14/20 15 02/14/2015 BMP, serum or plasm a anion gap 18.0 mEq/L 8.0-16 .0 above high normal Not Available [facility] ([facility]) [address] [place], [address], 02/14/2015 06:20:29 02/14/2002/14/2015 HbA1c (hemo globi n A1c), blood hemoglobin A1C 10.7 % 4.8-5. 6 above high normal INCRE ASED RISK FOR DIABE DEEP: 5.7 - 6.4 DIABE DEEP: >6.4 GLYCE BANDAR CONTR OL FOR ADULT S WITH DIABE DEEP: <7.0 Not Available [facility] ([facility]) [address] [place], [address], 02/14/2015 06:20:30 10/09/19 16 10/10/2015 lipid panel , serum cholesterol, total 215 mg/dL 100-19 9 above high normal Not Available [facility] ([facility]) [address] [facility], [place], [address], 10/10/2015 08:34:43 10/09/19 16 10/10/2015 lipid panel , serum triglyceride s 91 mg/dL 0-149 Not Available [facility] ([facility]) [address] [facility], [place], [address], 10/10/2015 08:34:43 10/09/19 16 10/10/2015 lipid panel , serum HDL cholesterol 43 mg/dL >39 ACCOR DING TO ATP-I II GUIDE LINES , HDL-C >59 MG/DL IS CONSI DERED A NEGAT MILVIA RISK FACTO R FOR CHD. Not Available [facility] ([facility]) [address] [facility], [place], [address], 10/10/2015 08:34:43 10/09/19 16 10/10/2015 lipid panel , serum VLDL cholesterol brielle 18 mg/dL 5-40 Not Available [facility] ([facility]) [address] [facility], [place], [address], 10/10/2015 08:34:43 10/09/19 16 10/10/2015 lipid panel , serum LDL cholesterol calc 154 mg/dL 0-99 above high normal Not Available [facility] ([facility]) [address] [place], [address], 10/10/2015 08:34:43 10/09/19 16 10/10/2015 lipid panel , serum comment: RECORDER OF DEEDS Not Available [facility] ([facility]) [address] [place], [address], 10/10/2015 08:34:43 10/09/19 16 10/10/2015 lipid panel , serum LDL/HDL ratio 3.6 ratio _unit s 0.0-3. 2 above high normal LDL/H DL RATIO MEN WOMEN 1/2 AVG.R ISK 1.0 1.5 AVG.R ISK 3.6 3.2 2X AVG.R ISK 6.2 5.0 3X AVG.R ISK 8.0 6.1 Not Available [facility] ([facility]) [address] [facility], [place], [address], 10/10/2015 08:34:43 10/09/19 16 10/10/2015 urina lysis , compl ete specific gravity 1.014 1.005- 1.030 Not Available [facility] ([facility]) [address] [facility], [place], [address], 10/10/2015 08:34:44 10/09/19 16 10/10/2015 urina lysis , compl ete pH 6.5 5.0-7. 5 Not Available [facility] ([facility]) [address] [facility], [place], [address], 10/10/2015 08:34:44 10/09/19 16 10/10/2015 urina lysis , compl ete urine-color YELLOW yellow Not Available [facility] ([facility]) [address] [place], [address], 10/10/2015 08:34:44 10/09/19 16 10/10/2015 urina lysis , compl ete appearance CLEAR clear Not Available [facility] ([facility]) [address] [facility], [place], [address], 10/10/2015 08:34:44 10/09/19 16 10/10/2015 urina lysis , compl ete WBC esterase 1+ negati ve abnormal Not Available [facility] ([facility]) [address] [place], [address], 10/10/2015 08:34:44 10/09/19 16 10/10/2015 urina lysis , compl ete protein NEGATI VE negati ve/tra ce Not Available [facility] ([facility]) [address] [place], [address], 10/10/2015 08:34:44 10/09/19 16 10/10/2015 urina lysis , compl ete glucose TRACE negati ve abnormal Not Available [facility] ([facility]) [address] [place], [address], 10/10/2015 08:34:44 10/09/19 16 10/10/2015 urina lysis , compl ete glucose reflex RECORDER OF DEEDS Not Available [facility]) [address] [place], [address], 10/10/2015 08:34:44 10/09/19 16 10/10/2015 urina lysis , compl ete ketones NEGATI VE negati ve Not Available [facility] ([facility]) [address] [place], [address], 10/10/2015 08:34:44 10/09/19 16 10/10/2015 urina lysis , compl ete occult blood NEGATI VE negati ve Not Available [facility] ([facility]) [address] [place], [address], 10/10/2015 08:34:44 10/09/19 16 10/10/2015 urina lysis , compl ete bilirubin NEGATI VE negati ve Not Available [facility] ([facility]) [address] [place], [address], 10/10/2015 08:34:44 10/09/19 16 10/10/2015 urina lysis , compl ete urobilinogen ,semi-qn 1.0 mg/dL 0.2-1. 0 Not Available [facility] ([facility]) [address] [place], [address], 10/10/2015 08:34:44 10/09/19 16 10/10/2015 urina lysis , compl ete nitrite, urine NEGATI VE negati ve Not Available [facility] ([facility]) [address] [place], [address], 10/10/2015 08:34:44 10/09/19 16 10/10/2015 urina lysis , compl ete microscopic examination SEE BELOW: RAMIN AVILAI C WAS INDIC ATED AND WAS PERFO RMED. Not Available [facility] ([facility]) [address] [facility], [place], [address], 10/10/2015 08:34:44 10/09/19 16 10/10/2015 urina lysis , compl ete WBC 6-10 /hpf 0 - 5 abnormal Not Available [facility] ([facility]) [address] [place], [address], 10/10/2015 08:34:44 10/09/19 16 10/10/2015 urina lysis , compl ete RBC 0-2 /hpf 0 - 2 Not Available [facility] ([facility]) [address] [place], [address], 10/10/2015 08:34:44 10/09/19 16 10/10/2015 urina lysis , compl ete epithelial cells (non renal) 0-10 /hpf 0 - 10 Not Available [facility] ([facility]) [address] [facility], [place], [address], 10/10/2015 08:34:44 10/09/19 16 10/10/2015 urina lysis , compl ete epithelial cells (renal) RECORDER OF DEEDS Not Available [facility] ([facility]) [address] [place], [address], 10/10/2015 08:34:44 10/09/19 16 10/10/2015 urina lysis , compl ete casts RECORDER OF DEEDS Not Available [facility] ([facility]) [address] [place], [address], 10/10/2015 08:34:44 10/09/19 16 10/10/2015 urina lysis , compl ete cast type RECORDER OF DEEDS Not Available [facility] ([facility]) [address] [facility], [place], [address], 10/10/2015 08:34:44 10/09/19 16 10/10/2015 urina lysis , compl ete crystals RECORDER OF DEEDS Not Available [facility] ([facility]) [address], [place], [address], 10/10/2015 08:34:44 10/09/19 16 10/10/2015 urina lysis , compl ete crystal type RECORDER OF DEEDS Not Available [facility]) [address], [place], [address], 10/10/2015 08:34:44 10/09/19 16 10/10/2015 urina lysis , compl ete mucus threads PRESEN T not estab. Not Available [facility] ([facility]) [address], [place], [address], 10/10/2015 08:34:44 10/09/19 16 10/10/2015 urina lysis , compl ete bacteria FEW none seen/f ew Not Available [facility] ([facility]) [address], [place], [address], 10/10/2015 08:34:44 10/09/19 16 10/10/2015 urina lysis , compl ete yeast RECORDER OF DEEDS Not Available [facility] ([facility]) [address], [place], [address], 10/10/2015 08:34:44 10/09/19 16 10/10/2015 urina lysis , compl ete trichomonas RECORDER OF DEEDS Not Available [facility]) [address], [place], [address], 10/10/2015 08:34:44 10/09/19 16 10/10/2015 urina lysis , compl ete comment RECORDER OF DEEDS Not Available [facility] ([facility]) [address], [place], [address], 10/10/2015 08:34:44 10/09/19 16 10/10/2015 urina lysis , compl ete microscopic examination RECORDER OF DEEDS Not Available [facility]) [address] [place], [address], 10/10/2015 08:34:44 10/09/19 16 10/10/2015 BMP, serum or plasm a glucose, serum 222 mg/dL 65-99 above high normal Not Available [facility] ([facility]) [address] [place], [address], 10/10/2015 08:34:44 10/09/19 16 10/10/2015 BMP, serum or plasm a BUN 6 mg/dL 6-24 Not Available [facility] ([facility]) [address] [place], [address], 10/10/2015 08:34:44 10/09/19 16 10/10/2015 BMP, serum or plasm a creatinine, serum 0.84 mg/dL 0.57-1 .00 Not Available [facility] ([facility]) [address] [place], [address], 10/10/2015 08:34:44 10/09/19 16 10/10/2015 BMP, serum or plasm a eGFR if nonafricn AM 76 mL/mi n/1.7 3 >59 Not Available [facility] ([facility]) [address] [place], [address], 10/10/2015 08:34:44 10/09/19 16 10/10/2015 BMP, serum or plasm a eGFR if africn AM 88 mL/mi n/1.7 3 >59 Not Available [facility] ([facility]) [address] [place], [address], 10/10/2015 08:34:44 10/09/19 16 10/10/2015 BMP, serum or plasm a BUN/creatini ne ratio 7 9-23 below low normal Not Available [facility] ([facility]) [address] [place], [address], 10/10/2015 08:34:44 10/09/19 16 10/10/2015 BMP, serum or plasm a sodium, serum 142 mmol/ L 134-14 4 Not Available [facility] ([facility]) [address] [place], [address], 10/10/2015 08:34:44 10/09/19 16 10/10/2015 BMP, serum or plasm a potassium, serum 4.2 mmol/ L 3.5-5. 2 Not Available [facility] ([facility]) [address] [place], [address], 10/10/2015 08:34:44 10/09/19 16 10/10/2015 BMP, serum or plasm a chloride, serum 103 mmol/ L 97-108 Not Available [facility] ([facility]) [address] [place], [address], 10/10/2015 08:34:44 10/09/19 16 10/10/2015 BMP, serum or plasm a carbon dioxide, total 23 mmol/ L 18-29 Not Available [facility] ([facility]) [address] [place], [address], 10/10/2015 08:34:44 10/09/19 16 10/10/2015 BMP, serum or plasm a anion gap 16.0 mmol/ L 10.0-1 8.0 Not Available [facility] ([facility]) [address] [place], [address], 10/10/2015 08:34:44 10/09/19 16 10/10/2015 HbA1c (hemo globi n A1c), blood hemoglobin A1C 10.5 % 4.8-5. 6 above high normal PRE-D IABET ES: 5.7 - 6.4 DIABE DEEP: >6.4 GLYCE BANDAR CONTR OL FOR ADULT S WITH DIABE DEEP: <7.0 Not Available [facility] ([facility]) [address] [place], [address], 10/10/2015 08:34:45 10/09/19 16 10/10/2015 micro album in, urine microalbumin , urine 23.4 ug/mL 0.0-17 .0 above high normal Not Available [facility] ([facility]) [address] [facility], [place], [address], 10/10/2015 08:34:46 10/09/19 16 10/10/2015 AST/S GOT (aspa rtate amino trans feras e), serum or plasm a AST (SGOT) 16 IU/L 0-40 Not Available [facility] ([facility]) [address] [place], [address], 10/10/2015 08:34:47 10/09/19 16 10/10/2015 ALT (ariel ine amino trans feras e), serum or plasm a ALT (SGPT) 15 IU/L 0-32 Not Available [facility] ([facility]) [address] [facility], [place], [address], 10/10/2015 08:34:47 10/23/19 16 10/31/2015 drug scree n, urine summary FINAL ===== ===== ===== ===== ===== ===== ===== ===== ===== ===== ===== ===== ===== === TOXAS SURE COMP DRUG VITALY SIS,U R ===== ===== ===== ===== ===== ===== ===== ===== ===== ===== ===== ===== ===== === TEST RESUL T FLAG UNITS DRUG PRESE NT AND DECLA RED FOR PRESC RIPTI ON VERIF ICATI ON HYDRO CODON E 430 EXPEC ALVAREZ NG/MG CREAT HYDRO MORPH ONE 225 EXPEC ALVAREZ NG/MG CREAT DIHYD ROCOD EINE 173 EXPEC ALVAREZ NG/MG CREAT NORHY DROCO DONE 678 EXPEC ALVAREZ NG/MG CREAT SOURC ES OF HYDRO CODON E INCLU DE SCHED ULED PRESC RIPTI ON MEDIC ATION S. HYDRO MORPH ONE, DIHYD ROCOD EINE AND NORHY DROCO DONE ARE EXPEC ALVAREZ METAB OLITE S OF HYDRO CODON E. HYDRO MORPH ONE AND DIHYD ROCOD EINE ARE ALSO AVAIL ABLE SCHED ULED PRESC RIPTI ON MEDIC ATION S. PREGA BALIN PRESE NT EXPEC ALVAREZ ACETA MINOP HEN PRESE NT EXPEC ALVAREZ DRUG PRESE NT NOT DECLA RED FOR PRESC RIPTI ON VERIF ICATI ON DIPHE NHYDR AMINE PRESE NT UNEXP ECTED DRUG ABSEN T BUT DECLA RED FOR PRESC RIPTI ON VERIF ICATI ON AMITR IPTYL INE NOT DETEC ALVAREZ UNEXP ECTED SALIC YLATE NOT DETEC ALVAREZ UNEXP ECTED ASPIR IN, INDIC ATED IN THE DECLA RED MEDIC ATION LIST, IS NOT ALWAY S DETEC ALVAREZ EVEN WHEN USED DIREC AVLAREZ. DILTI AZEM NOT DETEC ALVAREZ UNEXP ECTED ===== ===== ===== ===== ===== ===== ===== ===== ===== ===== ===== ===== ===== === TEST RESUL T FLAG UNITS REF RANGE CREAT ININE 77 MG/DL >=20 ===== ===== ===== ===== ===== ===== ===== ===== ===== ===== ===== ===== ===== === DECLA RED MEDIC ATION S: THE SHERIF ING AND INTER PRETA TION ON THIS REPOR T ARE BASED ON THE FOLLO WING DECLA RED MEDIC ATION S. UNEXP ECTED RESUL TS MAY ARISE FROM INACC URACI ES IN THE DECLA RED MEDIC ATION S. NOT E: THE TESTI NG SCOPE OF THIS PANEL INCLU NGA THESE MEDIC ATION S: AMITR IPTYL INE DILTI AZEM HYDRO CODON E (HYDR OCODO NE-AC ETAMI NOPHE N) PREGA BALIN (LYRI CA) NOT E: THE TESTI NG SCOPE OF THIS PANEL DOES NOT INCLU DE SMALL TO MODER ATE AMOUN TS OF THESE REPOR ALVAREZ MEDIC ATION S: ACETA MINOP HEN (HYDR OCODO NE-AC ETAMI NOPHE N) ASPIR IN NOT E: THE TESTI NG SCOPE OF THIS PANEL DOES NOT INCLU DE FOLLO WING REPOR ALVAREZ MEDIC ATION S: CALCI UM CARBO KEELY (CALC IUM CARBO KEELY/ VITAM IN D3) DORZO LAMID E EYE DROPS EZETI MIBE (ZETI A) GLIPI ZIDE INSUL IN (FRANCIA LOG) INSUL IN (LANT US) LOSAR HASSAN MOXIF LOXAC IN (VIGA MOX) NITRO GLYCE RIN RANOL AZINE (LILY XA) ROSUV ASTAT IN (WILL TOR) TOPIC AL TRAVO PROST (ESEQUIEL ATAN) VITAM IN D3 (CALC IUM CARBO KEELY/ VITAM IN D3) ===== ===== ===== ===== ===== ===== ===== ===== ===== ===== ===== ===== ===== === FOR CLINI BRIELLE CONSU LTATI ON, PLEAS E CALL . ===== ===== ===== ===== ===== ===== ===== ===== ===== ===== ===== ===== ===== === Not Available [facility] [address] [place], [address], 10/31/2015 17:15:51 10/23/19 16 10/31/2015 drug wander n, urine pdf . Not Available [facility] [address], [place], [address], 10/31/2015 17:15:51 09/03/19 16 09/03/2015 mammo gram, wander collins No observ ation record ed. [facility] [address], [place], [address], 10/15/2015 11:54:25 02/18/20 17 02/10/2017 US, rojelio bush, arter ial, upper extre mity No observ ation record ed. mariana Live MD [address], [place], [address], 02/17/2017 05:49:12 02/18/20 17 02/10/2017 US, rojelio bush, carot id arter y No observ ation record ed. mariana Live MD [address], [place], [address], 02/17/2017 05:48:01 09/22/19 19 09/21/2018 cardi ac stres s test No observ ation record ed. [facility] [address], [place], [address], 09/22/2018 05:25:27 09/24/19 19 09/23/2018 trans -thor acic echoc ardio gram (TTE) (PROC ) No observ ation record ed. [facility] [address], [place], [address], 09/23/2018 13:59:02 Result Notes None recorded. 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 1861513746435 Active ISRAEL Berry, [place] - [place] 6 14:47:46 Migraine 90743301 Active ISRAEL Berry, [place] - [facility] 6 14:47:46 Atrophic vaginitis 58201056 Active Gentry Del Castillo null, [facility] 6 15:30:16 Uncontrolle d type 2 diabetes mellitus 439474016 Active Pamela Jones MD Attn: Lisa sheldon,[address] [facility], [place], [address], [facility] - [facility] 6 12:49:03 Neuropathy 617109613 Active Roslyn Alanis [place] null, [place] 6 14:47:46 Disorder of lipid metabolism 627552063 Active Pamela Jones MD Attn: Accountin g,[address] [facility], [place], [address], [facility] - [facility] 6 12:49:03 Acute bronchitis 13762387 Active Rolsyn Alanis MA dahiana, [facility] SI 14:47:46 Notes:Bad Cold 2 weeks My feet hurt real bad 58y/o BF who was last seen in this office 04/23/14, she presents with the above Problem Notes None recorded. Procedures Surgical History Date Name Laterality Status Provider Name and Address Organization Details Recorded Time 04/18/20 14 Most Recent Mammogram completed Roslyn Alanis MA [facility] 08/19/2015 14:50:25 07/19/18 86 Date of Last Pap Smear completed ISRAEL Berry [facility] 08/19/2015 14:48:45 07/19/18 86 Hysterectomy completed Roslyn Alanis MA [facility] 08/19/2015 14:50:51 03/28/19 78 Caesarean Section completed Elsie Ross MA [facility] 08/01/2014 11:50:00 01/03/19 77 Caesarean Section completed October ISRAEL Ross [facility] 08/01/2014 11:50:00 Eye Surgery completed October ISRAEL Ross [facility] 08/01/2014 11:50:00 Knee Surgery completed October ISRAEL Ross [facility] 08/01/2014 11:50:00 Tubal Ligation completed October ISRAEL Ross [facility] 08/01/2014 11:50:00 Imaging Results None recorded. Procedure Notes None recorded. Medical Equipment None Reported. Allergies Allergen ID Allergen Name Allergen Category Reaction Reaction Severity Criticality Documentation Date Start Date Code Code System Note Provider Name and Address Organization Details Recorded Time 92880 Product containin g penicilli n (product) medicatio n Not available Not available Not available 08/01/2014 32386 8001 SNOMED October Vandana, [place], [place] - [facility] 5 11:50:01 Medications Name Sig Start Date Stop Date Status Note LastModified by Organization Details LastModified Time alcohol prep padpharmaci st choice alcoholprep pads active Not Available Not Available Not Available comfort ez mis [id number] er choice comfort ez insulin pen needles [id number] active Not Available Not Available Not Available pen needles mis 07jn9xr active Not Available Not Available Not Available litetouch mis 17pi0wuhwjr touch pen needles [id number] short active Not Available Not Available Not Available Prescriptio n - New active Not Available Not Available Not Available losartan 50 mg tablet po daily active Not Available Not Available N ot Available azithromyci n 250 mg tablet TAKE 2 TABLETS (500 MG) BY ORAL ROUTE ONCE DAILY FOR 1 DAY THEN 1 TABLET (250 MG) BY ORAL ROUTE ONCE DAILY FOR 4 DAYS 03/12 completed Not Available Not Available Not Available amitriptyli ne 75 mg tablet active Not Available Not Available Not Available glipizide ER 10 mg tablet, extended release 24 hr active Not Available Not Available Not Available Lantus U-100 Insulin 100 unit/mL subcutaneou s solution 81 units subcutane ously HS 04/09 completed Not Available Not Available Not Available clindamycin HCl 150 mg capsule 10/14 completed Not Available Not Available Not Available acetaminoph en 300 mg-codeine 30 mg tablet 03/12 completed Not Available Not Available Not Available hydrocodone 10 mg-acetamin ophen 325 mg tablet Take 1 tablet every 4 hours by oral route. active Not Available Not Available No t Available amitriptyli ne 50 mg tablet Take 1 tablet every day by oral route at bedtime. 03/12 completed Not Available Not Available Not Available K-Y Lubricating topical jelly Apply 1 g as needed by topical route. 2015 active Not Available Not Available Not Avai lable diltiazem CD 120 mg capsule,ext ended release 24 hr one po daily active Not Available Not Available No t Available levofloxaci n 750 mg tablet Take 1 tablet every day by oral route for 5 days. 03/12 completed Not Available Not Available Not Available Tussionex Pennkinetic ER 10 mg-8 mg/5 mL suspension, extended release Take 5 mL every 12 hours by oral route as needed for 5 days. 03/12 completed Not Available Not Available Not Available dorzolamide 2 % eye drops active Not Available Not Available Not Available Estrace 0.01% (0.1 mg/gram) vaginal cream Insert 1 g 3 times a week by vaginal route. 10/14 completed Not Available Not Available Not Available Zetia 10 mg tablet Take 1 tablet every day by oral route for 90 days. active Not Available Not Available No t Available Vigamox 0.5 % eye drops active Not Available Not Available Not Available Crestor 40 mg tablet Take 1 tablet every day by oral route for 90 days. 2015 active Not Available Not Available Not Avai lable Alcohol Prep Pads one pad three times a day 2013 active Not Available Not Available Not Avai lable calcium 500 mg (as carbonate)- vitamin D3 5 mcg (200 unit) tablet Take 1 tablet every day by oral route for 30 days. 2014 active Not Available Not Available Not Avai lable Lyrica 50 mg capsule Take 1 capsule 3 times a day by oral route for 30 days. active Not Available Not Available No t Available aspirin active Not Available Not Avail able Not Available nitroglycer in active Not Available Not Available Not Available Ranexa 500 mg tablet,exte nded release active Not Available Not Available Not Available Travatan Z 0.004 % eye drops active Not Available Not Available Not Available Lantus Solostar U-100 Insulin 100 unit/mL (3 mL) subcutaneou s pen Inject 36 units every day by subcutane ous route at bedtime for 90 days. 2015 active Not Available Not Available Not Avai lable Combigan 0.2 %-0.5 % eye drops active Not Available Not Available No t Available Humalog KwikPen (U-100) Insulin 100 unit/mL subcutaneou s 9 units subcutane ously TID with meals/sna cks active Not Available Not Available No t Available Durezol 0.05 % eye drops active Not Available Not Available Not Available Prevnar 13 (PF) 0.5 mL intramuscul ar syringe active Not Available Not Available N ot Available Sivan Mcneal U-300 Insulin 300 unit/mL (1.5 mL) subcutaneou s pen active Not Available Not Available Not Available Vitals Date Recorded Body height Body mass index (BMI) Body weight Systolic And Diastolic Provider Name and Address Organization Details Last Updated DateTime 08/19/2015 165.1 cm 26 kg/m2 16529.409 72 g 106/74 mm[Hg] Roslyn Alanis [facility] 08/19/2015 14:56:19 Date Recorded Body weight Body temperature Heart rate Body mass index (BMI) Body height Respiratory rate Systolic And Diastolic Provider Name and Address Organization Details Last Updated DateTime 6 66032.2 2498 g 98.1 [degF] 80 /min 25.6 kg/m2 165.1 cm 20 /min 122/74 mm[Hg] [facility] 6 11:45:41 Date Recorded Respiratory rate Body weight Body height Body temperature Heart rate Body mass index (BMI) Systolic And Diastolic Provider Name and Address Organization Details Last Updated DateTime 5 22 /min 25686.7 4105 g 165.1 cm 98.5 [degF] 76 /min 27.5 kg/m2 142/84 mm[Hg] Elsie Ross [facility] 5 16:21:39 Date Recorded Respiratory rate Body weight Body height Body temperature Heart rate Body mass index (BMI) Systolic And Diastolic Provider Name and Address Organization Details Last Updated DateTime 5 20 /min 19487.7 4105 g 165.1 cm 98 [degF] 84 /min 27.5 kg/m2 138/88 mm[Hg] Elsie Ross [facility] 5 16:25:28 Date Recorded Respiratory rate Body weight Body height Body temperature Heart rate Body mass index (BMI) Systolic And Diastolic Provider Name and Address Organization Details Last Updated DateTime 5 20 /min 58698.1 8683 g 165.1 cm 98.7 [degF] 80 /min 26.5 kg/m2 134/82 mm[Hg] October ISRAEL Ross [place] [facility] 5 11:24:27 Social History Question Answer Notes LastModified by Organizat ion Details LastModified Time Tobacco Smoking Status Former Smoker October IS[place]EL Ross, [place] - [facility] 08/01/2014 11:50:00 Do You Have An Advance Directive? Yes Information not available 08/01/2014 Is Blood Transfusion Acceptable In An Emergency? Yes Information not available 08/19/2015 What Is Your Level Of Caffeine Consumption? None Information not available 08/01/2014 How Much Tobacco Do You Chew? None Information not available 08/01/2014 What Type Of Diet Are You Following? REGULAR Information not available 08/01/2014 Education 12 Information no t available 08/01/2014 Are There Any Guns Present In Your Home? No Information not available 08/01/2014 Hard Of Hearing Or Deaf In One Or Both Ears? No Information not available 08/01/2014 Legally Blind In One Or Both Eyes? No Information not available 08/01/2014 Marital Status Informatio n not available 08/01/2014 Performs Monthly Self-breast Exam? Yes Information not available 08/01/2014 Do You Use Protection During Sex? No Information not available 08/19/2015 Seat Belts Used Routinely Yes Information not available 08/01/2014 Are You Sexually Active? Yes Information not available 08/19/2015 Smoke Alarm In Home Yes Information not available 08/01/2014 At What Age Did You Start Smoking Tobacco? 13 Information not available 08/01/2014 How Much Tobacco Do You Smoke? 0.5 PPD Information not available 08/01/2014 General Stress Level Medium Information not available 08/01/2014 Do You Use Sunscreen Routinely? No Information not available 08/01/2014 How Many Years Have You Smoked Tobacco? 30 Information not available 08/01/2014 Sex: Unknown Functional Status Question Answer Note LastModified by Organizat ion Details LastModified Time What is your level of alcohol consumption? None Information not available 08/01/2014 What is your occupation? disability Information not available 08/01/2014 What is your exercise level? Moderate Information not available 08/01/2014 Mental Status None recorded. Family History Relationship Description Onset Age of this Age Resolved Age Notes LastModified by Organization Details LastModified Time Mother Coronary arterioscler osis mwasserman Not available 08/19 17:00:53 Mother Diabetes mellitus mwasserman Not available 08/19 17:00:53 Mother Heart disease mwasserman Not available 08/19 17:00:53 Mother Hypercholest erolemia mwasserman Not available 08/19 17:00:53 Mother Hypertensive disorder mwasserman Not available 08/19 17:00:53 Mother Migraine mwasserman Not availab le 08/19/2015 17:00:53 Medical History Condition Response Coronary Artery Disease Y Other N High Blood Pressure Y Breast Cancer N Kidney or Bladder Problems N Thyroid Problems N Blood Clots N Depression N Lung Disease N GI Problems N Acne N Breast Problem N Eating Disorder N Anemia N Anesthesia Complications N Headaches/Migraines N Anxiety Disorder N Diabetes Y Ovarian Cancer N Muscle, Joint, or Bone Problems N Blood Transfusions N Seizures/Epilepsy N Infertility N Polyps N Acid Reflux (GERD) N Cancer N Stroke Y Abuse/Domestic Violence N Asthma N Endometriosis N High Cholesterol Y Hepatitis N Liver Disease N Heart Disease N Headaches Y Pre-Eclampsia N Osteoporosis N Gynecological History Statement/Question Response Sexually Active? N Menses Monthly N STIs/STDs N HPV Vaccine N Date of Last Pap Smear 07/19/1985 Sexual Problems? N Age at Menarche 10 Current Control Method Hysterectom y Most Recent Mammogram 04/18/2014 Age at First Child 22 Obstetrics History GPAL:G 3 P 2 0 1 2 Type Value Multiple Births 0 Full Term 2 Induced 0 Spontaneous 0 Premature 0 Living 2 Ectopics 1 Total 3 Immunizations Vaccine Type Date Status Note Provider Nam e and Address Organization Details Recorded Time Tdap 9 completed Pamela Jones MD Attn: Accounting[address] [place], [address], [facility] 04/09/2015 16:36:48 pneumococcal polysaccharide PPV23 2 completed Pamela Jones MD Attn: Accounting,[address], [place], [address], [facility] 04/09/2015 16:38:34 zoster live 3 completed Pamela Jones MD Attn: Accounting,[address], [place], [address], [facility] 04/09/2015 17:07:12 Influenza, split virus, quadrivalent, preservative 5 completed Not Available [facility] 08/05/2019 02:44:47 Past Encounters Encounter ID Performer Location Encounter Start Date Encounter Closed Date Diagnosis/Indication Diagnosis SNOMED-CT Code Diagnosis ICD10 Code Diagnosis IMO Codes Diagnosis Note [id number] MD Brook Gomez (Adult Med) [address] [place] [address] 08/01/2014 11:24:51 08/01/2014 13:01:12 Uncontrolled type 2 diabetes mellitus 545204285 On Lantus 81 units and Humalog 24 units bid, her HBA1C was 8.5 & 8.6, I will increase her Humalog to 27 units subcutaneo usly BID, continue Lantus at 81 as her last few FBS are 98 &102 in the last two days Neuropathy 098797430 Most likely diabetic neuropathy , we will try her on Lyrica 50mg po TID again Disorder o f lipid metabolism 094808747 She is doing the best she can with her diet and follows the recommenda tions from the air quality consultant, Rina. She also has been compliant with her Crestor and Zetia Acute bronchitis 74498610 [id number] MD Brook Gomez (Adult Med) [address] [place] [phone] 10/05/2014 10:02:57 10/05/2014 10:56:56 Uncontrolled type 2 diabetes mellitus 529976927 On Lantus 82 units and Humalog 26 units bid, her HBA1C was 8.9 which is worse, I will increase her Lantus to 84 and her Humalog to 28 units subcutaneo usly BID. Her blood sugars from her log book appear reasonable and we may consider having her see an Endocrinol ogist if there is no improvemen t when she is next seen. [id number] [facility] [address] [place] [address] 03/12/2015 15:50:21 03/12/2015 17:03:52 Uncontrolled type 2 diabetes mellitus 985065767 On Lantus 84 units and Humalog 28 units bid, her HBA1C was 8.9 and it is now 10.9, I will increase her Lantus to 87 and her Humalog to 31 units subcutaneo usly BID. She needs to see an endocrinol ogist, she was referred 02/14/2015 and she is yet to be contacted. She should call the RN with her FBS/RBS in one week Numbness of tongue 40783151 Possibly a side effect of one of her meds Disorder o f lipid metabolism 599140686 She is doing the best she can with her diet and follows the recommenda tions from the air quality consultant, Rina. She also has been compliant with her Crestor and Zetia Neuropathy due to diabetes mellitus 853172437 She only takes Lyrica prn due to its sedative side effects Coronary arteriosclerosis in nez perce artery 8588141822 107 Screening mammography 95780019 [id number] [facility] [address] [place] [address] 04/09/2015 16:12:33 04/10/2015 15:15:19 Influenza vaccine needed 3139704565 106 Uncontroll ed type 2 diabetes mellitus 904262121 On Lantus 86 units and Humalog 34 units bid, her HBA1C was 8.9 and it is now 10.9, I will increase her Lantus to 90 and her Humalog to 37 units subcutaneo usly BID. She needs to see an endocrinol ogist, she was referred 02/14/2015 and she is yet to be contacted. She should call the RN with her FBS/RBS in one week Migraine [id number] She sheela quinteros continues to have multiple ER visits for her migraine headaches, she has failed Imitrex, and that may not be a viable option in view of her CVS disease. She is now on Amitriptyl ine and Hydrocodon e, she will be seeing Dr. Grimaldo and she will ask about other options. [id number] MD Brook Gomez (Adult Med) [address] [place] [address] 07/11/2015 11:12:57 07/11/2015 14:12:33 Uncontrolled type 2 diabetes mellitus 182706983 E11.65 On Lantus 90 units HS and Humalog 37 units bid, her HBA1C was 8.9 , then 10.9 adn now ? She was seen by the endocrinol ogist, she will be following up again in September, labs were drawn and we will call the OSH for the results. Screening mammography 24 724119 Z12.31 Screening for osteoporosis 682986696 Z13.820 Bone density is pending? She states that she was told to start Calcium and Vitamin D Neuropathy due to diabetes mellitus 487040441 E11.40 Z51.81 She only takes Lyrica prn due to its sedative side effects, I have refilled it and a pain contract was signed, UDS with her next set of labs [id number] MD Brook Wolf ([employer]) [address] [place] [phone] 08/19/2015 14:01:12 08/19/2015 17:02:55 Atrophic vaginitis 52767672 N95.2 [id number] MD Brook Gomez (Adult Med) [address] [place] [phone] 10/15/2015 11:26:21 10/15/2015 12:36:22 Uncontrolled type 2 diabetes mellitus 541629964 E11.65 Now on Lantus 36 units HS and Humalog 9 units bid, her HBA1C is still over 10, she was seen by the endocrinol ogist, an Insulin pump was discussed, she has also been placed on a strict diet. An exercise regimen was discussed. The doses reflect remarkable reductions in the dosages of her medication s, a note from her endocrinol ogist will be useful. Disorder o f lipid metabolism 988322714 E78.9 She is doing the best she can with her diet and follows the recommenda tions from her endocrinol ogist, ANDRÉS De La Vega. She was previously seen by the air quality consultant, Rina. She also has been compliant with her Crestor and Zetia, I will hope that her lipid panel will also improve once her diabetic control is better. Neuropathy due to diabetes mellitus 750172839 E11.40 Z51.81 She only takes Lyrica prn due to its sedative side effects, I have refilled it and a pain contract is on file. Health Concerns Section Related Observation LastModified by Organization Detai ls LastModified Time None Recorded Concern Status LastModified by Organization Details LastModified Time None Recorded Advance Directives Directive Y: Payers Insurance Date Sequence Insurance Name Policy Number Policy Tracy Covered Member ID Tracy Member ID Guarantor Name 10/23/2015 1 [place]ARE OR MEDICARE REPLACEMENT PRIMARY) Mirela Leon [id number] Mirela Leon 10/23/2015 [place] [facility] Mirela Leon [id number] Mirela Leon 10/23/2015 1 [place] Mirela Leon [id number] Mirela Leon 01/12/2016 2 [place] OR MEDICARE REPLACEMENT PRIMARY) Mirela Leon [id number] Mirela Leon 10/23/2015 1 CARE IMPROVEMENT PLUS (MEDICARE REPLACEMENT/AD VANTAGE - PPO) Mirela Leon [id number] Mirela Leon 01/12/2016 1 [facility] (MEDICARE REPLACEMENT/AD VANTAGE - HMO) [id number] Mirela Leon [id number] Mirela Leon Notes Date Note Type Note Provider Name and Address Organization Details Recorded Time 03/12/2015 text/html Diabetes F/URepo rted by PatientHPIFor context, patient reportshome blood sugar range highbut reportsseeing eye doctor regularly. For review finger sticks, patient reportsfastin,pre lunch: ___, andpost lunch: 200. For labs, patient reportslast a1c result: 10.7. For associated symptoms, patient reportsno weight gain,no weight loss,no dizziness,no sweats,no headaches,no confusion,no increased thirst,no increased appetite,no increased urination, andno numbness of feet. Pamela Jones MD Attn: Accounting[address] [place], [address], [facility] 03/13/2015 09:28:01 04/09/2015 text/html Diabetes F/URepo rted by PatientHPIFor context, patient reportshome blood sugar range highbut reportsseeing eye doctor regularly,taking aspirin daily, andnot missing doses of medications. For review finger sticks, patient reportsfastin-406,pre dinner: ___, andpost dinner: 30-340. For labs, patient reportslast a1c result: 10.9. For associated symptoms, patient reportsno weight gain,no weight loss,no dizziness,no sweats,no headaches,no confusion,no increased thirst,no increased appetite, andno increased urination. Pamela Jones MD Attn: Accounting[address] [facility], [place], [address], [facility] 04/09/2015 17:37:13 07/11/2015 text/html DiabetesReported by PatientHPIFor control, patient reportsusually poorly controlledandhome blood sugar range high. For review finger sticks, patient reportsfastin. For duration, patient reportschronic(hba1c 10.7). For compliance, patient reportscompliant with medications,compliant with follow-up visits,compliant with diet, andcompliant with home glucose monitoring. For self care, patient reportsmonitoring glucose 3 times per day. For associated symptoms, patient reportsno weight gain,no weight loss,no dizziness,no sweats,no headaches,no confusion,no increased thirst,no increased appetite,no increased urination, andno blurred vision. Pamela Jones MD Attn: Accounting[address] [facility], [place], [address], [facility] 07/11/2015 12:56:33 08/19/2015 text/html Vaginal/Vulvar ProblemReported by PatientHPIFor associated symptoms, patient reportsvaginal itching,vaginal irritation,vaginal pain,vulvar itching/irritation,vul brandin swelling/erythema,vulv ar pain,vulvar lesions,dyspareunia, anddysuria. For location, patient reportsvulvaandvagina. For duration, patient reportspresent for 1-2 weeks. For quality, patient reportsitching,burning ,painful,dry, andfissure. For severity, patient reportsmoderateandwors ening. For context, patient reportssexually active,new sexual partner,condom use: no,postmenopausal, andhistory of vaginal atrophy. For alleviating factors, patient reportsnone. For aggravating factors, patient reportsburning with urination.ROS as noted in the HPI Gentry talbot, [facility] 08/19/2015 17:02:09 10/15/2015 text/html Diabetes F/URepo rted by PatientHPIFor context, patient reportshome blood sugar range highbut reportstaking aspirin daily,not missing doses of medications, andno side effects from medications. For labs, patient reportslast a1c result: 10.5. For associated symptoms, patient reportsno weight gain,no weight loss,no dizziness,no sweats,no headaches,no confusion,no increased thirst,no increased appetite,no increased urination,no blurred vision,no numbness of feet, andno calluses on feet. Pamela Jones MD Attn: Accounting[address] [place], [address], [facility] 10/15/2015 12:49:30 OBGyn Episode No OBEpisode recorded.
--- OUTSIDE RECORDS SUMMARY | 2025-06-07 00:36 | XMS_ITS | Clinical Summary ---
Author Organization [facility] Address [address] [place] [address] Care Team Providers Care Casket Liner Name Role Phone Unavailable Primary Care Provider [...]
--- OUTSIDE RECORDS SUMMARY | 2025-06-07 00:36 | XMS_ITS | Patient Health Record ---
Author Organization [facility] Address [address] [facility] [address] [place] [address] Care Team Providers Care Compensation Coordinator Name Role Phone Neno Álvarez Unavailable [phone] Reason For Referral No Information Medications Medication SIG (Take, Route, Frequency, Duration) Notes Start Date End Date Status Ergocalciferol 1.25 MG (46029 UT) 1 capsule Orally Once a week; Duration: 90 day(s) 11/24/2024 08/21/2025 Active amLODIPine Besylate 10 MG 1 tablet Orall y Once a day; Duration: 90 days 11/24/2024 Active Calcitriol 0.25 MCG 1 capsule Orally Onc e a day; Duration: 90 day(s) 11/24/2024 08/21/2025 Active Problems Problem Type SNOMED Code ICD Code Onset Dates Problem Status W/U Status Risk Notes Problem Diabetic renal disease (863038782) Type 2 diabetes mellitus with diabetic chronic kidney disease (E11.22) Active confirmed Problem Blindness, one eye, unspecified eye (H54.40) Active confirmed Problem Heart failure (76550506) Heart failure, unspecified (I50.9) Active confirmed Problem Acute bronchitis (71070101) Acute bronchitis, unspecified (J20.9) Active confirmed Problem Chronic kidney disease stage 2 (381571106) Chronic kidney disease, stage 2 (mild) (N18.2) Active confirmed Problem Proteinuria (82490461) Proteinuria, unspecified (R80.9) Active confirmed Problem Tobacco use (098500939) Tobacco use (Z72.0) Active confirmed Problem Essential hypertension (73629945) Essential hypertension (I10) Active confirmed Problem Coronary artery disease (04996824) CAD (coronary artery disease) (I25.10) Active confirmed Encounters Encounter Location Date Provider Diagnosis [facility] [address] [facility] [address] [place] [address] 10/13/2024 Neno Álvarez Chronic kidney disease, stage 3 unspecified N18.30 ; Type 2 diabetes mellitus with diabetic chronic kidney disease E11.22 ; Essential hypertension I10 ; Tobacco use Z72.0 ; CAD (coronary artery disease) I25.10 ; Blindness, one eye, unspecified eye H54.40 ; Acute bronchitis, unspecified J20.9 ; Heart failure, unspecified I50.9 and Proteinuria, unspecified R80.9 [facility] [address] [facility] [address] [place] [address] 11/24/2024 Neno Álvarez Chronic kidney disease, stage 2 (mild) N18.2 ; Type 2 diabetes mellitus with diabetic chronic kidney disease E11.22 ; Essential hypertension I10 ; Tobacco use Z72.0 ; CAD (coronary artery disease) I25.10 ; Blindness, one eye, unspecified eye H54.40 ; Acute bronchitis, unspecified J20.9 ; Heart failure, unspecified I50.9 and Proteinuria, unspecified R80.9 [facility] [place] [facility] [address] [place] [address] 11/24/2024 Neno Álvarez [facility] [place] [facility] [address] [place] [address] 11/24/2024 Neno Álvarez Assessments Encounter Date Diagnosis (ICD Code) Assessment Notes Treatment Notes Treatment Clinical Notes Section Notes 10/13/2024 Chronic kidney disease, stage 3 unspecified (ICD-10 - N18.30) 11/24/2024 Chronic kidney disease, stage 2 (mild) (ICD-10 - N18.2) 11/24/2024 Type 2 diabetes mellitus with diabetic chronic kidney disease (ICD-10 - E11.22) 10/13/2024 Type 2 diabetes mellitus with diabetic chronic kidney disease (ICD-10 - E11.22) 10/13/2024 Essential hypertension (ICD-10 - I10) 11/24/2024 Essential hypertension (ICD-10 - I10) 11/24/2024 Tobacco use (ICD-10 - Z72.0) 10/13/2024 Tobacco use (ICD-10 - Z72.0) 10/13/2024 CAD (coronary artery disease) (ICD-10 - I25.10) 11/24/2024 CAD (coronary artery disease) (ICD-10 - I25.10) 11/24/2024 Blindness, one eye, unspecified eye (ICD-10 - H54.40) 10/13/2024 Blindness, one eye, unspecified eye (ICD-10 - H54.40) 10/13/2024 Acute bronchitis, unspecified (ICD-10 - J20.9) 11/24/2024 Acute bronchitis, unspecified (ICD-10 - J20.9) 11/24/2024 Heart failure, unspecified (ICD-10 - I50.9) 10/13/2024 Heart failure, unspecified (ICD-10 - I50.9) 10/13/2024 Proteinuria, unspecified (ICD-10 - R80.9) 11/24/2024 Proteinuria, unspecified (ICD-10 - R80.9) Plan Of Treatment No Information
--- OUTSIDE RECORDS SUMMARY | 2025-06-07 00:36 | XMS_ITS | Encounter Summary ---
Author Organization [facility] Address [address] [place] [address] Care Team Providers Care Dynamicist Name Role Phone Arelis Garcia DO Primary Care Provider [phone] Arelis Garcia DO Unavailable [phone] Reason for Visit * Reason Onset Date Comments Care Management 06/06/2025 Encounter Details Date Type Department Care Team (Late st Contact Info) Description 06/06/2025 Telephone [facility] [address] [place] [address] Yue Gomez, BRENDA-PIE DOUGH ROLLER [address] [facility] [place] [address] Care Management Social History Tobacco Use Types Packs/Day Years [...] on file Legal Sex Female 5:14 PM SOLUTIONS MARKET CONSULTANT Gender Identity Not on file Sexual Orientation Not on file 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 No answer. Left voicemail. TIONS MARKET CONSULTANT documented in this encounter Plan of Treatment Upcoming Encounters Date Type Department Care Team (Late st Contact Info) Description 08/15/2025 10:30 AM SOLUTIONS MARKET CONSULTANT Office Visit [facility] - ENT [address] [facility], [place] [address] Taco Mayer MD [address] [facility] DOOR 3 [place] [address] documented as of this encounter Goals Goal Patient Goal Type Associated Problems Recent Progress Patient-Stated? Author Safety General On track( 11:49 AM CDT) Marsha Peterson, BRIDGETTE Note: Expected end date: Ongoing Interventions: Your nurse will assess your risk for falls/injury each visit Use appropriate and safe transfer methods Medication Management General On track( 018 11:49 AM CDT) Marsha Peterson, BRIDGETTE Note: Expected end date: Ongoing Interventions: Take all medications as prescribed Let your doctor know right away about any changes in your medications documented as of this encounter Visit Diagnoses Not on filedocumented in this encounter Care Teams Dynamicist Relationship Specialty Start Date End Date Arelis Garcia DO [address] [place] [address] PCP - General 03/10/16 Arelis Garcia DO [address] [facility] [place] 2L DIV [place] [address] PCP - Attributed-[facility] [place] CHANDRA P4P 12/18/23 documented as of this encounter
--- OUTSIDE RECORDS SUMMARY | 2025-06-07 00:37 | XMS_ITS | Encounter Summary ---
Author Organization [facility] Address [address] [facility] [place] [address] Care Team Providers Care Professor Of Exercise Science Name Role Phone Arelis Garcia DO Primary Care Provider [phone] Arelis Garcia DO Unavailable [phone] Reason for Visit * Reason Onset Date Comments MEDICATION REFILL 09/08/2018 Appointment 09/08/2018 Encounter Details Date Type Department Care Team (Late st Contact Info) Description 09/08/2018 Refill [facility] Internal Medicine [address] [address] Arelis Garcia DO [address] [facility] 2L [facility] [place] [phone] MEDICATION REFILL; Appointment Social History Tobacco Use Types Packs/Day Years Used Date Smoking Tobacco: Former Cigarettes 0.5 40 0 01/20/1974 - 01/20/2014 Smokeless Tobacco: Never Alcohol Use Standard Drinks/Week Comments No 0 (1 standard drink = 0.6 oz pur e alcohol) Comments No Sex and Gender Information Value Date Recorded Sex Assigned at Not on file Legal Sex Female 5:14 PM LEGAL SERVICES PROFESSIONAL Gender Identity Not on file Sexual Orientation Not on file documented as of this encounter Miscellaneous Notes * Telephone Encounter - Erin Mera - 09/21/2018 12:54 PM CST Spoke to patient NOV: 10/20/18 @ 9:[address] Garcia L SERVICES PROFESSIONAL * Telephone Encounter - GaylecalebFreddya - 09/08/2018 9:53 AM CST Pharmacy faxing in refill request for patient's lyrica. Medication attached. Allergies reviewed. ABBY:02-15-18 NOV: none at this time Message forwarded to [facility] scheduling to assist with scheduling a f/u visit. L SERVICES PROFESSIONAL documented in this encounter Plan of Treatment Upcoming Encounters Date Type Department Care Team (Late st Contact Info) Description 08/15/2025 10:30 AM LEGAL SERVICES PROFESSIONAL Office Visit [facility] - ENT [address] [place] [address] Taco Mayer MD [address] [place] [address] DO[address] 3 [place] [address] documented as of this encounter Goals Goal [...] documented as of this encounter Care Teams Professor Of Exercise Science Relationship Specialty Start Date End Date Arelis Garcia DO [address] [place] [address] PCP - General 03/10/16 Arelis Garcia DO [address] OF [facility] [place] [address] PCP - Attributed-[place] CHANDRA P4P 12/18/23 documented as of this encounter
--- OUTSIDE RECORDS SUMMARY | 2025-06-07 00:37 | XMS_ITS | Encounter Summary ---
Author Organization [facility] Address [address] [place] [place] [address] Care Team Providers Care Director Of Supply Chain Name Role Phone Arelis Garcia DO Primary Care Provider [phone] Arelis Garcia DO Unavailable [phone] Encounter Details Date Type Department Care Team (Late st Contact Info) Description 11/17/2021 Ophth Exam [facility] [address] [place] [address] Nahomy Landry MD [address] [place] [address] [address] [place] [phone] Social History Tobacco Use Types Packs/Day Years Used Date Smoking Tobacco: Former Cigarettes 0.5 50.1 1 971 - 08/19/2020 Smokeless Tobacco: Never Quit: 08/19/2020 Alcohol Use Standard Drinks/Week Comments No 0 (1 standard drink = 0.6 oz pur e alcohol) AUDIT-C Answer Date Recorded Q1: How often do you have a drink containing alcohol? Never 11/16/2021 Q2: How many drinks containi ng alcohol do you have on a typical day when you are drinking? Patient does not drink Q3: How often do you have si x or more drinks on one occasion? Never 11/16/2021 PHQ-2 Answer Date Recorded PHQ2 TOTAL SCORE 0 08/27/2021 Hunger Vital Sign Answer Date Recorded Within the past 12 months, y ou worried that your food would run out before you got the money to buy more. Never true 11/15/19 22 Within the past 12 months, t he food you bought just didn't last and you didn't have money to get more. Never true 11/14/2021 Education Answer Date Recorded What is the highest level of school you have completed or the highest degree you have received? 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 Unable to assess 11/12/2021 4:27 PM CDT documented as of this encounter Functional Status * Is person deaf or have serious hearing difficulty? Answer Date of Assessment Author No 11/16/2021 10:08 AM CDT Isabela Hollins RN * Is person blind or have serious difficulty seeing? Answer Date of Assessment Author Yes 11/16/2021 10:08 AM BURAKT Isabela Hollins RN * Does person have serious difficulty [...] st Contact Info) Description 08/15/2025 10:30 AM JINGLE WRITER Office Visit [facility] - ENT [address] [facility], [place] [address] Taco Mayer MD [address] [facility] DOOR 3 [place] [address] documented as of this encounter Goals Goal [...] on filedocumented in this encounter Care Teams Director Of Supply Chain Relationship Specialty Start Date End Date Arelis Garcia DO [address] [place] [address] PCP - General 03/10/16 Arelis Garcia DO [address] [facility] 2L DIV OF [facility] [place] [address] PCP - Attributed-[facility] [place] CHANDRA P4P 12/18/23 documented as of this encounter
--- OUTSIDE RECORDS SUMMARY | 2025-06-07 00:37 | XMS_ITS | Encounter Summary ---
Author Organization [facility] Address [address] [facility] [place] [address] Care Team Providers Care Emergency Response Technician Name Role Phone Arelis Garcia DO Primary Care Provider [phone] Arelis Garcia DO Unavailable [phone] Encounter Details Date Type Department Care Team (Late st Contact Info) Description 11/16/2021 Ophth Exam [facility] [address] [place] [phone] Abdi Matta MD [address] [facility] [address] [place] [address] Social History Tobacco Use Types Packs/Day Years [...] on file Legal Sex Female 5:14 PM PHARMACOVIGILANCE SPECIALIST Gender Identity Not on file Sexual Orientation Not on file 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 Unable to assess 11/12/2021 4:27 PM CDT documented as of this encounter Functional Status * Functional and Cognitive Status Question Answer Date of Assessment Author Is person deaf or have cherry us hearing difficulty? No 11/16/2021 10:08 AM BURAKT Isabela Hollins RN Is person blind or have seri ous difficulty seeing? Yes 11/16/2021 10:08 AM Isabela Gutierrez RN Does person have serious difficulty walking/climbing stairs? No 11/16/2021 10:08 AM Isabela Gutierrez RN Does person have difficulty dressing/bathing? No 11/16/2021 10:08 AM Isabela Gutierrez RN Does person have difficulty doing errands alone? No 11/16/2021 10:08 AM BURAKT Leonardo Hollins RN Does person have difficulty concentrating/remembering/makin g decisions? No 11/16/2021 10:08 AM Isabela Gutierrez RN * Question Answer Date of Assessment Author Q1: How often do you have a drink containing alcohol? Never 11/16/2021 3:00 PM BURAKT Manohar Krishnan RN Q2: How many drinks containing alcohol do you have on a typical day when you are drinking? Patient does not drink 11/16/2021 3:00 PM CDT Manohar Krishnan RN Q3: How often do you have six or more drinks on one occasion? Never 11/16/2021 3:00 PM CDT Manohar Krishnan RN * AUDIT-C Score Answer Date of Assessment Author 0 11/16/2021 3:00 PM CDT Manohar Krishnan RN * Is person deaf or have serious hearing difficulty? Answer Date of Assessment Author No 11/16/2021 10:08 AM BURAKT Isabela Hollins RN * Is person blind [...] st Contact Info) Description 08/15/2025 10:30 AM PHARMACOVIGILANCE SPECIALIST Office Visit [facility] - ENT [address] [place] [phone] Taco Mayer MD [address] [place] [address] [address] [place] [address] documented as of this encounter Goals Goal Patient Goal Type Associated Problems Recent Progress Patient-Stated? Author Safety General On track( 018 11:49 AM CDT) No Marsha Franklin, BRIDGETTE [...] filedocumented in this encounter Care Teams Emergency Response Technician Relationship Specialty Start Date End Date Arelis Garcia DO [address] [place] [address] PCP - General 03/10/16 Arelis Garcia DO [address] OF [facility] [place] [address] PCP - Attributed-[facility] [place] CHANDRA P4Hilda 12/18/23 documented as of this encounter
== END 2025-06-06 18:32 | disposition home or self-care (01) ==
PROVIDERS: Emergency Medicine; Emergency Provider Emergency Medicine; PCP Family Medicine
DX: R10.13 Epigastric pain (principal); K21.9 Gastro-esophageal reflux disease without esophagitis; I11.0 Hypertensive heart disease with heart failure; I25.10 Atherosclerotic heart disease of native coronary artery without angina pectoris; I50.9 Heart failure, unspecified; E11.9 Type 2 diabetes mellitus without complications; Z79.4 Long term (current) use of insulin; F17.210 Nicotine dependence, cigarettes, uncomplicated
CPT/HCPCS: 36415; 71046; 71275; 74174; 80053; 82948; 83690; 84484; 85025; 85610; 85730; 93005; 99284; Q9967

== ENCOUNTER 2025-06-20 01:21 | Day surgery (SDC) | payer MEDICARE, MEDICAID, SELFPAY ==
[2025-05-31 11:41] VITALS: BMI 28.0
--- OUTSIDE RECORDS SUMMARY | 2025-06-20 01:25 | XMS_ITS | Encounter Summary ---
Author Organization [facility] Address [address] [facility] [place] [address] Care Team Providers Care Senior Applications Analyst Name Role Phone Arelis Garcia DO Primary Care Provider [phone] Arelis Garcia DO Unavailable [phone] Reason for Visit * Reason Comments Refill Request Encounter Details Date Type Department Care Team (Late st Contact Info) Description 09/19/2022 Refill [facility] [address] [address] [place] [address] Canelo Snow MD [address] [facility] [address] [place] [address] Refill Request Social History Tobacco Use Types [...] on file Legal Sex Female 5:14 PM DIRECTOR SHOPPER MARKETING Gender Identity Not on file Sexual Orientation Not on file 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 file Not on file [...] Care Team (Late st Contact Info) Description 08/14/2025 10:50 AM DIRECTOR SHOPPER MARKETING Office Visit [facility] - Internal Med [address] [facility] [place] [address] Arelis Garcia DO [address] [facility] 2L DIV OF [facility] [place] [address] 08/15/2025 10:30 AM DIRECTOR SHOPPER MARKETING Office Visit [facility] - ENT [address] [facility], [place] [phone] Taco Mayer MD [address] [facility] DOOR 3 [place] [address] 09/03/2025 10:20 AM DIRECTOR SHOPPER MARKETING Office Visit [facility] - Endocrinology [address] [place] [phone] Yue Gomez, BRENDA-ROCK CRUSHER [address] [facility] [place] [address] documented as of this encounter Goals Goal [...] on filedocumented in this encounter Care Teams Senior Applications Analyst Relationship Specialty Start Date End Date Arelis Garcia DO [address] [place] [address] PCP - General 03/10/16 Arelis Garcia DO [address] [facility] 2L DIV OF [facility] [place] [phone] PCP - Attributed-[facility] [place] CHANDRA P4P 12/18/23 documented as of this encounter
--- OUTSIDE RECORDS SUMMARY | 2025-06-20 01:25 | XMS_ITS | Encounter Summary ---
Author Organization [facility] Address [address] [facility] [place] [address] Care Team Providers Care Heat Sealing Machine Operator Name Role Phone Arelis Garcia DO Primary Care Provider [phone] Arelis Garcia DO Unavailable [phone] Reason for Visit * Reason Onset Date Comments MEDICATION REFILL 09/10/2024 Encounter Details Date Type Department Care Team (Late st Contact Info) Description 09/10/2024 Refill [facility] End[facility]ology [address] [place] [address] Yue Gomez APRN-CFO [address] [place] [address] MEDICATION REFILL Social History Tobacco [...] on file Legal Sex Female 5:14 PM PLUMBING INSTRUCTOR Gender Identity Not on file Sexual Orientation Not on file 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 [place] [address] Arelis Gacria DO [address] [facility] 2L DIV OF [facility] [place] [address] 08/15/2025 10:30 AM PLUMBING INSTRUCTOR Office Visit [facility] - ENT [address] [facility], [place] [phone] Taco Mayer MD [address] [facility] DOOR 3 [place] [address] 09/03/2025 10:20 AM PLUMBING INSTRUCTOR Office Visit [facility] - Endocrinology [address] [place] [address] Yue Gomez, BRENDA-CFO [address] [facility] [place] [address] documented as of this encounter Goals Goal [...] (HCC) documented in this encounter Care Teams Heat Sealing Machine Operator Relationship Specialty Start Date End Date Arelis Garcia DO [address] [place] [address] PCP - General 03/10/16 Arelis Garcia DO [address] [facility] 2L DIV [place] [address] PCP - Attributed-[facility] [place] CHANDRA P4P 12/18/23 documented as of this encounter
--- OUTSIDE RECORDS SUMMARY | 2025-06-20 01:25 | XMS_ITS | Encounter Summary ---
Author Organization [facility] Address [address] [place] [address] Care Team Providers Care Button Decorating Machine Operator Name Role Phone Arelis Garcia DO Primary Care Provider [phone] Arelis Garcia DO Unavailable [phone] Reason for Visit * Reason Onset Date Comments MEDICATION REFILL 02/16/2018 Refill Request 02/17/2018 refill request Encounter Details Date Type Department Care Team (Late st Contact Info) Description 02/16/2018 Refill [facility] Medicine [address] [address] Arelis Garcia DO [address] [facility] [address]L [facility] [place] [address] MEDICATION REFILL; Refill Request (refill request ) [...] on file Legal Sex Female 5:14 PM DATABASE SECURITY EXPERT Gender Identity Not on file Sexual Orientation [...] tablet losartan (COZAAR) 50 MG tablet Pharmacy [facility] Located on [address] [facility] Thank you very much Lavonne MORA 02/15/18 NOV 08/18/18 documented in this encounter Plan of Treatment Upcoming Encounters Date Type Department Care Team (Late st Contact Info) Description 08/14/2025 10:50 AM DATABASE SECURITY EXPERT Office Visit [facility] - Internal Med [address] [place] [phone] Arelis Garcia, DO [address] [place] [address] [facility] [place] [address] 08/15/2025 10:30 AM DATABASE SECURITY EXPERT Office Visit [facility] - ENT [address] [place] [address], [place] [phone] Taco Mayer MD [address] [facility] DOOR 3 [place] [address] 09/03/2025 10:20 AM DATABASE SECURITY EXPERT Office Visit [facility] - Endocrinology [address] [place] [address] Yue Gomez, BRENDA-PATIENT ACCESS REPRESENTATIVE [address] [facility] [place] [phone] documented as of this encounter Visit Diagnoses Not on filedocumented in this encounter Additional Health Concerns Infection Onset Date Last Indicated Resolved Time COVID-19 Under Investigation 10/21/2020 10/21/2020 10/21/2020 7:51 AM CDT COVID-19 Under Investigation 02/01/2021 02/01/2021 02/01/2021 10:32 PM CDT COVID-19 Under Investigation 03/07/2021 03/07/2021 03/07/2021 8:03 PM CDT documented as of this encounter Care Teams Button Decorating Machine Operator Relationship Specialty Start Date End Date Arelis Garcia DO [address] [place] [address] PCP - General 03/10/16 Arelis Garcia DO [address] [facility] 2L DIV [place] [address] PCP - Attributed-[facility] [place] CH[facility] P4P 12/18/23 documented as of this encounter
--- OUTSIDE RECORDS SUMMARY | 2025-06-20 01:25 | XMS_ITS | Encounter Summary ---
Author Organization [facility] Address [address] [facility] [place] [address] Care Team Providers Care Bread Jockey Name Role Phone Arelis Garcia DO Primary Care Provider [phone] Arelis Garcia DO Unavailable [phone] Reason for Visit * Reason Onset Date Comments MEDICATION REFILL 04/10/2024 Encounter Details Date Type Department Care Team (Late st Contact Info) Description 04/10/2024 Refill [facility] - [facility] Med [facility] [facility], [place] [address] Arelis Garcia DO [address] [place] [address] OF [facility] [place] [address] MEDICATION REFILL Social History Tobacco [...] on file Legal Sex Female 5:14 PM SURFACE GRINDER Gender Identity Not on file Sexual Orientation Not on file 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 Not on file [...] Entry Date Author No 08/06/2023 9:12 AM SURFACE GRINDER Idalia Herrera RN documented in this encounter Plan of Treatment Upcoming Encounters Date Type Department Care Team (Late st Contact Info) Description 08/14/2025 10:50 AM SURFACE GRINDER Office Visit [facility] - Internal Med [address] [facility], [place] [phone] Arelis Garcia, [address] [facility] 2L DIV OF [facility] [place] [address] 08/15/2025 10:30 AM SURFACE GRINDER Office Visit [facility] - ENT [address] [facility], [place] [phone] Taco Mayer MD [address] [facility] DOOR 3 [place] [address] 09/03/2025 10:20 AM SURFACE GRINDER Office Visit [facility] - Endocrinology [address] [place] [phone] Yue Gomez APRN-PAMELA [address] [facility] [place] [address] documented as of this encounter Goals Goal Patient Goal Type Associated Problems Recent Progress Patient-Stated? Author Safety General On track( 018 11:49 AM CDT) Marsha Peterson RN Note: Expected end date: Ongoing Interventions: Your nurse will assess your risk for falls/injury each visit Use appropriate and safe transfer methods Medication Management General On track( 018 11:49 AM CDT) Marsha Peterson RN Note: Expected end date: Ongoing Interventions: Take all medications as prescribed Let your doctor know right away about any changes in your medications documented as of this encounter Visit Diagnoses Not on filedocumented in this encounter Care Teams Bread Jockey Relationship Specialty Start Date End Date Arelis Garcia DO [address] [place] [address] PCP - General 03/10/16 Arelis Garcia DO [address] OF [facility] [place] [phone] PCP - Attributed-[facility] P[facility]P 12/18/23 documented as of this encounter
--- OUTSIDE RECORDS SUMMARY | 2025-06-20 01:26 | XMS_ITS | Encounter Summary ---
Author Organization [facility] Address [address] [place] [address] Care Team Providers Care Office Machine Servicer Apprentice Name Role Phone Arelis Garcia DO Primary Care Provider [phone] Arelis Garcia DO Unavailable [phone] Encounter Details Date Type Department Care Team (Late st Contact Info) Description 09/29/2023 Telephone [facility] Med [address] [facility], [place] [address] Arelis Garcia DO [address] [place] [address] OF 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 documented in this encounter Plan of Treatment Upcoming Encounters Date Type Department Care Team (Late st Contact Info) Description 08/14/2025 10:50 AM SEARCH PLANNER Office Visit [facility] - [facility] Med [address] [facility], [place] [phone] Arelis Garcia DO [facility]5 [facility] 2L DIV [place] [phone] 08/15/2025 10:30 AM SEARCH PLANNER Office Visit [facility] - ENT [address] [facility], [place] [phone] Taco Mayer MD [address] [place] [address] DOOR 3 [place] [address] 09/03/2025 10:20 AM SEARCH PLANNER Office Visit [facility] - Endocrinology [address] [place] [phone] Yue Gomez, FABRICATION SPECIALIST-PLATING FOREMAN [address] [place] [address] [place] [phone] documented as of this encounter Goals Goal [...] on filedocumented in this encounter Care Teams Office Machine Servicer Apprentice Relationship Specialty Start Date End Date Arelis Garcia DO [address] [place] [address] PCP - General 03/10/16 Arelis Garcia DO [address] OF [facility] [place] [address] PCP - Attributed-[facility] P4P 12/18/23 documented as of this encounter
--- OUTSIDE RECORDS SUMMARY | 2025-06-20 01:26 | XMS_ITS | Encounter Summary ---
Author Organization [facility] Address [address] [facility] [place] [address] Care Team Providers Care Recreation Therapy Aide Name Role Phone Arelis Garcia DO Primary Care Provider [phone] Arelis Garcia DO Unavailable [phone] Reason for Visit * Reason Onset Date Comments MEDICATION REFILL 10/23/2023 Encounter Details Date Type Department Care Team (Late st Contact Info) Description 10/23/2023 Refill [facility] - Endocrinology [address] [facility], [place] [address] Angela Juarez DO [address] [place] [address] MEDICATION REFILL Social History Tobacco Use [...] on file Legal Sex Female 5:14 PM SITE DAMAGE PREVENTION TECHNICIAN Gender Identity Not on file Sexual Orientation Not on file 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 Job End Date 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 2L DIV [place] [phone] 08/15/2025 10:30 AM SITE DAMAGE PREVENTION TECHNICIAN Office Visit [facility] - ENT [address] [facility], [place] [phone] Taco Mayer MD [address] [facility] DOOR 3 [place] [address] 09/03/2025 10:20 AM SITE DAMAGE PREVENTION TECHNICIAN Office Visit [facility] - Endocrinology [address] [place] [phone] Yue Gomez APRN-CERTIFIED PERSONAL TRAINER [address] [facility] [place] [address] documented as of this encounter Goals Goal [...] on filedocumented in this encounter Care Teams Recreation Therapy Aide Relationship Specialty Start Date End Date Arelis Garcia DO [address] [place] [address] PCP - General 03/10/16 Arelis Garcia DO [address] [facility] 2L DIV [place] [phone] PCP - Attributed-[facility] P4P 12/18/23 documented as of this encounter
--- OUTSIDE RECORDS SUMMARY | 2025-06-20 01:26 | XMS_ITS ---
Author Organization [facility] Address [address] 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 Snoring Profile: [id number] snoring was detected during this study. Periodic [...] With ongoing chest pain since PCI in [facility]. Seen recently in ED and found to [...] PRN. Assessment & Plan (08/29/2020 2:58 PM CAREER AND TRANSITION TEACHER): HFrEF has lifevest will advance BB. HR today 105 bpm. she is to monitor bp/hr at home and report to me for upward titration of beta domi NPDR (nonproliferative diabetic retinopathy) 06/2018 Gastroesophageal reflux disease without esophagi tis 03/30/2017 Coronary arteriosclerosis in rincon artery 09/22 Overview (03/03/2022): Follows with outside cardiology, Carolina Hines at [facility] ([facility]). H/o mild MS in 2000 per patient, angioplasty at time (done in [place], [place]). No stents. Assessment & Plan (06/22/2023 5:01 PM CAREER AND TRANSITION TEACHER): Stable SP STEMI 08/2020 with PCI to [...] time. Assessment & Plan (08/29/2020 2:55 PM CAREER AND TRANSITION TEACHER): S/P Recent STEMI with PCI continue DAPT GDMT Glaucoma 04/25/2016 Overview (10/18/2017): Legally blind left eye. Glaucoma. Follows with outside ophtho. Low serum C-peptide 03/10/2016 Osteopenia 01/21/2016 Hyperlipidemia 07/04/2015 Overview (10/18/2017): HDL 62 Assessment & Plan (06/22/2023 9:53 AM CAREER AND TRANSITION TEACHER): on 80 atorva recently LDL was 72 Recommend begin zetia. Check lipo (a) if not done previously along with apo B with lipid panel in one month Assessment & Plan (08/29/2020 2:56 PM CAREER AND TRANSITION TEACHER): On high intensity statin therapy. At goal [...] 01/31/2025 Assessment & Plan (06/22/2023 5:00 PM CAREER AND TRANSITION TEACHER): With recent visit to OSH in April. None since then. 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
--- OUTSIDE RECORDS SUMMARY | 2025-06-20 01:26 | XMS_ITS | Encounter Summary ---
Author Organization [facility] Address [address] [facility] [place] [address] Care Team Providers Care Sales Agent Insurance Name Role Phone Arelis Garcia DO Primary Care Provider Arelis Garcia DO Unavailable [phone] Encounter Details Date Type Department Care Team (Late st Contact Info) Description 12/06/2023 Telephone [facility] - End[facility]inology [address] [facility], [place] [address] Yue Gomez, BRENDA-[address] [place] [address] Social History Tobacco Use Types Packs/Day Years [...] on file Legal Sex Female 5:14 PM IT PROGRAM AUDITOR Gender Identity Not on file Sexual Orientation Not on file 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 Thanks. Patient Call Back Number: [phone] documented in this encounter Plan of Treatment Upcoming Encounters Date Type Department Care Team (Late st Contact Info) Description 08/14/2025 10:50 AM IT PROGRAM AUDITOR Office Visit [facility] - Internal Med [address] [facility], [place] [address] Arelis Garcia DO [address] [facility] 2L DIV [place] [phone] 08/15/2025 10:30 AM IT PROGRAM AUDITOR Office Visit [facility] - ENT [address] [facility], [place] [phone] [place] [address] [place] [address] DO[address] 3 [place] [address] 09/03/2025 10:20 AM IT PROGRAM AUDITOR Office Visit [facility] - Endocrinology [address] [place] [phone] Yue Gomez, BRENDA-BRAIDED RUG MAKER [address] [place] [address] [place] [phone] documented as of this encounter Goals Goal [...] filedocumented in this encounter Care Teams Sales Agent Insurance Relationship Specialty Start Date End Date Arelis Garcia DO [address] [place] [address] PCP - General 03/10/16 Arelis Garcia DO [address] OF [facility] [place] [phone] PCP - Attributed-[facility] P4P 12/18/23 documented as of this encounter
--- OUTSIDE RECORDS SUMMARY | 2025-06-20 01:26 | XMS_ITS | Clinical Summary ---
Author Organization [facility] Address [address] [place] [address] Care Team Providers Care Loan Examiner Name Role Phone Unavailable Primary Care Provider [...]
--- OUTSIDE RECORDS SUMMARY | 2025-06-20 01:26 | XMS_ITS | Encounter Summary ---
Author Organization [facility] Address [address] [facility] [place] [address] Care Team Providers Care Pain Medicine Physician Name Role Phone Arelis Garcia DO Primary Care Provider [phone] Arelis Garcia DO Unavailable [phone] Encounter Details Date Type Department Care Team (Late st Contact Info) Description 11/16/2021 Ophth Exam [facility] [address] [place] [phone] Abdi Matta MD [address] [facility] [address] [place] [address] Social History Tobacco Use Types Packs/Day Years [...] on file Legal Sex Female 5:14 PM ELECTRIC MOTOR CONTROL ASSEMBLER Gender Identity Not on file Sexual Orientation Not on file 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 Never 11/16/2021 3:00 PM CDT Manohar Krishnan RN * AUDIT-C Score Answer Date of Assessment Author 0 11/16/2021 3:00 PM Manohar Gasca RN * Is person deaf or have [...] st Contact Info) Description 08/14/2025 10:50 AM ELECTRIC MOTOR CONTROL ASSEMBLER Office Visit [facility] - Internal Med [address] [place] [phone] Arelis Garcia DO [address] [place] [address] OF [facility] [place] [phone] 08/15/2025 10:30 AM ELECTRIC MOTOR CONTROL ASSEMBLER Office Visit [facility] - ENT [address] [place] [address], [place] [address] Taco Mayer MD [address] [place] DOOR 3 [place] [address] 09/03/2025 10:20 AM ELECTRIC MOTOR CONTROL ASSEMBLER Office Visit [facility] - Endocrinology [address] [place] [phone] Yue Gomez, HOME THEATER SPECIALIST-ASSIGNMENT EDITOR [address] [facility] [place] [address] documented as of this encounter Goals Goal [...] on filedocumented in this encounter Care Teams Pain Medicine Physician Relationship Specialty Start Date End Date Arelis Garcia DO [address] [place] [address] PCP - General 03/10/16 Arelis Garcia DO [address] [facility] 2L DIV [place] [phone] PCP - Attributed-[facility] CH[facility] P4P 12/18/23 documented as of this encounter
--- OUTSIDE RECORDS SUMMARY | 2025-06-20 01:26 | XMS_ITS | Clinical Summary ---
Author Organization [facility] [employer] Address [address] [place] [address] Care Team Providers Care Route Driver Salesperson Name Role Phone Arelis Garcia DO Primary Care Provider [phone] Arelis Garcia DO Unavailable [phone] Source Comments [facility],non-owned Affiliates and Associated Physician Practices is amultiple site organization consisting of ambulatory clinics and hospital sitesin [place], [place], [place] and [place]. This disclosure is being madepursuant to the Care Everywhere program and may not contain all information available regarding this patient. Last updated 18.[facility] Allergies Active Allergy Reactions Criticality Noted Date [...] complication, with long-term current use of insulin ([facility]) INJECT SUBCUTANEOUSLY 85 UNITS DAILY DIRECTED 90 mL 2 025 Active HumaLOG KwikPen 100 UNIT/ML penIndications:T ype 2 diabetes mellitus with other specified complication, with long-term current use of insulin ([facility]) INJECT 20 UNITS UNDER THE SKIN THREE TIMES DAILY BEFORE MEALS, USE IN CASE OF PUMP MALFUNCTION 18 mL 025 Active HumaLOG KwikPen 100 UNIT/ML penIndications:T ype 2 diabetes mellitus with other specified complication, with long-term current use of insulin ([facility]) INJECT 20 UNITS UNDER THE SKIN THREE [...] anemia 08/05/2023 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 Snoring Profile: Homz-mm-cuogadfl snoring was detected during this study. Periodic [...] With ongoing chest pain since PCI in [facility]. Seen recently in ED and [...] PRN. Assessment & Plan (08/29/2020 2:58 PM WRAPPER CASHIER): HFrEF has lifevest will advance BB. HR today 105 bpm. she is to monitor bp/hr at home and report to me for upward titration of beta domi NPDR (nonproliferative diabetic retinopathy) 06/2018 Gastroesophageal reflux disease without esophagi tis 03/30/2017 Coronary arteriosclerosis in akutan artery 09/22 Overview (03/03/2022): Follows with outside cardiology, [facility] H[facility] at [place] ([facility]). H/o mild SD in 2000 per patient, angioplasty at time (done in [place], [place]). No stents. Assessment & Plan (06/22/2023 5:01 PM WRAPPER CASHIER): Stable SP STEMI 08/2020 with PCI to [...] time. Assessment & Plan (08/29/2020 2:55 PM WRAPPER CASHIER): S/P Recent STEMI with PCI continue DAPT GDMT Glaucoma 04/25/2016 Overview (10/18/2017): Legally blind left eye. Glaucoma. Follows with outside ophtho. Low serum C-peptide 03/10/2016 Osteopenia 01/21/2016 Hyperlipidemia 07/04/2015 Overview (10/18/2017): HDL 62 Assessment & Plan (06/22/2023 9:53 AM WRAPPER CASHIER): on 80 atorva recently LDL was 72 Recommend begin zetia. Check lipo (a) if not done previously along with apo B with lipid panel in one month Assessment & Plan (08/29/2020 2:56 PM WRAPPER CASHIER): On high intensity statin therapy. At goal [...] 01/31/2025 Assessment & Plan (06/22/2023 5:00 PM WRAPPER CASHIER): With recent visit to OSH in April. None since then. 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/2017 05/05/2023 Paresthesia of left upper limb 01/28/2017 03/10/2023 half-way current use of insulin 03/10/2016 01/31/2025 Palpitations 07/19/1959 03/10/2023 Encounters Date Type Department Care Team Description 06/11/2025 Telephone [facility] End[facility]ology [address] [place] [address] Yue Gomez APRN-CNP Care Management 06/06/2025 Telephone [facility] End[facility]ology [address] [address] Yue Gomez APRN-CNP Care Management 06/03/2025 Refill [facility] [address] [place] [phone] Yue Gomez APRN-EXECUTIVE DIRECTOR [employer]LTERED WORKSHOP Refill Request 05/09/2025 Refill [facility] Endocrinology [address] [place] [address] Yue Gomez APRN-EXECUTIVE DIRECTOR SHELTERED WORKSHOP Refill Request 04/19/2025 Refill [facility] End[facility] [place] [address] Angela Juarez DO Refill Request 04/06/2025 Refill [facility] [place] [address] [phone] Yue Gomez APRN-EXECUTIVE DIRECTOR [employer]SH[employer] Refill Request from Last 3 Months Immunizations Immunization Administration Dates Next Due QuantaSol primary monoval ent 12+ yr 0.3mL Purple [...] on file Legal Sex Female 5:14 PM WRAPPER CASHIER Gender Identity Not on file Sexual Orientation Not on file 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 Not on file Not on file Not o n file Last Filed Vital Signs Vital Sign Reading Time Taken Comments Blood Pressure 137/84 01/31/2025 2:48 PM CDT Pulse 111 01/31/2025 2:48 PM CDT Temperature 36.7 C (98 F) 2024 3:08 PM CDT Respiratory Rate 18 05/25/2024 10:28 AM WRAPPER CASHIER Oxygen Saturation 93% 2024 3:08 PM CDT Inhaled Oxygen Concentration 21% 11/04/2022 3 :20 AM CDT Weight 81.2 kg (179 lb) 01/31/2025 2:48 PM CDT Height 165.1 cm (5' 5) 01/31/2025 2:48 PM CDT Body Mass Index 29.79 01/31/2025 2:48 PM CDT Plan of Treatment Upcoming Encounters Date Type Department Care Team (Late st Contact Info) Description 08/14/2025 10:50 AM WRAPPER CASHIER Office Visit [facility] - Internal Med [address] [place] [phone] Arelis Garcia DO [address] [place] [address] 2L DIV [place] [phone] 08/15/2025 10:30 AM WRAPPER CASHIER Office Visit [facility] - ENT [address] [place] [address], [place] [phone] Taco Mayer MD [address] [place] [address] DO[address] 3 [place] [address] 09/03/2025 10:20 AM WRAPPER CASHIER Office Visit [facility] - Endocrinology [address] [place] [phone] Yue Gomez, BRENDA-PAMELA [address] [place] [address] [place] [phone] Health Maintenance Due Date Last Done Comments [...] your medications Medical Devices Implanted Type Area Bell Hole Digger Device Identifier Shelf Expiration Date Model / Serial / Lot Sys Cor Stent Xience Srr 4mm 18mm Rap Ex Implanted:Qty: 1 on 08/19/2020 by Aron Brody MD at [facility] Stent Left: Coronary Bhat Vascular 11/25/2021 [id number] Description:pLAD Sys Cor Stent Xience Srr 2.25mm 12mm Rap Implanted:Qty: 1 on 08/19/2020 by Aron Brody MD at [facility] Stent Left: Coronary Bhat Vascular 12/02/2021 [id number] Description:1st Diag Sys Cor Stent Xience Srr 3.5mm 15mm Rap Implanted:Qty: 1 on 08/19/2020 by Aron Brody MD at [facility] Stent Left: Coronary Bhat Vascular 10/28/2021 [id number] Description:mLAD Sys Cor Stent Xienceskpt 3.50mm 08mm Rap Implanted:Qty: 1 on 06/24/2021 by Aron Brody MD at [facility] Stent Left: Heart Bhat Vascular 09/30/2022 [id number] Sys Cor Stent Xienceskpt 3.0mm 15mm Rap Implanted:Qty: 1 on 06/24/2021 by Arno Brody MD at [facility] Stent Left: Heart Bhat Vascular 10/22/2022 [id number] Procedures Procedure Name Priority Date/Time Associated Diagnosis [...] DIAGNOSTIC W LOUISE Routine 08/13/2022 9:51 AM WRAPPER CASHIER Breast pain, right DEXA BONE DENSITY AXIAL SKELETON Routine 03/04/2021 1:41 PM CDT Osteoporosis screening Postmenopause ENDOSCOPY, COLON, SCREENING Routine 07/20/2018 10:51 AM WRAPPER CASHIER HEPATITIS C AB SCREEN RFLX NAAT QUANT Routine 02/15/2018 10:43 AM CDT Need for hepatitis C screening test from Last 3 Months or Most Recently Relevant to Health Maintenance Results * (ABNORMAL) COMPREHENSIVE METABOLIC PANEL (10/10/2023 6:56 PM [facility] Signature BUN 15 7 - 26 mg/dL 10/10/2023 7:57 PM [facility] Creatinine 0.89 0.56 - 0.96 mg/dL 10/10/2023 7:57 PM [facility] Sodium 140 136 - 145 mmol/L 10/10/2023 7:57 PM [facility] Potassium 3.7 3.5 - 4.5 mmol/L 10/10/2023 7:57 PM [facility] Chloride 105 98 - 107 mmol/L 10/10/2023 7:57 PM [facility] CO2 22 22 - 29 mmol/L 10/10/2023 7:57 PM [facility] Glucose 322(H) 70 - 115 mg/dL 10/10/2023 7:57 PM [facility] Calcium 10.0 8.4 - 10.2 mg/dL 10/10/2023 7:57 PM [facility] Protein Total 7.2 6.0 - 8.3 g/dL 10/10/2023 7:57 PM [facility] Albumin 3.8 3.4 - 5.0 g/dL 10/10/2023 7:57 PM [facility] Bilirubin Total 0.6 0.2 - 1.2 mg/dL 10/10/2023 7:57 PM [facility] Alkaline Phosphatase 132 40 - 150 U/L 10/10/2023 7:57 PM [facility] ALT 13 5 - 55 U/L 10/10/2023 7:57 PM [facility] AST 11 5 - 34 U/L 10/10/2023 7:57 PM [facility] Anion Gap 13 6 - 16 10/10/2023 7:57 PM [facility] BUN/Creatinine Ratio 17 7 - 23 10/10/2023 7:57 PM [facility] Osmolality Calculated 303(H) 275 - 295 mOsm/kg 10/10/2023 7:57 PM [facility] Albumin/Globulin Ratio 1.1 1.1 - 2.3 10/10/2023 7:57 PM CDT [facility] eGFR by CKD-EPI 71(L) >=90 mL/min/1.7 3 m2 10/10/2023 7:57 PM CDT [facility] Blood BLOOD SPECIMEN / Unknown Venipuncture / Unknown 10/10/2023 6:56 PM CDT 10/10/2023 7:27 PM CDT us Isaias Conroy PA-C LAB - CHEMISTRY ORDERABLES Final Result [facility] [address] [place] [address], [place] [phone] * HEMOGLOBIN A1C - POINT OF CARE (AMB) U (10/07/2023 9:03 AM CDT) Hemoglobin A1c POCT 8.8 % [facility] [address] BLOOD SPECIMEN / Unknown 10/07/2023 9:03 AM CDT Yue Gomez APRN-EXECUTIVE DIRECTOR [employer]LTER[employer] WORKSH[employer] LAB - POINT OF CARE OR DERABLES Final Result [facility] [address], [address] [place] [address], [place] [phone] * MICROALB/CREAT RATIO URINE RANDOM PANEL (05/05/2023 11:41 AM CDT) Albumin Random Urine 31.2 Not Established ug/mL 05/05/2023 12:35 PM CDT [facility] Creatinine Urine 111.00 Not Established mg/dL 05/05/2023 12:35 PM CDT [facility] Urine Albumin/Creati nine Ratio 28 <30 mg/g 05/05/2023 12:35 PM CDT [facility] Urine URINE SPECIMEN OBTAINED BY CLEAN CATCH PROCEDURE / Unknown Collection / Unknown 05/05/2023 11:41 AM CDT 05/05/2023 12:03 PM CDT us Angela Juarez DO LAB - URINE CHEMISTRY ORDERABLES Final Result [facility] [id number] [place] [address], [facility] [phone] * (ABNORMAL) MAMMO BILAT DIAGNOSTIC W LOUISE (08/13/2022 9:51 AM WRAPPER CASHIER) Anatomical Region Laterality Modality Breast Bilateral Mammography 08/13/2022 11:3 2 AM WRAPPER CASHIER Addenda Addendum by Carrie Palacio MD on 09/24/2022 4:52 PM WRAPPER CASHIER Addendum by Carrie Palacio M.D. The addendum is to clarify the placement of the triangular marker. A triangular marker was placed by the technologist over the area of palpable concern. I visualized to the triangular marker on the mammogram. > Interpreting Provider: Carrie Palacio MD on 09/24/2022 4:50 PM Impressions 08/13/2022 11:41 AM WRAPPER CASHIER : 1. Right breast mass at the [...] 08/13/2022 11:41 AM Narrative 08/13/2022 11:41 AM WRAPPER CASHIER EXAMINATIONS: 1. DIGITAL MAMMO BILAT DIAGNOSTIC W [...] 20%). COMPARISON: Prior breast imaging studies from [facility], dated 03/04/2021 06/02/2019, and an prior outside studies dated 09/03/[address] [facility] and 06/08/2011 05/01/2010 MAMMOGRAM: TECHNIQUE: Diagnostic bilateral [...] 20%). COMPARISON: Prior breast imaging studies from [facility],dated 03/04/2021 06/02/2019, and an prior outside studies dated 09/03/[address] [facility] and 06/08/2011 05/01/2010 MAMMOGRAM: TECHNIQUE: Diagnostic bilateral [...] OVERALL ASSESSMENT: BI-RADS CATEGORY 4: SUSPICIOUS. (SUBSET [id number]: MODERATE SUSPICION FOR MALIGNANCY). > Interpreting Provider: Carrie Palacio MD on 08/13/2022 11:41 AM us Arelis Garcia DO MAMMO ORDERABLES Edited Resul t - Final * BONE DENSITY AXIAL SKELETON(1OR MORE SITES)[id number] (03/04/2021 1:41 PM CDT) Anatomical Region Laterality Modality Other 03/04/2021 3:46 PM CDT Narrative 03/07/2021 5:34 PM CDT EXAMINATION: Dual energy x-ray absorptiometry of the lumbar spine and hip. CLINICAL INDICATION: Z13.820: Osteoporosis screening Z78.0: Postmenopause. Patient's height 65 in; weight 182 lb. FINDINGS: Detailed data from the exam is sent separately to the ordering physician and is also available on [employer], the Radiology Department's computerized picture archive system. [...] ordering physician and is also available on [employer], the Radiology Department's computerized picture archive system. [...] * ENDOSCOPY, COLON, SCREENING (07/20/2018 10:51 AM WRAPPER CASHIER) Report Endoscopy POC Endoscopy Department Report _ [...] bowel preparation was evaluated using the BBPS ([place] Bowel Preparation Scale) with scores of: Right [...] non-berger portions. Procedure Code(s): --- Professional --- 93615, Colonoscopy, flexible; with biopsy, single or multiple Diagnosis Code(s): --- Professional --- Z12.11, Encounter for screening for malignant neoplasm of colon Z80.0, Family history of malignant neoplasm of digestive organs K64.8, Other hemorrhoids K62.1, Rectal polyp D12.5, Benign neoplasm of sigmoid colon D12.4, Benign neoplasm of descending colon K64.4, Residual hemorrhoidal skin tags CPT copyright 2016 [employer]. All rights reserved. The codes documented in this report are preliminary and upon stage set designer review may be revised to meet current compliance requirements. __ Jas Mejia MD 07/20/2018 1:00:45 PM Note Initiated On: 07/20/2018 10:51 AM Number of Addenda: 0 [facility] [address] at [address] PROVATION 07/20/2018 10:5 1 AM WRAPPER CASHIER Roma Burden MD GI PROCEDURE ORDERABLES Edited Result - Final [facility] * HEPATITIS C AB SCREEN RFLX PCR QUANT (02/15/2018 10:43 AM CDT) Hepatitis C Antibody Non-react stan Non-reac tive 02/15/2018 12:06 PM CDT [facility] Comment: Hepatitis C Antibody screen indicates no [...] 10:43 AM CDT 02/15/2018 11:17 AM CDT Arelis Garcia DO LAB - CHEMISTRY ORDERABLES Fi nal Result Performing Organization Address [facility] Co de Phone Number [address] [phone] from Last 3 Months or Most Recently Relevant to Health Maintenance Insurance [facility] MANAGED MEDICARE ADV MEDICAID - OUT OF STATE [facility] MANAGED MEDICARE [facility] Advance Directives * Full Code (Latest Code [...] 4:00 PM 06/26/2021 12:33 PM Care Teams Route Driver Salesperson Relationship Specialty Start Date End Date Arelis Garcia DO [address] [place] [address] PCP - General 03/10/16 Arelis Garcia DO [address] DIV OF [facility] [place] [place] [address] [facility] - Attributed-[facility] ISRAEL CHANDRA P4P 12/18/23
--- OUTSIDE RECORDS SUMMARY | 2025-06-20 01:26 | XMS_ITS | Encounter Summary ---
Author Organization [facility] Address [address] [place] [address] Care Team Providers Care Councilor Name Role Phone Arelis Garcia DO Primary Care Provider [phone] Arelis Garcia DO Unavailable Reason for Visit * Reason Onset Date Comments MEDICATION REFILL 09/08/2018 Appointment 09/08/2018 Encounter Details Date Type Department Care Team (Late st Contact Info) Description 09/08/2018 Refill [facility] Internal Medicine [address] [address] Arelis Garcia DO [address] [facility] 2L [facility] [place] [phone] MEDICATION REFILL; Appointment Social History Tobacco Use Types Packs/Day Years Used Date Smoking Tobacco: Former Cigarettes 0.5 40 0 01/20/1974 - 01/20/2014 Smokeless Tobacco: Never Alcohol Use Standard Drinks/Week Comments No 0 (1 standard drink = 0.6 oz pur e alcohol) Comments No Sex and Gender Information Value Date Recorded Sex Assigned at Not on file Legal Sex Female 5:14 PM SKATE BOARDER Gender Identity Not on file Sexual Orientation Not on file documented as of this encounter Miscellaneous Notes * Telephone Encounter - Erin Mera - 09/21/2018 12:54 PM CST Spoke to patient NOV: 10/20/18 @ 9:[address] Garcia E BOARDER * Telephone Encounter - Steph Howell - 09/08/2018 9:53 AM CST Pharmacy faxing in refill request for patient's lyrica. Medication attached. Allergies reviewed. ABBY:02-15-18 NOV: none at this time Message forwarded to [facility] scheduling to assist with scheduling a f/u visit. E BOARDER documented in this encounter Plan of Treatment Upcoming Encounters Date Type Department Care Team (Late st Contact Info) Description 08/14/2025 10:50 AM SKATE BOARDER Office Visit [facility] - Internal Med [address] [place] [phone] Arelis Garcia DO [address] [place] [address] 2L DIV OF [facility] [place] [phone] 08/15/2025 10:30 AM SKATE BOARDER Office [facility] - ENT [address] [place] [address], [place] [phone] Taco Mayer MD [address] [place] [address] DOOR 3 [place] [address] 09/03/2025 10:20 AM SKATE BOARDER Office Visit [facility] - Endocrinology [address] [place] [address] Yue Gomez APRN-PAMELA [address] [place] [address] [place] [phone] documented as of this encounter Goals Goal [...] documented as of this encounter Care Teams Councilor Relationship Specialty Start Date End Date Arelis Garcia DO [address] [place] [address] PCP - General 03/10/16 Arelis Garcia DO [address] DIV OF [facility] [place] [phone] PCP - Attributed-[facility] ISRAEL CHANDRA P4Hilda 12/18/23 documented as of this encounter
--- OUTSIDE RECORDS SUMMARY | 2025-06-20 01:26 | XMS_ITS | Encounter Summary ---
Author Organization [facility] Address [address] [facility] [place] [address] Care Team Providers Care Washery Engineer Name Role Phone Arelis Garcia DO Primary Care Provider [phone] Arelis Garcia DO Unavailable [phone] Reason for Visit * Reason Onset Date Comments MEDICATION REFILL 09/06/2023 Encounter Details Date Type Department Care Team (Late st Contact Info) Description 09/06/2023 Refill [facility] - Internal Med [facility] [facility], [place] [address] Arelis Garcia DO [address] [place] [address] OF [facility] [place] [address] MEDICATION REFILL Social History Tobacco [...] on file Legal Sex Female 5:14 PM ACOUSTICAL TILE DRILL PRESS OPERATOR Gender Identity Not on file Sexual Orientation Not on file 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 Physician Group - Internal Med [facility] [facility], [place] [phone] Arelis Garcia DO [address] [facility] 2L DIV OF [facility] [place] [phone] 08/15/2025 10:30 AM ACOUSTICAL TILE DRILL PRESS OPERATOR Office Visit [facility] - ENT [address] [facility], [place] [phone] Taco Mayer MD [address] [facility] DOOR 3 [place] [address] 09/03/2025 10:20 AM ACOUSTICAL TILE DRILL PRESS OPERATOR Office Visit [facility] Group - Endocrinology [address] [place] [phone] Yue Gomez, BRENDA-DESIGN MAINTENANCE ENGINEER [address] [facility] [place] [phone] documented as of this encounter Goals Goal [...] type documented in this encounter Care Teams Washery Engineer Relationship Specialty Start Date End Date Arelis Garcia DO [address] [place] [address] PCP - General 03/10/16 Arelis Garcia DO [address] [facility] 2L DIV [place] [address] PCP - Attributed-[facility] ISRAEL CHANDRA P4P 12/18/23 documented as of this encounter
--- OUTSIDE RECORDS SUMMARY | 2025-06-20 01:26 | XMS_ITS | Clinical Summary ---
Author Organization [facility] Address [facility] [place] [address] Care Team Providers Care Care Information Associate Name Role Phone Unavailable Primary Care Provider [...]
--- OUTSIDE RECORDS SUMMARY | 2025-06-20 01:26 | XMS_ITS | Data Portability ---
Author Organization CECILIA Vera SUÁREZ Address [address] [facility] [place] [address] Assessment No assessment recorded. Plan of Treatment Reminders Order Date Submit Date Provider Last Modified By Organization Details Last Modified Time Details Appointments None recorded. Lab BMP, serum or plasma 2015 016 [employer] [facility], [address] [place] [address], [address], [place], [address], 6 12:53:07 lipid panel, serum 2015 016 [employer] [facility], [address] [place] [address], [address], [place], [address], 6 12:54:18 HbA1c (hemoglob in A1c), blood 2015 016 [employer] [facility], [address] [place] [address], [address], [place], [address], 6 12:54:18 ALT (alanine aminotran sferase), serum or plasma 2015 016 [employer] [facility], [address] [place] [address], [address], [place], [address], 6 12:54:18 AST/SGOT (aspartat e aminotran sferase), serum or plasma 2015 016 [employer] [facility], [address] [place] [address], [address], [place], [address], 6 12:54:18 unlisted lab - complianc e drug analysis, ur 2015 016 KAREEM [facility], [address], [address], [place], [address], 6 17:15:51 urinalysi s, dipstick 2015 016 marcos In-Office Order, Internal Use Only DO Not Attach Compendium DO Not Attach Compendium, Do Not Delete/merge, [id number] 15:30:16 HbA1c (hemoglob in A1c), blood 2014 016 KAREEM [facility], [address], [address], [place], [address], 6 08:34:45 urinalysi s, complete 2014 016 KAREEM [facility], [address], [address], [place], [address], 6 08:34:44 ALT (alanine aminotran sferase), serum or plasma 2014 016 KAREEM [facility], [address], [address], [place], [address], 6 08:34:47 AST/SGOT (aspartat e aminotran sferase), serum or plasma 2014 016 KAREEM [facility], [address], [address], [place], [address], 6 08:34:47 albumin, urine 2014 016 asavala [facility], [address], [address], [place], [address], 6 15:00:12 BMP, serum or plasma 2014 016 KAREEM [facility], [address] [facility], [address], [place], [address], 6 08:34:45 lipid panel, serum 2014 016 KAREEM [facility], [address] [facility], [address], [place], [address], 6 08:34:43 drug screen, 5 drugs, urine 2014 015 asavala [facility], [address] [facility], [address], [place], [address], 5 15:15:45 glucose, fingersti ck, blood 2014 015 oajao In-Office Order, Internal Use Only DO Not Attach Compendium DO Not Attach Compendium, Do Not Delete/merge, [id number] 5 17:06:22 Referral None recorded. Procedures None [...] By Organization Details Last Modified Time 08/19/2015 [id number] atrophic vaginitis: care instructions [email or web address] Not available [...] 08/19/192016 urina lysis , dipst ick Specific [place] 1.010 Not Available In-Off ice Order Internal Use Only DO Not Attach Compendium DO Not Attach Compendium, Do Not Delete/merge, [id number] 08/19/2015 14:52:50 08/19/19 16 08/19/2015 urina lysis [...] DO Not Attach Compendium, Do Not Delete/merge, [id number] 04/09/2015 16:30:04 02/14/20 15 02/14/2015 lipid panel , serum cholesterol, total 196 mg/dL 100-19 9 Not Available [facility] ([facility]) [address], [place], [address], 02/14/2015 06:20:29 02/14/20 15 02/14/2015 lipid panel , serum triglyceride s 65 mg/dL 0-149 Not Available [facility] ([facility]) [address] [facility], [place], [address], 02/14/2015 06:20:29 02/14/20 15 02/14/2015 lipid panel , serum HDL cholesterol 51 mg/dL >39 ACCOR DING TO ATP-I II GUIDE LINES , HDL-C >59 MG/DL IS CONSI DERED A NEGAT MILVIA RISK FACTO R FOR CHD. Not Available [facility] ([facility]) [address] [facility], [place], [address], 02/14/2015 06:20:29 02/14/20 15 02/14/2015 lipid panel , serum VLDL cholesterol brielle 13 mg/dL 5-40 Not Available [facility] ([facility]) [address] [facility], [place], [address], 02/14/2015 06:20:29 02/14/20 15 02/14/2015 lipid panel , serum LDL cholesterol calc 132 mg/dL 0-99 above high normal Not Available [facility] ([facility]) [address] [place], [address], 02/14/2015 06:20:29 02/14/20 15 02/14/2015 lipid panel , serum comment: DRAGLINE OPERATOR Not Available [facility] ([facility]) [address] [place], [address], 02/14/2015 06:20:29 02/14/20 15 02/14/2015 lipid panel , serum LDL/HDL ratio 2.6 ratio _unit s 0.0-3. 2 LDL/H DL RATIO MEN WOMEN 1/2 AVG.R ISK 1.0 1.5 AVG.R ISK 3.6 3.2 2X AVG.R ISK 6.2 5.0 3X AVG.R ISK 8.0 6.1 Not Available [facility] ([facility]) [address] [facility] [place], [address], 02/14/2015 06:20:29 02/14/20 15 02/14/2015 BMP, serum or plasm a glucose, serum 305 mg/dL 65-99 above high normal Not Available [facility] ([facility]) [address] [facility] [place], [address], 02/14/2015 06:20:29 02/14/20 15 02/14/2015 BMP, serum or plasm a BUN 8 mg/dL 6-24 Not Available [facility] ([facility]) [address] [facility] [place], [address], 02/14/2015 06:20:29 02/14/20 15 02/14/2015 BMP, serum or plasm a creatinine, serum 0.88 mg/dL 0.57-1 .00 Not Available [facility] ([facility]) [address] [facility], [place], [address], 02/14/2015 06:20:29 02/14/20 15 02/14/2015 BMP, serum or plasm a eGFR if nonafricn AM 72 mL/mi n/1.7 3 >59 Not Available [facility] ([facility]) [address] [facility], [place], [address], 02/14/2015 06:20:29 02/14/20 15 02/14/2015 BMP, serum or plasm a eGFR if africn AM 83 mL/mi n/1.7 3 >59 Not Available [facility] ([facility]) [address] [facility] [place], [address], 02/14/2015 06:20:29 02/14/20 15 02/14/2015 BMP, serum or plasm a BUN/creatini ne ratio 9 9-23 Not Available [facility] ([facility]) [address] [facility] [place], [address], 02/14/2015 06:20:29 02/14/20 15 02/14/2015 BMP, serum or plasm a sodium, serum 134 mmol/ L 134-14 4 Not Available [facility] ([facility]) [address] [place], [address], 02/14/2015 06:20:29 02/14/20 15 02/14/2015 BMP, serum or plasm a potassium, serum 4.7 mmol/ L 3.5-5. 2 Not Available [facility] ([facility]) [address] [place], [address], 02/14/2015 06:20:29 02/14/20 15 02/14/2015 BMP, serum or plasm a chloride, serum 94 mmol/ L 97-108 below low normal Not Available [facility] ([facility]) [address] [place], [address], 02/14/2015 06:20:29 02/14/20 15 02/14/2015 BMP, serum or plasm a carbon dioxide, total 22 mmol/ L 18-29 Not Available [facility] ([facility]) [address] [place], [address], 02/14/2015 06:20:29 02/14/20 15 02/14/2015 BMP, serum or plasm a anion gap 18.0 mEq/L 8.0-16 .0 above high normal Not Available [facility] ([facility]) [address] [place], [address], 02/14/2015 06:20:29 02/14/2002/14/2015 HbA1c (hemo globi n A1c), blood hemoglobin A1C 10.7 % 4.8-5. 6 above high normal INCRE ASED RISK FOR DIABE DEEP: 5.7 - 6.4 DIABE DEEP: >6.4 GLYCE BANDAR CONTR OL FOR ADULT S WITH DIABE DEEP: <7.0 Not Available [facility] ([place] [facility]) [address] [place], [address], 02/14/2015 06:20:30 10/09/19 16 10/10/2015 lipid panel , serum cholesterol, total 215 mg/dL 100-19 9 above high normal Not Available [facility] ([facility]) [address] [facility], [place], [address], 10/10/2015 08:34:43 10/09/19 16 10/10/2015 lipid panel , serum triglyceride s 91 mg/dL 0-149 Not Available [facility] ([facility]) [address] [facility], [place], [address], 10/10/2015 08:34:43 10/09/19 16 10/10/2015 lipid panel , serum HDL cholesterol 43 mg/dL >39 ACCOR DING TO ATP-I II GUIDE LINES , HDL-C >59 MG/DL IS CONSI DERED A NEGAT MILVIA RISK FACTO R FOR CHD. Not Available [facility] ([facility]) [address] [facility], [place], [address], 10/10/2015 08:34:43 10/09/19 16 10/10/2015 lipid panel , serum VLDL cholesterol brielle 18 mg/dL 5-40 Not Available [facility] ([facility]) [address] [facility], [place], [address], 10/10/2015 08:34:43 10/09/19 16 10/10/2015 lipid panel , serum LDL cholesterol calc 154 mg/dL 0-99 above high normal Not Available [facility] ([facility]) [address] [place], [address], 10/10/2015 08:34:43 10/09/19 16 10/10/2015 lipid panel , serum comment: DRAGLINE OPERATOR Not Available [facility] ([facility]) [address] [facility] [place], [address], 10/10/2015 08:34:43 10/09/19 16 10/10/2015 lipid panel , serum LDL/HDL ratio 3.6 ratio _unit s 0.0-3. 2 above high normal LDL/H DL RATIO MEN WOMEN 1/2 AVG.R ISK 1.0 1.5 AVG.R ISK 3.6 3.2 2X AVG.R ISK 6.2 5.0 3X AVG.R ISK 8.0 6.1 Not Available [facility] ([facility]) [address] [facility], [place], [address], 10/10/2015 08:34:43 10/09/19 16 10/10/2015 urina lysis , compl ete specific gravity 1.014 1.005- 1.030 Not Available [facility] ([facility]) [address] [facility], [place], [address], 10/10/2015 08:34:44 10/09/19 16 10/10/2015 urina lysis , compl ete pH 6.5 5.0-7. 5 Not Available [facility] ([facility]) [address] [facility], [place], [address], 10/10/2015 08:34:44 10/09/19 16 10/10/2015 urina lysis , compl ete urine-color YELLOW yellow Not Available [facility] ([facility]) [address] [place], [address], 10/10/2015 08:34:44 10/09/19 16 10/10/2015 urina lysis , compl ete appearance CLEAR clear Not Available [facility] ([facility]) [address] [facility], [place], [address], 10/10/2015 08:34:44 10/09/19 16 10/10/2015 urina lysis , compl ete WBC esterase 1+ negati ve abnormal Not Available [facility] ([facility]) [address] [place], [address], 10/10/2015 08:34:44 10/09/19 16 10/10/2015 urina lysis , compl ete protein NEGATI VE negati ve/tra ce Not Available [facility] ([facility]) [address] [place], [address], 10/10/2015 08:34:44 10/09/19 16 10/10/2015 urina lysis , compl ete glucose TRACE negati ve abnormal Not Available [facility] ([facility]) [address] [place], [address], 10/10/2015 08:34:44 10/09/19 16 10/10/2015 urina lysis , compl ete glucose reflex DRAGLINE OPERATOR Not Available [facility] ([facility]) [address] [place], [address], 10/10/2015 08:34:44 10/09/19 16 10/10/2015 urina lysis , compl ete ketones NEGATI VE negati ve Not Available [facility] ([facility]) [address] [place], [address], 10/10/2015 08:34:44 10/09/19 16 10/10/2015 urina lysis , compl ete occult blood NEGATI VE negati ve Not Available [facility] ([facility]) [address] [place], [address], 10/10/2015 08:34:44 10/09/19 16 10/10/2015 urina lysis , compl ete bilirubin NEGATI VE negati ve Not Available [facility] ([facility]) [address] [place], [address], 10/10/2015 08:34:44 10/09/19 16 10/10/2015 urina lysis , compl ete urobilinogen ,semi-qn 1.0 mg/dL 0.2-1. 0 Not Available [facility] ([facility]) [address] [place], [address], 10/10/2015 08:34:44 10/09/19 16 10/10/2015 urina lysis , compl ete nitrite, urine NEGATI VE negati ve Not Available [facility] ([facility]) [address] [place], [address], 10/10/2015 08:34:44 10/09/19 16 10/10/2015 urina lysis , compl ete microscopic examination SEE BELOW: RAMIN AVILAI C WAS INDIC ATED AND WAS PERFO RMED. Not Available [facility] ([facility]) [address] [facility], [place], [address], 10/10/2015 08:34:44 10/09/19 16 10/10/2015 urina lysis , compl ete WBC 6-10 /hpf 0 - 5 abnormal Not Available [facility] ([facility]) [address] [place], [address], 10/10/2015 08:34:44 10/09/19 16 10/10/2015 urina lysis , compl ete RBC 0-2 /hpf 0 - 2 Not Available [facility] ([facility]) [address] [place], [address], 10/10/2015 08:34:44 10/09/19 16 10/10/2015 urina lysis , compl ete epithelial cells (non renal) 0-10 /hpf 0 - 10 Not Available [facility] ([facility]) [address] [facility], [place], [address], 10/10/2015 08:34:44 10/09/19 16 10/10/2015 urina lysis , compl ete epithelial cells (renal) DRAGLINE OPERATOR Not Available [facility] ([facility]) [address] [place], [address], 10/10/2015 08:34:44 10/09/19 16 10/10/2015 urina lysis , compl ete casts DRAGLINE OPERATOR Not Available [facility] ([facility]) [address] [place], [address], 10/10/2015 08:34:44 10/09/19 16 10/10/2015 urina lysis , compl ete cast type DRAGLINE OPERATOR Not Available [facility] ([facility]) [address] [facility], [place], [address], 10/10/2015 08:34:44 10/09/19 16 10/10/2015 urina lysis , compl ete crystals DRAGLINE OPERATOR Not Available [facility] ([facility]) [address], [place], [address], 10/10/2015 08:34:44 10/09/19 16 10/10/2015 urina lysis , compl ete crystal type DRAGLINE OPERATOR Not Available [facility]) [address], [place], [address], 10/10/2015 08:34:44 10/09/19 16 10/10/2015 urina lysis , compl ete mucus threads PRESEN T not estab. Not Available [facility] ([facility]) [address], [place], [address], 10/10/2015 08:34:44 10/09/19 16 10/10/2015 urina lysis , compl ete bacteria FEW none seen/f ew Not Available [facility] ([facility]) [address], [place], [address], 10/10/2015 08:34:44 10/09/19 16 10/10/2015 urina lysis , compl ete yeast DRAGLINE OPERATOR Not Available [facility] ([facility]) [address], [place], [address], 10/10/2015 08:34:44 10/09/19 16 10/10/2015 urina lysis , compl ete trichomonas DRAGLINE OPERATOR Not Available [facility] ([facility]) [address], [place], [address], 10/10/2015 08:34:44 10/09/19 16 10/10/2015 urina lysis , compl ete comment DRAGLINE OPERATOR Not Available [facility] ([facility]) [address], [place], [address], 10/10/2015 08:34:44 10/09/19 16 10/10/2015 urina lysis , compl ete microscopic examination DRAGLINE OPERATOR Not Available [facility]) [address] [place], [address], 10/10/2015 08:34:44 10/09/19 16 10/10/2015 BMP, serum or plasm a glucose, serum 222 mg/dL 65-99 above high normal Not Available [facility] ([facility]) [address] [place], [address], 10/10/2015 08:34:44 10/09/19 16 10/10/2015 BMP, serum or plasm a BUN 6 mg/dL 6-24 Not Available [facility] ([facility]) [address] [place], [address], 10/10/2015 08:34:44 10/09/19 16 10/10/2015 BMP, serum or plasm a creatinine, serum 0.84 mg/dL 0.57-1 .00 Not Available [facility] ([facility]) [address] [place], [address], 10/10/2015 08:34:44 10/09/19 16 10/10/2015 BMP, serum or plasm a eGFR if nonafricn AM 76 mL/mi n/1.7 3 >59 Not Available [facility] ([facility]) [address] [place], [address], 10/10/2015 08:34:44 10/09/19 16 10/10/2015 BMP, serum or plasm a eGFR if africn AM 88 mL/mi n/1.7 3 >59 Not Available [facility] ([facility]) [address] [place], [address], 10/10/2015 08:34:44 10/09/19 16 10/10/2015 BMP, serum or plasm a BUN/creatini ne ratio 7 9-23 below low normal Not Available [facility] ([facility]) [address] [place], [address], 10/10/2015 08:34:44 10/09/19 16 10/10/2015 BMP, serum or plasm a sodium, serum 142 mmol/ L 134-14 4 Not Available [facility] ([facility]) [address] [place], [address], 10/10/2015 08:34:44 10/09/19 16 10/10/2015 BMP, serum or plasm a potassium, serum 4.2 mmol/ L 3.5-5. 2 Not Available [facility] ([facility]) [address] [place], [address], 10/10/2015 08:34:44 10/09/19 16 10/10/2015 BMP, serum or plasm a chloride, serum 103 mmol/ L 97-108 Not Available [facility] ([facility]) [address] [place], [address], 10/10/2015 08:34:44 10/09/19 16 10/10/2015 BMP, serum or plasm a carbon dioxide, total 23 mmol/ L 18-29 Not Available [facility] ([facility]) [address] [place], [address], 10/10/2015 08:34:44 10/09/19 16 10/10/2015 BMP, serum or plasm a anion gap 16.0 mmol/ L 10.0-1 8.0 Not Available [facility] ([facility]) [address] [place], [address], 10/10/2015 08:34:44 10/09/19 16 10/10/2015 HbA1c (hemo globi n A1c), blood hemoglobin A1C 10.5 % 4.8-5. 6 above high normal PRE-D IABET ES: 5.7 - 6.4 DIABE DEEP: >6.4 GLYCE BANDAR CONTR OL FOR ADULT S WITH DIABE DEEP: <7.0 Not Available [facility] ([facility]) [address] [place], [address], 10/10/2015 08:34:45 10/09/19 16 10/10/2015 micro album in, urine microalbumin , urine 23.4 ug/mL 0.0-17 .0 above high normal Not Available [facility] ([facility]) [address] [facility], [place], [address], 10/10/2015 08:34:46 10/09/19 16 10/10/2015 AST/S GOT (aspa rtate amino trans feras e), serum or plasm a AST (SGOT) 16 IU/L 0-40 Not Available [facility] ([facility]) [address] [place], [address], 10/10/2015 08:34:47 10/09/19 16 10/10/2015 ALT (ariel ine amino trans feras e), serum or plasm a ALT (SGPT) 15 IU/L 0-32 Not Available [facility] ([facility]) [address] [facility], [place], [address], 10/10/2015 08:34:47 10/23/19 16 10/31/2015 drug scree [...] S DETEC ALVAREZ EVEN WHEN USED DIREC ALVAREZ. DILTI AZEM NOT DETEC ALVAREZ UNEXP ECTED [...] ===== === Not Available [facility] [address], [place], [address], 10/31/2015 17:15:51 10/23/19 16 10/31/2015 drug wander n, urine pdf . Not Available [facility] [address], [place], [address], 10/31/2015 17:15:51 09/03/19 16 09/03/2015 mammo gram, wander collins No observ ation record ed. [facility] [address], [place], [address], 10/15/2015 11:54:25 02/18/20 17 02/10/2017 US, rojelio bush, arter ial, upper extre mity No observ ation record ed. mariana Live MD [address], [place], [address], 02/17/2017 05:49:12 02/18/20 17 02/10/2017 US, rojelio bush, carot id arter y No observ ation record ed. mariana Live MD [address], [place], [address], 02/17/2017 05:48:01 09/22/19 19 09/21/2018 cardi ac stres s test No observ ation record ed. [facility] [address], [place], [address], 09/22/2018 05:25:27 09/24/19 19 09/23/2018 trans -thor acic echoc ardio gram (TTE) (PROC ) No observ ation record ed. [facility] [address], [place], [address], 09/23/2018 13:59:02 Result Notes None recorded. Problems Name Problem SNOMED Code Status Onset Date Resolution Date Notes Provider Name and Address Organization Details Recorded Time Numbness of tongue 55574484 Active Roslyn Alanis MA null, [place] - [place] 6 14:47:46 Neuropathy due to diabetes mellitus 867553275 Active Pamela Jones MD Attn: Lisa sheldon,[address] [facility], [place], [address], [facility] - [facility] 6 12:49:03 Coronary arterioscle rosis in poarch artery 8551310671297 Active ISRAEL Berry, [place] - [place] 6 14:47:46 Migraine 36364905 Active ISRAEL Berry, [place] - [place] 6 14:47:46 Atrophic vaginitis 17253101 Active Gentry Del Castillo null, [facility] SI 6 15:30:16 Uncontrolle d type 2 diabetes mellitus 189332652 Active Pamela Jones MD Attn: Lisa sheldon,[address] [facility], [place], [address], [facility] - SI 6 12:49:03 Neuropathy 058665669 Active Roslyn Alanis MA null, [place] - [place] 6 14:47:46 Disorder of lipid metabolism 585422960 Active Pamela Jones MD Attn: Accountin g,[address] [facility], [place], [address], [facility] - [facility]IF 6 12:49:03 Acute bronchitis 50693318 Active Roslyn Alanis MA [place], [facility] SI 14:47:46 Notes:Bad Cold 2 weeks My feet hurt real bad 58y/o BF who was last seen in this office 04/23/14, she presents with the above Problem Notes None recorded. Procedures Surgical History Date Name Laterality Status Provider Name and Address Organization Details Recorded Time 04/18/20 14 Most Recent Mammogram completed Roslyn Alanis MA [facility] 08/19/2015 14:50:25 07/19/18 86 Date of Last Pap Smear completed ISRAEL Berry [facility] 08/19/2015 14:48:45 07/19/18 86 Hysterectomy completed Roslyn Alanis MA [facility] 08/19/2015 14:50:51 03/28/19 78 Caesarean Section completed Elsie Ross MA [facility] 08/01/2014 11:50:00 01/03/19 77 Caesarean Section completed October ISRAEL Ross [facility] 08/01/2014 11:50:00 Eye Surgery completed October ISRAEL Rsos [facility] 08/01/2014 11:50:00 Knee Surgery completed October ISRAEL Ross [facility] 08/01/2014 11:50:00 Tubal Ligation completed October ISRAEL Ross [facility] 08/01/2014 11:50:00 Imaging Results None recorded. Procedure Notes None recorded. Medical Equipment None Reported. Allergies Allergen ID Allergen Name Allergen Category Reaction Reaction Severity Criticality Documentation Date Start Date Code Code System Note Provider Name and Address Organization Details Recorded Time 28007 Product containin g penicilli n (product) medicatio n Not available Not available Not available 08/01/2014 27268 8001 SNOMED October [facility] [place], [place] - [facility] 5 11:50:01 Medications Name Sig Start Date Stop Date Status Note LastModified by Organization Details LastModified Time comfort ez mis [id number] er choice comfort ez insulin pen needles [id number] active Not Available Not Available Not Available litetouch mis [id number] touch pen needles [id number] short active Not Available Not Available Not Available Prescriptio n - New active Not Available Not Available Not Available alcohol prep padpharmaci st choice alcoholprep pads active Not Available Not Available Not Available pen needles mis [id number] active Not Available Not Available Not Available [...] Updated DateTime 08/19/2015 165.1 cm 26 kg/m2 55734.409 72 g 106/74 mm[Hg] Roslyn Alanis [facility] 08/19/2015 14:56:19 Date Recorded Body weight Body temperature Heart rate Body mass index (BMI) Body height Respiratory rate Systolic And Diastolic Provider Name and Address Organization Details Last Updated DateTime 6 28396.2 2498 g 98.1 [degF] 80 /min 25.6 kg/m2 165.1 cm 20 /min 122/74 mm[Hg] [facility] 6 11:45:41 Date Recorded Respiratory rate Body weight Body height Body temperature Heart rate Body mass index (BMI) Systolic And Diastolic Provider Name and Address Organization Details Last Updated DateTime 5 22 /min 42865.7 4105 g 165.1 cm 98.5 [degF] 76 /min 27.5 kg/m2 142/84 mm[Hg] Elsie Ross [facility] 5 16:21:39 Date Recorded Respiratory rate Body weight Body height Body temperature Heart rate Body mass index (BMI) Systolic And Diastolic Provider Name and Address Organization Details Last Updated DateTime 5 20 /min 15623.7 4105 g 165.1 cm 98 [degF] 84 /min 27.5 kg/m2 138/88 mm[Hg] Elsie Ross [facility] 5 16:25:28 Date Recorded Respiratory rate Body weight Body height Body temperature Heart rate Body mass index (BMI) Systolic And Diastolic Provider Name and Address Organization Details Last Updated DateTime 5 20 /min 87614.1 8683 g 165.1 cm 98.7 [degF] 80 /min 26.5 kg/m2 134/82 mm[Hg] October ISRAEL Ross [place] - [facility] 5 11:24:27 Social History Question [...] Y Other N High Blood Pressure Y Depression N Blood Clots N Headaches/Migraines N Anxiety Disorder N Muscle, Joint, or Bone Problems N Infertility N Polyps N Acid Reflux (GERD) N Cancer N Stroke Y Headaches Y Kidney or Bladder Problems N Acne N Eating Disorder N Asthma N Hepatitis N Breast Cancer N Lung Disease N Breast Problem N Anesthesia Complications N Endometriosis N High Cholesterol Y Liver Disease N Thyroid Problems N GI Problems N Anemia N Ovarian Cancer N Diabetes Y Blood Transfusions N Seizures/Epilepsy N Abuse/Domestic Violence N Heart Disease N Pre-Eclampsia N Osteoporosis N Gynecological History Statement/Question [...] completed Pamela Jones MD Attn: Accounting,[address] [place], [address], [facility] 04/09/2015 16:36:48 pneumococcal polysaccharide PPV23 2 completed Pamela Jones MD Attn: Accounting,[address], [place], [address], [facility] 04/09/2015 16:38:34 zoster live 3 completed Pamela Jones MD Attn: Accounting,[address], [place], [address], [facility] 04/09/2015 17:07:12 Influenza, split virus, quadrivalent, preservative 5 completed Not Available [facility] 08/05/2019 02:44:47 Past Encounters Encounter ID Performer Location Encounter Start Date Encounter Closed Date Diagnosis/Indication Diagnosis SNOMED-CT Code Diagnosis ICD10 Code Diagnosis IMO Codes Diagnosis Note [id number] MD Brook Gomez (Adult Med) [address] [place] [address] 08/01/2014 11:24:51 08/01/2014 13:01:12 Uncontrolled type 2 diabetes mellitus [id number] On Lantus 81 units and Humalog 24 units bid, her HBA1C was 8.5 & 8.6, I will increase her Humalog to 27 units subcutaneo usly BID, continue Lantus at 81 as her last few FBS are 98 &102 in the last two days Neuropathy [id number] Most likely diabetic neuropathy , we will try her on Lyrica 50mg po TID again Disorder o f lipid metabolism [id number] She is doing the best she can with her diet and follows the recommenda tions from the ethanol quality leader, Rina. She also has been compliant with her Crestor and Zetia Acute bronchitis [id number] MD Brook Gomez (Adult Med) [address] [place] [phone] 10/05/2014 10:02:57 10/05/2014 10:56:56 Uncontrolled type 2 diabetes mellitus [id number] On Lantus 82 units and Humalog 26 units bid, her HBA1C was 8.9 which is worse, I will increase her Lantus to 84 and her Humalog to 28 units subcutaneo usly BID. Her blood sugars from her log book appear reasonable and we may consider having her see an Endocrinol ogist if there is no improvemen t when she is next seen. [id number] [facility] [address] [place] [phone] 03/12/2015 15:50:21 03/12/2015 17:03:52 Uncontrolled type 2 diabetes mellitus [id number] On Lantus 84 units and Humalog 28 [...] FBS/RBS in one week Numbness of tongue 39533892 Possibly a side effect of one of her meds Disorder o f lipid metabolism 932609391 She is doing the best she can with her diet and follows the recommenda tions from the ethanol quality leader, Rina. She also has been compliant with her Crestor and Zetia Neuropathy due to diabetes mellitus 901077940 She only takes Lyrica prn due to its sedative side effects Coronary arteriosclerosis in poarch artery [id number] 107 Screening mammography [id number] [facility] [address] [place] [phone] 04/09/2015 16:12:33 04/10/2015 15:15:19 Influenza vaccine needed [id number] 106 Uncontroll ed type 2 diabetes mellitus 280092742 On Lantus 86 units and Humalog 34 [...] with her FBS/RBS in one week Migraine 39586416 She sheela quinteros continues to have multiple ER visits for her migraine headaches, she has failed Imitrex, and that may not be a viable option in view of her CVS disease. She is now on Amitriptyl ine and Hydrocodon e, she will be seeing Dr. Grimaldo and she will ask about other options. [id number] MD Brook Gomez (Adult Med) [address] [place] [id number] 07/11/2015 11:12:57 07/11/2015 14:12:33 Uncontrolled type 2 diabetes mellitus [id number] E11.65 On Lantus 90 units HS and Humalog 37 units bid, her HBA1C was 8.9 , then 10.9 adn now ? She was seen by the endocrinol ogist, she will be following up again in September, labs were drawn and we will call the OSH for the results. Screening mammography 24 563857 Z12.31 Screening for osteoporosis 092704599 Z13.820 Bone density is pending? She states that she was told to start Calcium and Vitamin D Neuropathy due to diabetes mellitus 320613858 E11.40 Z51.81 She only takes Lyrica prn due to its sedative side effects, I have refilled it and a pain contract was signed, UDS with her next set of labs [id number] MD Brook Wolf (MOTOR OPERATOR) [address] [place] [id number] 08/19/2015 14:01:12 08/19/2015 17:02:55 Atrophic vaginitis 75190327 N95.2 [id number] MD Brook Gomez (Adult Med) [address] [place] [id number] 10/15/2015 11:26:21 10/15/2015 12:36:22 Uncontrolled type 2 diabetes mellitus [id number] E11.65 Now on Lantus 36 units HS [...] be useful. Disorder o f lipid metabolism 341673015 E78.9 She is doing the best she can with her diet and follows the recommenda tions from her endocrinol ogist, ANDRÉS De La Vega. She was previously seen by the ethanol quality leader, Rina. She also has been compliant with her Crestor and Zetia, I will hope that her lipid panel will also improve once her diabetic control is better. Neuropathy due to diabetes mellitus [id number] E11.40 Z51.81 She only takes Lyrica prn [...] MEDICARE OR MEDICARE REPLACEMENT PRIMARY) Mirela Leon [id number] Mirela Leon 10/23/2015 [place]: [facility] Mirela Leon [id number] Mirela Leon 10/23/2015 1 [place] Mirela Leon [id number] Mirela Leon 01/12/2016 2 [place] WHEN MEDICARE OR MEDICARE REPLACEMENT PRIMARY) Mirela Leon [id number] Mirela Leon 10/23/2015 1 [employer]EMENT [employer] (MEDICARE REPLACEMENT/AD VANTAGE - PPO) Mirela Leon [id number] Mirela Leon 01/12/2016 1 [facility] (MEDICARE REPLACEMENT/AD VANTAGE - HMO) [id number] Mirela Leon [id number] Mirela Leon Notes Date Note Type Note [...] feet. Pamela Jones MD Attn: Accounting,[address] [place], [address], [facility] 03/13/2015 09:28:01 04/09/2015 text/html Diabetes [...] urination. Pamela Jones MD Attn: Accounting,[address] [facility], [place], [address], [facility] 04/09/2015 17:37:13 07/11/2015 text/html DiabetesReported by PatientHPIFor [...] vision. Pamela Jones MD Attn: Accounting,[address] [facility], [place], [address], [facility] 07/11/2015 12:56:33 08/19/2015 text/html Vaginal/Vulvar ProblemReported by [...] as noted in the HPI Gentry talbot, [facility] 08/19/2015 17:02:09 10/15/2015 text/html Diabetes F/URepo rted [...] feet. Pamela Jones MD Attn: Accounting,[address] [place], [address], [facility] 10/15/2015 12:49:30 OBGyn Episode No OBEpisode recorded.
--- OUTSIDE RECORDS SUMMARY | 2025-06-20 01:26 | XMS_ITS | Encounter Summary ---
Author Organization [facility] Address [address] [facility] [place] [address] Care Team Providers Care Shooting Gallery Operator Name Role Phone Arelis Garcia DO Primary Care Provider [phone] Arelis Garcia DO Unavailable [phone] Reason for Visit * Reason Onset Date Comments MEDICATION REFILL 11/03/2023 Encounter Details Date Type Department Care Team (Late st Contact Info) Description 11/03/2023 Refill [facility] - Internal Med [facility] 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, [facility] [place] [phone] Arelis Garcia DO [address] [facility] 2L DIV OF [facility] [place] [address] 08/15/2025 10:30 AM TOP INVENTORY CONTROL EXECUTIVE Office Visit [facility] - ENT [address] [facility], [place] [phone] Taco Mayer MD [address] [facility] DOOR 3 [place] [address] 09/03/2025 10:20 AM TOP INVENTORY CONTROL EXECUTIVE Office Visit [facility] - Endocrinology [address] [place] [phone] Yue Gomez, BRENDA-DOCK SUPERVISOR [address] [facility] [place] [address] documented as of this encounter Goals Goal [...] on filedocumented in this encounter Care Teams Shooting Gallery Operator Relationship Specialty Start Date End Date Arelis Garcia DO [address] [place] [address] PCP - General 03/10/16 Arelis Garcia DO [address] [facility] 2L DIV [place] [address] PCP - Attributed-[facility] [place] CHANDRA P4P 12/18/23 documented as of this encounter
--- OUTSIDE RECORDS SUMMARY | 2025-06-20 01:26 | XMS_ITS | Encounter Summary ---
Author Organization [facility] Address [address] [facility] [place] [address] Care Team Providers Care Senior Bioinformatics Specialist Name Role Phone Arelis Garcia DO Primary Care Provider [phone] Arelis Garcia DO Unavailable [phone] Reason for Visit * Reason Onset Date Comments MEDICATION REFILL 10/18/2023 Encounter Details Date Type Department Care Team (Late st Contact Info) Description 10/18/2023 Refill [facility] - Endocrinology [address] [facility], [place] [address] Angela Juarez DO [address] [place] [address] MEDICATION REFILL Social History Tobacco Use [...] on file Legal Sex Female 5:14 PM ASPHALT COATER Gender Identity Not on file Sexual Orientation Not on file 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 on file Not on file [...] st Contact Info) Description 08/14/2025 10:50 AM ASPHALT COATER Office Visit [facility] - Internal Med [address] [facility], [place] [address] Arelis Garcia DO [address] [facility] 2L DIV [place] [address] 08/15/2025 10:30 AM ASPHALT COATER Office Visit [facility] - ENT [address] [facility], [place] [phone] Taco Mayer MD [address] [facility] DOOR 3 [place] [address] 09/03/2025 10:20 AM ASPHALT COATER Office Visit [facility] - Endocrinology [address] [place] [phone] Yue Gomez APRN-OVERLOCK ELASTIC ATTACHER [address] [facility] [place] [address] documented as of this encounter Goals Goal [...] filedocumented in this encounter Care Teams Senior Bioinformatics Specialist Relationship Specialty Start Date End Date Arelis Garcia DO [address] [place] [address] PCP - General 03/10/16 Arelis Garcia DO [address] [facility] 2L DIV [place] [address] PCP - Attributed-[facility] [place] CHANDRA P4P 12/18/23 documented as of this encounter
--- OUTSIDE RECORDS SUMMARY | 2025-06-20 01:26 | XMS_ITS | Encounter Summary ---
Author Organization [facility] Address [address] [facility] [place] [address] Care Team Providers Care Lagging Machine Operator Name Role Phone Arelis Garcia DO Primary Care Provider [phone] Arelis Garcia DO Unavailable [phone] Encounter Details Date Type Department Care Team (Late st Contact Info) Description 11/17/2021 Ophth Exam [facility] [address] [place] [address] Nahomy Landry MD [address] [place] [address] [address] [place] [phone] Social History Tobacco Use Types Packs/Day Years [...] on file Legal Sex Female 5:14 PM GRANTS ANALYST Gender Identity Not on file Sexual Orientation Not on file 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 - ENT [address] [facility], [place] [phone] Taco Mayer MD [address] [facility] DOOR 3 [place] [address] 09/03/2025 10:20 AM GRANTS ANALYST Office Visit [facility] - Endocrinology [address] [place] [phone] Yue Gomez, BRENDA-PAMELA [address] [facility] [place] [address] documented as of this encounter Goals Goal [...] on filedocumented in this encounter Care Teams Lagging Machine Operator Relationship Specialty Start Date End Date Arelis Garcia DO [address] [place] [address] PCP - General 03/10/16 Arelis Garcia DO [address] OF [facility] [place] [phone] PCP - Attributed-[facility] [place] CHANDRA P4P 12/18/23 documented as of this encounter
--- NOTE | 2025-06-20 09:10 | WPDANESEPPF ---
Anes - Initial Pre Proc Eval Procedure: Operation Date: 06/20/25 10:00 Proposed Procedures p Screening Colonoscopy - Adriano Calix MD Date/Time: 06/20/25 09:10 Surgeon: Adriano Calix MD Pre Op Diagnosis: Encounter for screening for malignant neoplasm of Patient Data Age: 69 Gender: F Height: 1.65 m Weight: 76.3 kg Allergies Allergy/AdvReac Type Severity Reaction Status Date / Time Penicillins Allergy Intermediate unknown Verified 06/13/25 07:59 naproxen AdvReac Mild GI upset Verified 06/13/25 07:59 Home Medications ?Medication ?Instructions ?Recorded ?Confirmed ?Type amitriptyline 75 mg tablet See Rx Instructions .Route 12/06/24 06/13/25 Rx .COMPLEX #90 tabs atorvastatin 80 mg tablet 80 mg PO DAILY #90 tabs 12/06/24 06/13/25 Rx calcitriol 0.25 mcg capsule 0.25 mcg PO DAILY 12/06/24 06/13/25 History diclofenac sodium 1 % topical gel 2 g topical QID #100 grams 12/06/24 06/13/25 Rx divalproex 125 mg tablet,delayed 125 mg PO Q8H 12/06/24 06/13/25 History release duloxetine 30 mg capsule,delayed 30 mg PO ONCE #90 caps 12/06/24 06/13/25 Rx release furosemide 40 mg tablet 40 mg PO DAILY 12/06/24 06/13/25 History insulin glargine-yfgn 100 unit/mL 1 unit subcut QPM 12/06/24 06/13/25 History (3 mL) subcutaneous pen insulin lispro 100 unit/mL 1 sliding scale dose subcut DAILY 12/06/24 06/13/25 History subcutaneous solution (Humalog U-100 Insulin) metoprolol succinate 200 mg 200 mg PO ONCE #90 tabs 12/06/24 06/13/25 Rx tablet,extended release 24 hr rizatriptan 10 mg disintegrating 10 mg PO ONCE PRN migraine 12/06/24 06/13/25 Rx tablet headache #10 tabs spironolactone 25 mg tablet 25 mg PO DAILY 12/06/24 06/13/25 History ezetimibe 10 mg tablet 10 mg PO DAILY 01/23/25 06/13/25 History isosorbide mononitrate 30 mg 30 mg PO DAILY 01/30/25 06/13/25 History tablet,extended release 24 hr lidocaine 5 % topical patch 1 patch topical DAILY 01/30/25 06/13/25 History pregabalin 100 mg capsule 100 mg PO TID #270 caps 04/03/25 06/13/25 Rx sacubitril 97 mg-valsartan 103 mg 1 tablet PO ONCE #90 tabs 04/30/25 06/13/25 Rx tablet (Entresto) zolpidem 5 mg tablet 5 mg PO ONCE PRN insomnia #30 tabs 05/11/25 06/13/25 Rx hydrocodone 5 mg-acetaminophen 325 1 tablet PO Q8H PRN pain #30 tabs 05/16/25 06/13/25 Rx mg tablet cyclobenzaprine 10 mg tablet 10 mg PO TID PRN muscle spasm #90 06/13/25 06/13/25 Rx tabs mupirocin 2 % topical ointment 1 applic topical BID #22 grams 06/13/25 06/13/25 Rx (Centany) omeprazole 40 mg capsule,delayed 40 mg PO DAILY #30 caps 06/13/25 06/13/25 Rx release Patient hx anesthesia problems: none Family hx anesthesia problems: none Results Review: All pre-operative results and documents have been reviewed as part of the pre-operative evaluation. [facility] Past Medical History Medical History (Updated 06/20/25 @ 09:10 by Usama Romeo DO) Legally blind Hypertension Heart disease Heart attack Headache GERD (gastroesophageal reflux disease) Diabetes Coronary artery disease CHF (congestive heart failure) Cancer of internal nose Arthritis Surgical History Surgical History H/O knee surgery H/O: hysterectomy History of delivery Stented coronary artery History of eye surgery Family History Family History Mother Heart disease Cerebrovascular accident Grandparent Diabetes mellitus Social History Social History Smoking packs per day: 0.2 Smoking cigarettes per day: 4.0 Years smoked: 50 Smoking pack-years: 10.00 Smoking status: Current every day smoker Tobacco type: cigarettes Second hand tobacco smoke exposure: Yes Alcohol intake: never Substance use: never Substance use type: does not use Lack of Transportation: YES Lack of Food: Never True Current Housing: I Have Housing Concerned About Future Housing: No Difficulty Paying Gas/Electric Bills: No Difficulty Paying for Meds: No Currently Unemployed: No Education: High School Diploma/GED Difficulty w/ Childcare or Family Care: No Living arrangements: with family Occupation/Education: unemployed Gender identity (if verbalized by the patient): Female Sexual Orientation (if Verbalized by the Patient): Straight or Heterosexual Spiritual care concerns: No Agree to blood products: Yes Anes - Eval Final PreProcedure Day of Procedure 06/20/25 09:10 Patient weight: overweight Heart: regular rate and rhythm Lungs: clear to auscultation Airway: Mallampati scale class II Neurological: alert and oriented Last oral intake: >/= 8 hours ASA classification: IV Emergent: no Anesthetic plan: proceed Anesthesia type and monitoring: general GIVS and standard monitoring Results Review: All pre-operative results and documents have been reviewed as part of the pre-operative evaluation. Informed Consent: The patient's anesthetic plan and its attendant risks and benefits were discussed with the patient/family/POA. Questions were solicited and answers provided to the satisfaction of the patient/family/POA.
[2025-06-20 09:21] VITALS: BP 120/68; PULSE 69; RESP 18; TEMP 36.1; O2SAT 100
[2025-06-20] MEDS: INSULIN HUMAN REGULAR (*BKC) 100 UNITS/ML 10 UNITS SUB-Q (09:35)
[2025-06-20] MEDS: LACTATED RINGERS 1,000 ML 150 ML IV CONT (09:40)
--- NOTE | 2025-06-20 10:08 | PM.IMHP2 ---
H&P: HPI History of Present Illness Date/Time: 06/20/25 10:08 Chief Complaint: History of colon polyps Narrative: The patient has a history of colonic polyps, the last colonoscopy was 5 years ago. Review of Systems Review of Systems: All systems reviewed & are unremarkable except as noted in HPI and below PMFSH Past Medical History Medical History (Updated 06/20/25 @ 09:10 by Usama Romeo DO) Legally blind Hypertension Heart disease Heart attack Headache GERD (gastroesophageal reflux disease) Diabetes Coronary artery disease CHF (congestive heart failure) Cancer of internal nose Arthritis Surgical History Surgical History H/O knee surgery H/O: hysterectomy History of delivery Stented coronary artery History of eye surgery Family History Family History Mother Heart disease Cerebrovascular accident Grandparent Diabetes mellitus Social History Social History Smoking packs per day: 0.2 Smoking cigarettes per day: 4.0 Years smoked: 50 Smoking pack-years: 10.00 Smoking status: Current every day smoker Tobacco type: cigarettes Second hand tobacco smoke exposure: Yes Alcohol intake: never Substance use: never Substance use type: does not use Lack of Transportation: YES Lack of Food: Never True Current Housing: I Have Housing Concerned About Future Housing: No Difficulty Paying Gas/Electric Bills: No Difficulty Paying for Meds: No Currently Unemployed: No Education: High School Diploma/GED Difficulty w/ Childcare or Family Care: No Living arrangements: with family Occupation/Education: unemployed Gender identity (if verbalized by the patient): Female Sexual Orientation (if Verbalized by the Patient): Straight or Heterosexual Spiritual care concerns: No Agree to blood products: Yes Meds Home Medications and Allergies Home Medications ?Medication ?Instructions ?Recorded ?Confirmed ?Type amitriptyline 75 mg tablet See Rx Instructions .Route 12/06/24 06/13/25 Rx .COMPLEX #90 tabs atorvastatin 80 mg tablet 80 mg PO DAILY #90 tabs 12/06/24 06/13/25 Rx calcitriol 0.25 mcg capsule 0.25 mcg PO DAILY 12/06/24 06/13/25 History diclofenac sodium 1 % topical gel 2 g topical QID #100 grams 12/06/24 06/13/25 Rx divalproex 125 mg tablet,delayed 125 mg PO Q8H 12/06/24 06/13/25 History release duloxetine 30 mg capsule,delayed 30 mg PO ONCE #90 caps 12/06/24 06/13/25 Rx release furosemide 40 mg tablet 40 mg PO DAILY 12/06/24 06/13/25 History insulin glargine-yfgn 100 unit/mL 1 unit subcut QPM 12/06/24 06/20/25 History (3 mL) subcutaneous pen insulin lispro 100 unit/mL 1 sliding scale dose subcut DAILY 12/06/24 06/20/25 History subcutaneous solution (Humalog U-100 Insulin) metoprolol succinate 200 mg 200 mg PO ONCE #90 tabs 12/06/24 06/13/25 Rx tablet,extended release 24 hr rizatriptan 10 mg disintegrating 10 mg PO ONCE PRN migraine 12/06/24 06/13/25 Rx tablet headache #10 tabs spironolactone 25 mg tablet 25 mg PO DAILY 12/06/24 06/13/25 History ezetimibe 10 mg tablet 10 mg PO DAILY 01/23/25 06/13/25 History isosorbide mononitrate 30 mg 30 mg PO DAILY 01/30/25 06/13/25 History tablet,extended release 24 hr lidocaine 5 % topical patch 1 patch topical DAILY 01/30/25 06/13/25 History pregabalin 100 mg capsule 100 mg PO TID #270 caps 04/03/25 06/13/25 Rx sacubitril 97 mg-valsartan 103 mg 1 tablet PO ONCE #90 tabs 04/30/25 06/13/25 Rx tablet (Entresto) zolpidem 5 mg tablet 5 mg PO ONCE PRN insomnia #30 tabs 05/11/25 06/13/25 Rx hydrocodone 5 mg-acetaminophen 325 1 tablet PO Q8H PRN pain #30 tabs 05/16/25 06/13/25 Rx mg tablet cyclobenzaprine 10 mg tablet 10 mg PO TID PRN muscle spasm #90 06/13/25 06/13/25 Rx tabs mupirocin 2 % topical ointment 1 applic topical BID #22 grams 06/13/25 06/13/25 Rx (Centany) omeprazole 40 mg capsule,delayed 40 mg PO DAILY #30 caps 06/13/25 06/13/25 Rx release aspirin 81 mg tablet,delayed 81 mg PO DAILY 06/20/25 06/20/25 History release (Adult Aspirin Regimen) Allergies Allergy/AdvReac Type Severity Reaction Status Date / Time Penicillins Allergy Intermediate unknown Verified 06/20/25 09:18 naproxen AdvReac Mild GI upset Verified 06/20/25 09:18 Vital Signs Vital Signs - 24 hr 06/20/25 09:21 Temperature 97 F L Pulse Rate 69 Respiratory Rate 18 Blood Pressure 120/68 Pulse Oximetry 100 Oxygen Delivery Room Air Exam Const: General: cooperative and healthy appearing Resp: Effort & Inspection: normal respiratory effort and able to speak in complete sentences Auscultation: clear to auscultation bilaterally Cardio: Rate: regular rate Rhythm: regular rhythm GI: Inspection: normal to inspection GI Palp: No No hepatosplenomegaly present Auscultation: normal bowel sounds Rectal Exam: deferred Skin: General skin exam: normal color Psych: Appearance: grossly normal Mental Status: mental status grossly normal Assessment and Plan Assessment and plan (1) Screening for colon cancer: Code(s): Z12.11 - Encounter for screening for malignant neoplasm of colon Status: Acute Assessment and Plan: The patient is deemed a good candidate for the procedure. Consent signed. Will proceed. Prior Studies I have reviewed the following patient records and this information was taken into consideration when formulating the assessment and plan.: previous labs, previous ER visits, previous hospitalizations and previous clinic visits
[2025-06-20 10:37] VITALS: BP 90/49; PULSE 67; RESP 13; O2SAT 97
[2025-06-20 10:47] VITALS: BP 122/49; PULSE 69; RESP 21; O2SAT 99
[2025-06-20 10:57] VITALS: BP 118/51; PULSE 63; RESP 19; O2SAT 100
--- NOTE | 2025-06-20 11:00 | SUR.PHASEII ---
patient's blood glucose 306, addressed with and debora to proceed with discharging home. Patient educated with discharge instructions given and to notify if she has any questions or concerns.
[2025-06-20 11:14] VITALS: BP 140/70
== END 2025-06-20 11:18 | disposition home or self-care (01) ==
PROVIDERS: PCP Family Medicine; Referring Provider Nurse Practitioner; Visit Provider Internal Medicine Gastroenterology
PROC: 0DJD8ZZ Inspection of Lower Intestinal Tract, Via Natural or Artificial Opening Endoscopic (ICD-10-PCS; CPT 45378; principal; 2025-06-20 10:00)
DX: Z12.11 Encounter for screening for malignant neoplasm of colon (principal); K64.8 Other hemorrhoids; I11.0 Hypertensive heart disease with heart failure; I50.9 Heart failure, unspecified; E11.9 Type 2 diabetes mellitus without complications; K21.9 Gastro-esophageal reflux disease without esophagitis; I25.10 Atherosclerotic heart disease of native coronary artery without angina pectoris; H54.8 Legal blindness, as defined in USA; I25.2 Old myocardial infarction; M19.90 Unspecified osteoarthritis, unspecified site; F17.210 Nicotine dependence, cigarettes, uncomplicated; Z79.4 Long term (current) use of insulin; Z79.891 Long term (current) use of opiate analgesic; Z79.82 Long term (current) use of aspirin; Z98.890 Other specified postprocedural states; Z95.5 Presence of coronary angioplasty implant and graft; Z86.0100 Personal history of colon polyps, unspecified; Z85.22 Personal history of malignant neoplasm of nasal cavities, middle ear, and accessory sinuses; Z82.49 Family history of ischemic heart disease and other diseases of the circulatory system
CPT/HCPCS: G0105; 82948; J1815; J2704; J7120

== ENCOUNTER 2025-06-28 01:32 | Day surgery (SDC) | payer MEDICARE, MEDICAID, SELFPAY ==
--- OUTSIDE RECORDS SUMMARY | 2024-10-13 08:00 | XMS_ITS ---
Author Organization [facility] Address [address] [facility] [address] [facility] [address] [place] [address] Care Team Providers Care Cigarette Book Maker Name Role Phone Henri Neno Unavailable [phone] Problems Problem Type SNOMED Code ICD Code Onset Dates Problem Status W/U Status Risk Notes Problem Diabetic renal disease (688970100) Type 2 diabetes mellitus with diabetic chronic kidney disease (E11.22) Active confirmed Problem Essential hypertension (55016571) Essential hypertension (I10) Active confirmed Problem Tobacco use (982195990) Tobacco use (Z72.0) Active confirmed Problem Coronary artery disease (46203236) CAD (coronary artery disease) (I25.10) Active confirmed Problem Blindness, one eye, unspecified eye (H54.40) Active confirmed Problem Acute bronchitis (16791028) Acute bronchitis, unspecified (J20.9) Active confirmed Problem Heart failure (58540409) Heart failure, unspecified (I50.9) Active confirmed Problem Proteinuria (98465970) Proteinuria, unspecified (R80.9) Active confirmed Encounters Encounter Location Date Provider Diagnosis [place] [facility] [address] [facility] 15 [place] [address] 10/13/2024 Neno Álvarez Chronic kidney disease, stage 3 unspecified N18.30 ; Type 2 diabetes mellitus with diabetic chronic kidney disease E11.22 ; Essential hypertension I10 ; Tobacco use Z72.0 ; CAD (coronary artery disease) I25.10 ; Blindness, one eye, unspecified eye H54.40 ; Acute bronchitis, unspecified J20.9 ; Heart failure, unspecified I50.9 and Proteinuria, unspecified R80.9 Assessments Encounter Date Diagnosis (ICD Code) Assessment Notes Treatment Notes Treatment Clinical Notes Section Notes 10/13/2024 Chronic kidney disease, stage 3 unspecified (ICD-10 - N18.30) 10/13/2024 Type 2 diabetes mellitus with diabetic chronic kidney disease (ICD-10 - E11.22) 10/13/2024 Essential hypertension (ICD-10 - I10) 10/13/2024 Tobacco use (ICD-10 - Z72.0) 10/13/2024 CAD (coronary artery disease) (ICD-10 - I25.10) 10/13/2024 Blindness, one eye, unspecified eye (ICD-10 - H54.40) 10/13/2024 Acute bronchitis, unspecified (ICD-10 - J20.9) 10/13/2024 Heart failure, unspecified (ICD-10 - I50.9) 10/13/2024 Proteinuria, unspecified (ICD-10 - R80.9) Plan Of Treatment No Information Progress Notes * TYLER ECKERTB:1955 (69 yo F)Acc No.[id number]:10/13/2024 Progress Notes Patient: SALAS CH Provider: Ebony PULIDO MD, F.A.C.P, F.A.S.N. :1955 A ge:69 Y S ex:Female Date:10/13/2024 Address:[address] [place] [address] Subjective: * Chief Complaints: * * Medical History: Objective: * Vitals: Assessment: * Assessment: 1. C hronic kidney disease, stage 3 unspecified - N18.30 (Primary) 2 . T ype 2 diabetes mellitus with diabetic chronic kidney disease - E11.22 3 . E ssential hypertension - I10 4 . T obacco use - Z72.0 5 . C AD (coronary artery disease) - I25.10 6 . B lindness, one eye, unspecified eye - H54.40? 7. A cute bronchitis, unspecified - J20.9 8 . H eart failure, unspecified - I50.9 9 . P roteinuria, unspecified - R80.9 Plan: * Treatment: * Billing Information: * Visit Code: 21003 Office Visit, New Pt., Level 5. * Procedure Codes: * Electronic signature of Kate Álvarez MD on 06/28/2025 at 01:35 AM HAND SCUDDER Sign off status: Pending * Provider: Ebony PULIDO MD, F.A.C.P, F.A.S.N. Date: 0 10/13/2024 Generated for Printing/Faxing/eTransmitting on: 1 08/29/2024 01:35 AM HAND SCUDDER
--- OUTSIDE RECORDS SUMMARY | 2024-11-03 07:30 | XMS_ITS ---
Author Organization [facility] Address [address] [place] [address] Care Team Providers Care Distributor Operator Name Role Phone Henri Neno Unavailable [phone] Encounters Encounter Location Date Provider Diagnosis [place] [facility] [address] [facility] [address] [place] [address] 11/03/2024 Neno Álvarez Plan Of Treatment No Information Progress Notes * HANS ECKERTADOB:1955 (69 yo F)Acc No.[id number]:11/03/2024 Progress Notes Patient: SALAS CH Provider: Ebony PULIDO MD, F.Jhonatan.C.P, F.A.S.N. :1955 A ge:69 Y S ex:Female Date:11/03/2024 Address:[address] [place], [place] [phone] Subjective: * Chief Complaints: * * Medical History: Objective: * Vitals: Assessment: Plan: * Treatment: * Billing Information: * Visit Code: * Procedure Codes: * Electronic signature of Kate Álvarez MD on 06/28/2025 at 01:35 AM PORCELAIN FINISH SPRAYER Sign off status: Pending * Provider: Ebony PULIDO MD, F.Jhonatan.C.P, F.A.S.N. Date: 0 11/03/2024 Generated for Printing/Faxing/eTransmitting on: 08/29/2024 01:35 AM PORCELAIN FINISH SPRAYER
--- OUTSIDE RECORDS SUMMARY | 2024-11-24 07:00 | XMS_ITS ---
Author Organization [facility] Address [address] [place] [address] [place] [address] Care Team Providers Care Apiarist Name Role Phone Felix Álvarezjit Unavailable [phone] Problems Problem Type SNOMED Code ICD Code Onset Dates Problem Status W/U Status Risk Notes Problem Chronic kidney disease stage 2 (672276923) Chronic kidney disease, stage 2 (mild) (N18.2) Active confirmed Encounters Encounter Location Date Provider Diagnosis [place] [facility] [address] [facility] 15 [place] [address] 11/24/2024 Neno Álvarez Chronic kidney disease, stage 2 (mild) N18.2 ; Type 2 diabetes mellitus with diabetic chronic kidney disease E11.22 ; Essential hypertension I10 ; Tobacco use Z72.0 ; CAD (coronary artery disease) I25.10 ; Blindness, one eye, unspecified eye H54.40 ; Acute bronchitis, unspecified J20.9 ; Heart failure, unspecified I50.9 and Proteinuria, unspecified R80.9 Assessments Encounter Date Diagnosis (ICD Code) Assessment Notes Treatment Notes Treatment Clinical Notes Section Notes 11/24/2024 Chronic kidney disease, stage 2 (mild) (ICD-10 - N18.2) 11/24/2024 Type 2 diabetes mellitus with diabetic chronic kidney disease (ICD-10 - E11.22) 11/24/2024 Essential hypertension (ICD-10 - I10) 11/24/2024 Tobacco use (ICD-10 - Z72.0) 11/24/2024 CAD (coronary artery disease) (ICD-10 - I25.10) 11/24/2024 Blindness, one eye, unspecified eye (ICD-10 - H54.40) 11/24/2024 Acute bronchitis, unspecified (ICD-10 - J20.9) 11/24/2024 Heart failure, unspecified (ICD-10 - I50.9) 11/24/2024 Proteinuria, unspecified (ICD-10 - R80.9) Plan Of Treatment No Information Progress Notes * HANS ECKERTADOB:1955 (69 yo F)Acc No.[id number]:11/24/2024 Progress Notes Patient: SALAS CH Provider: Ebony PULIDO MD, Stephanie.Jhonatan.Madelin.P, F.A.S.N. :1955 A ge:69 Y S ex:Female Date:11/24/2024 Address:[address] [place], [place] [phone] Subjective: * Chief Complaints: * * Medical History: Objective: * Vitals: Assessment: * Assessment: 1. C hronic kidney disease, stage 2 (mild) - N18.2 (Primary) 2 . T ype 2 diabetes mellitus with diabetic chronic kidney disease - E11.22 3 . E ssential hypertension - I10 4 . T obacco use - Z72.0 5 . C AD (coronary artery disease) - I25.10 6 . B lindness, one eye, unspecified eye - H54.40 ? 7 . A cute bronchitis, unspecified - J20.9 8 . H eart failure, unspecified - I50.9 9 . P roteinuria, unspecified - R80.9 Plan: * Treatment: * Billing Information: * Visit Code: 87276 Office Visit, Est Pt., Level 4. * Procedure Codes: * Electronic signature of Kate Álvarez MD on 06/28/2025 at 01:35 AM BALANCING MACHINE OPERATOR Sign off status: Pending * Provider: Ebony PULIDO MD, F.Jhonatan.C.P, F.A.S.N. Date: 0 11/24/2024 Generated for Printing/Faxing/eTransmitting on: 1 08/29/2024 01:35 AM BALANCING MACHINE OPERATOR
--- OUTSIDE RECORDS SUMMARY | 2024-12-29 12:45 | XMS_ITS ---
Author Organization [facility] Address [address] [place] [address] Care Team Providers Care Cross Cut Sawyer Name Role Phone Henri Neno Unavailable [phone] Encounters Encounter Location Date Provider Diagnosis [facility] [place] [facility] [address] [place] [address] 12/29/2024 Neno Álvarez Plan Of Treatment No Information Progress Notes * HANS ECKERTLAURELB:1955 (69 yo F)Acc No.[id number]:12/29/2024 Progress Notes Patient: SALAS CH Provider: Ebony PULIDO MD, Stephanie.Jhonatan.C.P, F.A.S.N. :1955 A ge:69 Y S ex:Female Date:12/29/2024 Address:[address] [place], [place] [phone] Subjective: * Chief Complaints: * * Medical History: Objective: * Vitals: Assessment: Plan: * Treatment: * Billing Information: * Visit Code: * Procedure Codes: * Electronic signature of Kate Álvarez MD on 06/28/2025 at 01:34 AM VAMP STITCHER Sign off status: Pending * Provider: Ebony PULIDO MD, F.A.C.P, F.A.S.N. Date: 0 12/29/2024 Generated for Printing/Faxing/eTransmitting on: 08/29/2024 01:34 AM VAMP STITCHER
[2025-06-25 13:31] VITALS: BMI 28.2
--- OUTSIDE RECORDS SUMMARY | 2025-06-28 01:35 | XMS_ITS | Encounter Summary ---
Author Organization [facility] Address [address] [facility] [place] [address] Care Team Providers Care Relay Technician Name Role Phone Arelis Garcia DO Primary Care Provider [phone] Arelis Garcia DO Unavailable [phone] Reason for Visit * Reason Onset Date Comments MEDICATION REFILL 11/23/2022 Encounter Details Date Type Department Care Team (Late st Contact Info) Description 11/23/2022 Refill [facility] [address] [facility], [place] [address] Arelis Garcia DO [address] [place] [address] 2L DIV OF [facility] [place] [address] MEDICATION REFILL Social History Tobacco [...] on file Legal Sex Female 5:14 PM FISH DRIER Gender Identity Not on file Sexual Orientation Not on file 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 Mirela Leon Refill Request Mirela Montalvo Edward ABBY: 07/16/22 NOV scheduled: 12/02/2022 LRF: 10/12/22 [...] st Contact Info) Description 08/14/2025 10:50 AM FISH DRIER Office Visit [facility] - Internal Med [address] [place] [phone] Arelis Garcia DO [address] [place] [address] 2L DIV OF [facility] [place] [phone] 08/15/2025 10:30 AM FISH DRIER Office Visit [facility] - ENT [address] [place] [phone] Taco Mayer MD [address] [place] [address] DO[address] 3 [place] [address] 09/03/2025 10:20 AM FISH DRIER Office Visit [facility] - Endocrinology [address] [place] [address] Yeu Gomez APRN-PAMELA [address] [place] [address] [place] [phone] documented as of this encounter Goals Goal [...] type documented in this encounter Care Teams Relay Technician Relationship Specialty Start Date End Date Arelis Garcia DO [address] [place] [address] PCP - General 03/10/16 Arelis Garcia DO [address] OF [facility] [place] [address] PCP - Attributed-[facility] ISRAEL CHANDRA P4Hilda 12/18/23 documented as of this encounter
--- OUTSIDE RECORDS SUMMARY | 2025-06-28 01:35 | XMS_ITS | Encounter Summary ---
Author Organization [facility] Address [address] [facility] [place] [address] Care Team Providers Care Educational Institution Curator Name Role Phone Arelis Garcia DO Primary Care Provider [phone] Arelis Garcia DO Unavailable [phone] Reason for Visit * Reason Onset Date Comments MEDICATION REFILL 10/23/2023 Encounter Details Date Type Department Care Team (Late st Contact Info) Description 10/23/2023 Refill [facility] End[facility] [address] [place] [address], [facility] [place] [address] Angela Juarez DO [address] [place] [phone] MEDICATION REFILL Social History Tobacco Use [...] on file Legal Sex Female 5:14 PM MAIL DISTRIBUTOR Gender Identity Not on file Sexual Orientation Not on file 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 Not on file [...] st Contact Info) Description 08/14/2025 10:50 AM MAIL DISTRIBUTOR Office Visit [facility] Med [address] [facility], [place] [address] Arelis Garcia, DO [address] [facility] 2L DIV OF [facility] [place] [phone] 08/15/2025 10:30 AM MAIL DISTRIBUTOR Office Visit [facility] - ENT [address] [facility], [place] [phone] Taco Mayer MD [address] [facility] DOOR 3 [place] [address] 09/03/2025 10:20 AM MAIL DISTRIBUTOR Office Visit [facility] - Endocrinology [address] [place] [phone] Yue Gomez APRN-PHYSICIAN [facility] [address] [place] [address] [place] [phone] documented as of this encounter Goals Goal [...] on filedocumented in this encounter Care Teams Educational Institution Curator Relationship Specialty Start Date End Date Arelis Garcia DO [address] [place] [address] PCP - General 03/10/16 Arelis Garcia DO [address] [facility] 2L DIV OF [facility] [place] [phone] PCP - Attributed-[facility] ISRAEL CHANDRA P4P 12/18/23 documented as of this encounter
--- OUTSIDE RECORDS SUMMARY | 2025-06-28 01:35 | XMS_ITS | Encounter Summary ---
Author Organization [facility] Address [address] [facility] [address] Care Team Providers Care Craps Dealer Name Role Phone Arelis Garcia DO Primary Care Provider [phone] Arelis Garcia DO Unavailable [phone] Reason for Visit * Reason Onset Date Comments MEDICATION REFILL 09/06/2023 Encounter Details Date Type Department Care Team (Late st Contact Info) Description 09/06/2023 Refill [facility] [facility], [place] [address] Arelis Garcia DO [address] [place] [address] 2L DIV OF [facility] [place] [address] MEDICATION REFILL Social History Tobacco [...] on file Legal Sex Female 5:14 PM GAUGER DELIVERY Gender Identity Not on file Sexual Orientation Not on file 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 on file Not on file [...] st Contact Info) Description 08/14/2025 10:50 AM GAUGER DELIVERY Office Visit [facility] - Internal Med [address] [facility], [place] [address] Arelis Garcia DO [address] [facility] 2L DIV OF [facility] [place] [phone] 08/15/2025 10:30 AM GAUGER DELIVERY Office Visit [facility] - ENT [address] [facility], [place] [phone] Taco Mayer MD [address] [facility] DOOR 3 [place] [address] 09/03/2025 10:20 AM GAUGER DELIVERY Office Visit [facility] - Endocrinology [address] [place] [phone] Yue Gomez APRN-FINANCIAL WELLNESS COACH [address] [facility] [place] [phone] documented as of this encounter Goals Goal [...] type documented in this encounter Care Teams Craps Dealer Relationship Specialty Start Date End Date Arelis Garcia DO [address] [place] [address] PCP - General 03/10/16 Arelis Garcia DO [address] [facility] 2L DIV OF [place] [phone] PCP - Attributed-[facility] [place]EL CHANDRA P4P 12/18/23 documented as of this encounter
--- OUTSIDE RECORDS SUMMARY | 2025-06-28 01:35 | XMS_ITS | Encounter Summary ---
Author Organization [facility] Address [address] [facility] [place] [address] Care Team Providers Care Orthopedic Rn Name Role Phone Arelis Garcia DO Primary Care Provider [phone] Arelis Garcia DO Unavailable [phone] Encounter Details Date Type Department Care Team (Late st Contact Info) Description 12/06/2023 Telephone [facility] End[facility]ology [address] [facility] [place] [address] Yue Gomez APRN-PAMELA [address] [place] [phone] Social History Tobacco Use Types Packs/Day Years [...] on file Legal Sex Female 5:14 PM SUPERVISOR COVERING AND LINING Gender Identity Not on file Sexual Orientation [...] of Assessment Author No 08/06/2023 9:12 AM Shilpa Marino RN * Does person have difficulty [...] the ready. Thanks. Patient Call Back Number: [phone] documented in this encounter Plan of Treatment Upcoming Encounters Date Type Department Care Team (Late st Contact Info) Description 08/14/2025 10:50 AM SUPERVISOR COVERING AND LINING Office Visit [facility] - Internal Med [facility] [facility], [place] [address] Arelis Garcia DO [address] [facility] 2L DIV [place] [phone] 08/15/2025 10:30 AM SUPERVISOR COVERING AND LINING Office Visit [facility] - ENT [address] [place] [address], [place] [phone] [place] [address] [place] [address] DO[address] 3 [place] [address] 09/03/2025 10:20 AM SUPERVISOR COVERING AND LINING Office Visit [facility] - Endocrinology [address] [place] [address] Yue Gomez, BRENDA-PAMELA [address] [place] [address] [place] [phone] documented as of this encounter Goals Goal [...] on filedocumented in this encounter Care Teams Orthopedic Rn Relationship Specialty Start Date End Date Arelis Garcia DO [address] [place] [address] PCP - General 03/10/16 Arelis Garcia DO [address] OF [facility] [place] [phone] PCP - Attributed-[facility] ISRAEL CHANDRA P4P 12/18/23 documented as of this encounter
--- OUTSIDE RECORDS SUMMARY | 2025-06-28 01:35 | XMS_ITS | Clinical Summary ---
Author Organization [facility] Address [address] [place] [address] Care Team Providers Care Wood Stainer Name Role Phone Arelis Garcia DO Primary Care Provider [phone] Arelis Garcia DO Unavailable Source Comments [facility],non-owned Affiliates and Associated Physician Practices is amultiple site organization consisting of ambulatory clinics and hospital sitesin [place], [place], [place] and [place]. This disclosure is being madepursuant to the Care Everywhere program and may not contain all information available regarding this patient. Last updated 18.[facility] Allergies Active Allergy Reactions Criticality Noted Date [...] tablet by mouth once daily 025 Active zolpidem (Ambien) 5 MG tabletIndication s:Insomnia, unspecified type Take 1 (one) tablet by mouth nightly as needed FOR INSOMNIA 30 tablet 025 Active B-D UF III MINI PEN [...] complication, with long-term current use of insulin ([facility]) INJECT SUBCUTANEOUSLY 85 UNITS DAILY DIRECTED 90 mL 2 025 Active HumaLOG KwikPen 100 UNIT/ML penIndications:T ype 2 diabetes mellitus with other specified complication, with long-term current use of insulin ([facility]) INJECT 20 UNITS UNDER THE SKIN THREE TIMES DAILY BEFORE MEALS, USE IN CASE OF PUMP MALFUNCTION 18 mL 025 Active blood glucose (Accu-Chek Guide) test stripIndications :Type 2 diabetes mellitus with other specified complication, with long-term current use of insulin (HCC),Uncontroll ed type 2 diabetes mellitus with hyperglycemia (HCC) Use 1 (one) strip 4 times daily - before meals & nightly 200 strip 11 025 Active SOFTCLIX LANCETS MISCIndications: Type 2 diabetes mellitus with other specified complication, with long-term current use of insulin (HCC),Uncontroll ed type 2 diabetes mellitus with hyperglycemia (HCC) Use 1 Each 4 times daily - before meals & nightly 200 Each 11 025 Active Blood Glucose Monitoring Suppl (Accu-Chek Guide) w/Device KITIndications:T ype 2 diabetes mellitus with other specified complication, with long-term current use of insulin (HCC),Uncontroll ed type 2 diabetes mellitus with hyperglycemia (HCC) Use 1 Each as directed 1 Each 025 Active Insulin Disposable Pump (Omnipod 5 Libre2 Plus G6 Pods) MISCIndications: Uncontrolled type 2 diabetes mellitus with hyperglycemia (HCC) Use 1 Each every 3 days 30 Each 3 025 Active Insulin Disposable Pump (Omnipod 5 Libre2 G6 Intro Gen5) KITIndications:U ncontrolled type 2 diabetes mellitus with hyperglycemia (HCC) Use 1 Each continuous 1 kit 025 Active insulin glargine (Lantus/Semglee) 100 units/mL penIndications:U ncontrolled type 2 diabetes mellitus with hyperglycemia (HCC) Inject 90 (ninety) Units subcutaneously at bedtime 30 mL 5 025 Active FreeStyle Blane 2 Plus Sensor MISCIndications: Uncontrolled type 2 diabetes mellitus with hyperglycemia (HCC) Use 1 (one) Each every 15 days 025 Active FreeStyle Blane 2 Plus Sensor MISCIndications: Uncontrolled type 2 diabetes mellitus with hyperglycemia (HCC) Use 1 (one) Each every 15 days 2 Each 11 025 Active DULoxetine (Cymbalta) 30 MG capsule Take 1 (one) capsule by mouth at bedtime for 90 days 30 capsule 2 025 2024 Discontinued(L ist Clean-Up) insulin glargine (Lantus SoloStar) penIndications:U ncontrolled type 2 diabetes mellitus with hyperglycemia (HCC) Inject 40 (forty) Units subcutaneously at bedtime 15 mL 5 025 2024 Discontinued(C lizical Decision) HumaLOG KwikPen 100 UNIT/ML penIndications:T ype 2 diabetes mellitus with other specified complication, with long-term current use of insulin (HCC) INJECT 20 UNITS UNDER THE SKIN THREE [...] anemia 08/05/2023 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 Snoring Profile: [id number] snoring was detected during this study. Periodic [...] With ongoing chest pain since PCI in [facility]. Seen recently in ED and found to [...] PRN. Assessment & Plan (08/29/2020 2:58 PM TONGUE AND GROOVE MACHINE SETTER): HFrEF has lifevest will advance BB. HR today 105 bpm. she is to monitor bp/hr at home and report to me for upward titration of beta domi NPDR (nonproliferative diabetic retinopathy) 06/2018 Gastroesophageal reflux disease without esophagi tis 03/30/2017 Coronary arteriosclerosis in [place] artery 09/22 Overview (03/03/2022): Follows with outside cardiology, Carolina Hines at [place] ([facility]). H/o mild MN in 2000 per patient, angioplasty at time (done in [place], [place]). No stents. Assessment & Plan (06/22/2023 5:01 PM TONGUE AND GROOVE MACHINE SETTER): Stable SP STEMI 08/2020 with PCI to [...] time. Assessment & Plan (08/29/2020 2:55 PM TONGUE AND GROOVE MACHINE SETTER): S/P Recent STEMI with PCI continue DAPT GDMT Glaucoma 04/25/2016 Overview (10/18/2017): Legally blind left eye. Glaucoma. Follows with outside ophtho. Low serum C-peptide 03/10/2016 Osteopenia 01/21/2016 Hyperlipidemia 07/04/2015 Overview (10/18/2017): HDL 62 Assessment & Plan (06/22/2023 9:53 AM TONGUE AND GROOVE MACHINE SETTER): on 80 atorva recently LDL was 72 Recommend begin zetia. Check lipo (a) if not done previously along with apo B with lipid panel in one month Assessment & Plan (08/29/2020 2:56 PM TONGUE AND GROOVE MACHINE SETTER): On high intensity statin therapy. At goal [...] 01/31/2025 Assessment & Plan (06/22/2023 5:00 PM TONGUE AND GROOVE MACHINE SETTER): With recent visit to OSH in April. None since then. 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/2017 05/05/2023 Paresthesia of left upper limb 01/28/2017 03/10/2023 relief map modeler current use of insulin 03/10/2016 01/31/2025 Palpitations 07/19/1959 03/10/2023 Encounters Date Type Department Care Team Description 06/25/2025 8:00 AM TONGUE AND GROOVE MACHINE SETTER Office Visit [facility] - Endocrinology [place] [phone] Yue Gomez APRN-CNP Uncontrolled type 2 diabetes mellitus with hyperglycemia (HCC) (Primary Dx) 06/21/2025 Telephone [facility] - Endocrin[facility] [place] [phone] Yue Gomez APRN-CNP Care Management 06/11/2025 Telephone [facility]ocr[facility] [place] [address] Yue Gomez APRN-HOTEL DINING ROOM CASHIER Care Management 06/06/2025 Telephone [facility] Endocr[facility]ology [facility] [place] [address] Yue Gomez APRN-HOTEL DINING ROOM CASHIER Care Management 06/03/2025 Refill [facility] Endocr[facility] [place] [phone] Yue Gomez MANAGER CENTER-HOTEL DINING ROOM CASHIER Refill Request 05/09/2025 Refill [facility] Endocrinology [facility] [place] [phone] Yue Gomez APRN-HOTEL DINING ROOM CASHIER Refill Request 04/19/2025 Refill [facility] Endocrinology [facility] [place] [phone] Angela Juarez DO Refill Request 04/06/2025 Refill [facility] Endocr[facility] [place] [phone] Yue Gomez MANAGER CENTER-HOTEL DINING ROOM CASHIER Refill Request from Last 3 Months Immunizations Immunization Administration Dates Next Due Covwy AirXP primary monoval ent 12+ yr 0.3mL Purple [...] on file Legal Sex Female 5:14 PM TONGUE AND GROOVE MACHINE SETTER Gender Identity Not on file Sexual Orientation Not on file 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 Not on file Not on file Not o n file Last Filed Vital Signs Vital Sign Reading Time Taken Comments Blood Pressure 139/78 06/25/2025 8:13 AM TONGUE AND GROOVE MACHINE SETTER Pulse 69 06/25/2025 8:13 AM TONGUE AND GROOVE MACHINE SETTER Temperature 36.6 C (97.8 F) 06/25/2025 8:13 AM TONGUE AND GROOVE MACHINE SETTER Respiratory Rate 18 05/25/2024 10:28 AM TONGUE AND GROOVE MACHINE SETTER Oxygen Saturation 95% 06/25/2025 8:13 AM TONGUE AND GROOVE MACHINE SETTER Inhaled Oxygen Concentration 21% 11/04/2022 3 :20 AM CDT Weight 76.4 kg (168 lb 6.4 oz) 06/25/2025 8:13 A M TONGUE AND GROOVE MACHINE SETTER Height 165.1 cm (5' 5) 06/25/2025 8:13 AM TONGUE AND GROOVE MACHINE SETTER Body Mass Index 28.02 06/25/2025 8:13 AM TONGUE AND GROOVE MACHINE SETTER Plan of Treatment Upcoming Encounters Date Type Department Care Team (Late st Contact Info) Description 08/14/2025 10:50 AM TONGUE AND GROOVE MACHINE SETTER Office Visit [facility] - Internal Med [address] [place] [phone] Arelis Garcia DO [address] [place] [address] 2L DIV [place] [phone] 08/15/2025 10:30 AM TONGUE AND GROOVE MACHINE SETTER Office Visit [facility] - ENT [address] [place] [phone] Taco Mayer MD [address] [place] [address] 3 [place] [address] 09/03/2025 10:20 AM TONGUE AND GROOVE MACHINE SETTER Office Visit [facility] - Endocrinology [address] [place] [phone] Yue Gomez APRN-PAMELA [address] [place] [address] [place] [phone] Health Maintenance Due Date Last Done Comments [...] 01/07/2024 10/07/2023, , 04/06/2023, Additional history exists DEPRESSION SCREENING 07/19/2024 09/23/2023, 08/27/2021, 07/01/2021 MEDICARE AWV CALENDAR YEAR 2024 07/01/2021, 02/15/2020, 10/20/2018 DIABETES-FOOT EXAM WITH MONOFILAMENT 01/27/2025 01/28/2024 (Done Outside Per Report), 08/27/2021, 09/24/2020, Additional history exists COVID-19 VACCINE ( season) 2025 10/05/2024, 11/12/2022, 07/11/2021, Additional history exists INFLUENZA VACCINE (#1) 2025 , 05/26/2021, 05/09/2019, Additional history exists BONE DENSITY TESTING 03/04/2026 03/04/2021, 07/09/20 15 DIABETES RETINOPATHY SCREENING 04/23/2026 04/23/2025 (Done Outside Per Patient), 02/23/2023, 02/23/2023, Additional history exists DIABETES - URINE PROTEIN SCREENING 06/25/2026 06/25/2025, 05/05/2023, 11/09/2018, Additional history exists DIABETES-SERUM CREATININE 06/25/20262024, 10/10/2023, 08/06/2023, Additional history exists COLONOSCOPY - COLON CA SCREENING 07/20/2028 07/20/2018, [...] General On track( 11:49 AM CDT) Marsha Peterson RN Note: Expected end date: Ongoing Interventions: Your nurse will assess your risk for falls/injury each visit Use appropriate and safe transfer methods Medication Management General On track( 11:49 AM CDT) Marsha Peterson RN Note: Expected end date: Ongoing Interventions: Take all medications as prescribed Let your doctor know right away about any changes in your medications Medical Devices Implanted Type Area Party Demonstrator Device Identifier Shelf Expiration Date Model / Serial / Lot Sys Cor Stent Xience Srr 4mm 18mm Rap Ex Implanted:Qty: 1 on 08/19/2020 by Aron Brody MD at [facility] Stent Left: Coronary [employer]hat V[employer] 11/25/2021 [id number] Description:pLAD Sys Cor Stent Xience Srr 2.25mm 12mm Rap Implanted:Qty: 1 on 08/19/2020 by Aron Brody MD at [facility] Stent Left: Coronary [employer]hat [employer] 12/02/2021 [id number] Description:1st Diag Sys Cor Stent Xience Srr 3.5mm 15mm Rap Implanted:Qty: 1 on 08/19/2020 by Aron Brody MD at [facility] Stent Left: Coronary [employer]hat [employer] 10/28/2021 [id number] Description:mLAD Sys Cor Stent Xienceskpt 3.50mm 08mm Rap Implanted:Qty: 1 on 06/24/2021 by Aron Brody MD at [facility] Stent Left: Heart [employer]hat [employer] 09/30/2022 [id number] Sys Cor Stent Xienceskpt 3.0mm 15mm Rap Implanted:Qty: 1 on 06/24/2021 by Aron Brody MD at [facility] Stent Left: Heart [employer] 10/22/2022 [id number] Procedures Procedure Name Priority Date/Time Associated Diagnosis Comments TSH Routine 06/25/2025 10:08 AM TONGUE AND GROOVE MACHINE SETTER Uncontrolled type 2 diabetes mellitus with hyperglycemia (HCC) MICROALB/CREAT RATIO URINE RANDOM PANEL Routine 06/25/2025 10:08 AM TONGUE AND GROOVE MACHINE SETTER Uncontrolled type 2 diabetes mellitus with hyperglycemia (HCC) LIPID PROFILE Routine 06/25/2025 10:08 AM TONGUE AND GROOVE MACHINE SETTER Uncontrolled type 2 diabetes mellitus with hyperglycemia (HCC) CBC W AUTO DIFFERENTIAL Routine 06/25/2025 10:08 AM TONGUE AND GROOVE MACHINE SETTER Uncontrolled type 2 diabetes mellitus with hyperglycemia (HCC) COMPREHENSIVE METABOLIC PANEL Routine 06/25/2025 10:08 AM TONGUE AND GROOVE MACHINE SETTER Uncontrolled type 2 diabetes mellitus with hyperglycemia (HCC) HEMOGLOBIN A1C - POINT OF CARE (AMB) [facility] Routine 10/07/2023 9:03 AM CDT Type 2 diabetes mellitus with other specified complication, with long-term current use of insulin MAMMO BILAT DIAGNOSTIC W LOUISE Routine 08/13/2022 9:51 AM TONGUE AND GROOVE MACHINE SETTER Breast pain, right DEXA BONE DENSITY AXIAL SKELETON Routine 03/04/2021 1:41 PM CDT Osteoporosis screening Postmenopause ENDOSCOPY, COLON, SCREENING Routine 07/20/2018 10:51 AM TONGUE AND GROOVE MACHINE SETTER HEPATITIS C AB SCREEN RFLX NAAT QUANT Routine 02/15/2018 10:43 AM CDT Need for hepatitis C screening test from Last 3 Months or Most Recently Relevant to Health Maintenance Results * (ABNORMAL) MICROALB/CREAT RATIO URINE RANDOM PANEL (06/25/2025 10:08 AM TONGUE AND GROOVE MACHINE SETTER) Creatinine Urine 155.6 Not Estab. mg/dL [facility] INSURANCE BILL Microalbumin Urine 60.7 Not Estab. ug/mL [facility] INSURANCE BILL Microalbumin/Crea tinine Ratio 39(H) 0 - 29 mg/g creat [facility] INSURANCE BILL Comment: Normal: 0 - 29 Moderately increased: 30 - 300 Severely increased: >300 Urine URINE SPECIMEN OBTAINED BY CLEAN CATCH PROCEDURE / Unknown 06/25/2025 10:08 AM TONGUE AND GROOVE MACHINE SETTER 06/25/2025 Narrative [facility] INSURANCE BILL - 06/26/2025 11:11 AM TONGUE AND GROOVE MACHINE SETTER Performed at: - [facility] [id number] Thoracic Medicine Physician: Danis Richards PhD, Phone: [phone] Yue Gomez APRN-HOTEL DINING ROOM CASHIER LAB - URINE CHEMISTRY ORDERABLES Final Result [facility] INSURANCE BILL [address] [place] [address] * (ABNORMAL) CBC W/ DIFFERENTIAL (06/25/2025 10:08 AM TONGUE AND GROOVE MACHINE SETTER) WBC 4.7 3.4 - 10.8 x10E3/uL [facility] INSURANCE BILL Comment: Inadequately filled tube received. Whole blood to anticoagulant ratio may adversely affect results. RBC 4.22 3.77 - 5.28 x10E6/uL [facility] INSURANCE BILL Hemoglobin 14.1 11.1 - 15.9 g/dL [facility] INSURANCE BILL Hematocrit 42.3 34.0 - 46.6 % [facility] INSURANCE BILL MCV 100(H) 79 - 97 fL [facility] INSURANCE BILL MCH 33.4(H) 26.6 - 33.0 pg [facility] INSURANCE BILL MCHC 33.3 31.5 - 35.7 g/dL [facility] INSURANCE BILL RDW 12.2 11.7 - 15.4 % [facility] INSURANCE BILL Platelet Count 251 150 - 450 x10E3/uL [facility] INSURANCE BILL Granulocytes % 50 Not Estab. % [facility] INSURANCE BILL Lymphocytes % 39 Not Estab. % [facility] INSURANCE BILL Monocytes % 9 Not Estab. % [facility] INSURANCE BILL Eosinophils % 1 Not Estab. % [facility] INSURANCE BILL Basophils % 1 Not Estab. % [facility] INSURANCE BILL Granulocytes Absolute 2.3 1.4 - 7.0 x10E3/uL [facility] INSURANCE BILL Lymphocytes Absolute 1.9 0.7 - 3.1 x10E3/uL [facility] INSURANCE BILL Monocytes Absolute 0.4 0.1 - 0.9 x10E3/uL [facility] INSURANCE BILL Eosinophils Absolute 0.1 0.0 - 0.4 x10E3/uL [facility] INSURANCE BILL Basophils Absolute 0.0 0.0 - 0.2 x10E3/uL [facility] INSURANCE BILL Immature Granulocytes 0 Not Estab. % [facility] INSURANCE BILL Immature Granulocytes Absolute 0.0 0.0 - 0.1 x10E3/uL [facility] INSURANCE BILL Blood BLOOD SPECIMEN / Unknown 06/25/2025 10:08 AM TONGUE AND GROOVE MACHINE SETTER 06/25/2025 Narrative [facility] INSURANCE BILL - 06/26/2025 11:11 AM TONGUE AND GROOVE MACHINE SETTER Performed at: 01 - [address] [id number] Thoracic Medicine Physician: Danis Richards PhD, Phone: [phone] Yue Chingtney MANAGER CENTER-HOTEL DINING ROOM CASHIER LAB - HEMATOLOGY ORDER OSWALD Final Result [facility] INSURANCE BILL [address] [place] [address] * (ABNORMAL) COMPREHENSIVE METABOLIC PANEL (06/25/2025 10:08 AM TONGUE AND GROOVE MACHINE SETTER) Glucose 398(H) 70 - 99 mg/dL [facility] INSURANCE BILL BUN 15 8 - 27 mg/dL [facility] INSURANCE BILL Creatinine 1.13(H) 0.57 - 1.00 mg/dL [facility] INSURANCE BILL eGFR by CKD-EPI 53(L) >59 mL/min/1.7 3 [facility] INSURANCE BILL BUN/Creatinine Ratio 13 12 - 28 [facility] INSURANCE BILL Sodium 140 134 - 144 mmol/L [facility] INSURANCE BILL Potassium 4.7 3.5 - 5.2 mmol/L [facility] INSURANCE BILL Chloride 101 96 - 106 mmol/L [facility] INSURANCE BILL CO2 21 20 - 29 mmol/L [facility] INSURANCE BILL Calcium 9.8 8.7 - 10.3 mg/dL [facility] INSURANCE BILL Protein Total 7.1 6.0 - 8.5 g/dL [facility] INSURANCE BILL Albumin 4.5 3.9 - 4.9 g/dL [facility] INSURANCE BILL Globulin Total 2.6 1.5 - 4.5 g/dL [facility] INSURANCE BILL Bilirubin Total 0.4 0.0 - 1.2 mg/dL [facility] INSURANCE BILL Alkaline Phosphatase 136(H) 49 - 135 IU/L [facility] INSURANCE BILL AST 15 0 - 40 IU/L [facility] INSURANCE BILL ALT 19 0 - 32 IU/L [facility] INSURANCE BILL Blood BLOOD SPECIMEN / Unknown 06/25/2025 10:08 AM TONGUE AND GROOVE MACHINE SETTER 06/25/2025 Narrative [facility] INSURANCE BILL - 06/26/2025 1:10 PM TONGUE AND GROOVE MACHINE SETTER Performed at: 01 - [address] [id number] Thoracic Medicine Physician: Danis Richards PhD, Phone: [phone] Yue Gomez MANAGER CENTER-HOTEL DINING ROOM CASHIER LAB - CHEMISTRY ORDERA BLES Final Result [facility] INSURANCE BILL [address] [place] [address] * TSH (06/25/2025 10:08 AM TONGUE AND GROOVE MACHINE SETTER) TSH 0.817 0.450 - 4.500 uIU/mL [facility] INSURANCE BILL Blood BLOOD SPECIMEN / Unknown 06/25/2025 10:08 AM TONGUE AND GROOVE MACHINE SETTER 06/25/2025 Narrative [facility] INSURANCE BILL - 06/26/2025 1:10 PM TONGUE AND GROOVE MACHINE SETTER Performed at: - [facility] [address] [id number] Thoracic Medicine Physician: Danis Richards PhD, Phone: [phone] Yue Gomez MANAGER CENTER-HOTEL DINING ROOM CASHIER LAB - CHEMISTRY ORDERA BLES Final Result Performing Organization Address [facility] Co de Phone Number [facility] INSURANCE BILL [address] [place] [address] * (ABNORMAL) LIPID PROFILE (06/25/2025 10:08 AM TONGUE AND GROOVE MACHINE SETTER) Cholesterol 112 100 - 199 mg/dL [facility] INSURANCE BILL Triglycerides 89 0 - 149 mg/dL [facility] INSURANCE BILL HDL Cholesterol 37(L) >39 mg/dL [facility]URANCE BILL VLDL Calculated 17 5 - 40 mg/dL [facility] INSURANCE BILL LDL Calculated 58 0 - 99 mg/dL [facility] INSURANCE BILL Blood BLOOD SPECIMEN / Unknown 06/25/2025 10:08 AM TONGUE AND GROOVE MACHINE SETTER 06/25/2025 Narrative [facility] INSURANCE BILL - 06/26/2025 1:10 PM TONGUE AND GROOVE MACHINE SETTER Performed at: - [facility] [address] [id number] Thoracic Medicine Physician: Danis Richards PhD, Phone: [phone] Yue Gomez MANAGER CENTER-HOTEL DINING ROOM CASHIER LAB - CHEMISTRY ORDERA BLES Final Result Performing Organization Address City/[facility]/ZIP Co de Phone Number [facility] INSURANCE BILL [address] [place] [address] * HEMOGLOBIN A1C - POINT OF CARE (AMB) [facility] (10/07/2023 9:03 AM CDT) Hemoglobin A1c POCT 8.8 % [address] BLOOD SPECIMEN / Unknown 10/07/2023 9:03 AM CDT Yue Gomez MANAGER CENTER-HOTEL DINING ROOM CASHIER LAB - POINT OF CARE OR DERABLES Final Result [address] [place] [address], [facility] [phone] * (ABNORMAL) MAMMO BILAT DIAGNOSTIC W LOUISE (08/13/2022 9:51 AM TONGUE AND GROOVE MACHINE SETTER) Anatomical Region Laterality Modality Breast Bilateral Mammography 08/13/2022 11:3 2 AM TONGUE AND GROOVE MACHINE SETTER Addenda Addendum by Carrie Palacio MD on 09/24/2022 4:52 PM TONGUE AND GROOVE MACHINE SETTER Addendum by Carrie Palacio M.D. The addendum is to clarify the placement of the triangular marker. A triangular marker was placed by the technologist over the area of palpable concern. I visualized to the triangular marker on the mammogram. > Interpreting Provider: Carrie Palacio MD on 09/24/2022 4:50 PM Impressions 08/13/2022 11:41 AM TONGUE AND GROOVE MACHINE SETTER : 1. Right breast mass at the [...] 08/13/2022 11:41 AM Narrative 08/13/2022 11:41 AM TONGUE AND GROOVE MACHINE SETTER EXAMINATIONS: 1. DIGITAL MAMMO BILAT DIAGNOSTIC W [...] 20%). COMPARISON: Prior breast imaging studies from [facility], dated 03/04/2021 06/02/2019, and an prior outside studies dated 09/03/2015 from [facility] and 06/08/2011 05/01/2010 MAMMOGRAM: TECHNIQUE: [...] 20%). COMPARISON: Prior breast imaging studies from [facility],dated 03/04/2021 06/02/2019, and an prior outside studies dated 09/03/2015 from [facility] and 06/08/2011 05/01/2010 MAMMOGRAM: TECHNIQUE: [...] OVERALL ASSESSMENT: BI-RADS CATEGORY 4: SUSPICIOUS. (SUBSET [id number]: MODERATE SUSPICION FOR MALIGNANCY). > Interpreting Provider: Carrie Palacio MD on 08/13/2022 11:41 AM us Arelis Garcia DO MAMMO ORDERABLES Edited Resul t - Final * BONE DENSITY AXIAL SKELETON(1OR MORE SITES)[id number] (03/04/2021 1:41 PM CDT) Anatomical Region Laterality Modality Other 03/04/2021 3:46 PM CDT Narrative 03/07/2021 5:34 PM CDT EXAMINATION: Dual energy x-ray absorptiometry of the lumbar spine and hip. CLINICAL INDICATION: Z13.820: Osteoporosis screening Z78.0: Postmenopause. Patient's height 65 in; weight 182 lb. FINDINGS: Detailed data from the exam is sent separately to the ordering physician and is also available on [employer], the Radiology Department's computerized picture archive system. [...] Rhett Zhao on 03/04/2021 3:47 PM . IDr. GREG M.D. have personally reviewed and interpreted this [...] ordering physician and is also available on [employer], the Radiology Department's computerized picture archive system. [...] GREG SONG M.D. on03/07/2021 5:34 PM . Arelis Garcia DO DEXA ORDERABLES Final Result * ENDOSCOPY, COLON, SCREENING (07/20/2018 10:51 AM TONGUE AND GROOVE MACHINE SETTER) Report Endoscopy POC Endoscopy Department Report _ [...] bowel preparation was evaluated using the BBPS ([place] Bowel Preparation Scale) with scores of: Right [...] non-berger portions. Procedure Code(s): --- Professional --- 94929, Colonoscopy, flexible; with biopsy, single or multiple Diagnosis Code(s): --- Professional --- Z12.11, Encounter for screening for malignant neoplasm of colon Z80.0, Family history of malignant neoplasm of digestive organs K64.8, Other hemorrhoids K62.1, Rectal polyp D12.5, Benign neoplasm of sigmoid colon D12.4, Benign neoplasm of descending colon K64.4, Residual hemorrhoidal skin tags CPT copyright 2016 [employer]. All rights reserved. The codes documented in this report are preliminary and upon airplane coverer review may be revised to meet current compliance requirements. __ Jas Mejia MD 07/20/2018 1:00:45 PM Note Initiated On: 07/20/2018 10:51 AM Number of Addenda: [address] 07/20/2018 10:5 1 AM TONGUE AND GROOVE MACHINE SETTER Roma Burden MD GI PROCEDURE ORDERABLES Edited Result - Final Performing Organization Address [facility] Co de Phone Number [facility] * HEPATITIS C AB SCREEN RFLX PCR QUANT (02/15/2018 10:43 AM CDT) Hepatitis C Antibody Non-react stan Non-reac tive 02/15/2018 12:06 PM CDT [facility] Comment: Hepatitis C Antibody screen indicates [...] ORDERABLES Fi nal Result Performing Organization Address [facility]/ZIP Co de Phone Number [address] [phone] from Last 3 Months or Most Recently Relevant to Health Maintenance Insurance [facility] MANAGED MEDICARE ADV MEDICAID - OUT OF STATE [facility] MANAGED MEDICARE ADV MEDICARE Advance Directives * Full Code (Latest Code [...] 4:00 PM 06/26/2021 12:33 PM Care Teams Wood Stainer Relationship Specialty Start Date End Date Arelis Garcia DO [address] [place] [address] PCP - General 03/10/16 Arelis Garcia DO [address] OF [facility] [place] [id number] PCP - Attributed-[facility] CHANDRA P4P 12/18/23
--- OUTSIDE RECORDS SUMMARY | 2025-06-28 01:35 | XMS_ITS | Clinical Summary ---
Author Organization [facility] Address [address] [place] [address] Care Team Providers Care Pattern Fitter Name Role Phone Unavailable Primary Care Provider [...]
--- OUTSIDE RECORDS SUMMARY | 2025-06-28 01:35 | XMS_ITS | Encounter Summary ---
Author Organization [facility] Address [address] [facility] [address] Care Team Providers Care Fishing Rod Mechanic Name Role Phone Arelis Garcia DO Primary Care Provider [phone] Arelis Garcia DO Unavailable [phone] Reason for Visit * Reason Onset Date Comments MEDICATION REFILL 09/10/2024 Encounter Details Date Type Department Care Team (Late st Contact Info) Description 09/10/2024 Refill [facility] - Endocrinology [address] [place] [address] Yue Gomez APRN-PRIMARY THERAPIST [address] [place] [address] MEDICATION REFILL Social History Tobacco [...] on file Legal Sex Female 5:14 PM BAR BACK Gender Identity Not on file Sexual Orientation Not on file 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 Not on file Not on file [...] st Contact Info) Description 08/14/2025 10:50 AM BAR BACK Office Visit [facility] - Internal Med [address] [facility] [place] [address] Arelis Garcia DO [address] [facility] 2[address] DIV [place] [phone] 08/15/2025 10:30 AM BAR BACK Office Visit [facility] - ENT [address] [facility], [place] [phone] Taco Mayer MD [address] [facility] [address] [place] [address] 09/03/2025 10:20 AM BAR BACK Office Visit [facility] - Endocrinology [address] [place] [phone] Yue Gomez APRN-PRIMARY THERAPIST [address] [place] [address] [place] [phone] documented as of this encounter Goals Goal [...] (HCC) documented in this encounter Care Teams Fishing Rod Mechanic Relationship Specialty Start Date End Date Arelis Garcia DO [address] [place] [address] PCP - General 03/10/16 Arelis Garcia DO [address] [facility] [address] DIV [place] [address] PCP - Attributed-[facility] [place] CHANDRA P4P 12/18/23 documented as of this encounter
--- OUTSIDE RECORDS SUMMARY | 2025-06-28 01:35 | XMS_ITS | Data Portability ---
Author Organization CECILIA Vera SUÁREZ Address [address] [place] [address] Assessment No assessment recorded. Plan of Treatment Reminders Order Date Submit Date Provider Last Modified By Organization Details Last Modified Time Details Appointments None recorded. Lab BMP, serum or plasma 2015 016 DuettongOzmota [facility], [address] [place] [address], [address], [place], [address], 6 12:53:07 lipid panel, serum 2015 016 [facility]ettongOzmota [facility], [address] [place] [address], [address], [place], [address], 6 12:54:18 HbA1c (hemoglob in A1c), blood 2015 016 DuettongOzmota [facility], [address] [place] [address], [address], [place], [address], 6 12:54:18 ALT (alanine aminotran sferase), serum or plasma 2015 016 Duettongor [facility], [address] [place] [address], [address], [place], [address], 6 12:54:18 AST/SGOT (aspartat e aminotran sferase), serum or plasma 2015 016 Duettongor [facility], [address] [place] [address], [address], [place], [address], 6 12:54:18 unlisted lab - complianc e drug analysis, ur 2015 016 KAREEM [facility], [address], [address], [place], [address], 6 17:15:51 urinalysi s, dipstick 2015 016 marcos In-Office Order, Internal Use Only DO Not Attach Compendium DO Not Attach Compendium, Do Not Delete/merge, 1930[address] 15:30:16 HbA1c (hemoglob in A1c), blood 2014 016 KAREEM [facility], [address], [address], [place], [address], 6 08:34:45 urinalysi s, complete 2014 016 KAREEM [facility], [address], [address], [place], [address], 6 08:34:44 ALT (alanine aminotran sferase), serum or plasma 2014 016 KAREEM [facility], [address], [address], [place], [address], 6 08:34:47 AST/SGOT (aspartat e aminotran sferase), serum or plasma 2014 016 KAREEM [facility], [address], [address], [place], [address], 6 08:34:47 albumin, urine 2014 016 asavala [facility], [address], [address], [place], [address], 6 15:00:12 BMP, serum or plasma 2014 016 KAREEM [facility], [address] [facility], [address], [place], [address], 6 08:34:45 lipid panel, serum 2014 016 KAREEM [facility], [address] [facility], [address], [place], [address], 6 08:34:43 drug screen, 5 drugs, urine 2014 015 asavala [facility], [address] [facility], [address], [place], [address], 5 15:15:45 glucose, fingersti ck, blood 2014 015 oajao In-Office Order, Internal Use Only DO Not Attach Compendium DO Not Attach Compendium, Do Not Delete/merge, [id number] 5 17:06:22 Referral None recorded. Procedures None [...] By Organization Details Last Modified Time 08/19/2015 [id number] atrophic vaginitis: care instructions [email or web address] Not available [...] 08/19/192016 urina lysis , dipst ick Specific Hulbert 1.010 Not Available In-Off ice Order Internal Use Only DO Not Attach Compendium DO Not Attach Compendium, Do Not Delete/merge, [id number] 08/19/2015 14:52:50 08/19/19 16 08/19/2015 urina lysis [...] DO Not Attach Compendium, Do Not Delete/merge, [id number] 04/09/2015 16:30:04 02/14/20 15 02/14/2015 lipid panel , serum cholesterol, total 196 mg/dL 100-19 9 Not Available [facility] ([facility]) [address], [place], [address], 02/14/2015 06:20:29 02/14/20 15 02/14/2015 lipid panel , serum triglyceride s 65 mg/dL 0-149 Not Available [facility] ([facility]) [address] [facility], [place], [address], 02/14/2015 06:20:29 02/14/20 15 02/14/2015 lipid panel , serum HDL cholesterol 51 mg/dL >39 ACCOR DING TO ATP-I II GUIDE LINES , HDL-C >59 MG/DL IS CONSI DERED A NEGAT MILVIA RISK FACTO R FOR CHD. Not Available [facility] ([facility]) [address] [facility], [place], [address], 02/14/2015 06:20:29 02/14/20 15 02/14/2015 lipid panel , serum VLDL cholesterol brielle 13 mg/dL 5-40 Not Available [facility]) [address] [facility], [place], [address], 02/14/2015 06:20:29 02/14/20 15 02/14/2015 lipid panel , serum LDL cholesterol calc 132 mg/dL 0-99 above high normal Not Available [facility] ([facility]) [address] [place], [address], 02/14/2015 06:20:29 02/14/20 15 02/14/2015 lipid panel , serum comment: TERRAZZO GRINDER Not Available [facility] ([facility]) [address] [place], [address], 02/14/2015 06:20:29 02/14/20 15 02/14/2015 lipid panel , serum LDL/HDL ratio 2.6 ratio _unit s 0.0-3. 2 LDL/H DL RATIO MEN WOMEN 1/2 AVG.R ISK 1.0 1.5 AVG.R ISK 3.6 3.2 2X AVG.R ISK 6.2 5.0 3X AVG.R ISK 8.0 6.1 Not Available [facility] ([facility]) [address] [facility] [place], [address], 02/14/2015 06:20:29 02/14/20 15 02/14/2015 BMP, serum or plasm a glucose, serum 305 mg/dL 65-99 above high normal Not Available [facility] ([facility]) [address] [facility] [place], [address], 02/14/2015 06:20:29 02/14/20 15 02/14/2015 BMP, serum or plasm a BUN 8 mg/dL 6-24 Not Available [facility] ([facility]) [address] [facility] [place], [address], 02/14/2015 06:20:29 02/14/20 15 02/14/2015 BMP, serum or plasm a creatinine, serum 0.88 mg/dL 0.57-1 .00 Not Available [facility] ([facility]) [address] [facility], [place], [address], 02/14/2015 06:20:29 02/14/20 15 02/14/2015 BMP, serum or plasm a eGFR if nonafricn AM 72 mL/mi n/1.7 3 >59 Not Available [facility] ([facility]) [address] [facility], [place], [address], 02/14/2015 06:20:29 02/14/20 15 02/14/2015 BMP, serum or plasm a eGFR if africn AM 83 mL/mi n/1.7 3 >59 Not Available [facility] ([facility]) [address] [facility] [place], [address], 02/14/2015 06:20:29 02/14/20 15 02/14/2015 BMP, serum or plasm a BUN/creatini ne ratio 9 9-23 Not Available [facility] ([facility]) [address] [facility] [place], [address], 02/14/2015 06:20:29 02/14/20 15 02/14/2015 BMP, serum or plasm a sodium, serum 134 mmol/ L 134-14 4 Not Available [facility] ([facility]) [address] [place], [address], 02/14/2015 06:20:29 02/14/20 15 02/14/2015 BMP, serum or plasm a potassium, serum 4.7 mmol/ L 3.5-5. 2 Not Available [facility] ([facility]) [address] [place], [address], 02/14/2015 06:20:29 02/14/20 15 02/14/2015 BMP, serum or plasm a chloride, serum 94 mmol/ L 97-108 below low normal Not Available [facility] ([facility]) [address] [place], [address], 02/14/2015 06:20:29 02/14/20 15 02/14/2015 BMP, serum or plasm a carbon dioxide, total 22 mmol/ L 18-29 Not Available [facility] ([facility]) [address] [place], [address], 02/14/2015 06:20:29 02/14/20 15 02/14/2015 BMP, serum or plasm a anion gap 18.0 mEq/L 8.0-16 .0 above high normal Not Available [facility] ([facility]) [address] [place], [address], 02/14/2015 06:20:29 02/14/2002/14/2015 HbA1c (hemo globi n A1c), blood hemoglobin A1C 10.7 % 4.8-5. 6 above high normal INCRE ASED RISK FOR DIABE DEEP: 5.7 - 6.4 DIABE DEEP: >6.4 GLYCE BANDAR CONTR OL FOR ADULT S WITH DIABE DEEP: <7.0 Not Available [facility] ([facility]) [address] [place], [address], 02/14/2015 06:20:30 10/09/19 16 10/10/2015 lipid panel , serum cholesterol, total 215 mg/dL 100-19 9 above high normal Not Available [facility] ([facility]) [address] [facility], [place], [address], 10/10/2015 08:34:43 10/09/19 16 10/10/2015 lipid panel , serum triglyceride s 91 mg/dL 0-149 Not Available [facility]) [address] [facility], [place], [address], 10/10/2015 08:34:43 10/09/19 16 10/10/2015 lipid panel , serum HDL cholesterol 43 mg/dL >39 ACCOR DING TO ATP-I II GUIDE LINES , HDL-C >59 MG/DL IS CONSI DERED A NEGAT MILVIA RISK FACTO R FOR CHD. Not Available [facility] ([facility]) [address] [facility], [place], [address], 10/10/2015 08:34:43 10/09/19 16 10/10/2015 lipid panel , serum VLDL cholesterol brielle 18 mg/dL 5-40 Not Available [facility]) [address] [facility], [place], [address], 10/10/2015 08:34:43 10/09/19 16 10/10/2015 lipid panel , serum LDL cholesterol calc 154 mg/dL 0-99 above high normal Not Available [facility] ([facility]) [address] [place], [address], 10/10/2015 08:34:43 10/09/19 16 10/10/2015 lipid panel , serum comment: TERRAZZO GRINDER Not Available [facility] ([facility]) [address] [facility] [place], [address], 10/10/2015 08:34:43 10/09/19 16 10/10/2015 lipid panel , serum LDL/HDL ratio 3.6 ratio _unit s 0.0-3. 2 above high normal LDL/H DL RATIO MEN WOMEN 1/2 AVG.R ISK 1.0 1.5 AVG.R ISK 3.6 3.2 2X AVG.R ISK 6.2 5.0 3X AVG.R ISK 8.0 6.1 Not Available [facility] ([facility]) [address] [facility], [place], [address], 10/10/2015 08:34:43 10/09/19 16 10/10/2015 urina lysis , compl ete specific gravity 1.014 1.005- 1.030 Not Available [facility] ([facility]) [address] [facility], [place], [address], 10/10/2015 08:34:44 10/09/19 16 10/10/2015 urina lysis , compl ete pH 6.5 5.0-7. 5 Not Available [facility] ([facility]) [address] [facility], [place], [address], 10/10/2015 08:34:44 10/09/19 16 10/10/2015 urina lysis , compl ete urine-color YELLOW yellow Not Available [facility] ([facility]) [address] [place], [address], 10/10/2015 08:34:44 10/09/19 16 10/10/2015 urina lysis , compl ete appearance CLEAR clear Not Available [facility] ([facility]) [address] [facility], [place], [address], 10/10/2015 08:34:44 10/09/19 16 10/10/2015 urina lysis , compl ete WBC esterase 1+ negati ve abnormal Not Available [facility] ([facility]) [address] [place], [address], 10/10/2015 08:34:44 10/09/19 16 10/10/2015 urina lysis , compl ete protein NEGATI VE negati ve/tra ce Not Available [facility] ([facility]) [address] [place], [address], 10/10/2015 08:34:44 10/09/19 16 10/10/2015 urina lysis , compl ete glucose TRACE negati ve abnormal Not Available [facility] ([facility]) [address] [place], [address], 10/10/2015 08:34:44 10/09/19 16 10/10/2015 urina lysis , compl ete glucose reflex TERRAZZO GRINDER Not Available [facility] ([facility]) [address] [place], [address], 10/10/2015 08:34:44 10/09/19 16 10/10/2015 urina lysis , compl ete ketones NEGATI VE negati ve Not Available [facility] ([facility]) [address] [place], [address], 10/10/2015 08:34:44 10/09/19 16 10/10/2015 urina lysis , compl ete occult blood NEGATI VE negati ve Not Available [facility] ([facility]) [address] [place], [address], 10/10/2015 08:34:44 10/09/19 16 10/10/2015 urina lysis , compl ete bilirubin NEGATI VE negati ve Not Available [facility] ([facility]) [address] [place], [address], 10/10/2015 08:34:44 10/09/19 16 10/10/2015 urina lysis , compl ete urobilinogen ,semi-qn 1.0 mg/dL 0.2-1. 0 Not Available [facility] ([facility]) [address] [place], [address], 10/10/2015 08:34:44 10/09/19 16 10/10/2015 urina lysis , compl ete nitrite, urine NEGATI VE negati ve Not Available [facility] ([facility]) [address] [place], [address], 10/10/2015 08:34:44 10/09/19 16 10/10/2015 urina lysis , compl ete microscopic examination SEE BELOW: RAMIN AVILAI C WAS INDIC ATED AND WAS PERFO RMED. Not Available [facility] ([facility]) [address] [facility], [place], [address], 10/10/2015 08:34:44 10/09/19 16 10/10/2015 urina lysis , compl ete WBC 6-10 /hpf 0 - 5 abnormal Not Available [facility] ([facility]) [address] [place], [address], 10/10/2015 08:34:44 10/09/19 16 10/10/2015 urina lysis , compl ete RBC 0-2 /hpf 0 - 2 Not Available [facility] ([facility]) [address] [place], [address], 10/10/2015 08:34:44 10/09/19 16 10/10/2015 urina lysis , compl ete epithelial cells (non renal) 0-10 /hpf 0 - 10 Not Available [facility] ([facility]) [address] [facility], [place], [address], 10/10/2015 08:34:44 10/09/19 16 10/10/2015 urina lysis , compl ete epithelial cells (renal) TERRAZZO GRINDER Not Available [facility] ([facility]) [address] [place], [address], 10/10/2015 08:34:44 10/09/19 16 10/10/2015 urina lysis , compl ete casts TERRAZZO GRINDER Not Available [facility] ([facility]) [address] [place], [address], 10/10/2015 08:34:44 10/09/19 16 10/10/2015 urina lysis , compl ete cast type TERRAZZO GRINDER Not Available [facility] ([facility]) [address] [facility], [place], [address], 10/10/2015 08:34:44 10/09/19 16 10/10/2015 urina lysis , compl ete crystals TERRAZZO GRINDER Not Available [facility] ([facility]) [address], [place], [address], 10/10/2015 08:34:44 10/09/19 16 10/10/2015 urina lysis , compl ete crystal type TERRAZZO GRINDER Not Available [facility]) [address], [place], [address], 10/10/2015 08:34:44 10/09/19 16 10/10/2015 urina lysis , compl ete mucus threads PRESEN T not estab. Not Available [facility] ([facility]) [address], [place], [address], 10/10/2015 08:34:44 10/09/19 16 10/10/2015 urina lysis , compl ete bacteria FEW none seen/f ew Not Available [facility] ([facility]) [address], [place], [address], 10/10/2015 08:34:44 10/09/19 16 10/10/2015 urina lysis , compl ete yeast TERRAZZO GRINDER Not Available [facility] ([facility]) [address], [place], [address], 10/10/2015 08:34:44 10/09/19 16 10/10/2015 urina lysis , compl ete trichomonas TERRAZZO GRINDER Not Available [facility]) [address], [place], [address], 10/10/2015 08:34:44 10/09/19 16 10/10/2015 urina lysis , compl ete comment TERRAZZO GRINDER Not Available [facility] ([facility]) [address], [place], [address], 10/10/2015 08:34:44 10/09/19 16 10/10/2015 urina lysis , compl ete microscopic examination TERRAZZO GRINDER Not Available [facility]) [address] [place], [address], 10/10/2015 08:34:44 10/09/19 16 10/10/2015 BMP, serum or plasm a glucose, serum 222 mg/dL 65-99 above high normal Not Available [facility] ([facility]) [address] [place], [address], 10/10/2015 08:34:44 10/09/19 16 10/10/2015 BMP, serum or plasm a BUN 6 mg/dL 6-24 Not Available [facility] ([facility]) [address] [place], [address], 10/10/2015 08:34:44 10/09/19 16 10/10/2015 BMP, serum or plasm a creatinine, serum 0.84 mg/dL 0.57-1 .00 Not Available [facility] ([facility]) [address] [place], [address], 10/10/2015 08:34:44 10/09/19 16 10/10/2015 BMP, serum or plasm a eGFR if nonafricn AM 76 mL/mi n/1.7 3 >59 Not Available [facility] ([facility]) [address] [place], [address], 10/10/2015 08:34:44 10/09/19 16 10/10/2015 BMP, serum or plasm a eGFR if africn AM 88 mL/mi n/1.7 3 >59 Not Available [facility] ([facility]) [address] [place], [address], 10/10/2015 08:34:44 10/09/19 16 10/10/2015 BMP, serum or plasm a BUN/creatini ne ratio 7 9-23 below low normal Not Available [facility] ([facility]) [address] [place], [address], 10/10/2015 08:34:44 10/09/19 16 10/10/2015 BMP, serum or plasm a sodium, serum 142 mmol/ L 134-14 4 Not Available [facility] ([facility]) [address] [place], [address], 10/10/2015 08:34:44 10/09/19 16 10/10/2015 BMP, serum or plasm a potassium, serum 4.2 mmol/ L 3.5-5. 2 Not Available [facility] ([facility]) [address] [place], [address], 10/10/2015 08:34:44 10/09/19 16 10/10/2015 BMP, serum or plasm a chloride, serum 103 mmol/ L 97-108 Not Available [facility] ([facility]) [address] [place], [address], 10/10/2015 08:34:44 10/09/19 16 10/10/2015 BMP, serum or plasm a carbon dioxide, total 23 mmol/ L 18-29 Not Available [facility] ([facility]) [address] [place], [address], 10/10/2015 08:34:44 10/09/19 16 10/10/2015 BMP, serum or plasm a anion gap 16.0 mmol/ L 10.0-1 8.0 Not Available [facility] ([facility]) [address] [place], [address], 10/10/2015 08:34:44 10/09/19 16 10/10/2015 HbA1c (hemo globi n A1c), blood hemoglobin A1C 10.5 % 4.8-5. 6 above high normal PRE-D IABET ES: 5.7 - 6.4 DIABE DEEP: >6.4 GLYCE BANDAR CONTR OL FOR ADULT S WITH DIABE DEEP: <7.0 Not Available [facility] ([facility]) [address] [place], [address], 10/10/2015 08:34:45 10/09/19 16 10/10/2015 micro album in, urine microalbumin , urine 23.4 ug/mL 0.0-17 .0 above high normal Not Available [facility] ([facility]) [address] [facility], [place], [address], 10/10/2015 08:34:46 10/09/19 16 10/10/2015 AST/S GOT (aspa rtate amino trans feras e), serum or plasm a AST (SGOT) 16 IU/L 0-40 Not Available [facility] ([facility]) [address] [place], [address], 10/10/2015 08:34:47 10/09/19 16 10/10/2015 ALT (ariel ine amino trans feras e), serum or plasm a ALT (SGPT) 15 IU/L 0-32 Not Available [facility] ([facility]) [address] [facility], [place], [address], 10/10/2015 08:34:47 10/23/19 16 10/31/2015 drug scree [...] ===== === Not Available [facility] [address], [place], [address], 10/31/2015 17:15:51 10/23/19 16 10/31/2015 drug wander n, urine pdf . Not Available [facility] [address], [place], [address], 10/31/2015 17:15:51 09/03/19 16 09/03/2015 mammo gram, wander collins No observ ation record ed. [facility] [address], [place], [address], 10/15/2015 11:54:25 02/18/20 17 02/10/2017 US, rojelio bush, arter ial, upper extre mity No observ ation record ed. mariana Live MD [address], [place], [address], 02/17/2017 05:49:12 02/18/20 17 02/10/2017 US, rojelio bush, carot id arter y No observ ation record ed. mariana Live MD [address], [place], [address], 02/17/2017 05:48:01 09/22/19 19 09/21/2018 cardi ac stres s test No observ ation record ed. [facility] [address], [place], [address], 09/22/2018 05:25:27 09/24/19 19 09/23/2018 trans -thor acic echoc ardio gram (TTE) (PROC ) No observ ation record ed. [facility] [address], [place], [address], 09/23/2018 13:59:02 Result Notes None recorded. Problems Name Problem SNOMED Code Status Onset Date Resolution Date Notes Provider Name and Address Organization Details Recorded Time Numbness of tongue 73382627 Active Roslyn Alanis MA null, [place] - [place] 6 14:47:46 Neuropathy due to diabetes mellitus 937416267 Active Pamela Jones MD Attn: Lisa sheldon,[address] [facility], [place], [address], [facility] - SI 6 12:49:03 Coronary arterioscle rosis in [place] artery 2943394057278 Active ISRAEL Berry, [place] - [place] 6 14:47:46 Migraine 82053878 Active ISRAEL Berry, [place] - [place] 6 14:47:46 Atrophic vaginitis 42036825 Active Gentry Del Castillo null, [facility] SI 6 15:30:16 Uncontrolle d type 2 diabetes mellitus 279602858 Active Pamela Jones MD Attn: Lisa sheldon,[address] [facility], [place], [address], [facility] - SI 6 12:49:03 Neuropathy 394801425 Active Roslyn Alanis MA null, [place] - [place] 6 14:47:46 Disorder of lipid metabolism 198530711 Active Pamela Jones MD Attn: Accountin g,[address] [facility], [place], [address], [facility] - [facility] 6 12:49:03 Acute bronchitis 04867513 Active Roslyn Alanis MA [place], [facility] SI 14:47:46 Notes:Bad Cold 2 weeks My feet hurt real bad 58y/o BF who was last seen in this office 04/23/14, she presents with the above Problem Notes None recorded. Procedures Surgical History Date Name Laterality Status Provider Name and Address Organization Details Recorded Time 04/18/20 14 Most Recent Mammogram completed Roslyn Alanis MA [facility] 08/19/2015 14:50:25 07/19/18 86 Date of Last Pap Smear completed ISRAEL Berry [facility] 08/19/2015 14:48:45 07/19/18 86 Hysterectomy completed Roslyn Alanis MA [facility] 08/19/2015 14:50:51 03/28/19 78 Caesarean Section completed Elsie Ross MA [facility] 08/01/2014 11:50:00 01/03/19 77 Caesarean Section completed October ISRAEL Ross [facility] 08/01/2014 11:50:00 Eye Surgery completed October ISRAEL Ross [facility] 08/01/2014 11:50:00 Knee Surgery completed October ISRAEL Ross [facility] 08/01/2014 11:50:00 Tubal Ligation completed October ISRAEL Ross [facility] 08/01/2014 11:50:00 Imaging Results None recorded. Procedure Notes None recorded. Medical Equipment None Reported. Allergies Allergen ID Allergen Name Allergen Category Reaction Reaction Severity Criticality Documentation Date Start Date Code Code System Note Provider Name and Address Organization Details Recorded Time 41941 Product containin g penicilli n (product) medicatio n Not available Not available Not available 08/01/2014 00543 8001 SNOMED October Vandana [place], [place] - [facility] 5 11:50:01 Medications Name Sig Start Date Stop Date Status Note LastModified by Organization Details LastModified Time comfort ez mis [id number] er choice comfort ez insulin pen needles [id number] active Not Available Not Available Not Available litetouch mis [id number] touch pen needles [id number] short active Not Available Not Available Not Available Prescriptio n - New active Not Available Not Available Not Available alcohol prep padpharmaci st choice alcoholprep pads active Not Available Not Available Not Available pen needles mis 93yo8yh active Not Available Not Available Not Available [...] Updated DateTime 08/19/2015 165.1 cm 26 kg/m2 80889.409 72 g 106/74 mm[Hg] Roslyn Alanis [facility] 08/19/2015 14:56:19 Date Recorded Body weight Body temperature Heart rate Body mass index (BMI) Body height Respiratory rate Systolic And Diastolic Provider Name and Address Organization Details Last Updated DateTime 6 82290.2 2498 g 98.1 [degF] 80 /min 25.6 kg/m2 165.1 cm 20 /min 122/74 mm[Hg] [facility] 6 11:45:41 Date Recorded Respiratory rate Body weight Body height Body temperature Heart rate Body mass index (BMI) Systolic And Diastolic Provider Name and Address Organization Details Last Updated DateTime 5 22 /min 39057.7 4105 g 165.1 cm 98.5 [degF] 76 /min 27.5 kg/m2 142/84 mm[Hg] Elsie Ross [facility] 5 16:21:39 Date Recorded Respiratory rate Body weight Body height Body temperature Heart rate Body mass index (BMI) Systolic And Diastolic Provider Name and Address Organization Details Last Updated DateTime 5 20 /min 60368.7 4105 g 165.1 cm 98 [degF] 84 /min 27.5 kg/m2 138/88 mm[Hg] Elsie Ross [facility] 5 16:25:28 Date Recorded Respiratory rate Body weight Body height Body temperature Heart rate Body mass index (BMI) Systolic And Diastolic Provider Name and Address Organization Details Last Updated DateTime 5 20 /min 21033.1 8683 g 165.1 cm 98.7 [degF] 80 /min 26.5 kg/m2 134/82 mm[Hg] October ISRAEL Ross [place] - [facility] 5 11:24:27 Social History Question [...] or Bladder Problems N Thyroid Problems N Lung Disease N Depression N Blood Clots N GI Problems N Acne N Eating Disorder N Breast Problem N Anemia N Anesthesia Complications N Headaches/Migraines N Anxiety Disorder N Ovarian Cancer N Diabetes Y Muscle, Joint, or Bone Problems N Blood [...] completed Pamela Jones MD Attn: Accounting,[address] [place], [address], [facility] - SIF 04/09/2015 16:36:48 pneumococcal polysaccharide PPV23 2 completed Pamela Jones MD Attn: Accounting,[address], [place], [place], [address], [facility] 04/09/2015 16:38:34 zoster live 3 completed Pamela Jones MD Attn: Accounting,[address], [place], [address], [facility] 04/09/2015 17:07:12 Influenza, split virus, quadrivalent, preservative 5 completed Not Available [facility] 08/05/2019 02:44:47 Past Encounters Encounter ID Performer Location Encounter Start Date Encounter Closed Date Diagnosis/Indication Diagnosis SNOMED-CT Code Diagnosis ICD10 Code Diagnosis IMO Codes Diagnosis Note [id number] MD Brook Gomez (Adult Med) [address] [place] [address] 08/01/2014 11:24:51 08/01/2014 13:01:12 Uncontrolled type 2 diabetes mellitus [id number] On Lantus 81 units and Humalog 24 units bid, her HBA1C was 8.5 & 8.6, I will increase her Humalog to 27 units subcutaneo usly BID, continue Lantus at 81 as her last few FBS are 98 &102 in the last two days Neuropathy [id number] Most likely diabetic neuropathy , we will try her on Lyrica 50mg po TID again Disorder o f lipid metabolism 239877064 She is doing the best she can with her diet and follows the recommenda tions from the cementer machine joiner, Rina. She also has been compliant with her Crestor and Zetia Acute bronchitis [id number] MD Brook Gomez (Adult Med) [address] [place] [address] 10/05/2014 10:02:57 10/05/2014 10:56:56 Uncontrolled type 2 diabetes mellitus [id number] On Lantus 82 units and Humalog 26 units bid, her HBA1C was 8.9 which is worse, I will increase her Lantus to 84 and her Humalog to 28 units subcutaneo usly BID. Her blood sugars from her log book appear reasonable and we may consider having her see an Endocrinol ogist if there is no improvemen t when she is next seen. [id number] [facility] [address] [place] [phone] 03/12/2015 15:50:21 03/12/2015 17:03:52 Uncontrolled type 2 diabetes mellitus 179074529 On Lantus 84 units and Humalog 28 [...] FBS/RBS in one week Numbness of tongue 75250084 Possibly a side effect of one of her meds Disorder o f lipid metabolism 534852037 She is doing the best she can with her diet and follows the recommenda tions from the cementer machine joiner, Rina. She also has been compliant with her Crestor and Zetia Neuropathy due to diabetes mellitus 998823600 She only takes Lyrica prn due to its sedative side effects Coronary arteriosclerosis in [place] artery 1189620313 107 Screening mammography [id number] [facility] [address] [place] [address] 04/09/2015 16:12:33 04/10/2015 15:15:19 Influenza vaccine needed [id number] 106 Uncontroll ed type 2 diabetes mellitus 513578707 On Lantus 86 units and Humalog 34 [...] with her FBS/RBS in one week Migraine 32913644 She sheela quinteros continues to have multiple ER visits for her migraine headaches, she has failed Imitrex, and that may not be a viable option in view of her CVS disease. She is now on Amitriptyl ine and Hydrocodon e, she will be seeing Dr. Grimaldo and she will ask about other options. [id number] MD Brook Gomez (Adult Med) [address] [place] [address] 07/11/2015 11:12:57 07/11/2015 14:12:33 Uncontrolled type 2 diabetes mellitus [id number] E11.65 On Lantus 90 units HS and Humalog 37 units bid, her HBA1C was 8.9 , then 10.9 adn now ? She was seen by the endocrinol ogist, she will be following up again in September, labs were drawn and we will call the OSH for the results. Screening mammography 24 525055 Z12.31 Screening for osteoporosis 684482031 Z13.820 Bone density is pending? She states that she was told to start Calcium and Vitamin D Neuropathy due to diabetes mellitus 959566542 E11.40 Z51.81 She only takes Lyrica prn due to its sedative side effects, I have refilled it and a pain contract was signed, UDS with her next set of labs [id number] MD Brook Wolf (OCC THER) [address] [place] [id number] 08/19/2015 14:01:12 08/19/2015 17:02:55 Atrophic vaginitis 02010001 N95.2 [id number] MD Brook Gomez (Adult Med) [address] [place] [id number] 10/15/2015 11:26:21 10/15/2015 12:36:22 Uncontrolled type 2 diabetes mellitus 366299594 E11.65 Now on Lantus 36 units HS [...] be useful. Disorder o f lipid metabolism 291565113 E78.9 She is doing the best she can with her diet and follows the recommenda tions from her endocrinol ogist, ANDRÉS De La Vega. She was previously seen by the cementer machine joiner, Rina. She also has been compliant with her Crestor and Zetia, I will hope that her lipid panel will also improve once her diabetic control is better. Neuropathy due to diabetes mellitus 922573042 E11.40 Z51.81 She only takes Lyrica prn [...] MEDICARE OR MEDICARE REPLACEMENT PRIMARY) Mirela Leon [id number] Mirela Leon 10/23/2015 [place] [facility] Mirela Leon [id number] Mirela Leon 10/23/2015 1 [place] Mirela Leon [id number] Mirela Leon 01/12/2016 2 [place] WHEN MEDICARE OR MEDICARE REPLACEMENT PRIMARY) Mirela Leon [id number] Mirela Leon 10/23/2015 1 CARE IMPROVEMENT PLUS (MEDICARE REPLACEMENT/AD VANTAGE - PPO) Mirela Leon [id number] Mirela Leon 01/12/2016 1 [facility] (MEDICARE REPLACEMENT/AD VANTAGE - HMO) [id number] Mirela Leon [id number] Mirela Leon Notes Date Note Type Note [...] feet. Pamela Jones MD Attn: Accounting,[address] [place], [address], [facility] 03/13/2015 09:28:01 04/09/2015 text/html [...] urination. Pamela Jones MD Attn: Accounting,[address] [facility], [place], [address], [facility] 04/09/2015 17:37:13 07/11/2015 text/html DiabetesReported by PatientHPIFor [...] vision. Pamela Jones MD Attn: Accounting,[address] [facility], [place], [address], [facility] 07/11/2015 12:56:33 08/19/2015 text/html Vaginal/Vulvar ProblemReported by [...] as noted in the HPI Gentry talbot, [facility] 08/19/2015 17:02:09 10/15/2015 text/html Diabetes F/URepo rted [...] feet. Pamela Jones MD Attn: Accounting,[address] [place], [address], [facility] - ON LICENSE OF [facility] 10/15/2015 12:49:30 OBGyn Episode No OBEpisode recorded.
--- OUTSIDE RECORDS SUMMARY | 2025-06-28 01:35 | XMS_ITS | Encounter Summary ---
Author Organization [facility] Address [address] [facility] [place] [address] Care Team Providers Care Hr Administrative Assistant Name Role Phone Arelis Garcia DO Primary Care Provider [phone] Arelis Garcia DO Unavailable [phone] Encounter Details Date Type Department Care Team (Late st Contact Info) Description 09/29/2023 Telephone [facility] Med [facility] [facility], [place] [address] Arelis Garcia DO [address] [place] [address] DIV OF [facility] [place] [address] Social History Tobacco Use Types Packs/Day Years [...] on file Legal Sex Female 5:14 PM CUSTOMER SALES SPECIALIST Gender Identity Not on file Sexual Orientation Not on file 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 documented in this encounter Plan of Treatment Upcoming Encounters Date Type Department Care Team (Late st Contact Info) Description 08/14/2025 10:50 AM CUSTOMER SALES SPECIALIST Office Visit [facility] - Internal Med [address] [facility], [place] [address] Arelis Garcia DO [address] [facility] 2L DIV [place] [address] 08/15/2025 10:30 AM CUSTOMER SALES SPECIALIST Office Visit [facility] - ENT [address] [facility], [place] [address] Taco Mayer MD [address] [place] [address] DOOR 3 [place] [address] 09/03/2025 10:20 AM CUSTOMER SALES SPECIALIST Office Visit [facility] - Endocrinology [address] [place] [address] Yue Gomez, SENIOR SYSTEMS PROGRAMMER-HEATER INSTALLER [address] [facility] [place] [address] documented as of this encounter Goals Goal [...] on filedocumented in this encounter Care Teams Hr Administrative Assistant Relationship Specialty Start Date End Date Arelis Garcia DO [address] [place] [address] PCP - General 03/10/16 Arelis Garcia DO [address] OF [facility] [place] [address] PCP - Attributed-[facility] 12/18/23 documented as of this encounter
--- OUTSIDE RECORDS SUMMARY | 2025-06-28 01:35 | XMS_ITS ---
Author Organization [facility] Address [address] [facility] 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 Snoring Profile: Shuf-[id number] snoring was detected during this study. Periodic [...] PRN. Assessment & Plan (08/29/2020 2:58 PM PASTEURISER OPERATOR): HFrEF has lifevest will advance BB. HR today 105 bpm. she is to monitor bp/hr at home and report to me for upward titration of beta domi NPDR (nonproliferative diabetic retinopathy) 06/2018 Gastroesophageal reflux disease without esophagi tis 03/30/2017 Coronary arteriosclerosis in [place] artery 09/22 Overview (03/03/2022): Follows with outside cardiology, Carolina Hines at [facility] ([facility]). H/o mild TN in 2000 per patient, angioplasty at time (done in [place], [place]). No stents. Assessment & Plan (06/22/2023 5:01 PM PASTEURISER OPERATOR): Stable SP STEMI 08/2020 with PCI to [...] time. Assessment & Plan (08/29/2020 2:55 PM PASTEURISER OPERATOR): S/P Recent STEMI with PCI continue DAPT GDMT Glaucoma 04/25/2016 Overview (10/18/2017): Legally blind left eye. Glaucoma. Follows with outside ophtho. Low serum C-peptide 03/10/2016 Osteopenia 01/21/2016 Hyperlipidemia 07/04/2015 Overview (10/18/2017): HDL 62 Assessment & Plan (06/22/2023 9:53 AM PASTEURISER OPERATOR): on 80 atorva recently LDL was 72 Recommend begin zetia. Check lipo (a) if not done previously along with apo B with lipid panel in one month Assessment & Plan (08/29/2020 2:56 PM PASTEURISER OPERATOR): On high intensity statin therapy. At goal [...] 01/31/2025 Assessment & Plan (06/22/2023 5:00 PM PASTEURISER OPERATOR): With recent visit to OSH in April. None since then. 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
--- OUTSIDE RECORDS SUMMARY | 2025-06-28 01:35 | XMS_ITS | Encounter Summary ---
Author Organization [facility] Address [address] [facility] [place] [address] Care Team Providers Care Senior Account Executive Name Role Phone Arelis Garcia DO Primary Care Provider [phone] Arelis Garcia DO Unavailable [phone] Reason for Visit * Reason Onset Date Comments MEDICATION REFILL 11/03/2023 Encounter Details Date Type Department Care Team (Late st Contact Info) Description 11/03/2023 Refill [facility]5 [facility], [place] [address] Arelis Garcia DO [address] [place] [address] 2L DIV OF [facility] [place] [address] MEDICATION REFILL Social History Tobacco [...] on file Legal Sex Female 5:14 PM PROFESSOR CRIMINAL JUSTICE Gender Identity Not on file Sexual Orientation [...] st Contact Info) Description 08/14/2025 10:50 AM PROFESSOR CRIMINAL JUSTICE Office Visit [facility] - Internal Med [address] [facility], [place] [address] Arelis Garcia DO 12[address] [facility] 2L DIV [place] [phone] 08/15/2025 10:30 AM PROFESSOR CRIMINAL JUSTICE Office Visit [facility] - ENT [address] [facility], [place] [phone] Taco Mayer MD [address] [facility] DOOR 3 [place] [address] 09/03/2025 10:20 AM PROFESSOR CRIMINAL JUSTICE Office Visit [facility] - Endocrinology [address] [place] [phone] Yue Gomez APRN-PAMELA [address] [facility] [place] [address] documented as of this encounter Goals Goal [...] filedocumented in this encounter Care Teams Senior Account Executive Relationship Specialty Start Date End Date Arelis Garcia DO [address] [place] [address] PCP - General 03/10/16 Arelis Garcia DO [address] [facility] 2L DIV OF [facility] [place] [address] PCP - Attributed-[facility] 12/18/23 documented as of this encounter
--- OUTSIDE RECORDS SUMMARY | 2025-06-28 01:35 | XMS_ITS | Encounter Summary ---
Author Organization [facility] Address [address] [facility] [place] [address] Care Team Providers Care Spooling Operator Name Role Phone Arelis Garcia DO Primary Care Provider [phone] Arelis Garcia DO Unavailable [phone] Reason for Visit * Reason Onset Date Comments MEDICATION REFILL 02/16/2018 Refill Request 02/17/2018 refill request Encounter Details Date Type Department Care Team (Late st Contact Info) Description 02/16/2018 Refill [facility] [address] [facility] [address] [place] [address] Arelis Garcia DO [address] [facility] 2L [facility] OF [facility] [place] [address] MEDICATION REFILL; Refill Request (refill request ) [...] on file Legal Sex Female 5:14 PM MARKETING SERVICES COORDINATOR Gender Identity Not on file Sexual Orientation [...] tablet losartan (COZAAR) 50 MG tablet Pharmacy [place] [facility] Located on [address] [facility] Thank you very much Lavonne MORA 02/15/18 NOV 08/18/18 documented in this encounter Plan of Treatment Upcoming Encounters Date Type Department Care Team (Late st Contact Info) Description 08/14/2025 10:50 AM MARKETING SERVICES COORDINATOR Office Visit [facility] - Internal Med [address] [place] [phone] Arelis Garcia, DO [address] [place] [address] OF [facility] [place] [address] 08/15/2025 10:30 AM MARKETING SERVICES COORDINATOR [facility] [address] [place] [address], [place] [address] Taco Mayer MD [address] [facility] LEVEL DOOR 3 DEPT [place] [address] 09/03/2025 10:20 AM MARKETING SERVICES COORDINATOR Office Visit [facility] - Endocrinology [address] [place] [phone] Yue Gomez APRN-ICE PLATFORM SUPERVISOR [address] [facility] [place] [address] documented as of this encounter Visit Diagnoses Not on filedocumented in this encounter Additional Health Concerns Infection Onset Date Last Indicated Resolved Time COVID-19 Under Investigation 10/21/2020 10/21/2020 10/21/2020 7:51 AM CDT COVID-19 Under Investigation 02/01/2021 02/01/2021 02/01/2021 10:32 PM CDT COVID-19 Under Investigation 03/07/2021 03/07/2021 03/07/2021 8:03 PM CDT documented as of this encounter Care Teams Spooling Operator Relationship Specialty Start Date End Date Arelis Garcia DO [address] [place] [address] PCP - General 03/10/16 Arelis Garcia DO [address] [facility] 2L DIV OF [place] [phone] PCP - Attributed-[facility] P4P 12/18/23 documented as of this encounter
--- OUTSIDE RECORDS SUMMARY | 2025-06-28 01:35 | XMS_ITS | Clinical Summary ---
Author Organization [facility] Address [facility] [place] [address] Care Team Providers Care Barrel Drainer Name Role Phone Unavailable Primary Care Provider [...]
--- OUTSIDE RECORDS SUMMARY | 2025-06-28 01:35 | XMS_ITS | Encounter Summary ---
Author Organization [facility] Address [address] [facility] [place] [address] Care Team Providers Care Quality Nurse Name Role Phone Arelis Garcia DO Primary Care Provider [phone] Arelis Garcia DO Unavailable [phone] Reason for Visit * Reason Onset Date Comments MEDICATION REFILL 04/10/2024 Encounter Details Date Type Department Care Team (Late st Contact Info) Description 04/10/2024 Refill [facility] Med [facility]5 [facility], [place] [address] Arelis Garcia DO [address] [place] [address] 2L DIV OF [facility] [place] [address] MEDICATION REFILL Social History Tobacco [...] on file Legal Sex Female 5:14 PM COLOR CONTROL OPERATOR Gender Identity Not on file Sexual Orientation Not on file 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 Answer Date of Assessment Author No 08/06/2023 9:12 AM Idalia Marino RN * Is person blind or have serious difficulty seeing? Answer Date of Assessment Author Yes 08/06/2023 9:12 AM Shilpa Marino RN * Does person have serious [...] Questionnaire -2 Score 0 04/13/2024 10:06 AM CDT Mendiola, Cristion na documented as of this encounter Mental Status * Does person have difficulty concentrating/remembering/making decisions? Answer Entry Date Author No 08/06/2023 9:12 AM COLOR CONTROL OPERATOR Idalia Herrera RN documented in this encounter Plan of Treatment Upcoming Encounters Date Type Department Care Team (Late st Contact Info) Description 08/14/2025 10:50 AM COLOR CONTROL OPERATOR Office Visit [facility] Med [address] [facility], [place] [phone] Arelis Garcia DO [address] [facility] 2L DIV OF GEN [place] [address] 08/15/2025 10:30 AM COLOR CONTROL OPERATOR Office Visit [facility] - ENT [address] [facility], [place] [phone] Taco Mayer MD [address] [facility] DOOR 3 DEPT [place] [address] 09/03/2025 10:20 AM COLOR CONTROL OPERATOR Office Visit [facility] - Endocrinology [address] [place] [address] Yue Gomez, BRENDA-JEWELRY SALES ASSOCIATE [address] [facility] DIV [place] [address] documented as of this encounter Goals Goal [...] on filedocumented in this encounter Care Teams Quality Nurse Relationship Specialty Start Date End Date Arelis Garcia DO [address] [place] [address] PCP - General 03/10/16 Arelis Garcia DO [address] OF [facility] [place] [phone] PCP - Attributed-[facility] P4P 12/18/23 documented as of this encounter
--- OUTSIDE RECORDS SUMMARY | 2025-06-28 01:35 | XMS_ITS | Encounter Summary ---
Author Organization [facility] Address [address] [facility] [place] [address] Care Team Providers Care Ground Water Technician Name Role Phone Arelis Garcia DO Primary Care Provider [phone] Arelis Garcia DO Unavailable [phone] Reason for Visit * Reason Onset Date Comments MEDICATION REFILL 10/18/2023 Encounter Details Date Type Department Care Team (Late st Contact Info) Description 10/18/2023 Refill [facility] Endocrinology [address] [place] [address], [facility] [place] [address] Angela Juarez DO [address] [place] [address] MEDICATION REFILL Social History Tobacco Use [...] on file Legal Sex Female 5:14 PM PACKAGING TECHNICIAN Gender Identity Not on file Sexual Orientation Not on file 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 Not on file Not [...] st Contact Info) Description 08/14/2025 10:50 AM PACKAGING TECHNICIAN Office Visit [facility] Med [address] [facility], [place] [address] Arelis Garcia, DO 12[address] [facility] 2L DIV OF [facility] [place] [address] 08/15/2025 10:30 AM PACKAGING TECHNICIAN Office Visit [facility] - ENT [address] [facility], [place] [phone] Taco Mayer MD 12[address] [facility] DOOR 3 DE[place] [address] 09/03/2025 10:20 AM PACKAGING TECHNICIAN Office Visit [facility] - Endocrinology [address] [place] [phone] Yue Gomez APRN-FOLDER STITCHER OPERATOR [address] [place] [address] DIV [place] [address] documented as of this encounter Goals Goal [...] on filedocumented in this encounter Care Teams Ground Water Technician Relationship Specialty Start Date End Date Arelis Garcia DO [address] [place] [address] PCP - General 03/10/16 Arelis Garcia DO 1225 [facility] 2L DIV OF [facility] [place] [phone] PCP - Attributed-[facility] P4P 12/18/23 documented as of this encounter
--- OUTSIDE RECORDS SUMMARY | 2025-06-28 01:35 | XMS_ITS | Patient Health Record ---
Author Organization [facility] Address [address] [facility] [address] [place] [address] Care Team Providers Care Proofer Apprentice Name Role Phone Neno Álvarez Unavailable [phone] Reason For Referral No Information Medications Medication SIG (Take, Route, Frequency, Duration) Notes Start Date End Date Status Ergocalciferol 1.25 MG (58394 UT) 1 capsule Orally Once a week; [...] Status Risk Notes Problem Diabetic renal disease (652650518) Type 2 diabetes mellitus with diabetic chronic kidney disease (E11.22) Active confirmed Problem Blindness, one eye, unspecified eye (H54.40) Active confirmed Problem Heart failure (25543335) Heart failure, unspecified (I50.9) Active confirmed Problem Acute bronchitis (49884931) Acute bronchitis, unspecified (J20.9) Active confirmed Problem Chronic kidney disease stage 2 (859835917) Chronic kidney disease, stage 2 (mild) (N18.2) Active confirmed Problem Proteinuria (52603624) Proteinuria, unspecified (R80.9) Active confirmed Problem Tobacco use (380673386) Tobacco use (Z72.0) Active confirmed Problem Essential hypertension (77828729) Essential hypertension (I10) Active confirmed Problem Coronary artery disease (40406190) CAD (coronary artery disease) (I25.10) Active confirmed Encounters Encounter Location Date Provider Diagnosis [place] [facility] [address] [facility] [address] [place] [address] 10/13/2024 Neno Álvarez Chronic kidney disease, stage 3 unspecified N18.30 ; Type 2 diabetes mellitus with diabetic chronic kidney disease E11.22 ; Essential hypertension I10 ; Tobacco use Z72.0 ; CAD (coronary artery disease) I25.10 ; Blindness, one eye, unspecified eye H54.40 ; Acute bronchitis, unspecified J20.9 ; Heart failure, unspecified I50.9 and Proteinuria, unspecified R80.9 [place] [facility] [address] [facility] [address] [place] [address] 11/24/2024 Neno Álvarez Chronic kidney disease, stage 2 (mild) N18.2 ; Type 2 diabetes mellitus with diabetic chronic kidney disease E11.22 ; Essential hypertension I10 ; Tobacco use Z72.0 ; CAD (coronary artery disease) I25.10 ; Blindness, one eye, unspecified eye H54.40 ; Acute bronchitis, unspecified J20.9 ; Heart failure, unspecified I50.9 and Proteinuria, unspecified R80.9 [facility] [place] [facility] [address] [place] [address] 11/24/2024 Neno Álvarez [facility] [place] [facility] [address] [place] [address] 11/24/2024 Neno Álvarez Assessments Encounter Date Diagnosis [...]
--- OUTSIDE RECORDS SUMMARY | 2025-06-28 01:35 | XMS_ITS | Encounter Summary ---
Author Organization [facility] Address [address] [facility] [place] [address] Care Team Providers Care Sales Office Assistant Name Role Phone Arelis Garcia DO Primary Care Provider [phone] Arelis Garcia DO Unavailable [phone] Reason for Visit * Reason Comments Refill Request Encounter Details Date Type Department Care Team (Late st Contact Info) Description 09/19/2022 Refill [facility] [address] [place], [place] [phone] Canelo Snow MD [id number] [place] [address] Refill Request Social History Tobacco Use Types [...] on file Legal Sex Female 5:14 PM HEAD OF SALES Gender Identity Not on file Sexual Orientation Not on file 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 Not on file [...] st Contact Info) Description 08/14/2025 10:50 AM HEAD OF SALES Office Visit [facility] - Internal Med [address] [facility], [place] [address] Arelis Garcia, DO [address] [place] [address] DIV OF [facility] [place] [address] 08/15/2025 10:30 AM HEAD OF SALES Office Visit [facility] - ENT [address] [facility], [place] [phone] Taco Mayer MD [address] [facility] DOOR 3 DEPT [place] [address] 09/03/2025 10:20 AM HEAD OF SALES Office Visit [facility] - Endocrinology [address] [place] [phone] Yue Gomez, BRENDA-CASH REGISTER REPAIRER [address] [facility] [place] [address] documented as of this encounter Goals Goal [...] filedocumented in this encounter Care Teams Sales Office Assistant Relationship Specialty Start Date End Date Arelis Garcia DO [address] [place] [address] PCP - General 03/10/16 Arelis Garcia DO [address] [facility] [address] DIV OF [facility] [place] [phone] PCP - Attributed-[facility] ISRAEL CHANDRA P4P 12/18/23 documented as of this encounter
--- OUTSIDE RECORDS SUMMARY | 2025-06-28 01:36 | XMS_ITS | Encounter Summary ---
Author Organization [facility] Address [address] [facility] [place] [address] Care Team Providers Care Choker Setter Name Role Phone Arelis Garcia DO Primary Care Provider [phone] Arelis Garcia DO Unavailable [phone] Encounter Details Date Type Department Care Team (Late st Contact Info) Description 11/16/2021 Ophth Exam [facility] [address] [place] [address] Abdi Matta MD [address] [address] Social History Tobacco Use Types Packs/Day Years [...] on file Legal Sex Female 5:14 PM JACQUARD LOOM HEDDLES TIER Gender Identity Not on file Sexual Orientation Not on file 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 Unable to assess 11/12/2021 4:27 PM CDT documented as of this encounter Functional Status * Functional and Cognitive Status Question Answer Date of Assessment Author Is person deaf or have cherry us hearing difficulty? No 11/16/2021 10:08 AM Isabela Gutierrez RN Is person blind or have seri ous difficulty seeing? Yes 11/16/2021 10:08 AM Isabela Gutierrez RN Does person have serious difficulty walking/climbing stairs? No 11/16/2021 10:08 AM Isabela Gutierrez RN Does person have difficulty dressing/bathing? No 11/16/2021 10:08 AM Isabela Gutierrez RN Does person have difficulty doing errands alone? No 11/16/2021 10:08 AM Leonardo Gutierrez RN Does person have difficulty concentrating/remembering/makin g decisions? No 11/16/2021 10:08 AM Isabela Gutierrez RN * Question Answer Date of Assessment Author Q1: How often do you have a drink containing alcohol? Never 11/16/2021 3:00 PM Manohar Gasca RN Q2: How many drinks containing alcohol do you have on a typical day when you are drinking? Patient does not drink 11/16/2021 3:00 PM Manohar Gasca RN Q3: How often do you have six or more drinks on one occasion? Never 11/16/2021 3:00 PM Manohar Gasca RN * AUDIT-C Score Answer Date of [...] st Contact Info) Description 08/14/2025 10:50 AM JACQUARD LOOM HEDDLES TIER Office Visit [facility] - Internal Med [facility] [place] [address] Arelis Garcia DO [address] [place] [address] [address] [facility] OF [facility] [place] [phone] 08/15/2025 10:30 AM JACQUARD LOOM HEDDLES TIER Office Visit [facility] - ENT [address] [place] [address], [place] [address] Taco Mayer MD [address] [place] DOOR [address] [place] [address] 09/03/2025 10:20 AM JACQUARD LOOM HEDDLES TIER Office Visit [facility] - Endocrinology [address] [place] [address] Jason Yue, MANAGER SALES SUPPORT-GAS STATION CLERK [address] [facility] [place] [address] documented as of this encounter Goals Goal [...] on filedocumented in this encounter Care Teams Choker Setter Relationship Specialty Start Date End Date Arelis Garcia DO [address] [place] [address] PCP - General 03/10/16 Arelis Garcia DO [address] [facility] 2L [place] [phone] PCP - Attributed-[facility] CHANDRA P4P 12/18/23 documented as of this encounter
--- OUTSIDE RECORDS SUMMARY | 2025-06-28 01:36 | XMS_ITS | Encounter Summary ---
Author Organization [facility] Address [address] [facility] [place] [address] Care Team Providers Care Shower Maid Name Role Phone Arelis Garcia DO Primary Care Provider [phone] Arelis Garcia DO Unavailable [phone] Encounter Details Date Type Department Care Team (Late st Contact Info) Description 11/17/2021 Ophth Exam [facility] [address] [place] [address] Nahomy Landry MD [address] [place] [address] [address] [place] [phone] Social History Tobacco Use Types Packs/Day Years [...] on file Legal Sex Female 5:14 PM MANAGER STERILE PROCESSING Gender Identity Not on file Sexual Orientation Not on file 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 Not on file Not on file [...] 10:08 AM CDT Isabela Hollins RN * Does person have difficulty doing [...] st Contact Info) Description 08/14/2025 10:50 AM MANAGER STERILE PROCESSING Office Visit [facility] - Internal Med [address] [facility], [place] [phone] Arelis Garcia DO [address] [facility] 2L DIV OF [facility] [place] [address] 08/15/2025 10:30 AM MANAGER STERILE PROCESSING Office Visit [facility] - ENT [address] [facility], [place] [phone] Taco Mayer MD [address] [facility] DOOR 3 [place] [address] 09/03/2025 10:20 AM MANAGER STERILE PROCESSING Office Visit [facility] - Endocrinology [address] [place] [phone] Yue Gomez APRN-PAMELA [address] [facility] [place] [address] documented as of this encounter Goals Goal Patient Goal Type Associated Problems Recent Progress Patient-Stated? Author Safety General On track( 11:49 AM CDT) Marsha Peterson, RN Note: Expected end date: Ongoing Interventions: Your nurse will assess your risk for falls/injury each visit Use appropriate and safe transfer methods Medication Management General On track( 11:49 AM CDT) Marhsa Peterson, RN Note: Expected end date: Ongoing Interventions: Take all medications as prescribed Let your doctor know right away about any changes in your medications documented as of this encounter Visit Diagnoses Not on filedocumented in this encounter Care Teams Shower Maid Relationship Specialty Start Date End Date Arelis Garcia DO [address] [place] [address] PCP - General 03/10/16 Arelis Garcia DO [address] OF [facility] [place] [address] PCP - Attributed-[facility]EL CHANDRA P4P 12/18/23 documented as of this encounter
--- OUTSIDE RECORDS SUMMARY | 2025-06-28 01:36 | XMS_ITS | Encounter Summary ---
Author Organization [facility] Address [address] [facility] [place] [address] Care Team Providers Care Public Relations Senior Associate Name Role Phone Arelis Garcia DO Primary Care Provider [phone] Arelis Garcia DO Unavailable [phone] Reason for Visit * Reason Onset Date Comments MEDICATION REFILL 09/08/2018 Appointment 09/08/2018 Encounter Details Date Type Department Care Team (Late st Contact Info) Description 09/08/2018 Refill [facility] [address] [address] Arelis Garcia DO [address] OF [facility] [place] [place] [phone] MEDICATION REFILL; Appointment Social History Tobacco Use Types Packs/Day Years Used Date Smoking Tobacco: Former Cigarettes 0.5 40 0 01/20/1974 - 01/20/2014 Smokeless Tobacco: Never Alcohol Use Standard Drinks/Week Comments No 0 (1 standard drink = 0.6 oz pur e alcohol) Comments No Sex and Gender Information Value Date Recorded Sex Assigned at Not on file Legal Sex Female 5:14 PM SWAT TEAM MEMBER Gender Identity Not on file Sexual Orientation Not on file documented as of this encounter Miscellaneous Notes * Telephone Encounter - Erin Mera - 09/21/2018 12:54 PM CST Spoke to patient NOV: 10/20/18 @ 9:[address] Garcia TEAM MEMBER * Telephone Encounter - Steph Howell - 09/08/2018 9:53 AM CST Pharmacy faxing in refill request for patient's lyrica. Medication attached. Allergies reviewed. ABBY:02-15-18 NOV: none at this time Message forwarded to [facility] scheduling to assist with scheduling a f/u visit. TEAM MEMBER documented in this encounter Plan of Treatment Upcoming Encounters Date Type Department Care Team (Late st Contact Info) Description 08/14/2025 10:50 AM SWAT TEAM MEMBER Office Visit [facility] - Internal Med [address] [place] [phone] Arelis Garcia DO [address] [place] [address] [address]L DIV OF [facility] [place] [phone] 08/15/2025 10:30 AM SWAT TEAM MEMBER Office Visit [facility] - ENT [address] [place] [phone] Taco Mayer MD [address] [place] [address] DO[address] [place] [address] 09/03/2025 10:20 AM SWAT TEAM MEMBER Office Visit [facility] - Endocrinology [address] [place] [address] Yue Gomez APRN-PAMELA [address] [place] [address] [place] [phone] documented as of this encounter Goals Goal [...] documented as of this encounter Care Teams Public Relations Senior Associate Relationship Specialty Start Date End Date Arelis Garcia DO [address] [place] [address] PCP - General 03/10/16 Arelis Garcia DO [address] OF [facility] [place] [place] [address] PCP - Attributed-[facility] ISRAEL CHANDRA P4P 12/18/23 documented as of this encounter
[2025-06-28 07:14] VITALS: BP 122/73; PULSE 64; RESP 18; TEMP 36.1; O2SAT 97
--- NOTE | 2025-06-28 08:04 | SUR.PREOP ---
blood sugar 318. Dr. Mccoy (anesthesiologist notified). Orders for pt to resume home insulin regimen on discharge. Pt states understanding.
[2025-06-28] MEDS: LACTATED RINGERS 1,000 ML 150 ML IV CONT (08:06)
--- NOTE | 2025-06-28 08:12 | WPDANESEPPF ---
Anes - Initial Pre Proc Eval Procedure: Operation Date: 06/28/25 08:30 Proposed Procedures p Esophagogastroduodenoscopy - Lavell Noguera MD Date/Time: 06/28/25 08:12 Surgeon: Lavell Noguera MD Pre Op Diagnosis: Gastro-esophageal reflux disease without esophagit Patient Data Age: 69 Gender: F Height: 1.65 m Weight: 77 kg Allergies Allergy/AdvReac Type Severity Reaction Status Date / Time Penicillins Allergy Intermediate unknown Verified 06/28/25 07:14 naproxen AdvReac Mild GI upset Verified 06/28/25 07:14 Home Medications ?Medication ?Instructions ?Recorded ?Confirmed ?Type amitriptyline 75 mg tablet See Rx Instructions .Route 12/06/24 06/25/25 Rx .COMPLEX #90 tabs atorvastatin 80 mg tablet 80 mg PO DAILY #90 tabs 12/06/24 06/25/25 Rx calcitriol 0.25 mcg capsule 0.25 mcg PO DAILY 12/06/24 06/25/25 History diclofenac sodium 1 % topical gel 2 g topical QID #100 grams 12/06/24 06/25/25 Rx divalproex 125 mg tablet,delayed 125 mg PO Q8H 12/06/24 06/25/25 History release duloxetine 30 mg capsule,delayed 30 mg PO ONCE #90 caps 12/06/24 06/25/25 Rx release furosemide 40 mg tablet 40 mg PO DAILY 12/06/24 06/25/25 History insulin glargine-yfgn 100 unit/mL 1 unit subcut QPM 12/06/24 06/25/25 History (3 mL) subcutaneous pen insulin lispro 100 unit/mL 1 sliding scale dose subcut DAILY 12/06/24 06/25/25 History subcutaneous solution (Humalog U-100 Insulin) metoprolol succinate 200 mg 200 mg PO ONCE #90 tabs 12/06/24 06/25/25 Rx tablet,extended release 24 hr rizatriptan 10 mg disintegrating 10 mg PO ONCE PRN migraine 12/06/24 06/25/25 Rx tablet headache #10 tabs spironolactone 25 mg tablet 25 mg PO DAILY 12/06/24 06/25/25 History ezetimibe 10 mg tablet 10 mg PO DAILY 01/23/25 06/25/25 History isosorbide mononitrate 30 mg 30 mg PO DAILY 01/30/25 06/25/25 History tablet,extended release 24 hr lidocaine 5 % topical patch 1 patch topical DAILY 01/30/25 06/25/25 History pregabalin 100 mg capsule 100 mg PO TID #270 caps 04/03/25 06/25/25 Rx sacubitril 97 mg-valsartan 103 mg 1 tablet PO ONCE #90 tabs 04/30/25 06/25/25 Rx tablet (Entresto) zolpidem 5 mg tablet 5 mg PO ONCE PRN insomnia #30 tabs 05/11/25 06/25/25 Rx cyclobenzaprine 10 mg tablet 10 mg PO TID PRN muscle spasm #90 06/13/25 06/25/25 Rx tabs mupirocin 2 % topical ointment 1 applic topical BID #22 grams 06/13/25 06/25/25 Rx (Centany) omeprazole 40 mg capsule,delayed 40 mg PO DAILY #30 caps 06/13/25 06/25/25 Rx release aspirin 81 mg tablet,delayed 81 mg PO DAILY 06/20/25 06/25/25 History release (Adult Aspirin Regimen) Laboratory Tests 06/28/25 07:41 POC Capillary Glucose 318 H mg/dl (65-105) Patient hx anesthesia problems: none Family hx anesthesia problems: none Results Review: All pre-operative results and documents have been reviewed as part of the pre-operative evaluation. [facility] Past Medical History Medical History (Updated 06/20/25 @ 09:10 by Usama Romeo DO) Legally blind Hypertension Heart disease Heart attack Headache GERD (gastroesophageal reflux disease) Diabetes Coronary artery disease CHF (congestive heart failure) Cancer of internal nose Arthritis Surgical History Surgical History H/O knee surgery H/O: hysterectomy History of delivery Stented coronary artery History of eye surgery Family History Family History Mother Heart disease Cerebrovascular accident Grandparent Diabetes mellitus Social History Social History Smoking packs per day: 0.2 Smoking cigarettes per day: 4.0 Years smoked: 50 Smoking pack-years: 10.00 Smoking status: Current every day smoker Tobacco type: cigarettes Second hand tobacco smoke exposure: Yes Alcohol intake: never Substance use: never Substance use type: does not use Lack of Transportation: YES Lack of Food: Never True Current Housing: I Have Housing Concerned About Future Housing: No Difficulty Paying Gas/Electric Bills: No Difficulty Paying for Meds: No Currently Unemployed: No Education: High School Diploma/GED Difficulty w/ Childcare or Family Care: No Living arrangements: with family Occupation/Education: unemployed Gender identity (if verbalized by the patient): Female Sexual Orientation (if Verbalized by the Patient): Straight or Heterosexual Spiritual care concerns: No Agree to blood products: Yes Anes - Eval Final PreProcedure Day of Procedure 06/28/25 08:12 Patient weight: normal Heart: regular rate and rhythm Lungs: clear to auscultation Airway: Mallampati scale class II Neurological: alert and oriented Last oral intake: >/= 8 hours ASA classification: III Emergent: no Anesthetic plan: proceed Anesthesia type and monitoring: general GIVS and standard monitoring Results Review: All pre-operative results and documents have been reviewed as part of the pre-operative evaluation. Informed Consent: The patient's anesthetic plan and its attendant risks and benefits were discussed with the patient/family/POA. Questions were solicited and answers provided to the satisfaction of the patient/family/POA.
--- NOTE | 2025-06-28 08:13 | WPDANESEPPF ---
Anes - Initial Pre Proc Eval Procedure: Operation Date: 06/28/25 08:30 Proposed Procedures p Esophagogastroduodenoscopy - Lavell Noguera MD Date/Time: 06/28/25 08:13 Surgeon: Lavell Noguera MD Pre Op Diagnosis: Gastro-esophageal reflux disease without esophagit Patient Data Age: 69 Gender: F Height: 1.65 m Weight: 77 kg Allergies Allergy/AdvReac Type Severity Reaction Status Date / Time Penicillins Allergy Intermediate unknown Verified 06/28/25 07:14 naproxen AdvReac Mild GI upset Verified 06/28/25 07:14 Home Medications ?Medication ?Instructions ?Recorded ?Confirmed ?Type amitriptyline 75 mg tablet See Rx Instructions .Route 12/06/24 06/25/25 Rx .COMPLEX #90 tabs atorvastatin 80 mg tablet 80 mg PO DAILY #90 tabs 12/06/24 06/25/25 Rx calcitriol 0.25 mcg capsule 0.25 mcg PO DAILY 12/06/24 06/25/25 History diclofenac sodium 1 % topical gel 2 g topical QID #100 grams 12/06/24 06/25/25 Rx divalproex 125 mg tablet,delayed 125 mg PO Q8H 12/06/24 06/25/25 History release duloxetine 30 mg capsule,delayed 30 mg PO ONCE #90 caps 12/06/24 06/25/25 Rx release furosemide 40 mg tablet 40 mg PO DAILY 12/06/24 06/25/25 History insulin glargine-yfgn 100 unit/mL 1 unit subcut QPM 12/06/24 06/25/25 History (3 mL) subcutaneous pen insulin lispro 100 unit/mL 1 sliding scale dose subcut DAILY 12/06/24 06/25/25 History subcutaneous solution (Humalog U-100 Insulin) metoprolol succinate 200 mg 200 mg PO ONCE #90 tabs 12/06/24 06/25/25 Rx tablet,extended release 24 hr rizatriptan 10 mg disintegrating 10 mg PO ONCE PRN migraine 12/06/24 06/25/25 Rx tablet headache #10 tabs spironolactone 25 mg tablet 25 mg PO DAILY 12/06/24 06/25/25 History ezetimibe 10 mg tablet 10 mg PO DAILY 01/23/25 06/25/25 History isosorbide mononitrate 30 mg 30 mg PO DAILY 01/30/25 06/25/25 History tablet,extended release 24 hr lidocaine 5 % topical patch 1 patch topical DAILY 01/30/25 06/25/25 History pregabalin 100 mg capsule 100 mg PO TID #270 caps 04/03/25 06/25/25 Rx sacubitril 97 mg-valsartan 103 mg 1 tablet PO ONCE #90 tabs 04/30/25 06/25/25 Rx tablet (Entresto) zolpidem 5 mg tablet 5 mg PO ONCE PRN insomnia #30 tabs 05/11/25 06/25/25 Rx cyclobenzaprine 10 mg tablet 10 mg PO TID PRN muscle spasm #90 06/13/25 06/25/25 Rx tabs mupirocin 2 % topical ointment 1 applic topical BID #22 grams 06/13/25 06/25/25 Rx (Centany) omeprazole 40 mg capsule,delayed 40 mg PO DAILY #30 caps 06/13/25 06/25/25 Rx release aspirin 81 mg tablet,delayed 81 mg PO DAILY 06/20/25 06/25/25 History release (Adult Aspirin Regimen) Laboratory Tests 06/28/25 07:41 POC Capillary Glucose 318 H mg/dl (65-105) Patient hx anesthesia problems: none Family hx anesthesia problems: none Results Review: All pre-operative results and documents have been reviewed as part of the pre-operative evaluation. [facility] Past Medical History Medical History (Updated 06/20/25 @ 09:10 by Usama Romeo DO) Legally blind Hypertension Heart disease Heart attack Headache GERD (gastroesophageal reflux disease) Diabetes Coronary artery disease CHF (congestive heart failure) Cancer of internal nose Arthritis Surgical History Surgical History H/O knee surgery H/O: hysterectomy History of delivery Stented coronary artery History of eye surgery Family History Family History Mother Heart disease Cerebrovascular accident Grandparent Diabetes mellitus Social History Social History Smoking packs per day: 0.2 Smoking cigarettes per day: 4.0 Years smoked: 50 Smoking pack-years: 10.00 Smoking status: Current every day smoker Tobacco type: cigarettes Second hand tobacco smoke exposure: Yes Alcohol intake: never Substance use: never Substance use type: does not use Lack of Transportation: YES Lack of Food: Never True Current Housing: I Have Housing Concerned About Future Housing: No Difficulty Paying Gas/Electric Bills: No Difficulty Paying for Meds: No Currently Unemployed: No Education: High School Diploma/GED Difficulty w/ Childcare or Family Care: No Living arrangements: with family Occupation/Education: unemployed Gender identity (if verbalized by the patient): Female Sexual Orientation (if Verbalized by the Patient): Straight or Heterosexual Spiritual care concerns: No Agree to blood products: Yes Anes - Eval Final PreProcedure Day of Procedure 06/28/25 08:13 Patient weight: normal Heart: regular rate and rhythm Lungs: clear to auscultation Airway: Mallampati scale class II Neurological: alert and oriented Last oral intake: >/= 8 hours ASA classification: IV Emergent: no Anesthetic plan: proceed Anesthesia type and monitoring: general GIVS and standard monitoring Results Review: All pre-operative results and documents have been reviewed as part of the pre-operative evaluation. Informed Consent: The patient's anesthetic plan and its attendant risks and benefits were discussed with the patient/family/POA. Questions were solicited and answers provided to the satisfaction of the patient/family/POA.
--- NOTE | 2025-06-28 08:15 | P.HP_ITS ---
History of Present Illness History of Present Illness Consent: Risks, benefits, and alternatives have been discussed and questions answered. Patient agrees to proceed with procedure. Chief complaint: Gastro-esophageal reflux disease without esophagit Narrative: Mirela Leon is a 69 year old female with non cardiac chest pain and gerd Review of Systems Review of Systems: All systems reviewed & are unremarkable except as noted in HPI and below PMFSH Past Medical History Medical History (Updated 06/20/25 @ 09:10 by Usama Romeo, DO) Legally blind Hypertension Heart disease Heart attack Headache GERD (gastroesophageal reflux disease) Diabetes Coronary artery disease CHF (congestive heart failure) Cancer of internal nose Arthritis Surgical History Surgical History H/O knee surgery H/O: hysterectomy History of delivery Stented coronary artery History of eye surgery Family History Family History Mother Heart disease Cerebrovascular accident Grandparent Diabetes mellitus Social History Social History Smoking packs per day: 0.2 Smoking cigarettes per day: 4.0 Years smoked: 50 Smoking pack-years: 10.00 Smoking status: Current every day smoker Tobacco type: cigarettes Second hand tobacco smoke exposure: Yes Alcohol intake: never Substance use: never Substance use type: does not use Lack of Transportation: YES Lack of Food: Never True Current Housing: I Have Housing Concerned About Future Housing: No Difficulty Paying Gas/Electric Bills: No Difficulty Paying for Meds: No Currently Unemployed: No Education: High School Diploma/GED Difficulty w/ Childcare or Family Care: No Living arrangements: with family Occupation/Education: unemployed Gender identity (if verbalized by the patient): Female Sexual Orientation (if Verbalized by the Patient): Straight or Heterosexual Spiritual care concerns: No Agree to blood products: Yes Meds Home Medications and Allergies Home Medications ?Medication ?Instructions ?Recorded ?Confirmed ?Type amitriptyline 75 mg tablet See Rx Instructions .Route 12/06/24 06/25/25 Rx .COMPLEX #90 tabs atorvastatin 80 mg tablet 80 mg PO DAILY #90 tabs 11/1706/25/25 Rx calcitriol 0.25 mcg capsule 0.25 mcg PO DAILY 12/06/24 06/25/25 History diclofenac sodium 1 % topical gel 2 g topical QID #100 grams 12/06/24 06/25/25 Rx divalproex 125 mg tablet,delayed 125 mg PO Q8H 5 06/25/25 History release duloxetine 30 mg capsule,delayed 30 mg PO ONCE #90 cap s 12/06/24 06/25/25 Rx release furosemide 40 mg tablet 40 mg PO DAILY 12/06/2403/12 History insulin glargine-yfgn 100 unit/mL 1 unit subcut QPM 06/25/25 History (3 mL) subcutaneous pen insulin lispro 100 unit/mL 1 sliding scale dose subcut DAILY 12/06/24 06/25/25 History subcutaneous solution (Humalog U-100 Insulin) metoprolol succinate 200 mg 200 mg PO ONCE #90 tabs 06/25/25 Rx tablet,extended release 24 hr rizatriptan 10 mg disintegrating 10 mg PO ONCE PRN haley shy 12/06/24 06/25/25 Rx tablet headache #10 tabs spironolactone 25 mg tablet 25 mg PO DAILY 12/06/24 History ezetimibe 10 mg tablet 10 mg PO DAILY 01/23/2503/12 History isosorbide mononitrate 30 mg 30 mg PO DAILY 01/30/25 1 08/26/24 History tablet,extended release 24 hr lidocaine 5 % topical patch 1 patch topical DAILY 01/1606/25/25 History pregabalin 100 mg capsule 100 mg PO TID #270 caps 03/1906/25/25 Rx sacubitril 97 mg-valsartan 103 mg 1 tablet PO ONCE #90 tabs 04/30/25 06/25/25 Rx tablet (Entresto) zolpidem 5 mg tablet 5 mg PO ONCE PRN insomnia #3 0 tabs 05/11/25 06/25/25 Rx cyclobenzaprine 10 mg tablet 10 mg PO TID PRN muscle s pasm #90 06/13/25 06/25/25 Rx tabs mupirocin 2 % topical ointment 1 applic topical BID #2 2 grams 06/13/25 06/25/25 Rx (Centany) omeprazole 40 mg capsule,delayed 40 mg PO DAILY #30 ca ps 06/13/25 06/25/25 Rx release aspirin 81 mg tablet,delayed 81 mg PO DAILY 06/20/25 1 08/26/24 History release (Adult Aspirin Regimen) Allergies Allergy/AdvReac Type Severity Reaction Status Date / Time Penicillins Allergy Intermediate unknown Verified 06/28/25 07:14 naproxen AdvReac Mild GI upset Verified 06/28/25 07:14 Exam Const: General: comfortable and no acute distress HENMT: Face/Nose/Sinus: Normal nares present Eyes: General: appearance normal, both eyes and all related structures Neck: Neck: no JVD Resp: Auscultation: clear to auscultation bilaterally Cardio: Rate: regular rate Rhythm: regular rhythm GI: Inspection: non-distended GI Palp: Yes Soft to palpation Skin: General skin exam: normal color Extrem: General: normal to inspection Psych: Mental Status: mental status grossly normal Assessment and Plan Assessment and plan (1) GERD (gastroesophageal reflux disease): Qualifiers: Esophagitis presence: esophagitis presence not specified Qualified Code(s): K21.9 - Gastro-esophageal reflux disease without esophagitis Code(s): K21.9 - Gastro-esophageal reflux disease without esophagitis Status: Acute Assessment and Plan: egd with bx
--- NOTE | 2025-06-28 08:18 | S_PTH ---
PATIENT: Mirela Leon LOC: [facility]#:[id number] AGE/SX: 69/F ROOM: RE06/28/[address]: Lavell Noguera MD : 1955 BED: DIS: 06/28/2025 SPEC #: [id number] RECD: 06/28/25 09:20 STATUS: MADELIN HICKS #: [id number] FRANKIE: 06/28/25 08:[address]: Lavell Noguera DEPT: [facility] Surgical RECD BY: Lindsey Reis ENTERED: 06/28/25 09:21 SP TYPE: Surgical OTHR DR: Vinnie Miner MD Tissues: A - Gastric Biopsy B - Esophageal Biopsy Procedures: Hematoxylin and Eosin Stain Gross and Microscopic Level 4
[2025-06-28 08:20] VITALS: BP 128/66; PULSE 60; RESP 17; O2SAT 93
[2025-06-28 08:30] VITALS: BP 115/85; PULSE 61; RESP 18; O2SAT 100
--- NOTE | 2025-06-28 08:34 | SUR.PHASEII ---
Patient's post op blood sugar is 208 per dexcom meter.
[2025-06-28 08:40] VITALS: BP 120/64; PULSE 59; RESP 20; O2SAT 100
== END 2025-06-28 08:44 | disposition home or self-care (01) ==
PROVIDERS: PCP Family Medicine; Visit Provider Internal Medicine Gastroenterology
PROC: 0DJ08ZZ Inspection of Upper Intestinal Tract, Via Natural or Artificial Opening Endoscopic (ICD-10-PCS; CPT 43239; principal; 2025-06-28 08:30)
DX: K21.00 Gastro-esophageal reflux disease with esophagitis, without bleeding (principal); K29.70 Gastritis, unspecified, without bleeding; K31.84 Gastroparesis; R07.89 Other chest pain; H54.8 Legal blindness, as defined in USA; I25.10 Atherosclerotic heart disease of native coronary artery without angina pectoris; I50.9 Heart failure, unspecified; I11.0 Hypertensive heart disease with heart failure; F17.210 Nicotine dependence, cigarettes, uncomplicated; Z79.4 Long term (current) use of insulin; Z79.84 Long term (current) use of oral hypoglycemic drugs
CPT/HCPCS: 43239; 82948; 88305; J7120